=== PATIENT | female | born 1975 | race Caucasian/White ===

== ENCOUNTER 2022-12-06 19:47 | Outpatient (REF) | payer MEDICAID, SELFPAY ==
[2022-12-13 10:10] LABS: Age Gdln ACOG Testing Note (.); HPV Aptima Negative (Negative); IGP, Aptima HPV, rfx 16/18,45 Note (.)
== END 2022-12-06 19:48 | disposition home or self-care (01) ==
LOC: LAB 19:47
PROVIDERS: Visit Provider Physician Assistant
DX: Z01.419 Encounter for gynecological examination (general) (routine) without abnormal findings (principal)
CPT/HCPCS: 87624; G0145

== ENCOUNTER 2023-02-14 16:19 | Emergency (ER) | payer OTHER, MEDICAID, SELFPAY ==
[2023-02-14 16:21] VITALS: BP 139/70; PULSE 70; RESP 20; TEMP 36.6; O2SAT 100; BMI 28.3
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
[2023-02-14] MEDS: KETOROLAC TROMETHAMINE 10 MG TABLET PO (17:12)
[2023-02-14] MEDS: BACITRACIN OINTMENT 28.4 GM TUBE 1 APPLIC TOPICAL (17:12)
[2023-02-14] MEDS: ORPHENADRINE 60 MG/ 2 ML VIAL IM (17:12)
== END 2023-02-14 17:48 | disposition home or self-care (01) ==
PROVIDERS: Emergency Provider Emergency Medicine
DX: S60.221A Contusion of right hand, initial encounter (principal); S40.811A Abrasion of right upper arm, initial encounter; V43.62XA Car passenger injured in collision with other type car in traffic accident, initial encounter
CPT/HCPCS: 70450; 72125; 73060; 73090; 73130; 96372; 99285

== ENCOUNTER 2023-04-09 23:28 | Emergency (ER) | payer MEDICAID, SELFPAY ==
[2023-04-09 23:32] VITALS: BP 130/90; PULSE 70; RESP 17; TEMP 36.4; O2SAT 98; BMI 29.2
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
[2023-04-10] MEDS: 0.9 % SODIUM CHLORIDE 1,000 ML 1000 ML IV (00:08)
[2023-04-10] MEDS: METHYLPREDNISOLONE SOD SUCC PF 125 MG/2 ML VIAL IVP (00:09)
[2023-04-10] MEDS: KETOROLAC TROMETHAMINE 30 MG/ML VIAL IVP (00:09)
[2023-04-10] MEDS: ONDANSETRON PF 4 MG/2 ML VIAL IV (00:09)
[2023-04-10] MEDS: ACETAMINOPHEN 325 MG TABLET 975 MG PO (01:01)
[2023-04-10 01:40] VITALS: BP 114/68; PULSE 78; RESP 16; O2SAT 98
== END 2023-04-10 01:40 | disposition home or self-care (01) ==
PROVIDERS: Emergency Provider Emergency Medicine
DX: G43.909 Migraine, unspecified, not intractable, without status migrainosus (principal)
CPT/HCPCS: 96374; 96375; 99284; J2930

== ENCOUNTER 2023-04-29 15:18 | Outpatient (RCR) | payer OTHER, MEDICAID, SELFPAY | END 2023-06-09 09:00 | disposition home or self-care (01) | LOC: PT 15:18 | PROVIDERS: Visit Provider Psychiatry & Neurology Neurology | DX: G44.209 Tension-type headache, unspecified, not intractable (principal) | CPT/HCPCS: 97010; 97014; 97110; 97140; 97161 ==

== ENCOUNTER 2023-05-23 15:24 | Outpatient (OUT) | payer MEDICAID, SELFPAY ==
--- NOTE | 2023-05-23 15:27 | MM_ITS ---
Patient Name: ROYCE ARGUELLO MR#: [id number] : 1975 Exam Date: 05/23/2023 Ordering Doctor: RICH Garcia . RADIOLOGY REPORT PROCEDURE: MM TOMOSYNTHESIS SCREENING BI COMPARISON: MG MAMM SCREEN 3D JOEL CAD, 10/10/2021. MG MAMM SCREEN 3D JOEL CAD, 09/14/2020. INDICATIONS: Screening Calculator Name NCI Breast Cancer Risk Assessment Tool 5 Year Breast Cancer Risk 1.60% Lifetime Breast Cancer Risk 17.30% Personal Breast Cancer No Personal Ovarian Cancer No Treatments None Family Cancers Mother with breast cancer at age 69. LOCATION: [facility] BREAST COMPOSITION: Heterogeneously dense,which may obscure small masses. FINDINGS: DIAGNOSTIC CATEGORY 2--BENIGN FINDING. NO CHANGE FROM COMPARISON. Scattered benign-appearing calcifications are present. Scattered benign-appearing lymph nodes are present. RIGHT BREAST: No significant suspicious finding. LEFT BREAST: No significant suspicious finding. RECOMMENDATIONS: ROUTINE MAMMOGRAM AND CLINICAL EVALUATION IN 12 MONTHS. PLEASE NOTE: A NORMAL MAMMOGRAM DOES NOT EXCLUDE THE POSSIBILITY OF BREAST CANCER. A CLINICALLY SUSPICIOUS PALPABLE LUMP SHOULD BE BIOPSIED. Dictated by: Diony Wellington MD on 05/24/2023 at 08:32 Approved by: Diony Wellington MD on 05/24/2023 at 08:34
== END 2023-05-23 15:25 | disposition home or self-care (01) ==
LOC: MAMMO 15:24
PROVIDERS: Visit Provider Physician Assistant
DX: Z12.31 Encounter for screening mammogram for malignant neoplasm of breast (principal); Z80.3 Family history of malignant neoplasm of breast
CPT/HCPCS: 77063; 77067

== ENCOUNTER 2023-06-10 10:19 | Outpatient (RCR) | payer MEDICAID, SELFPAY | END 2023-07-04 10:13 | disposition home or self-care (01) | LOC: PT 10:19 | PROVIDERS: PCP Psychiatry & Neurology Neurology; Visit Provider Psychiatry & Neurology Neurology | DX: G44.209 Tension-type headache, unspecified, not intractable (principal) | CPT/HCPCS: 97014; 97140 ==

== ENCOUNTER 2023-09-29 17:03 | Emergency (ER) | payer MEDICAID, SELFPAY ==
[2023-09-29] VITALS (26 sets, daily range): BP systolic 115–137; BP diastolic 65–93; PULSE 70–92; TEMP 37.1; O2SAT 95–99; BMI 28.1
--- OUTSIDE RECORDS SUMMARY | 2023-09-29 17:10 | XMS_ITS | CCD ---
Author Organization [facility] Care Team Providers Care Glass Edger Name Role Phone PHYSICIAN, DEFAULT Unavailable Unavailable PHYSICIAN, DEFAULT Unavailable Unavailable Hercher, Malina L Unavailable Unavailable Hercher, Malina L Unavailable Unavailable Chuckie Oconnell Unavailable Unavailable Hercher, Malina L Unavailable Unavailable Hercher, Malina L Unavailable Unavailable Chuckie Oconnell Unavailable Unavailable Brionna Coronel Unavailable Lenin Adkins Unavailable Harmony Jerez Unavailable NO FAMILY, PHYSICIAN Primary Care Provider Unava ilable KIM JerezC Harmony Attending Provider RUDY Coronel Attending Provider [phone] MISC, DR GIBSON Admitting Unavailable MISC, DR GIBSON Attending Unavailable AUGUSTO, BRIONNA Primary Care Unavailable MISC, DR GIBSON Consulting Unavailable KARASIK, DR CRABTREE Admitting Unavailable KARASIK, DR CRABTREE Attending Unavailable AUGUSTO, BRIONNA Primary Care Unavailable KARASIK, DR CRABTREE Consulting Unavailable LINDENVELIA Admitting Unavailable LINDEN VELIA Attending Unavailable AUGUSTO, BRIONNA Primary Care Unavailable LINDEN, VELIA Consulting Unavailable AUGUSTO, BRIONNA Primary Care Unavailable MARKER, DR COHEN Admitting Unavailable MARKER, DR COHEN Attending Unavailable GRECHNYRICH Consulting Unavailable MARKER, DR COHEN Consulting Unavailable MARY SARAH Consulting Unavailable KARASIK, DR CRABTREE Admitting Unavailable KARASIK, DR CRABTREE Attending Unavailable AUGUSTO, BRIONNA Primary Care Unavailable KARASIK, DR CRABTREE Consulting Unavailable WEST, DR CHUCKIE Diaz Consulting Unavailable KARASIK, DR CRABTREE Admitting Unavailable KARASIK, DR CRABTREE Attending Unavailable AUGUSTO, BRIONNA Primary Care Unavailable KARASIK, DR CRABTREE Consulting Unavailable JANIE Hillman Attending Provider [phone] Savannah Hillman Unavailable NO FAMILY, PHYSICIAN Primary Care Unavailable Harmony Jerez Admitting Unavailable Harmony Jerez Attending Unavailable Brionna Coronel Attending Unavailable NO FAMILY, PHYSICIAN Primary Care Unavailable Brionna Coronel Admitting Unavailable Savannah Hillman Admitting Unavailable Savannah Hillman Attending Unavailable Janett Nugent Unavailable Augusto PERSONNEL RECRUITER-SOLUTION DEVELOPER, Brionna Primary Care Provide r MARLENI ZAVALA Attending Unavailable BRIONNA CORONEL Referring Unavailable BRIONNA CORONEL Primary Care Unavailable RAMYA COSME Attending Unavailable BRIONNA CORONEL Referring Unavailable AUGUSTO BRIONNA Primary Care Unavailable MARLENI ZAVALA Referring Unavailable BRIONNA CORONEL Primary Care Unavailable Allergies Allergy Classification Reported Allergen(s) Allergy Type Date of Onset Reaction(s) Facility (20 sources) amoxicillin; Translations: [amoxicillin] Drug Allergy 04-17-20 05 [facility] Repository (20 sources) erythromycin; Translations: [erythromycin] Drug Allergy 02-06-20 17 [facility] Repository (19 sources) Adhesive Tape Propensity to adverse reactions red and irritation [facility] Other (19 sources) Ciprofloxacin Drug Allergy hard to breath [facility] Other (20 sources) metroNIDAZOLE; Translations: [METRONIDAZOLE] Drug Allergy 04-02-20 19 hard to breath [facility] Other (3 sources) Adhesive agent; Translations: [ADHESIVE] Drug allergy (disorder) 04-02-20 19 [facility] Repository (1 source) Ciprofloxacin Drug Allergy [facility] Repository (1 source) Erythromycin Drug Allergy [facility] Repository (1 source) metroNIDAZOLE Drug Allergy [facility] Repository (4 sources) Adhesive agent Propensity to adverse reactions to drug 04-02-20 19 [facility] (7 sources) Azithromycin; Translations: [AZITHROMYCIN] Drug Allergy 04-02-20 19 Swelling, Rash [facility] (7 sources) Ciprofloxacin; Translations: [CIPROFLOXACIN HCL] Drug Allergy 04-02-20 19 [facility] (7 sources) Adhesive Tape-Silicones; Translations: [ADHESIVE TAPE-SILICONES] Propensity to adverse reactions to drug [facility] Medications Current Medications Medication Drug Class(es) Dates Sig (Normalized) Sig (Original) clobetasol propionate 0.0005 mg/mg topical ointment (1 source) Corticosteroid Start: 09-06-2023 End: 10-06-2023 clobetasoL (TEMOVATE) 0.05 % ointment Apply 1 Application topically 3 (three) times a day for 30 days. 60 g 0 09/06/2023 10/06/2023 Active cyproheptadine hydrochloride 4 mg oral tablet (5 sources) Start: 04-17-2021 dexamethasone 6 mg oral tablet (3 sources) Corticosteroid Start: 04-16-2022 take 1 tablet by mouth every twenty-four hours Dexamethasone 6 MG 1 tablet Orally Once a day for 5 day(s) Apr, Active dexamethasone 0.001 mg/mg / tobramycin 0.003 mg/mg ophthalmic ointment (2 sources) Aminoglycoside Antibacterial, Corticosteroid Start: 01-26-2022 TobraDex 0.3-0.1 % 1 application Ophthalmic twice a day for 5 days Jan, Active fluconazole 150 mg oral tablet (1 source) Azole Antifungal Start: 09-05-2023 End: 09-08-2023 take 1 tablet by mouth every other day fluconazole (DIFLUCAN) 150 mg tablet Take 1 tablet (150 mg total) by mouth every other day for 2 doses. 2 tablet 0 09/05/2023 09/08/2023 Active hydrocortisone 25 mg/ml topical cream (3 sources) Corticosteroid Start: 04-16-2022 Hydrocortisone 2.5 % 1 application Externally Once a day for 5 day(s) Apr, Active lidocaine hydrochloride 20 mg/ml mucous membrane topical solution (3 sources) Antiarrhythmic, Amide Local Anesthetic Start: 04-16-2022 Lidocaine Viscous 2% 5 ml swish around in mouth area and throat Mouth/Throat every 4 hours as needed Apr, Active phenazopyridine hydrochloride 200 mg oral tablet (2 sources) Start: 04-03-2022 take 1 tablet by mouth every eight hours Pyridium 200 MG 1 tablet after meals Orally Three times a day for 2 day(s) Mar, Active predniSONE 20 mg oral tablet (1 source) Start: 06-11-2023 take 1 tablet by mouth every twelve hours prednisone 20 MG 1 tablet Orally BID for 5 Jun, Active sulfacetamide sodium 0.1 mg/mg ophthalmic ointment (3 sources) Sulfonamide Antibacterial Start: 08-10-2021 Sulfacetamide Sodium 10 % 1 application Externally tid for 5 day(s) Aug, Active SUMAtriptan 50 mg oral tablet (3 sources) Serotonin-1b and Serotonin-1d Receptor Agonist SUMAtriptan (IMITREX) 50 mg tablet Take 1 tablet (50 mg total) by mouth once as needed for migraine. May repeat in 2 hours if unresolved. Do not exceed 200 mg in 24 hours. 0 Active terconazole 4 mg/ml vaginal cream (2 sources) Azole Antifungal Terconazole 0.4 % _insert 1 (ONE) applicatorful vaginally at bedtime for 7 (SEVEN) nights Vaginal for 7 Days Active tobramycin 3 mg/ml ophthalmic solution (2 sources) Aminoglycoside Antibacterial Start: 01-26-2022 take 2 drop(s) into the eye(s) three times daily Tobramycin 0.3 % 2 drop into affected eye Ophthalmic tid for 5 days Jan, Active Completed/Discontinued Medications Medication Drug Class(es) Dates Sig (Normalized) Sig (Original) acetaminophen 500 mg oral tablet (4 sources) End: 09-05-2023 acetaminophen (TYLENOL EXTRA STRENGTH) 500 mg tablet Take 1 tablet (500 mg total) by mouth. 0 09/05/2023 Discontinued doxycycline monohydrate 100 mg oral capsule (4 sources) Tetracycline-cla ss Drug Start: 06-11-2023 End: 06-19-2023 take 1 capsule by mouth every twelve hours doxycycline (MONODOX) 100 mg capsule TAKE 1 CAPSULE BY MOUTH EVERY 12 HOURS FOR 10 DAYS 0 06/11/2023 06/19/2023 Discontinued (Therapy completed) Start: 04-03-2022 take 1 capsule by [facility] every twelve hours Doxycycline Monohydrate 100 MG 1 capsule Orally every 12 hrs for 7 days Mar, Active Estradiol (9 sources) Estrogen Estradiol Not-Ta gonzalez/PRN Estradiol Active ibuprofen 200 mg oral tablet (4 sources) Nonsteroidal Anti-inflammatory Drug End: 09-05-2023 ibuprofen (ADVIL,MOTRIN) 200 mg tablet Take 1 tablet (200 mg total) by mouth. 0 09/05/2023 Discontinued methylPREDNISolone (15 sources) Corticosteroid Start: 01-08-2014 Depo-Medrol 80 mg Jan, 80 mg Toradol 30 mg/ml (17 sources) Start: 03-06-2023 Toradol 30 mg/ml Feb, 30 mg Start: 07-09-2021 Toradol 30 mg/ ml Jun, 30 mg Triamcinolone (15 sources) Corticosteroid Start: 12-26-2013 STEFANO Owen 10 m g Dec, 40 mg Problems Active Problems Problem Classification Problem Date Documented Date Episodic/Chronic Abdominal pain (20 sources) Abdominal pain; Translations: [Unspecified abdominal pain] Onset: 09-04-2023 09-04-2023 Episodic Administrative/socia l admission (5 sources) Encounter for pre-employment examination; Translations: [Person with feared health complaint in whom no diagnosis is made] Onset: 11-21-2021 Episodic Allergic reactions (19 sources) Contact dermatitis due to plants; Translations: [Contact dermatitis due to plant] Episodic Anxiety disorders (20 sources) Panic attack; Translations: [Panic disorder [episodic paroxysmal anxiety]] Onset: 04-02-2019 Resolved: 08-10-2021 Chronic Deficiency and other anemia (1 source) Vitamin B12 deficiency anemia, unspecified; Translations: [VITAMIN B12 DEFICIENCY ANEMIA UNS] Onset: 07-16-2022 Episodic Disorders of lipid metabolism (1 source) Pure hypercholesterolemia, unspecified Onset: 04-17-2021 Resolved: 04-17-2021 Chronic Esophageal disorders (19 sources) Gastroesophageal reflux disease; Translations: [Gastro-esophageal reflux disease without esophagitis] Chronic Headache; including migraine (18 sources) Migraine without aura, not refractory ; Translations: [Migraine without aura, not intractable, without status migrainosus] Onset: 04-17-2021 Resolved: 04-17-2021 Chronic Immunizations and screening for infectious disease (9 sources) Contact with and (suspected) exposure to other viral communicable diseases; Translations: [Encounter for screening for human papillomavirus (HPV)] Onset: 07-27-2021 Episodic Malaise and fatigue (1 source) Other fatigue; Translations: [OTHER FATIGUE] Onset: 07-16-2022 Episodic Menopausal disorders (8 sources) Unspecified menopausal and perimenopausal disorder; Translations: [Atrophy of vagina] Onset: 07-16-2022 06-19-2023 Chronic Mood disorders (20 sources) Dysthymia; Translations: [Dysthymic disorder] Onset: 07-16-2022 Chronic Nutritional deficiencies (4 sources) Vitamin D deficiency, unspecified; Translations: [VITAMIN D DEFICIENCY UNSPECIFIED] Onset: 07-14-2022 Chronic Other eye disorders (1 source) Other specified disorders of eye and adnexa Episodic Other female genital disorders (5 sources) Pain in female genitalia on intercourse; Translations: [Unspecified dyspareunia] Onset: 12-04-2022 06-19-2023 Chronic Other female genital disorders (19 sources) Vaginal discharge; Translations: [Other specified noninflammatory disorders of vagina] Episodic Other female genital disorders (9 sources) Other specified noninflammatory disorders of vagina; Translations: [Vaginal discharge N89.8] Onset: 03-23-2021 Resolved: 01-10-2022 Episodic Other female genital disorders (16 sources) Vaginal discomfort; Translations: [Unspecified condition associated with female genital organs and menstrual cycle] Episodic Other nutritional; endocrine; and metabolic disorders (20 sources) Obese class I; Translations: [Body mass index (BMI) 33.0-33.9, adult] Chronic Other skin disorders (2 sources) Lichen sclerosus et atrophicus; Translations: [Circumscribed scleroderma] Onset: 09-05-2023 09-05-2023 Chronic Other upper respiratory disease (19 sources) Seasonal allergic rhinitis; Translations: [Other seasonal allergic rhinitis] Chronic Other upper respiratory infections (2 sources) Acute laryngitis; Translations: [Acute maxillary sinusitis, unspecified] Episodic Sprains and strains (2 sources) Strain of muscle, fascia and tendon at neck level, initial encounter; Translations: [Sprain of ligaments of cervical spine, initial encounter] Episodic Unclassified (1 source) [employer] Vaginal Atrophy Onset: 09-04-2023 Past or Other Problems Problem Classification Problem Date Documented Date Episodic/Chronic Genitourinary symptoms and ill-defined conditions (20 sources) Dysuria; Translations: [Dysuria] Onset: 08-03-2019 Resolved: 06-19-2023 Episodic Headache; including migraine (6 sources) Headache; including migraine; Translations: [HEADACHE UNSPECIFIED] Onset: 07-09-2021 Resolved: 07-09-2021 Inflammatory diseases of female pelvic organs (1 source) Acute vaginitis Onset: 07-17-2021 Resolved: 07-17-2021 Episodic Mood disorders (4 sources) Mood disorders Onset: 06-19-2023 06-19-2023 Nausea and vomiting (1 source) Nausea; Translations: [NAUSEA] Onset: 09-07-2021 Episodic Other aftercare (1 source) Encounter for follow-up examination after completed treatment for conditions other than malignant neoplasm Onset: 04-17-2021 Resolved: 04-17-2021 Episodic Other connective tissue disease (4 sources) Pain in left lower limb; Translations: [Pain in left lower leg] Onset: 04-02-2019 Resolved: 06-19-2023 06-19-2023 Episodic Other eye disorders (4 sources) Dermatochalasis of right upper eyelid; Translations: [Dermatochalasis] Onset: 10-22-2021 10-22-2021 Episodic Other female genital disorders (1 source) Unspecified condition associated with female genital organs and menstrual cycle Onset: 07-09-2021 Resolved: 07-09-2021 Episodic Other female genital disorders (1 source) Other specified noninflammatory disorders of vagina; Translations: [Other specified noninflammatory disorders of vagina] Onset: 01-10-2022 Episodic Other infections; including parasitic (1 source) Personal history of other infectious and parasitic diseases; Translations: [History of chicken pox Z86.19] Onset: 03-23-2021 Resolved: 03-23-2021 Episodic Other non-traumatic joint disorders (4 sources) Multiple joint pain; Translations: [Pain in unspecified joint] Onset: 07-06-2019 07-06-2019 Episodic Other non-traumatic joint disorders (4 sources) Pain of left wrist; Translations: [Pain in left wrist] Onset: 07-06-2019 Resolved: 06-19-2023 06-19-2023 Episodic Other nutritional; endocrine; and metabolic disorders (4 sources) Weight gain; Translations: [Abnormal weight gain] Onset: 12-04-2022 06-19-2023 Episodic Other screening for suspected conditions (not mental disorders or infectious disease) (5 sources) Encounter for screening mammogram for malignant neoplasm of breast; Translations: [Encounter for screening for malignant neoplasm of cervix] Onset: 07-27-2021 Episodic Other skin disorders (1 source) Other specified disorders of the skin and subcutaneous tissue Onset: 08-10-2021 Resolved: 08-10-2021 Episodic Other skin disorders (4 sources) Alopecia; Translations: [Nonscarring hair loss, unspecified] Onset: 12-04-2022 06-19-2023 Episodic Residual codes; unclassified (1 source) Personal history of other specified conditions Onset: 04-17-2021 Resolved: 04-17-2021 Episodic Residual codes; unclassified (1 source) Family history of malignant neoplasm of breast; Translations: [FAMILY HX MALIG NEOPLASM OF BREAST] Onset: 10-12-2021 Episodic Residual codes; unclassified (4 sources) At risk of sexually transmitted infection ; Translations: [Other specified personal risk factors, not elsewhere classified] Onset: 08-03-2019 Resolved: 06-19-2023 06-19-2023 Episodic Unclassified (1 source) Acute cough R05.1 Urinary tract infections (6 sources) Acute cystitis without hematuria; Translations: [Acute cystitis with hematuria] Onset: 08-03-2019 Resolved: 06-19-2023 Episodic Viral infection (1 source) COVID-19 Results Test Name Value Interpretation Reference Range Facility Vaginitis Panel PCRon 2023 Bacterial vaginosis DNA panel AC+probe (Vag fld) Not detected Not Detected^N ot Detected [facility] Comment on above: Qualitative results are reported based on detection and quantitation of targeted organism markers which include: Lactobacillus spp. (L. crispatus and L. jensenii), Gardnerella vaginalis, Atopobium vaginae, Bacterial Vaginosis Associated Bacteria-2 (BVAB-2) and Megasphaera-1 C. glabrata DNA AC+probe Ql (Vag fld) Not detected Not Detected^N ot Detected [facility] Comment on above: No Emile glabrata detected C. krusei DNA AC+probe Ql (Vag fld) Not detected Not Detected^N ot Detected [facility] Comment on above: No Emile krusei de tected Emile sp 6 panel AC+probe (Vag fld) Detected Abnormal Not Detected^N ot Detected [facility] Comment on above: Emile species result based on detection of one or more of the following species: C. albicans, C. tropicalis, C. parapsilosis or C. dubliniensis Interpretation and review of laboratory results Abnormal [facility] T. vaginalis DNA AC+probe Ql (Vag fld) Not detected Not Detected^N ot Detected [facility] Comment on above: No Trichomonas vagin karen detected NOTE BD MAX Vaginal Panel has not been evaluated for patients under 18 years old. Results for these patients should be reviewed and assessed in accordance with clinical presentation to determine patient diagnosis. [facility] VAGINITIS PANEL PCRon 2023 VAGINITIS PANEL PCR BACT. VAGINOSIS DNA Not detected (qualifier value) Qualitative results are reported based on detection and quantitation of targeted organism markers which include: Lactobacillus spp. (L. crispatus and L. jensenii), Gardnerella vaginalis, Atopobium vaginae, Bacterial Vaginosis Associated Bacteria-2 (BVAB-2) and Megasphaera-1 EMILE SPECIES DNA Detected (qualifier value) Emile species result based on detection of one or more of the following species: C. albicans, C. tropicalis, C. parapsilosis or C. dubliniensis EMILE KRUSEI DNA Not detected (qualifier value) No Emile krusei detected EMILE GLABRATA DNA Not detected (qualifier value) No Emile glabrata detected TRICHOMONAS VAG DNA Not detected (qualifier value) No Trichomonas vaginalis detected NOTE [facility] MAX Vaginal Panel has not been evaluated for patients under 18 years old. Results for these patients should be reviewed and assessed in accordance with clinical presentation to determine patient diagnosis. Normal [facility] Comment on above: Performed By: #### V PPCR #### [facility] ([id number]) [address] [place] [address], [address] [place] [address] COVID + FLU Quick Testingon 06-11-2023 SARS-CoV-2 (COVID-19) RNA AC+probe Ql (Unsp spec) Negative [facility] Other COVID + FLU Quick Testing Negative [facility] Other Vaginitis Plus (VG+)on 12-03 Atopobium Vaginae Moderate - 1 Normal . [facility] Comment on above: Order Comment: Reaso n for Exam Vaginal irritation Performed By: #### V AGINITIS+ #### [facility] , BVAB2 Low - [address] [facility] Comment on above: Order Comment: Reaso n for Exam Vaginal irritation Performed By: #### V AGINITIS+ #### [facility] , Emile Albicans, AC Negative Normal Negative [facility] Comment on above: Order Comment: Reaso n for Exam Vaginal irritation Result Comment: This test was developed and its performance characteristics determined by [facility]. It has not been cleared or approved by the Food and Drug Administration. Performed By: #### V AGINITIS+ #### [facility] , Emile Glabrata, AC Negative Normal Negative [facility] Comment on above: Order Comment: Reaso n for Exam Vaginal irritation Result Comment: This test was developed and its performance characteristics determined by [facility]. It has not been cleared or approved by the Food and Drug Administration. PERFORMED BY: [address] [place] [address] PATHOLOGIST HOME CARE COORDINATOR PAWEL MADRIGAL M.D. Performed By: #### V AGINITIS+ #### [facility] , Chlamydia Trachomotis, AC Negative Normal Negative [facility] Comment on above: Order Comment: Reaso n for Exam Vaginal irritation Performed By: #### V AGINITIS+ #### [facility] , Megasphaera Low - [address] [facility] Comment on above: Order Comment: Reaso n for Exam Vaginal irritation Result Comment: Calc ulate total score by adding the 3 individual bacterial vaginosis (BV) marker scores together. Total score is interpreted as follows: Total score 0-1: Indicates the absence of BV. Total score 2: Indeterminate for BV. Additional clinical data should be evaluated to establish a diagnosis. Total score 3-6: Indicates the presence of BV. This test was developed and its performance characteristics determined by [facility]. It has not been cleared or approved by the Food and Drug Administration. Performed By: #### V AGINITIS+ #### [facility] , Neisseria Gonorrhoeae, AC Negative Normal Negative [facility] Comment on above: Order Comment: Reaso n for Exam Vaginal irritation Result Comment: Perf ormed at: =G - [facility] [address] [place] [id number] Room Cooler Installer: Lydia Holliday MD, Phone: [phone] Performed By: #### V AGINITIS+ #### [facility] , Tric Vag AC Negative Normal Negative [facility] Comment on above: Order Comment: Reaso n for Exam Vaginal irritation Performed By: #### V AGINITIS+ #### [facility] , THYROID ANTIBODIESon 023 Thyroglobulin Antibody <1.0 Normal 0.0-0.9 [facility] Comment on above: Result Comment: Thyr oglobulin Antibody measured by [employer] Methodology Performed By: #### T HYBS #### [facility] [address] [place] [address] Dr. Nabila Kearns Thyroid Peroxidase (TPO) Ab 12 IU/mL Normal 0-34 [facility] Comment on above: Performed By: #### T HYBS #### [facility] [address] [place] [address] Dr. Nabila Kearns ESTRADIOLon 07-15-2022 Estradiol 117.0 pg/mL Normal [facility] Comment on above: Result Comment: Adul t Female: Follicular phase 12.5 - 166.0 Ovulation phase 85.8 - 498.0 Luteal phase 43.8 - 211.0 Postmenopausal <6.0 - 54.7 1st trimester 215.0 - >4300.0 Susana ECLIA methodology Performed By: #### H EPBSRF #### [facility] [address] [place] [address] Dr. Nabila Kearns FSHon 07-15-2022 FSH 9.0 mIU/mL Normal [facility] Comment on above: Result Comment: Adul t Female: Follicular phase 3.5 - 12.5 Ovulation phase 4.7 - 21.5 Luteal phase 1.7 - 7.7 Postmenopausal 25.8 - 134.8 Performed By: #### C BC #### [facility] [address] [place] [address] Dr. Nabila Kearns TESTOSTERONE, TOTALon 2022 Testosterone [Mass/Vol] 9 ng/dL Normal 4-50 [facility] Comment on above: Performed By: #### T ESTTOT #### [facility] [address] [place] [address] Dr. Nabila Kerans CBC AUTO DIFFon 07-14-2022 BASO # 0.0 103/ul Normal 0.0-0.1 [facility] Comment on above: Performed By: #### H EPBSRF #### [facility] [address] [place] [address] Dr. Nabila Kearns Basophils/100 WBC (Bld) 0.4 % Normal 0.2-2.0 [facility] Comment on above: Performed By: #### H EPBSRF #### [facility] [address] [place] [address] Dr. Nabila Kearns EO # 0.1 103/ul Normal 0.0-0.7 [facility] Comment on above: Performed By: #### H EPBSRF #### [facility] [address] [place] [address] Dr. Nabila Kearns Eosinophils/100 WBC (Bld) 2.6 % Normal 0.9-7.0 [facility] Comment on above: Performed By: #### H EPBSRF #### [facility] [address] [place] [address] Dr. Nabila Kearns Erythrocyte distribution width (RBC) [Ratio] 12.8 % Normal 11.0-15.0 [facility] Comment on above: Performed By: #### H EPBSRF #### [facility] [address] [place] [address] Dr. Nabila Kearns Hematocrit (Bld) [Volume fraction] 41.3 % Normal 36.0-48.0 [facility] Comment on above: Performed By: #### H EPBSRF #### [facility] [address] [place] [address] Dr. Nabila Kearns Hemoglobin (Bld) [Mass/Vol] 12.9 g/dL Normal 12.0-16.0 [facility] Comment on above: Performed By: #### H EPBSRF #### [facility] [address] [place] [address] Dr. Nabila Kearns IG # 0.02 10e3/ul Normal 0.00-0.03 [facility] Comment on above: Performed By: #### H EPBSRF #### [facility] [address] [place] [address] Dr. Nabila Kearns IG % 0.4 % Normal 0.0-0.5 [facility] Comment on above: Performed By: #### H EPBSRF #### [facility] [address] [place] [address] Dr. Nabila Kearns LYMPH # 1.8 103/ul Normal 1.2-3.8 [facility] Comment on above: Performed By: #### H EPBSRF #### [facility] [address] [place] [address] Dr. Nabila Kearns Lymphocytes/100 WBC (Bld) 33.7 % Normal 20.5-60.0 [facility] Comment on above: Performed By: #### H EPBSRF #### [facility] [address] [place] [address] Dr. Nabila Kearns MANUAL DIFF REQ NO Normal [facility] Comment on above: Performed By: #### H EPBSRF #### [facility] [address] [place] [address] Dr. Nabila Kearns MCH (RBC) [Entitic mass] 29.2 pg Normal 26.7-34.0 [facility] Comment on above: Performed By: #### H EPBSRF #### [facility] [address] [place] [address] Dr. Nabila Kearns MCHC (RBC) [Mass/Vol] 31.2 g/dL Normal 29.9-35.2 [facility] Comment on above: Performed By: #### H EPBSRF #### [facility] [address] [place] [address] Dr. Nabila Kearns MCV (RBC) [Entitic vol] 93.4 fL Normal 81.0-99.0 [facility] Comment on above: Performed By: #### H EPBSRF #### [facility] [address] [place] [address] Dr. Nabila Kearns MONO # 0.5 103/ul Normal 0.3-0.8 [facility] Comment on above: Performed By: #### H EPBSRF #### [facility] [address] [place] [address] Dr. Nabila Kearns Monocytes/100 WBC (Bld) 9.7 % Normal 1.7-12.0 [facility] Comment on above: Performed By: #### H EPBSRF #### [facility] [address] [place] [address] Dr. Nabila Kearns NEUT # 2.9 103/ul Normal 1.4-6.5 [facility] Comment on above: Performed By: #### H EPBSRF #### [facility] [address] [place] [address] Dr. Nabila Kearns Neutrophils/100 WBC (Bld) 53.2 % Normal 43.0-75.0 [facility] Comment on above: Performed By: #### H EPBSRF #### [facility] [address] [place] [address] Dr. Nabila Kearns Platelet mean volume (Bld) [Entitic vol] 10.6 fL Normal 9.5-13.5 [facility] Comment on above: Performed By: #### H EPBSRF #### [facility] [address] [place] [address] Dr. Nabila Kearns PLT 262 103/ul Normal 150-450 [facility] Comment on above: Performed By: #### H EPBSRF #### [facility] [address] [place] [address] Dr. Nabila Kearns RBC 4.42 106/ul Normal 4.20-5.40 [facility] Comment on above: Performed By: #### H EPBSRF #### [facility] [address] [place] [address] Dr. Nabila Kearns WBC 5.5 103/ul Normal 4.0-11.0 [facility] Comment on above: Performed By: #### H EPBSRF #### [facility] [address] [place] [address] Dr. Nabila Kearns FREE T3on 07-14-2022 FREE T3 2.38 pg/mlL Normal 2.18-3.98 [facility] Comment on above: Performed By: #### H EPBSRF #### [facility] [address] [place] [address] Dr. Nabila Kearns FREE T4on 07-14-2022 Free T4 [Mass/Vol] 1.02 ng/dL Normal 0.76-1.46 [facility] Comment on above: Performed By: #### C BC #### [facility] [address] [place] [address] Dr. Nabila Kearns PROF 14(COMP METB)on 023 Albumin [Mass/Vol] 3.2 g/dL Critically low 3.4-5.0 [facility] Comment on above: Performed By: #### H EPBSRF #### [facility] [address] [place] [address] Dr. Nabila Kearns Albumin/Globulin [Mass ratio] 0.8 {ratio} Normal [facility] Comment on above: Performed By: #### H EPBSRF #### [facility] [address] [place] [address] Dr. Nabila Kearns ALP [Catalytic activity/Vol] 48 U/L Normal 46-116 [facility] Comment on above: Performed By: #### H EPBSRF #### [facility] [address] [place] [address] Dr. Nabila Kearns ALT [Catalytic activity/Vol] 30 U/L Normal 14-59 [facility] Comment on above: Performed By: #### H EPBSRF #### [facility] [address] [place] [address] Dr. Nabila Kearns Anion gap [Moles/Vol] 12.3 mmol/L Normal [facility] Comment on above: Performed By: #### H EPBSRF #### [facility] [address] [address] [address] Nabila Kearns AST [Catalytic activity/Vol] 17 U/L Normal 15-37 [facility] Comment on above: Performed By: #### H EPBSRF #### [facility] [address] [address] [address] Nabila Kearns Bilirubin [Mass/Vol] 0.4 mg/dL Normal 0.2-1.0 [facility] Comment on above: Performed By: #### H EPBSRF #### [facility] [address] [address] [address] Nabila Kearns Calcium [Mass/Vol] 8.8 mg/dL Normal 8.5-10.1 [facility] Comment on above: Performed By: #### H EPBSRF #### [facility] [address] [address] [address] Nabila Kearns Chloride [Moles/Vol] 105 mmol/L Normal 98-107 [facility] Comment on above: Performed By: #### H EPBSRF #### [facility] [address] [address] [address] Nabila Kearns CO2 [Moles/Vol] 26.4 mmol/L Normal 21.0-32.0 [facility] Comment on above: Performed By: #### H EPBSRF #### [facility] [address] [place] [address] Dr. Nabila Kearns Creatinine [Mass/Vol] 0.59 mg/dL Normal 0.55-1.02 [facility] Comment on above: Performed By: #### H EPBSRF #### [facility] [address] [address] [address] Nabila Kearns EGFR-AF FAROESE >60 Normal >=60 [facility] Comment on above: Performed By: #### H EPBSRF #### [facility] [address] [address] [address] Nabila Kearns EGFR-NON AF FAROESE >60 Normal >=60 [facility] Comment on above: Performed By: #### H EPBSRF #### [facility] [address] [address] [address] Nabila Kearns Globulin (S) [Mass/Vol] 4.0 g/dL Normal [facility] Comment on above: Performed By: #### H EPBSRF #### [facility] [address] [address] [address] Nabila Kearns Glucose [Mass/Vol] 79 mg/dL Normal 74-106 [facility] Comment on above: Performed By: #### H EPBSRF #### [facility] [address] [address] [address] Nabila Kearns Potassium [Moles/Vol] 3.7 mmol/L Normal 3.5-5.1 [facility] Comment on above: Performed By: #### H EPBSRF #### [facility] [address] [place] [address] Dr. Nabila Kearns Protein [Mass/Vol] 7.2 g/dL Normal 6.4-8.2 [facility] Comment on above: Performed By: #### H EPBSRF #### [facility] [address] [place] [address] Dr. Nabila Kearns Sodium [Moles/Vol] 140 mmol/L Normal 136-145 [facility] Comment on above: Performed By: #### H EPBSRF #### [facility] [address] [place] [address] Dr. Nabila Kearns Urea nitrogen [Mass/Vol] 14.0 mg/dL Normal 7.0-18.0 [facility] Comment on above: Performed By: #### H EPBSRF #### [facility] [address] [place] [address] Dr. Nabila Kearns Urea nitrogen/Creatinine [Mass ratio] 23.7 mg/mg Normal [facility] Comment on above: Performed By: #### H EPBSRF #### [facility] [address] [place] [address] Dr. Nabila Kearns TSHon 07-14-2022 TSH 1.054 uIU/mL Normal 0.358-3.74 0 [facility] Comment on above: Performed By: #### H EPBSRF #### [facility] [address] [address] [address] Nabila Kearns VITAMIN B12on 07-14-2022 Cobalamin (Vitamin B12) [Mass/Vol] 434.0 pg/mL Normal 193.0-986. 0 [facility] Comment on above: Performed By: #### C BC #### [facility] [address] [address] [address] Nabila Kearns VITAMIN D 25 OHon 07-14-2022 VIT D 25-OH 36.5 ng/mL Normal [facility] Comment on above: Performed By: #### C BC #### [facility] [address] [address] [address] Nabila Kearns VIT D RANGES SEE BELOW Normal [facility] Comment on above: Result Comment: <20 ng/mL Vit D deficient 20 - <30 ng/mL Vit D insufficient 30 - 100 ng/mL Vit D sufficient >100 ng/mL Potential Toxicity Performed By: #### C BC #### [facility] [address] [address] [address] Nabila Kearns COVID Quick Testingon 2021 Result Positive [employer] Other Quick Strepon 04-16-2022 S. pyogenes Org specific cx Ql (Throat) Negative [employer] Other Quick Strep [employer] Other Urinalysis - AUTOMATEDon Appearance (U) clear [employer] Other Bilirubin Ql (U) Negative [employer] Other Color (U) yellow [employer] Other Glucose Ql (U) Negative [employer] Other Hemoglobin Ql (U) Moderate [employer] oast [employer] Other Ketones Ql (U) Negative [employer] Other Leukocyte esterase Test strip Ql (U) Small [employer] Other Nitrite Ql (U) Negative [employer] Other pH (U) 6.0 [pH] [employer] Other Protein Ql (U) Negtaive [employer] Other Specific gravity (U) [Rel density] 1.030 [employer] Other Urobilinogen (U) [Mass/Vol] 0.20 mg/dL [employer] Other Urinalysis - AUTOMATED No rt [employer] Other Urine Cultureon 04-03-2022 Bacteria identified Cx Nom (U) Reason for Exam Dysuria Urine >100,000 colonies/ml mixed bacterial skin contaminants 2 Days PERFORMED BY: [facility] [address] [place] [address] PATHOLOGIST HOME CARE COORDINATOR PAWEL MADRIGAL M.D. Normal [facility] Comment on above: Performed By: #### C UU #### [facility] [address] VAGINITIS/VAGINOSIS DNA PROB Oleg 03-02-2022 Emile species Negative Normal Negative [facility] Comment on above: Performed By: #### V AGINT #### [facility] [address] [place] [address] Dr. Nabila Kearns Gardnerella vaginalis Positive Abnormal Negative [facility] Comment on above: Performed By: #### V AGINT #### [facility] [address] [address] [address] Nabila Kearns Trichomonas vaginalis Negative Normal Negative [facility] Comment on above: Performed By: #### V AGINT #### [facility] [address] [address] [address] Nabila Kearns Laboratory - Microbiology an d Antimicrobial susceptibilityOrdered By: Veronica Jerez on 01-10-2022 N. gonorrhoeae DNA AC+probe Ql (Unsp spec) Negative Negative [facility] Comment on above: Performed at: =G - L [facility] [place] [address] [facility] HospitalSur[facility] [place], [place] [id number] Room Cooler Installer: Lydia Holliday MD, Phone: [phone] Performed at: =G - L [facility] [address] [place], [place] [id number] Director: Lydia Holliday MD, Phone: [phone] No Panel InformationOrdered By: RojelioJenny Jerez on 01-10-2022 Emile albicans (AC) Negative Negative [facility] Comment on above: This test was develo ped and its performance characteristics determined by [employer]. It has not been cleared or approved by the Food and Drug Administration. This test was develo ped and its performance characteristicsdetermined by [employer]. It has not been cleared orapproved by the Food and Drug Administration. Emile glabrata (AC) Negative Negative [facility] Comment on above: This test was develo ped and its performance characteristics determined by [facility]. It has not been cleared or approved by the Food and Drug Administration. This test was develo ped and its performance characteristicsdetermined by [employer]. It has not been cleared orapproved by the Food and Drug Administration. Chlamydia trachomatis (AC) (LAB) Negative Negative [facility] Trichomonas vaginalis (AC) Negative Negative [facility] Vaginal fluid At[employer] vagi sergio DNA detection by probe and target amplification methoOrdered By: Veronica Jerez on 01-10-2022 A. vaginae DNA AC+probe Ql (Vag fld) Moderate - 1 Score . [facility] Vaginal fluid Megasphaera sp ecies type 1 DNA detection by probe and target amplificatOrdered By: Veronica Meri on 01-10-2022 Megasphaera sp type 1 DNA AC+probe Ql (Vag fld) High - [address] [facility] Comment on above: Calculate total scor e by adding the 3 individual bacterial vaginosis (BV) marker scores together. Total score is interpreted as follows: Total score 0-1: Indicates the absence of BV. Total score 2: Indeterminate for BV. Additional clinical data should be evaluated to establish a diagnosis. Total score 3-6: Indicates the presence of BV. This test was developed and its performance characteristics determined by [employer]. It has not been cleared or approved by the Food and Drug Administration. Calculate total scor e by adding the 3 individual bacterialvaginosis (BV) marker scores together. Total score isinterpreted as follows:Total score 0-1: Indicates the absence of BV.Total score 2: Indeterminate for BV. Additional clinical data should be evaluated to establish a diagnosis.Total score 3-6: Indicates the presence of BV.This test was developed and its performance characteristicsdetermined by [employer]. It has not been cleared or approvedby the Food and Drug Administration. Vaginal fluid bacterial vagi nosis associated bacterium 2 DNA detection by probe and tOrdered By: Veronica Jerez on 01-10-2022 Bacterial vaginosis associated bacterium 2 DNA AC+probe Ql (Vag fld) Low - [address] [facility] Vaginitis Plus (VG+)on 01-10 [employer] Vaginae Moderate - 1 Normal . [facility] Comment on above: Order Comment: SOURC E OF SPECIMEN: VAGINAL Performed By: #### V AGINITIS+ #### [facility] , BVAB2 Low - [address] [facility] Comment on above: Order Comment: SOURC E OF SPECIMEN: VAGINAL Performed By: #### V AGINITIS+ #### [facility] , Emile Albicans, AC Negative Normal Negative [facility] Comment on above: Order Comment: SOURC E OF SPECIMEN: VAGINAL Result Comment: This test was developed and its performance characteristics determined by [employer]. It has not been cleared or approved by the Food and Drug Administration. Performed By: #### V AGINITIS+ #### [facility] , Emile Glabrata, AC Negative Normal Negative [facility] Comment on above: Order Comment: SOURC E OF SPECIMEN: VAGINAL Result Comment: This test was developed and its performance characteristics determined by [employer]. It has not been cleared or approved by the Food and Drug Administration. PERFORMED BY: [address] [address] [place] [address] PATHOLOGIST HOME CARE COORDINATOR PAWEL MADRIGAL M.D. Performed By: #### V AGINITIS+ #### [facility] , Chlamydia Trachomotis, AC Negative Normal Negative [facility] Comment on above: Order Comment: SOURC E OF SPECIMEN: VAGINAL Performed By: #### V AGINITIS+ #### [facility] , Megasphaera High - [address] [facility] Comment on above: Order Comment: SOURC E OF SPECIMEN: VAGINAL Result Comment: Calc ulate total score by adding the 3 individual bacterial vaginosis (BV) marker scores together. Total score is interpreted as follows: Total score 0-1: Indicates the absence of BV. Total score 2: Indeterminate for BV. Additional clinical data should be evaluated to establish a diagnosis. Total score 3-6: Indicates the presence of BV. This test was developed and its performance characteristics determined by [employer]. It has not been cleared or approved by the Food and Drug Administration. Performed By: #### V AGINITIS+ #### [facility] , Neisseria Gonorrhoeae, AC Negative Normal Negative [facility] Comment on above: Order Comment: SOURC E OF SPECIMEN: VAGINAL Result Comment: Perf ormed at: = - [facility] [address] [id number] Room Cooler Installer: Lydia Holliday MD, Phone: [phone] Performed By: #### V AGINITIS+ #### [facility] , Tric Vag AC Negative Normal Negative [facility] Comment on above: Order Comment: SOURC E OF SPECIMEN: VAGINAL Performed By: #### V AGINITIS+ #### [facility] , QUANTIFERON TB GOLD PLUSon 0 11-23-2021 QuantiFERON Criteria Comment Normal [facility] Comment on above: Result Comment: The QuantiFERON-TB Gold Plus result is determined by subtracting the Nil value from either TB antigen (Ag) tube. The mitogen tube serves as a control for the test. Performed By: #### Q NTTB #### [facility] [address] [place] [address] Dr. Nabila Kearns QuantiFERON Incubation Incubation performed. Normal [facility] Comment on above: Performed By: #### Q NTTB #### [facility] [address] [address] [address] Nabila Kearns QuantiFERON Mitogen Value >10.00 Normal [facility] Comment on above: Performed By: #### Q NTTB #### [facility] [address] [place] [address] Dr. Nabila Kearns QuantiFERON Nil Value 0.00 IU/mL Normal [facility] Comment on above: Performed By: #### Q NTTB #### [facility] [address] [address] [address] Nabila Kearns QuantiFERON TB1 Ag Value 0.01 IU/mL Normal [facility] Comment on above: Performed By: #### Q NTTB #### [facility] [address] [place] [address] Dr. Nabila Kearns QuantiFERON TB2 Ag Value 0.00 IU/mL Normal [facility] Comment on above: Performed By: #### Q NTTB #### [facility] [address] [place] [address] Dr. Nabila Kearns QuantiFERON-TB Gold Plus Negative Normal Negative [facility] Comment on above: Result Comment: Chem iluminescence immunoassay methodology Performed By: #### Q NTTB #### [facility] [address] [place] [address] Dr. Nabila Kearns HEPATITIS B SURFACE ANTIBODY , QUANTon 11-22-2021 Hepatitis B Surf AB Quant 13.3 mIU/mL Normal Immunity>9 .9 [facility] Comment on above: Result Comment: Stat us of Immunity Anti-HBs Level Inconsistent with Immunity 0.0 - 9.9 Consistent with Immunity >9.9 Performed By: #### H EPBSRF #### [facility] [address] [place] [address] Dr. Nabila Kearns MMR IMMUNITYon 11-22-2021 Mumps Abs, IgG 14.9 AU/mL Normal Immune >10.9 [facility] Comment on above: Result Comment: Nega tive <9.0 Equivocal 9.0 - 10.9 Positive >10.9 A positive result generally indicates past exposure to Mumps virus or previous vaccination. Performed By: #### C BC #### [facility] [address] [place] [address] Dr. Nabila Kearns Rubella Antibodies, IgG 1.92 index Normal Immune >0.99 [facility] Comment on above: Result Comment: Non- immune <0.90 Equivocal 0.90 - 0.99 Immune >0.99 Performed By: #### C BC #### [facility] [address] [place] [address] Dr. Nabila Kearns Rubeola Ab, IgG 298.0 AU/mL Normal Immune >16.4 [facility] Comment on above: Result Comment: Nega tive <13.5 Equivocal 13.5 - 16.4 Positive >16.4 Presence of antibodies to Rubeola is presumptive evidence of immunity except when acute infection is suspected. Performed By: #### C BC #### [facility] [address] [place] [address] Dr. Nabila Kearns VARICELLA IGG ABon 2 Varicella Zoster IgG 1333 index Normal Immune >165 [facility] Comment on above: Result Comment: Nega tive <135 Equivocal 135 - 165 Positive >165 A positive result generally indicates exposure to the pathogen or administration of specific immunoglobulins, but it is not indication of active infection or stage of disease. Performed By: #### V ARCEL #### [facility] [address] [place] [address] Dr. Nabila Kearns MG MAMM SCREEN 3D JOEL CADon 10-10-2021 MG MAMM SCREEN 3D JOEL CAD Patient: LEYDI ARGUELLO Exam Date: 10/10/2021 : 1975 Gender:F Ordering : DR LEYDA BAIG . Admission #: [id number] Family : Order #: [id number] CLICK HERE TO VIEW EXAM RADIOLOGY REPORT PROCEDURE: MAMMOGRAM SCREENING 3D BILATERAL CAD COMPARISON: MG MAMM SCREEN JOEL W CAD, 04/14/2019. MG MAMM SCREEN 3D JOEL CAD, 09/14/2020. INDICATIONS: Screening for malignant neoplasm of breast Calculator Name NCI Breast Cancer Risk Assessment Tool 5 Year Breast Cancer Risk 1.50% Lifetime Breast Cancer Risk 17.70% Personal Breast Cancer No Personal Ovarian Cancer No Treatments None Family Cancers Mother with breast cancer at age 69. LOCATION: [facility] BREAST COMPOSITION: Heterogeneously dense,which may obscure small masses. FINDINGS: DIAGNOSTIC CATEGORY 1--NEGATIVE. NO CHANGE FROM COMPARISON ASSESSMENT. Scattered benign-appearing lymph nodes are present. RIGHT BREAST: No significant suspicious finding. Stable coarse calcification upper outer quadrant. LEFT BREAST: No significant suspicious finding. RECOMMENDATIONS: ROUTINE MAMMOGRAM AND CLINICAL EVALUATION IN 12 MONTHS. PLEASE NOTE: A NORMAL MAMMOGRAM DOES NOT EXCLUDE THE POSSIBILITY OF BREAST CANCER. A CLINICALLY SUSPICIOUS PALPABLE LUMP SHOULD BE BIOPSIED. Dictated by: Chuckie Wellington MD on 10/11/2021 at 07:11 Approved by: Chuckie Wellington MD on 10/11/2021 at 07:13 Normal [facility] CT HEAD WO CONon 09-06-2021 CT HEAD WO CON EXAMINATION: CT HEAD WO CON HISTORY: HEADACHE COMPARISON: None. TECHNIQUE: CT examination of the head without IV contrast. Dose reduction techniques were achieved by using automated exposure control and/or adjustment of mA and/or kV according to patient size and/or use of iterative reconstruction technique. FINDINGS: The brain parenchyma density is unremarkable. There is no acute intracranial hemorrhage, extra axial fluid collection, midline shift, or mass effect. There is no evidence to suggest acute infarction. The ventricles, sulci, and cisterns are normal in size and configuration, without evidence of hydrocephalus or herniation. The partially visualized paranasal sinuses and mastoid air cells are well pneumatized and clear. There are no suspicious osseous lytic or sclerotic lesions. There are no acute fractures. The extracranial soft tissues are unremarkable. IMPRESSION: No acute intracranial process. Electronically authenticated by: MARY SARAH Date: 2021-09-05 22:18 Normal [facility] CBC AUTO DIFFon 09-05-2021 BASO # 0.0 103/ul Normal 0.0-0.1 [facility] Comment on above: Performed By: #### C BC #### [facility] [address] [address] [address] Nabila Kearns Basophils/100 WBC (Bld) 0.3 % Normal 0.2-2.0 [facility] Comment on above: Performed By: #### C BC #### [facility] [address] [place] [address] Dr. Nabila Kearns EO # 0.2 103/ul Normal 0.0-0.7 [facility] Comment on above: Performed By: #### C BC #### [facility] [address] [place] [address] Dr. Nabila Kearns Eosinophils/100 WBC (Bld) 2.3 % Normal 0.9-7.0 [facility] Comment on above: Performed By: #### C BC #### [facility] [address] [place] [address] Dr. Nabila Kearns Erythrocyte distribution width (RBC) [Ratio] 12.9 % Normal 11.0-15.0 [facility] Comment on above: Performed By: #### C BC #### [facility] [address] [place] [address] Dr. Nabila Kearns Hematocrit (Bld) [Volume fraction] 43.4 % Normal 36.0-48.0 [facility] Comment on above: Performed By: #### C BC #### [facility] [address] [place] [address] Dr. Nabila Kearns Hemoglobin (Bld) [Mass/Vol] 14.7 g/dL Normal 12.0-16.0 [facility] Comment on above: Performed By: #### C BC #### [facility] [address] [place] [address] Dr. Nabila Kearns IG # 0.03 10e3/ul Normal 0.00-0.03 [facility] Comment on above: Performed By: #### C BC #### [facility] [address] [place] [address] Dr. Nabila Kearns IG % 0.3 % Normal 0.0-0.5 [facility] Comment on above: Performed By: #### C BC #### [facility] [address] [place] [address] Dr. Nabila Kearns LYMPH # 1.8 103/ul Normal 1.2-3.8 [facility] Comment on above: Performed By: #### C BC #### [facility] [address] [place] [address] Dr. Nabila Kearns Lymphocytes/100 WBC (Bld) 19.5 % Critically low 20.5-60.0 [facility] Comment on above: Performed By: #### C BC #### [facility] [address] [place] [address] Dr. Nabila Kearns MANUAL DIFF REQ NO Normal [facility] Comment on above: Performed By: #### C BC #### [facility] [address] [place] [address] Dr. Nabila Kearns MCH (RBC) [Entitic mass] 30.5 pg Normal 26.7-34.0 [facility] Comment on above: Performed By: #### C BC #### [facility] [address] [place] [address] Dr. Nabila Kearns MCHC (RBC) [Mass/Vol] 33.9 g/dL Normal 29.9-35.2 [facility] Comment on above: Performed By: #### C BC #### [facility] [address] [place] [address] Dr. Nabila Kearns MCV (RBC) [Entitic vol] 90.0 fL Normal 81.0-99.0 [facility] Comment on above: Performed By: #### C BC #### [facility] [address] [place] [address] Dr. Nabila Kearns MONO # 0.9 103/ul Critically high 0.3-0.8 [facility] Comment on above: Performed By: #### C BC #### [facility] [address] [place] [address] Dr. Nabila Kearns Monocytes/100 WBC (Bld) 9.5 % Normal 1.7-12.0 [facility] Comment on above: Performed By: #### C BC #### [facility] [address] [place] [address] Dr. Nabila Kearns NEUT # 6.4 103/ul Normal 1.4-6.5 [facility] Comment on above: Performed By: #### C BC #### [facility] [address] [place] [address] Dr. Nabila Kearns Neutrophils/100 WBC (Bld) 68.1 % Normal 43.0-75.0 [facility] Comment on above: Performed By: #### C BC #### [facility] [address] [place] [address] Dr. Nabila Kearns Platelet mean volume (Bld) [Entitic vol] 11.2 fL Normal 9.5-13.5 [facility] Comment on above: Performed By: #### C BC #### [facility] [address] [place] [address] Dr. Nabila Kearns PLT 251 103/ul Normal 150-450 [facility] Comment on above: Performed By: #### C BC #### [facility] [address] [place] [address] Dr. Nabila Kearns RBC 4.82 106/ul Normal 4.20-5.40 [facility] Comment on above: Performed By: #### C BC #### [facility] [address] [place] [address] Dr. Nabila Kearns WBC 9.4 103/ul Normal 4.0-11.0 [facility] Comment on above: Performed By: #### C BC #### [facility] [address] [place] [address] Dr. Nabila Kearns CRPon 09-05-2021 CRP [Mass/Vol] mg/L Normal <=1.0 [facility] Comment on above: Performed By: #### C BC #### [facility] [address] [place] [address] Dr. Nabila Kearns PREG HCG QUALon 09-05-2021 , QUAL Negative Normal NEGATIVE [facility] Comment on above: Performed By: #### C BC #### [facility] [address] [place] [address] Dr. Nabila Kearns PROF CHEM 8 (BAS METB)on Anion gap [Moles/Vol] 13.8 mmol/L Normal [facility] Comment on above: Performed By: #### C BC #### [facility] [address] [address] [address] Nabila Kearns Calcium [Mass/Vol] 9.3 mg/dL Normal 8.5-10.1 [facility] Comment on above: Performed By: #### C BC #### [facility] [address] [address] [address] Nabila Kearns Chloride [Moles/Vol] 103 mmol/L Normal 98-107 [facility] Comment on above: Performed By: #### C BC #### [facility] [address] [address] [address] Nabila Kearns CO2 [Moles/Vol] 23.9 mmol/L Normal 22.0-30.0 [facility] Comment on above: Performed By: #### C BC #### [facility] [address] [place] [address] Dr. Nabila Kearns Creatinine [Mass/Vol] 0.64 mg/dL Normal 0.52-1.04 [facility] Comment on above: Performed By: #### C BC #### [facility] [address] [place] [address] Dr. Nabila Kearns EGFR-AF FAROESE >60 Normal >=60 [facility] Comment on above: Performed By: #### C BC #### [facility] [address] [place] [address] Dr. Nabila Kearns EGFR-NON AF FAROESE >60 Normal >=60 [facility] Comment on above: Performed By: #### C BC #### [facility] [address] [address] [address] Nabila Kearns Glucose [Mass/Vol] 92 mg/dL Normal 74-106 [facility] Comment on above: Performed By: #### C BC #### [facility] [address] [place] [address] Dr. Nabila Kearns Potassium [Moles/Vol] 3.7 mmol/L Normal 3.4-5.0 [facility] Comment on above: Performed By: #### C BC #### [facility] [address] [address] [address] Nabila Kearns Sodium [Moles/Vol] 137 mmol/L Normal 137-145 [facility] Comment on above: Performed By: #### C BC #### [facility] [address] [place] [address] Dr. Nabila Kearns Urea nitrogen [Mass/Vol] 12.0 mg/dL Normal 7.0-18.0 [facility] Comment on above: Performed By: #### C BC #### [facility] [address] [place] [address] Dr. Nabila Kearns Urea nitrogen/Creatinine [Mass ratio] 18.8 mg/mg Normal [facility] Comment on above: Performed By: #### C BC #### [facility] [address] [place] [address] Dr. [facility]abil[facility]ear[facility] 12 mm/hr Normal <=20 [facility] Comment on above: Performed By: #### S EDR #### [facility] [address] [place] [address] Dr. Nabila Kearns PAP ACOG PANEL 2: 30 to 65on 07-27-2021 . . Normal [facility] Comment on above: Result Comment: Perf ormed at: WB Performed By: #### [id number] #### [facility] [address] [place] [address] Dr. Nabila Kearns Age Gdln ACOG Testing 30-65 [facility] Comment on above: Performed By: #### [id number] #### [facility] [address] [place] [address] Dr. Nabila Kearns DIAGNOSIS: Comment Normal [facility] Comment on above: Result Comment: NEGA TIVE FOR INTRAEPITHELIAL LESION OR MALIGNANCY. Performed at: WB Performed By: #### [id number] #### [facility] [address] [place] [address] Dr. Nabila Kearns HPV Aptima Negative Normal Negative [facility] Comment on above: Result Comment: This nucleic acid amplification test detects fourteen high-risk HPV types (16,18,31,33,35,39,45,51,52,56,58,59,66,68) without differentiation. Performed at: =G Performed By: #### 4 [id number] #### [facility] [address] [place] [address] Dr. Nabila Kearns Methodology: Comment Normal [facility] Comment on above: Result Comment: This liquid based ThinPrep(R) pap test was screened with the use of an image guided system. Performed at: WB Performed By: #### [id number] #### [facility] [address] [place] [address] Dr. Nabila Kearns Note: Comment Normal [facility] Comment on above: Result Comment: The Pap smear is a screening test designed to aid in the detection of premalignant and malignant conditions of the uterine cervix. It is not a diagnostic procedure and should not be used as the sole means of detecting cervical cancer. Both false-positive and false-negative reports do occur. . Performed at: WB Performed By: #### [id number] #### [facility] [address] [place] [address] Dr. Nabila Kearns Performed by: Comment Normal [facility] Comment on above: Result Comment: Steve Cooper, Flight Control Manager (ASCP) Performed at: WB Performed By: #### [id number] #### [facility] [address] [place] [address] Dr. Nabila Kearns Specimen adequacy: Comment Normal [facility] Comment on above: Result Comment: Sati sfactory for evaluation. No endocervical component is identified. Performed at: WB Performed By: #### [id number] #### [facility] [address] [place] [address] Dr. Nabila Kearns VAGINITIS/VAGINOSIS DNA PROB Oleg 07-26-2021 Emile species Negative Normal Negative [facility] Comment on above: Performed By: #### V AGINT #### [facility] [address] [place] [address] Dr. Nabila Kearns Gardnerella vaginalis Negative Normal Negative [facility] Comment on above: Performed By: #### V AGINT #### [facility] [address] [place] [address] Dr. Nabila Kearns Trichomonas vaginalis Negative Normal Negative [facility] Comment on above: Performed By: #### V AGINT #### [facility] [address] [address] [address] Nabila Kearns Urinalysis - AUTOMATEDon Appearance (U) clear [employer] Other Bilirubin Ql (U) Negative [employer] Other Color (U) light yellow [employer] Other Glucose Ql (U) Negative [employer] Other Hemoglobin Ql (U) Negative [employer] Other Ketones Ql (U) Negative [employer] Other Leukocyte esterase Test strip Ql (U) Negative [employer] Other Nitrite Ql (U) Negative [employer] Other pH (U) 6.5 [pH] [employer] Other Protein Ql (U) Negative [employer] Other Specific gravity (U) [Rel density] 1.030 [employer] Other Urobilinogen (U) [Mass/Vol] 0.2 mg/dL [employer] Other Urinalysis - AUTOMATED No rt [employer] Other Consultation Noteon 09-13-19 Consultation Note [id number] Normal [facility] Ambulatory Clinical Summaryo n 08-09-2020 Ambulatory Clinical Summary {[id number] Normal [facility] Patient Educationon 08-10-19 21 Patient Education Obstetrics and Gynec ology Overactive Bladder, Adult Overactive bladder refers to a condition in which a person has a sudden need to pass urine. The person may leak urine if he or she cannot get to the bathroom fast enough (urinary incontinence). A person with this condition may also wake up several times in the night to go to the bathroom. Overactive bladder is associated with poor nerve signals between your bladder and your brain. Your bladder may get the signal to empty before it is full. You may also have very sensitive muscles that make your bladder squeeze too soon. These symptoms might interfere with daily work or social activities. What are the causes? This condition may be associated with or caused by: ? Urinary tract infection. ? Infection of nearby tissues, such as the prostate. ? Prostate enlargement. ? Surgery on the uterus or urethra. ? Bladder stones, inflammation, or tumors. ? Drinking too much caffeine or alcohol. ? Certain medicines, especially medicines that get rid of extra fluid in the body (diuretics). ? Muscle or nerve weakness, especially from: ? A spinal cord injury. ? Stroke. ? Multiple sclerosis. ? Parkinson's disease. ? Diabetes. ? Constipation. What increases the risk? You may be at greater risk for overactive bladder if you: ? Are an older adult. ? Smoke. ? Are going through menopause. ? Have prostate problems. ? Have a neurological disease, such as stroke, dementia, Parkinson's disease, or multiple sclerosis (MS). ? Eat or drink things that irritate the bladder. These include alcohol, spicy food, and caffeine. ? Are overweight or obese. What are the signs or symptoms? Symptoms of this condition include: ? Sudden, strong urge to urinate. ? Leaking urine. ? Urinating 8 or more times a day. ? Waking up to urinate 2 or more times a night. How is this diagnosed? Your health care provider may suspect overactive bladder based on your symptoms. He or she will diagnose this condition by: ? A physical exam and medical history. ? Blood or urine tests. You might need bladder or urine tests to help determine what is causing your overactive bladder. You might also need to see a health care provider who specializes in urinary tract problems (urologist). How is this treated? Treatment for overactive bladder depends on the cause of your condition and whether it is mild or severe. You can also make lifestyle changes at home. Options include: ? Bladder training. This may include: ? Learning to control the urge to urinate by following a schedule that directs you to urinate at regular intervals (timed voiding). ? Doing Kegel exercises to strengthen your pelvic floor muscles, which support your bladder. Toning these muscles can help you control urination, even if your bladder muscles are overactive. ? Special devices. This may include: ? Biofeedback, which uses sensors to help you become aware of your body's signals. ? Electrical stimulation, which uses electrodes placed inside the body (implanted) or outside the body. These electrodes send gentle pulses of electricity to strengthen the nerves or muscles that control the bladder. ? Women may use a plastic device that fits into the vagina and supports the bladder (pessary). ? Medicines. ? Antibiotics to treat bladder infection. ? Antispasmodics to stop the bladder from releasing urine at the wrong time. ? Tricyclic antidepressants to relax bladder muscles. ? Injections of botulinum toxin type A directly into the bladder tissue to relax bladder muscles. ? Lifestyle changes. This may include: ? Weight loss. Talk to your health care provider about weight loss methods that would work best for you. ? Diet changes. This may include reducing how much alcohol and caffeine you consume, or drinking fluids at different times of the day. ? Not smoking. Do not use any products that contain nicotine or tobacco, such as cigarettes and e-cigarettes. If you need help quitting, ask your health care provider. ? Surgery. ? A device may be implanted to help manage the nerve signals that control urination. ? An electrode may be implanted to stimulate electrical signals in the bladder. ? A procedure may be done to change the shape of the bladder. This is done only in very severe cases. Follow these instructions at home: Lifestyle ? Make any diet or lifestyle changes that are recommended by your health care provider. These may include: ? Drinking less fluid or drinking fluids at different times of the day. ? Cutting down on caffeine or alcohol. ? Doing Kegel exercises. ? Losing weight if needed. ? Eating a healthy and balanced diet to prevent constipation. This may include: ? Eating foods that are high in fiber, such as fresh fruits and vegetables, whole grains, and beans. ? Limiting foods that are high in fat and processed sugars, such as fried and sweet foods. General instructions ? Take qsky-wkn-hvvytwk and prescription medicines only as told by your health care provider. ? If you were prescribed an antibiotic medicine, take it as told by your health care provider. Do not stop taking the antibiotic even if you start to feel better. ? Use any implants or pessary as told by your health care provider. ? If needed, wear pads to absorb urine leakage. ? Keep a journal or log to track how much and when you drink and when you feel the need to urinate. This will help your health care provider monitor your condition. ? Keep all follow-up visits as told by your health care provider. This is important. Contact a health care provider if: ? You have a fever. ? Your symptoms do not get better with treatment. ? Your pain and discomfort get worse. ? You have more frequent urges to urinate. Get help right away if: ? You are not able to control your bladder. Summary ? Overactive bladder refers to a condition in which a person has a sudden need to pass urine. ? Several conditions may lead to an overactive bladder. ? Treatment for overactive bladder depends on the cause and severity of your condition. ? Follow your health care provider's instructions about lifestyle changes, doing Kegel exercises, keeping a journal, and taking medicines. This information is not intended to replace advice given to you by your health care provider. Make sure you discuss any questions you have with your health care provider. Document Released: 03/23/2010 Document Revised: 09/17/2019 Document Reviewed: 06/12/2018 [employer] Patient Education ? 2019 [email or web address]. [facility] Urology Office/Clinic Noteon 08-09-2020 Urology Office/Clinic Note Chief Complaint urinary incontinence This patient is a 44-year-old female with a history of stress urinary incontinence symptoms. She leaks urine when she is physically active. Laughing coughing sneezing also causes her to leak small amounts of urine. She is here today for urologic evaluation. [facility] Staff New patient here today due to urinary stress incontinence. Painful urination: no Blood in urine: no urinary frequency: no urinary urgency: no incomplete emptying: no nocturia: no weak stream: no post void dribbling: no urinary incontinence: yes moderate leaking with coughing, sneezing, and physical activity. patient states this has been ongoing for about 5 years. patient states she had her bladder tacked up in 2018 during her hysterectomy. patient states it did help for a short time but she's back to leaking. patient doesnt wear pads but states she should. History of Present Illness Reviewed urine, referral, and new pt. paper works. There have been no associated fever, chills, flank pain or blood in the urine. Pt. denies any pain/burning with urination at this time. Review of Systems PHQ Score Initial Depression Screen Score: 0 ROS - Provider Constitutional: denies weight loss, denies hot flashes. Eyes: denies eye problems. Gastrointestinal: denies nausea, denies vomiting. Cardiovascular: denies chest pain or angina. Integumentary: no dryness Musculoskeletal: denies musculoskeletal symptoms. ENMT: denies otolaryngeal symptoms. Respiratory: no shortness of breath. Heme/Lymph: denies easy bleeding tendency, denies easy bruising tendency. Psychiatric: no confusion, no anxiety. Genitourinary: denies vaginal discharge, moderate incontinence, denies dysuria, denies hematuria, denies urinary frequency, denies amenorrhea, denies menorrhagia, denies abnormal bleeding, denies pelvic pain, denies genital sores, and denies decreased libido. Physical Exam Vitals & Measurements HR: 78(Peripheral) RR: 16 BP: 111/76 HT: 160.02 cm HT: 160.0 cm WT: 73.1 kg WT: 73.1 kg BMI: 28.55 General Appearance: alert , no acute distress, well nourished, well developed female. Head: normocephalic . Eyes: normal orbit and globe. ENMT: normal examination of external ears. Chest: Lungs CTA, respirations non labored . Cardiovascular: regular rate and rhythm. Abdomen: soft, non distended, no tenderness, no mass or organomegaly, no hernia Lymph Nodes: unremarkable palpation of the cervical area. Skin: warm, dry, no bruising. Psychiatric: cooperative, affect appropriate for age, normal judgement, euthymic mood. Assessment/Plan At present the patient has symptoms consistent with stress urinary incontinence. She is being scheduled for cystoscopy and urethral dilation of a suspected urethral stenosis. She is also scheduled for urodynamics to rule out the possibility of a neurogenic bladder. Hopefully this evaluation will give us information about her overall bladder functionality and we can use this to determine whether or not her stress incontinence can be managed surgically. We did discuss medication management as well. We will discuss this in more detail after her work-up is completed. Preop antibiotics have been ordered. Informed consent is been obtained. All of her questions were answered. 1. Stress incontinence (N39.3: Stress incontinence (female) (male)) Moderate - severe w/ coughing, sneezing, or physical activity. Pt. states this has been ongoing for the past five years. Will schedule Cysto w/ possible UD. The risks and benefits for cystoscopy have been discussed. The risks include bleeding, infection, and irritation of the bladder and urinary channel, among others. The patient, after being informed of procedural details and after questions have been answered, wishes to proceed. Full informed consent has been obtained. Will order Local anesthesia. Will have pt. also do Urodynamics testing to check bladder function. ABX sent to [facility] in [place]. Ordered: Urology Procedure Order Urology Procedure Order Orders: nitrofurantoin, 100 mg = 1 cap(s), Oral, Daily, take 1 cap one day prior to the procedure and 1 cap after the procedure, # 2 cap(s), Refills(s) 0, Pharmacy: [id number], 160, cm, 08/09/20 10:40:00 EST, Height/Length Dosing, 73.1, kg, 08/09/20 10:40:00... Urnls Dip Stick Auto w/o Microscopy POC 24607 I have reviewed the previous health record information and history for this pt. from Dr. Dimas. Follow-up With When Contact Information Wing Ventura MD, Gab Benjamin [address] [place], [place] [id number]- Additional Instructions: Patient Education Overactive Bladder, Adult I, Negar Tabor , personally scribed for Dr. Dimas on 08/09/2020 11:32:41. . Documentation recorded by the scribe, Negar Tabor, accurately reflects the services(s) I performed and decisions made by me. Authenticated by Dr. Dimas on 08/09/2020 11:48:39. Problem List/Past Medical History Ongoing Migraine headache Historical No qualifying data Procedure/Surgical History Dilation and curettage (08/08/2016), Essure. (2007), Cholecystectomy, Hysterectomy. Medications No active medications Allergies Cipro (Shortness of breath) Tape (Unknown) amoxicillin (Rash) erythromycin (Rash) metroNIDAZOLE (Unknown) Social History Alcohol - Low Risk, 08/09/2020 Substance Abuse - Denies Substance Abuse, 08/09/2020 Tobacco - Denies Tobacco Use, 08/09/2020 Never (less than 100 in lifetime) Tobacco Use:., 08/05/2020 Family History Arthritis: Mother. Diabetes: Mother. Hyperlipidemia: Father. Hypertension: Father. Lab Results Ambulatory Point of Care Results Bilirubin Urine Dipstick: Negative (08/09/20 10:36:00) Blood Urine Dipstick: Negative (08/09/20 10:36:00) Glucose Urine Dipstick: Negative (08/09/20 10:36:00) Ketones Urine Dipstick: Trace - 5 mg/dl (08/09/20 10:36:00) Leukocytes Urine Dipstick: Negative (08/09/20 10:36:00) Nitrite Urine Dipstick: Negative (08/09/20 10:36:00) Protein Urine Dipstick: Negative (08/09/20 10:36:00) Specific [place] Urine Dipstick: >=1.030 (08/09/20 10:36:00) Urine Appearance Urine Dipstick: Clear (08/09/20 10:36:00) Urine Color Urine Dipstick: Yellow (08/09/20 10:36:00) Urobilinogen Urine Dipstick: Normal 0.2-1 EU/dl (08/09/20 10:36:00) pH Urine Dipstick: 5 (08/09/20 10:36:00) Diagnostic Results Urinalysis today is negative for infection. I reviewed the office notes and physical exam from Dr. Baig. [facility] Comment on above: Result Comment: Elec tronically Signed By: Wnig Ventura MD, Gab Benjamin\.br\Date and Time Signed: 08/09/20 11:49 EST\.br\Electronically Co-Signed By: Negar Tabor MA\.br\Date and Time Co-Signed: 08/09/20 11:33 EST CNPTheodora 09-13-2019 CNPN Telephone (HIMANSHU) ----- LEYDI ARGUELLO ([id number]) 1975 F Date Time Provider Department 09/13/19 SHELTON YEBOAH) HIMANSHU During your visit today, we recorded the following information about you: Shelton Yeboah APRN.JAMIL 09/13/2019 7:48 AM Signed Patient did not meet the testing criteria for COVID-19 due to her lack of high risk past medical history. Allergies As of Date: 09/13/2019 Noted Allergy Reaction CIPROFLOXACIN 04/02/2019 12 - Shortness of Breath METRONIDAZOLE 04/02/2019 2 - Rash ADHESIVE TAPE-SILICONES 04/02/2019 2 - Rash AMOXICILLIN 04/17/2005 2 - Rash ERYTHROMYCIN 02/05/2017 2 - Rash Date Reviewed: 09/13/2019 Reviewed by: Deondre Leach) Prasanna - Fully Assessed Reason for Visit: Covid-19 Hotline [1496] Prescriptions as of 09/13/2019 Sig: NITROFURANTOIN MACROCRYSTAL 1* Take 100 mg by mouth. CLOBEX 0.05 % SHAMPOO use as shampoo EOD CLOBETASOL 0.05 % SCALP SOLUT* apply to affected areas BID Problem List As Of Date: 09/13/2019 (None) Encounter Status:Closed by SHELTON [facility]BOAH [facility]13/[facility] LEYDI ARGUELLO ([id number]) 1975 F Date Time Provider Department 09/13/19 SHELTON YEBOAH) HIMANSHU During your visit today, we recorded the following information about you: Allergies As of Date: 09/13/2019 Noted Allergy Reaction CIPROFLOXACIN 04/02/2019 12 - Shortness of Breath METRONIDAZOLE 04/02/2019 2 - Rash ADHESIVE TAPE-SILICONES 04/02/2019 2 - Rash AMOXICILLIN 04/17/2005 2 - Rash ERYTHROMYCIN 02/05/2017 2 - Rash Date Reviewed: 09/13/2019 Reviewed by: Deondre (Archana) Prasanna - Fully Assessed Reason for Visit: Covid-19 Hotline [8510] Prescriptions as of 09/13/2019 Sig: NITROFURANTOIN MACROCRYSTAL 1* Take 100 mg by mouth. CLOBEX 0.05 % SHAMPOO use as shampoo EOD CLOBETASOL 0.05 % SCALP SOLUT* apply to affected areas BID Problem List As Of Date: 09/13/2019 (None) Encounter Status:Closed by SHELTON YEBOAH on 09/13/19 [facility] PROGRESSon 09-13-2019 PROGRESS HNO ID: [id number] Author: Deondre (Archana) Prasanna Service: ? Author Type: Nurse Practitioner Type: Progress Notes Filed: 09/13/2019 7:44 AM Note Text: This Team Access Model visit is a virtual encounter. It required patient-provider interaction for the medical decision making as documented below. [employer] HIPAA secured video was used for evaluation of this patient. Telemedicine Evaluation for COVID-19 Infection SUBJECTIVE: Leydi Arguello is an 43 year old who presents with an illness that began 7 day(s) ago and are gradually worsening since that time. Pt reports she was at [place] ED and was told she possibly has beginning of pneumonia and concerns for COVID-19; reports she was given information about [facility] and COVID hotline by ED and told to reach out for further testing. Pt was started on albuterol and doxycycline by ED. Has the patient had any ill contacts? Yes Has the patient had contact with anyone confirmed with COVID-19 infection? No Does the patient have family with confirmed COVID-19 infection: No Does the patient have the following symptoms or signs? *Fever: (Temp 100.4F or greater) Yes tactile that started within the past 12 hours *Coughing: Yes *Shortness of breath: No Nasal congestion: No Sore throat: No Muscle aches: Yes Decreased appetite: Yes Vomiting: No Diarrhea: No Signs of dehydration (low fluid intake or voiding, diarrhea, dry mucus membranes): No Decreased level of consciousness: No *Fever plus coughing or shortness of breath answered yes is considered high risk PATIENT'S HIGH RISK CATEGORY ASSESSMENT: Fever plus shortness of breath or a cough OBJECTIVE: Patient sounds or appears ill: Yes but non-toxic Patient is not able to speak in complete sentences: No Patient has labored breathing: No Patient is audibly coughing: No ASSESSMENT/PLAN: See encounter diagnoses and orders for additional plan. Leydi Arguello is an 43 year old who appears to have COVID-19 infection and is high risk or with concerning symptoms, recommend COVID-19 testing. This patient encounter involved the screening or treatment of novel coronavirus infection (COVID-19). SIGNATURE: Deondre Mims APRN.OPERATIONS MANAGER STATION DATE: September 13, 2019 [facility] Coding Summaryon 03-14-2017 Coding Summary CODING DATE: [facility] STATUS: Home PAYOR: Medicaid O ADMIT DX: REASON FOR VISIT DX: M25.532 Pain in left wrist FINAL DX: PRINCIPAL: S60.212A Contusion of left wrist, initial encounter SECONDARY: M25.532 Pain in left wrist R19.7 Diarrhea, unspecified PROCEDURES DOCTOR NAME DATE NOTE: The code number assigned matches the documented diagnosis and / or procedure in the patient's chart. However, the narrative phrase printed from the coding software may appear abbreviated, or result in slightly different terminology. Coded By: Viviana Maloney Date Saved: 03/14/2017 06:21 am [facility] Coding Summary CODING DATE: 017 [facility] STATUS: Home PAYOR: Medicaid HMO ADMIT DX: REASON FOR VISIT DX: M25.532 Pain in left wrist FINAL DX: PRINCIPAL: S60.212A Contusion of left wrist, initial encounter SECONDARY: M25.532 Pain in left wrist R19.7 Diarrhea, unspecified PROCEDURES DOCTOR NAME DATE NOTE: The code number assigned matches the documented diagnosis and / or procedure in the patient's chart. However, the narrative phrase printed from the coding software may appear abbreviated, or result in slightly different terminology. Coded By: Viviana Maloney Date Saved: 03/14/2017 06:19 am [facility] ED Clinical Summaryon 2016 ED Clinical Summary [facility] [address] [place] [address] ed Clinical SummaryPERSON INFORMATIONName: LEYDI ARGUELLO Age: 41 Years Sex: FEMALEDOB: [birth year] MRN: Acct#:Visit Reason: General medical; C/O LEFT ARM PAIN/SWELLING Arrival:03/02/17 13:52:00 Discharge: 03/02/17 15:00:00LOS: 000 01:08 Check In: 03/02/17 13:52:00 Checkout:03/02/17 15:00:00Address:[address] [place] [id number]: Chuckie Oconnell MDPROVIDIEGO INFORMATIONProvider Role Assigned UnassignedMalina Fields MD ED Provider 03/02/17 14:05:03PeMirtha cody RN ED Nurse 03/02/17 14:17:25VITALS INFORMATIONVital Sign Triage LatestTemperature TympanicTemperature Temporal ArteryPulse Rate 80 bpm 80 bpmO2 Sat 98 % 98 %Respiratory Rate 18 br/min 18 br/minBlood Pressure 109 mmHg/77 mmHg 109 mmHg/77 mmHgMEDICAL INFORMATIONMedications Given:Medication Dose Routeibuprofen 800 mg POAllergy Information:amoxicillin; erythromycinPHYSICIAN DOCUMENTATIONDISCHARGE INFORMATION:Discharge Disposition: HomeDischarge Location: HomePATIENT EDUCATION INFORMATIONInstructions: Wrist Splint; RICE for Routine Care of Injuries; Carpal Tunnel Syndrome; Wrist Pain; ContusionFollow-Up:With: Address: When:Chuckie Oocnnell [facility] [place] [address] Business (1) Within 3 to 5 daysComments:Follow-up with primary care physician in 3-5 days. Ice to affected areas. Cock-up splint as needed. Tylenol or ibuprofen as needed for pain. Return if any concerns or worsening.DIAGNOSIS:Comme nt: [facility] ED Note - Physicianon 2016 ED Note - Physician Patient: LEYDI ARGUELLO : 41 years Sex: FEMALE : [birth year]Associated Diagnoses: NoneAuthor: Malina Fields MDBasic InformationTime seen: Date & time 03/02/17 14:06:00.History source: Patient.Arrival mode: Private vehicle.History limitation: None.Additional information: Chief Complaint from Nursing Triage Note : Chief Kzvrfcbgi70/23/17 13:54 EDT Chief Complaint Pt complains of pain and swelling to left wrist for 15 minutes. Denies injury. Says she is worried she has blood clot. 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 Patient denies any known injury or trauma no bites or stings. Patient reports she was cleaning out old things out of a wood box and came into contact with some insulation as well as scraps and would she does not remember bumping herself or scratching the area. Then she was sitting at a desk doing things and noted pain. Patient noticed a pinching sensation to the left volar wrist worse with movement patient also reports the veins on the inner left wrist became more prominent. Patient complains of pain over the volar aspect of the proximal hand over the thenar eminence proximally. There is mild purplish discoloration in this area. There is no fevers chills no chest pain no shortness of breath no other extremity swelling no numbness tingling or focal weakness. No redness. No nausea or vomiting no abdominal pain patient reports she had diarrhea ?1 after eating some spicy foods today. No long car trips no previous PE or DVT. No risk factors for PE/DVT patient is up and active pain is localized to the volar left wrist.Review of SystemsConstitutional symptoms: No fever, no chills, no weakness.Skin symptoms: No rash,Eye symptoms: Vision unchanged.ENMT symptoms: No ear pain, no sore throat, no nasal congestion.Respiratory symptoms: No shortness of breath, no cough, no hemoptysis.Cardiovascular symptoms: No chest pain, no palpitations, no syncope, no peripheral edema.Gastrointestinal symptoms: Diarrhea, no abdominal pain, no nausea, no vomiting, no constipation, no rectal bleeding.Genitourinary symptoms: No dysuria,Musculoskeletal symptoms: Left wrist pain, No Muscle pain,Neurologic symptoms: No headache, no dizziness, no altered level of consciousness, no numbness, no tingling, no weakness.Psychiatric symptoms: No anxiety, Additional review of systems information: All other systems reviewed and otherwise negative.Health StatusAllergies:Allergic Reactions (Selected)Severity Not DocumentedAmoxicillin- No reactions were documented.Erythromycin- No reactions were documented..Past Medical/ Family/ Social HistoryMedical history:No active or resolved past medical history items have been selected or recorded..Surgical history:No active procedure history items have been selected or recorded..Family history:No family history items have been selected or recorded..Social history:Social & Psychosocial HabitsNo Data Available.Problem list:No qualifying data available.Past medical history previous cholecystectomy last menstrual period now social history Works as a associate editor no tobacco no alcohol no illicit drugsPhysical Examination Vital SignsVital Signs03/02/17 13:54 EDT Temperature Temporal 36.3 DegC Peripheral Pulse Rate 80 bpm Respiratory Rate 18 br/min Systolic Blood Pressure 109 mmHg Diastolic Blood Pressure 77 mmHg SpO2 98 % Oxygen Therapy Room air.Ekqpravexhwj55/23/17 14:04 EDT Weight Dosing 79.380 kg03/02/17 14:04 EDT Height/Length Dosing 160.020 cm03/02/17 13:54 EDT Height/Length Estimated 160.020 cm Weight Estimated 79.380 kg.General: Alert, no acute distress, anxious.Skin: Warm, dry, intact, no pallor, no rash, normal for ethnicity.Head: Normocephalic, atraumatic.Neck: Supple, trachea midline, no tenderness.Cardiovascular : Regular rate and rhythm, No murmur, Normal peripheral perfusion, No edema.Respiratory: Lungs are clear to auscultation, respirations are non-labored, breath sounds are equal, Symmetrical chest wall expansion.Musculoskeletal : Normal ROM, normal strength, no tenderness, no swelling, no deformity, Left wrist/hand patient is noted to have ecchymosis over the thenar eminence with prominent blood vessels over the volar wrist no palpable cords there is minimal papular irritation over the volar wrist there is no evidence of cellulitis bite sting or foreign object there is no palpable foreign body. There is no lacerations. This irritation was felt possibly due to exposure to insulation. Patient has no bony tenderness of the hands no snuffbox tenderness patient has no bony tenderness of the forearm elbow and forearm and shoulder are is no palpable cords no soft tissue swelling no erythema no signs of infection. Patient has full range of motion normal neurovascular exam positive Tinel's negative Phalen's pinching sensation did improve with wrist extension, No calf tenderness no lower extremity edema.Chest wallGastrointestinal: Soft, Nontender, Non distended, Normal bowel sounds.Neurological: Alert and oriented to person, place, time, and situation, No focal neurological deficit observed, CN II-XII intact, normal sensory observed, normal motor observed, normal speech observed, normal coordination observed.Medical Decision MakingDifferential Diagnosis: Differential includes bite, staying, contusion, carpal tunnel, wrist strain/sprain, fracture.Orders Launch Order Profile (Selected)Inpatient OrdersOrderedBrace/Splint ED:Discharge Patient:Ordered (Exam Completed)XR Wrist Complete Left: .Radiology results: Reported at 03/02/17 14:47:00, X-ray, emergency physician interpretation: no fracture neg acute.Reexamination/ ReevaluationOn evaluation I explained to the patient and the significant other with the patient that it is doubtful this is a blood clot it is not in the correct location and she has no palpable cords no risk factors for DVT. Patient does have a bruise over this area as well as exposure to fiberglass insulation. Patient also does repetitive movements and is a associate editor. Patient is right-handed. There is no evidence of bites or stings.1440 patient and family updated on all results and plan of care. Family is aware that we feel this is most likely a contusion of the superficial blood vessels with mild leakage of blood over the thenar eminence and volar wrist area. Patient is aware she has positive Tinel's sign, neurovascular exam and is aware of concern of possible early carpal tunnel given the patient is a associate editor and carries trays repetitively on her left hand. The minimal irritation of the wrist was felt to be caused by exposure to insulation that is stated since patient has been in the emergency department and has washed her hands there is no wrist swelling. There is no evidence of DVT superficial thrombosis no risk factors for either diarrhea was felt to be possibly due to spicy foods versus postcholecystectomy bowel changesImpression and PlanDiagnosisLeft wrist pain, contusion left thenar eminence, diarrhea ?1,PlanCondition: Stable.Disposition: Discharged: Time 03/02/17 14:37:00, to home.Patient was given the following educational materials: Contusion, Wrist Pain, Carpal Tunnel Syndrome, RICE for Routine Care of Injuries, Wrist Splint.Follow up with: Chuckie Oconnell Within 3 to 5 days Follow-up with primary care physician in 3-5 days. Ice to affected areas. Cock-up splint as needed. Tylenol or ibuprofen as needed for pain. Return if any concerns or worsening..Counseled: Patient, Family, Regarding diagnosis, Regarding diagnostic results, Regarding treatment plan, Regarding prescription, Patient indicated understanding of instructions.[Electronica lly Signed on: 03/03/2017 11:48 EDT] Malina Barillas MD[Electronically Signed on: 03/03/2017 11:48 EDT] Malina Barillas MD[Verified on: 03/03/2017 11:48 EDT] Malina Barillas MD [facility] ED Note-Nursingon 03-02-2017 ED Note-Nursing Pt discharged to [facility]. Instructions given to pt who verbalized understanding. Pt walks out with Spouse. [facility] ED Patient Education Noteon 03-02-2017 ED Patient Education Note Education MaterialsMusculoskeletalW rist SplintA splint is a medical reimbursement manager that keeps an injured part of your body from moving. A splint supports your wrist like a cast, but it is more flexible. It can be removed or loosened. The supporting part of a splint does not completely surround your wrist. It is held in place with an elastic band or straps. You may need a wrist splint if you have hurt your wrist or if you have a condition that causes swelling. Depending on the type of wrist problem you have, your splint may extend up your arm, onto your hand, or around your thumb. The wrist splint may be worn to:? Support your wrist.? Protect your injury.? Prevent further injury.? Prevent movement.? Reduce pain.? Promote healing.RISKS AND COMPLICATIONSThe most dangerous complication of wearing a splint is having a reduced blood supply to your wrist or hand. This can happen if there is a lot of swelling or if the splint is too tight. This results in a condition called compartment syndrome and can cause permanent damage. Symptoms include:? Pain that is getting worse.? Tingling and numbness.? Changes in skin color (paleness or a bluish color).? Cold fingers.Other complications of wearing a splint can include:? Skin irritation that can cause:? Itching.? Rash.? Skin sores.? Skin infection.? Wrist stiffness. This can occur if you have worn a splint for a long time.HOW TO USE YOUR WRIST SPLINTYour wrist splint should be tight enough to support your wrist without cutting off your blood supply. How long you need to wear the splint depends on the type of wrist problem you have. Your health care provider will instruct you on how to wear your wrist splint and for how long.? Follow all your health care provider's instructions.? Take medicine only as directed by your health care provider.? Keep your wrist elevated above the level of your heart while resting.? Ice may help reduce pain and swelling.? Place ice in a plastic bag.? Place a towel between your splint and the bag.? Leave the ice on for 20 minutes, 2?3 times a day.? Do not get your splint wet.? Do not push objects under your splint to scratch your skin.? Loosen your splint if it feels too tight. Consult your health care provider if you have questions about how tight to wear the splint.? Keep all follow-up visits as directed by your health care provider. This is important.SEEK MEDICAL CARE IF:? You have wrist pain or swelling that does not go away.? The skin around or under your splint becomes red, itchy, or moist.? You have chills or fever.? Your splint feels too tight or too loose.? Your splint gets damaged.SEEK IMMEDIATE MEDICAL CARE IF:You have symptoms of compartment syndrome. These include:? Pain that is getting worse.? Tingling and numbness.? Changes in skin color (paleness or a bluish color).? Cold fingers.MAKE SURE YOU:? Understand these instructions.? Will watch your condition.? Will get help right away if you are not doing well or get worse.This information is not intended to replace advice given to you by your health care provider. Make sure you discuss any questions you have with your health care provider.Document Released: 05/09/2007 Document Revised: 06/17/2015 Document Reviewed: 09/07/2014Elsevier Interactive Patient Education ?2016 [employer]RICE for Routine Care of InjuriesThe?routine care?of?many?injuries?inc berhane rest, ice, compression, and elevation (RICE therapy). RICE therapy is often recommended for injuries to soft tissues, such as a muscle strain, ligament injuries, bruises, and overuse injuries. It can also be used for some bony injuries. Using RICE therapy can help to relieve pain, lessen swelling, and enable your body to heal. RestRest is required to allow your body to heal. This usually involves reducing your normal activities and avoiding use of the injured part of your body. Generally, you can return to your normal activities when you are comfortable and have been given permission by your health care provider.IceIcing your injury helps to keep the swelling down, and it lessens pain. Do not apply ice directly to your skin.? Put ice in a plastic bag.? Place a towel between your skin and the bag.? Leave the ice on for 20 minutes, 2?3 times a day.Do this for as long as you are directed by your health care provider.CompressionCompr ession means putting pressure on the injured area. Compression helps to keep swelling down, gives support, and helps with discomfort. Compression may be done with an elastic bandage. If an elastic bandage has been applied, follow these general tips:? Remove and reapply the bandage every 3?4 hours or as directed by your health care provider.? Make sure the bandage is not wrapped too tightly, because this can cut off circulation. If part of your body beyond the bandage becomes blue, numb, cold, swollen, or more painful, your bandage is most likely too tight. If this occurs, remove your bandage and reapply it more loosely.? See your health care provider if the bandage seems to be making your problems worse rather than better.ElevationElevation means keeping the injured area raised. This helps to lessen swelling and decrease pain. If possible, your injured area should be elevated at or above the level of your heart or the center of your chest.WHEN SHOULD I SEEK MEDICAL CARE?You should seek medical care if:? Your pain and swelling continue.? Your symptoms are getting worse rather than improving.These symptoms may indicate that further evaluation or further X-rays are needed. Sometimes, X-rays may not show a small broken bone (fracture) until a number of days later. Make a follow-up appointment with your health care provider.WHEN SHOULD I SEEK IMMEDIATE MEDICAL CARE?You should seek immediate medical care if:? You have sudden severe pain at or below the area of your injury.? You have redness or increased swelling around your injury.? You have tingling or numbness at or below the area of your injury that does not improve after you remove the elastic bandage.This information is not intended to replace advice given to you by your health care provider. Make sure you discuss any questions you have with your health care provider.Document Released: 09/08/2001 Document Revised: 02/15/2016 Document Reviewed: 05/04/2015[employer] Interactive Patient Education ?2016 [employer]Carpal Tunnel SyndromeCarpal tunnel syndrome is a condition that causes pain in your hand and arm. The carpal tunnel is a narrow area located on the palm side of your wrist. Repeated wrist motion or certain diseases may cause swelling within the tunnel. This swelling pinches the main nerve in the wrist (median nerve). CAUSESThis condition may be caused by:? Repeated wrist motions.? Wrist injuries.? Arthritis.? A cyst or tumor in the carpal tunnel.? Fluid buildup during .Sometimes the cause of this condition is not known.RISK FACTORSThis condition is more likely to develop in:? People who have jobs that cause them to repeatedly move their wrists in the same motion, such as butchers and cashiers.? Women.? People with certain conditions, such as:? Diabetes.? Obesity.? An underactive thyroid (hypothyroidism).? Kidney failure.SYMPTOMSSymptoms of this condition include:? A tingling feeling in your fingers, especially in your thumb, index, and middle fingers.? Tingling or numbness in your hand.? An aching feeling in your entire arm, especially when your wrist and elbow are bent for long periods of time.? Wrist pain that goes up your arm to your shoulder.? Pain that goes down into your palm or fingers.? A weak feeling in your hands. You may have trouble grabbing and holding items.Your symptoms may feel worse during the night.DIAGNOSISThis condition is diagnosed with a medical history and physical exam. You may also have tests, including:? An electromyogram (EMG). This test measures electrical signals sent by your nerves into the muscles.? X-rays.TREATMENTTreatment for this condition includes:? Lifestyle changes. It is important to stop doing or modify the activity that caused your condition.? Physical or occupational therapy.? Medicines for pain and inflammation. This may include medicine that is injected into your wrist.? A wrist splint.? Surgery.HOME CARE INSTRUCTIONSIf You Have a Splint:? Wear it as told by your health care provider. Remove it only as told by your health care provider.? Loosen the splint if your fingers become numb and tingle, or if they turn cold and blue.? Keep the splint clean and dry.General Instructions? Take rqmo-ssr-ijiyrvs and prescription medicines only as told by your health care provider.? Rest your wrist from any activity that may be causing your pain. If your condition is work related, talk to your employer about changes that can be made, such as getting a wrist pad to use while typing.? If directed, apply ice to the painful area:? Put ice in a plastic bag.? Place a towel between your skin and the bag.? Leave the ice on for 20 minutes, 2?3 times per day.? Keep all follow-up visits as told by your health care provider. This is important.? Do any exercises as told by your health care provider, physical therapist, or occupational therapist.SEEK MEDICAL CARE IF:? You have new symptoms.? Your pain is not controlled with medicines.? Your symptoms get worse.This information is not intended to replace advice given to you by your health care provider. Make sure you discuss any questions you have with your health care provider.Document Released: 05/24/2001 Document Revised: 02/15/2016 Document Reviewed: 10/12/2015Hannah Interactive Patient Education ?2016 [email or web address].Wrist PainThere are many things that can cause wrist pain. Some common causes include: ? An injury to the wrist area, such as a sprain, strain, or fracture.? Overuse of the joint.? A condition that causes increased pressure on a nerve in the wrist (carpal tunnel syndrome).? Wear and tear of the joints that occurs with aging (osteoarthritis).? A variety of other types of arthritis.Sometimes, the cause of wrist pain is not known. The pain often goes away when you follow your health care provider's instructions for relieving pain at home. If your wrist pain continues, tests may need to be done to diagnose your condition.HOME CARE INSTRUCTIONSPay attention to any changes in your symptoms. Take these actions to help with your pain:? Rest the wrist area for at least 48 hours or as told by your health care provider.? If directed, apply ice to the injured area:? Put ice in a plastic bag.? Place a towel between your skin and the bag.? Leave the ice on for 20 minutes, 2?3 times per day.? Keep your arm raised (elevated) above the level of your heart while you are sitting or lying down.? If a splint or elastic bandage has been applied, use it as told by your health care provider.? Remove the splint or bandage only as told by your health care provider.? Loosen the splint or bandage if your fingers become numb or have a tingling feeling, or if they turn cold or blue.? Take mwwn-fzb-vrldnlx and prescription medicines only as told by your health care provider.? Keep all follow-up visits as told by your health care provider. This is important.SEEK MEDICAL CARE IF:? Your pain is not helped by treatment.? Your pain gets worse.SEEK IMMEDIATE MEDICAL CARE IF:? Your fingers become swollen.? Your fingers turn white, very red, or cold and blue.? Your fingers are numb or have a tingling feeling.? You have difficulty moving your fingers.This information is not intended to replace advice given to you by your health care provider. Make sure you discuss any questions you have with your health care provider.Document Released: 03/06/2006 Document Revised: 02/15/2016 Document Reviewed: 10/12/2015Elsevier Interactive Patient Education ?2016 [email or web address].ContusionA contusion is a deep bruise. Contusions are the result of a blunt injury to tissues and muscle fibers under the skin. The injury causes bleeding under the skin. The skin overlying the contusion may turn blue, purple, or yellow. Minor injuries will give you a painless contusion, but more severe contusions may stay painful and swollen for a few weeks. CAUSESThis condition is usually caused by a blow, trauma, or direct force to an area of the body.SYMPTOMSSymptoms of this condition include:? Swelling of the injured area.? Pain and tenderness in the injured area.? Discoloration. The area may have redness and then turn blue, purple, or yellow.DIAGNOSISThis condition is diagnosed based on a physical exam and medical history. An X-ray, CT scan, or MRI may be needed to determine if there are any associated injuries, such as broken bones (fractures).TREATMENTSpec [facility] treatment for this condition depends on what area of the body was injured. In general, the best treatment for a contusion is resting, icing, applying pressure to (compression), and elevating the injured area. This is often called the RICE strategy. Nexl-nmv-qfjemmu anti-inflammatory medicines may also be recommended for pain control.HOME CARE INSTRUCTIONS? Rest the injured area.? If directed, apply ice to the injured area:? Put ice in a plastic bag.? Place a towel between your skin and the bag.? Leave the ice on for 20 minutes, 2?3 times per day.? If directed, apply light compression to the injured area using an elastic bandage. Make sure the bandage is not wrapped too tightly. Remove and reapply the bandage as directed by your health care provider.? If possible, raise (elevate) the injured area above the level of your heart while you are sitting or lying down.? Take omhv-aiz-xwgflao and prescription medicines only as told by your health care provider.SEEK MEDICAL CARE IF:? Your symptoms do not improve after several days of treatment.? Your symptoms get worse.? You have difficulty moving the injured area.SEEK IMMEDIATE MEDICAL CARE IF:? You have severe pain.? You have numbness in a hand or foot.? Your hand or foot turns pale or cold.This information is not intended to replace advice given to you by your health care provider. Make sure you discuss any questions you have with your health care provider.Document Released: 03/06/2006 Document Revised: 02/15/2016 Document Reviewed: 10/12/2015Hannah Interactive Patient Education ?2016 [email or web address]. Normal [facility] ED Patient Summaryon 017 ED Patient Summary [facility] - Emergency [address] [place] [address] pATIENT DISCHARGE INSTRUCTIONSPatient InformationName: LEYDI ARGUELLO Age: 41 YearsDate of : [birth year]MRN: [id number] For Visit: General medical; C/O LEFT ARM PAIN/SWELLINGArrival Time: 03/02/17 13:52:00Phone: Primary Care Physician: Chuckie Oconnell Physician: Malina Fields MDComment:Visit Diagnosis:Diagnoses This Visit General medical ([id number])If you received any narcotics, sedation, or any other medication that causes drowsiness for the next 24 hours, unless otherwise directed:? Do not drive a car.? Do not operate machinery such as power tools, lawn mowers, drills, sewing machines, or stoves? Avoid alcoholic beverages and drugs for allergies, nerves, or sleep? Do not make important personal or business decisions or sign any legal documentsWith: Address: When:Chuckie Oconnell [address] [place] [id number] Business (1) Within 3 to 5 daysComments:Follow-up with primary care physician in 3-5 days. Ice to affected areas. Cock-up splint as needed. Tylenol or ibuprofen as needed for pain. Return if any concerns or worsening.Medication Information:The exam and treatment you received today in the [facility] Emergency Department were for an urgent problem and are not intended as complete care. It is important for you to follow up with a doctor, nurse practitioner, or physician?s school bus driver/teacher assistant for ongoing care. If your symptoms become worse or you do not improve as expected and you are unable to reach your usual health care provider, you should return to the Emergency Department, we are available 24 hours a day.For those patients who have received Radiology results, the interpretation of your X-ray as given to you by our Emergency Department physician is only a preliminary report. The Radiologist will review your films and if there is a change in the diagnosis you will be notified by phone. Please make sure you have provided a working phone number so we can reach you if necessary.In the event that you had a lab culture while you were a patient in the Emergency Department, you will be notified by phone if there is a need to change your antibiotic. Please make sure you have provided a working phone number so we can reach you if necessary.[facility] Emergency Department has provided you with a complete list of medications post discharge. Please inform your primary clinician/provider of your visit and for further instruction on these medications. Any specific questions regarding your chronic medications and dosages should be discussed with your primary care physician(s) and/or pharmacist.Visit InformationAllergies:Subs tance Reaction Symptoms Type Commentsamoxicillin Drugerythromycin DrugVital Signs: Vitals and Measurements this Visit (last charted value for your 03/02/2017 visit) Vital Signs This Visit Temperature Temporal: 36.3 DegC Peripheral Pulse Rate: 80 bpm Respiratory Rate: 18 br/min Systolic Blood Pressure: 109 mmHg Diastolic Blood Pressure: 77 mmHg SpO2: 98 % Oxygen Therapy: Room air Measurements This Visit Height/Length Dosin.020 cm Height/Length Estimated: 160.020 cm Weight Dosin.380 kg Weight Estimated: 79.380 kgProblems List:Problem Onset CommentsNo Problems foundPatient EducationWrist SplintA splint is a medical reimbursement manager that keeps an injured part of your body from moving. A splint supports your wrist like a cast, but it is more flexible. It can be removed or loosened. The supporting part of a splint does not completely surround your wrist. It is held in place with an elastic band or straps. You may need a wrist splint if you have hurt your wrist or if you have a condition that causes swelling. Depending on the type of wrist problem you have, your splint may extend up your arm, onto your hand, or around your thumb. The wrist splint may be worn to:? Support your wrist.? Protect your injury.? Prevent further injury.? Prevent movement.? Reduce pain.? Promote healing.RISKS AND COMPLICATIONSThe most dangerous complication of wearing a splint is having a reduced blood supply to your wrist or hand. This can happen if there is a lot of swelling or if the splint is too tight. This results in a condition called compartment syndrome and can cause permanent damage. Symptoms include:? Pain that is getting worse.? Tingling and numbness.? Changes in skin color (paleness or a bluish color).? Cold fingers.Other complications of wearing a splint can include:? Skin irritation that can cause:? Itching.? Rash.? Skin sores.? Skin infection.? Wrist stiffness. This can occur if you have worn a splint for a long time.HOW TO USE YOUR WRIST SPLINTYour wrist splint should be tight enough to support your wrist without cutting off your blood supply. How long you need to wear the splint depends on the type of wrist problem you have. Your health care provider will instruct you on how to wear your wrist splint and for how long.? Follow all your health care provider's instructions.? Take medicine only as directed by your health care provider.? Keep your wrist elevated above the level of your heart while resting.? Ice may help reduce pain and swelling.? Place ice in a plastic bag.? Place a towel between your splint and the bag.? Leave the ice on for 20 minutes, 2?3 times a day.? Do not get your splint wet.? Do not push objects under your splint to scratch your skin.? Loosen your splint if it feels too tight. Consult your health care provider if you have questions about how tight to wear the splint.? Keep all follow-up visits as directed by your health care provider. This is important.SEEK MEDICAL CARE IF:? You have wrist pain or swelling that does not go away.? The skin around or under your splint becomes red, itchy, or moist.? You have chills or fever.? Your splint feels too tight or too loose.? Your splint gets damaged.SEEK IMMEDIATE MEDICAL CARE IF:You have symptoms of compartment syndrome. These include:? Pain that is getting worse.? Tingling and numbness.? Changes in skin color (paleness or a bluish color).? Cold fingers.MAKE SURE YOU:? Understand these instructions.? Will watch your condition.? Will get help right away if you are not doing well or get worse.This information is not intended to replace advice given to you by your health care provider. Make sure you discuss any questions you have with your health care provider.Document Released: 05/09/2007 Document Revised: 06/17/2015 Document Reviewed: 09/07/2014Elsevier Interactive Patient Education ?2016 [email or web address].RICE for Routine Care of InjuriesThe?routine care?of?many?injuries?inc camies rest, ice, compression, and elevation (RICE therapy). RICE therapy is often recommended for injuries to soft tissues, such as a muscle strain, ligament injuries, bruises, and overuse injuries. It can also be used for some bony injuries. Using RICE therapy can help to relieve pain, lessen swelling, and enable your body to heal. RestRest is required to allow your body to heal. This usually involves reducing your normal activities and avoiding use of the injured part of your body. Generally, you can return to your normal activities when you are comfortable and have been given permission by your health care provider.IceIcing your injury helps to keep the swelling down, and it lessens pain. Do not apply ice directly to your skin.? Put ice in a plastic bag.? Place a towel between your skin and the bag.? Leave the ice on for 20 minutes, 2?3 times a day.Do this for as long as you are directed by your health care provider.CompressionCompr ession means putting pressure on the injured area. Compression helps to keep swelling down, gives support, and helps with discomfort. Compression may be done with an elastic bandage. If an elastic bandage has been applied, follow these general tips:? Remove and reapply the bandage every 3?4 hours or as directed by your health care provider.? Make sure the bandage is not wrapped too tightly, because this can cut off circulation. If part of your body beyond the bandage becomes blue, numb, cold, swollen, or more painful, your bandage is most likely too tight. If this occurs, remove your bandage and reapply it more loosely.? See your health care provider if the bandage seems to be making your problems worse rather than better.ElevationElevation means keeping the injured area raised. This helps to lessen swelling and decrease pain. If possible, your injured area should be elevated at or above the level of your heart or the center of your chest.WHEN SHOULD I SEEK MEDICAL CARE?You should seek medical care if:? Your pain and swelling continue.? Your symptoms are getting worse rather than improving.These symptoms may indicate that further evaluation or further X-rays are needed. Sometimes, X-rays may not show a small broken bone (fracture) until a number of days later. Make a follow-up appointment with your health care provider.WHEN SHOULD I SEEK IMMEDIATE MEDICAL CARE?You should seek immediate medical care if:? You have sudden severe pain at or below the area of your injury.? You have redness or increased swelling around your injury.? You have tingling or numbness at or below the area of your injury that does not improve after you remove the elastic bandage.This information is not intended to replace advice given to you by your health care provider. Make sure you discuss any questions you have with your health care provider.Document Released: 09/08/2001 Document Revised: 02/15/2016 Document Reviewed: 05/04/2015Hannah Interactive Patient Education ?2016 [employer]Carpal Tunnel SyndromeCarpal tunnel syndrome is a condition that causes pain in your hand and arm. The carpal tunnel is a narrow area located on the palm side of your wrist. Repeated wrist motion or certain diseases may cause swelling within the tunnel. This swelling pinches the main nerve in the wrist (median nerve). CAUSESThis condition may be caused by:? Repeated wrist motions.? Wrist injuries.? Arthritis.? A cyst or tumor in the carpal tunnel.? Fluid buildup during .Sometimes the cause of this condition is not known.RISK FACTORSThis condition is more likely to develop in:? People who have jobs that cause them to repeatedly move their wrists in the same motion, such as butchers and cashiers.? Women.? People with certain conditions, such as:? Diabetes.? Obesity.? An underactive thyroid (hypothyroidism).? Kidney failure.SYMPTOMSSymptoms of this condition include:? A tingling feeling in your fingers, especially in your thumb, index, and middle fingers.? Tingling or numbness in your hand.? An aching feeling in your entire arm, especially when your wrist and elbow are bent for long periods of time.? Wrist pain that goes up your arm to your shoulder.? Pain that goes down into your palm or fingers.? A weak feeling in your hands. You may have trouble grabbing and holding items.Your symptoms may feel worse during the night.DIAGNOSISThis condition is diagnosed with a medical history and physical exam. You may also have tests, including:? An electromyogram (EMG). This test measures electrical signals sent by your nerves into the muscles.? X-rays.TREATMENTTreatment for this condition includes:? Lifestyle changes. It is important to stop doing or modify the activity that caused your condition.? Physical or occupational therapy.? Medicines for pain and inflammation. This may include medicine that is injected into your wrist.? A wrist splint.? Surgery.HOME CARE INSTRUCTIONSIf You Have a Splint:? Wear it as told by your health care provider. Remove it only as told by your health care provider.? Loosen the splint if your fingers become numb and tingle, or if they turn cold and blue.? Keep the splint clean and dry.General Instructions? Take awvp-elj-ncbbrpw and prescription medicines only as told by your health care provider.? Rest your wrist from any activity that may be causing your pain. If your condition is work related, talk to your employer about changes that can be made, such as getting a wrist pad to use while typing.? If directed, apply ice to the painful area:? Put ice in a plastic bag.? Place a towel between your skin and the bag.? Leave the ice on for 20 minutes, 2?3 times per day.? Keep all follow-up visits as told by your health care provider. This is important.? Do any exercises as told by your health care provider, physical therapist, or occupational therapist.SEEK MEDICAL CARE IF:? You have new symptoms.? Your pain is not controlled with medicines.? Your symptoms get worse.This information is not intended to replace advice given to you by your health care provider. Make sure you discuss any questions you have with your health care provider.Document Released: 05/24/2001 Document Revised: 02/15/2016 Document Reviewed: 10/12/2015Hannah Interactive Patient Education ?2016 [email or web address].Wrist PainThere are many things that can cause wrist pain. Some common causes include: ? An injury to the wrist area, such as a sprain, strain, or fracture.? Overuse of the joint.? A condition that causes increased pressure on a nerve in the wrist (carpal tunnel syndrome).? Wear and tear of the joints that occurs with aging (osteoarthritis).? A variety of other types of arthritis.Sometimes, the cause of wrist pain is not known. The pain often goes away when you follow your health care provider's instructions for relieving pain at home. If your wrist pain continues, tests may need to be done to diagnose your condition.HOME CARE INSTRUCTIONSPay attention to any changes in your symptoms. Take these actions to help with your pain:? Rest the wrist area for at least 48 hours or as told by your health care provider.? If directed, apply ice to the injured area:? Put ice in a plastic bag.? Place a towel between your skin and the bag.? Leave the ice on for 20 minutes, 2?3 times per day.? Keep your arm raised (elevated) above the level of your heart while you are sitting or lying down.? If a splint or elastic bandage has been applied, use it as told by your health care provider.? Remove the splint or bandage only as told by your health care provider.? Loosen the splint or bandage if your fingers become numb or have a tingling feeling, or if they turn cold or blue.? Take xgod-wvs-mmihiba and prescription medicines only as told by your health care provider.? Keep all follow-up visits as told by your health care provider. This is important.SEEK MEDICAL CARE IF:? Your pain is not helped by treatment.? Your pain gets worse.SEEK IMMEDIATE MEDICAL CARE IF:? Your fingers become swollen.? Your fingers turn white, very red, or cold and blue.? Your fingers are numb or have a tingling feeling.? You have difficulty moving your fingers.This information is not intended to replace advice given to you by your health care provider. Make sure you discuss any questions you have with your health care provider.Document Released: 03/06/2006 Document Revised: 02/15/2016 Document Reviewed: 10/12/2015[employer] Interactive Patient Education ?2016 [email or web address].ContusionA contusion is a deep bruise. Contusions are the result of a blunt injury to tissues and muscle fibers under the skin. The injury causes bleeding under the skin. The skin overlying the contusion may turn blue, purple, or yellow. Minor injuries will give you a painless contusion, but more severe contusions may stay painful and swollen for a few weeks. CAUSESThis condition is usually caused by a blow, trauma, or direct force to an area of the body.SYMPTOMSSymptoms of this condition include:? Swelling of the injured area.? Pain and tenderness in the injured area.? Discoloration. The area may have redness and then turn blue, purple, or yellow.DIAGNOSISThis condition is diagnosed based on a physical exam and medical history. An X-ray, CT scan, or MRI may be needed to determine if there are any associated injuries, such as broken bones (fractures).TREATMENTSpec [facility] treatment for this condition depends on what area of the body was injured. In general, the best treatment for a contusion is resting, icing, applying pressure to (compression), and elevating the injured area. This is often called the RICE strategy. Jhfw-ioj-juvoajw anti-inflammatory medicines may also be recommended for pain control.HOME CARE INSTRUCTIONS? Rest the injured area.? If directed, apply ice to the injured area:? Put ice in a plastic bag.? Place a towel between your skin and the bag.? Leave the ice on for 20 minutes, 2?3 times per day.? If directed, apply light compression to the injured area using an elastic bandage. Make sure the bandage is not wrapped too tightly. Remove and reapply the bandage as directed by your health care provider.? If possible, raise (elevate) the injured area above the level of your heart while you are sitting or lying down.? Take fmfd-prf-polneym and prescription medicines only as told by your health care provider.SEEK MEDICAL CARE IF:? Your symptoms do not improve after several days of treatment.? Your symptoms get worse.? You have difficulty moving the injured area.SEEK IMMEDIATE MEDICAL CARE IF:? You have severe pain.? You have numbness in a hand or foot.? Your hand or foot turns pale or cold.This information is not intended to replace advice given to you by your health care provider. Make sure you discuss any questions you have with your health care provider.Document Released: 03/06/2006 Document Revised: 02/15/2016 Document Reviewed: 10/12/2015[employer] Patient Education ?2016 [email or web address]. Viruses or BacteriaWhat?s got you sick?Antibiotics only treat bacterial infections. Viral illnesses cannot be treated with antibiotics. When an antibiotic is not prescribed, ask your healthcare professional for tips on how to relieve symptoms and feel better. Usual CauseIllnessVirusesBacter ia Antibiotic NeededCold/Runny Nose NOBronchitis/Chest Cold (in otherwise healthy children and adults) NOWhooping Cough YesFlu NOStrep Throat YesSore Throat (except strep) NOFluid in the middle ear (otitis media with effusion) NOUrinary Tract Infection YesAntibiotics Aren?t Always the Answerwww.cdc.gov/getsmar t GET SMART Know When Antibiotics [place] Department of Health and Human ServicesCenters for Disease Control and Prevention February 2014 [facility] XR Wrist Complete Lefton XR Wrist Complete Left WRIST COMPLETE LEFTCLINICAL DATA: Left wrist pain and swelling todayFour views of the left wrist were obtained. No definite acute fracture ordislocation is seen. No significant focal osseous or articular abnormalitiesare identified. There is mild soft tissue swelling.IMPRESSION:1. LEFT WRIST STUDY FAILS TO DEMONSTRATE SIGNIFICANT FOCAL OSSEOUS ORARTICULAR ABNORMALITY.2. FOLLOW-UP NEEDED.Joshua Howard MDJOB #: [id number]: 03/03/2017T: 03/03/2017 Final Dictated by: Joshua Howard MD SDictated DT/TM: 03/03/17 5:54Signed (Electronic Signature): Joshua Howard MD 03/03/17 9:29 amTechnologist: Santosh PUTNAM [facility] Vital Signs Date Time Vital Sign Value Performing Clinician Facility 09-04-2023 11:19-0400 Body height 160 cm Marleni Zavala MD Work Phone: [facility] 09-04-2023 11:19-0400 Body mass index (BMI) [Ratio] 29.23 kg/m2 Marleni Zavala MD Work Phone: [facility] 09-04-2023 11:19-0400 Body weight 74.84 kg Marleni Zavala MD Work Phone: [facility] 09-04-2023 11:19-0400 Diastolic blood pressure 76 mm[Hg] Marleni Zavala MD Work Phone: [facility] 09-04-2023 11:19-0400 Heart rate 75 /min Marleni Zavala MD Work Phone: [facility] 09-04-2023 11:19-0400 Systolic blood pressure 114 mm[Hg] Marleni Zavala MD Work Phone: [facility] 06-19-2023 14:30-0500 Body height 160 cm Ramya Cosme PERSONNEL RECRUITER-SOLUTION DEVELOPER Work Phone: [facility] 06-19-2023 14:30-0500 Body mass index (BMI) [Ratio] 29.02 kg/m2 Ramya Cosme PERSONNEL RECRUITER-SOLUTION DEVELOPER Work Phone: [facility] 06-19-2023 14:30-0500 Body temperature 97.7 [degF] Ramya Cosme PERSONNEL RECRUITER-SOLUTION DEVELOPER Work Phone: [facility] 06-19-2023 14:30-0500 Body weight 74.3 kg Ramya Cosme PERSONNEL RECRUITER-SOLUTION DEVELOPER Work Phone: [facility] 06-19-2023 14:30-0500 Diastolic blood pressure 70 mm[Hg] Ramya Cosme PERSONNEL RECRUITER-SOLUTION DEVELOPER Work Phone: [facility] 06-19-2023 14:30-0500 Heart rate 93 /min Ramya Cosme PERSONNEL RECRUITER-SOLUTION DEVELOPER Work Phone: [facility] 06-19-2023 14:30-0500 SaO2% (BldA) [Mass fraction] 93 % Ramya Cosme APRN-SOLUTION DEVELOPER Work Phone: [employer] [facility] 06-19-2023 14:30-0500 Systolic blood pressure 110 mm[Hg] Ramya Cosme APRN-SOLUTION DEVELOPER Work Phone: [employer] [facility] 06-11-2023 09:10-0500 Body height 160.02 cm Janett Nugent Other [facility] Other 06-11-2023 09:10-0500 Body mass index (BMI) [Ratio] 28.52 kg/m2 Janett Nugent Other [facility] Other 06-11-2023 09:10-0500 Body temperature 98.2 [degF] Janett Nugent Other [facility] Other 06-11-2023 09:10-0500 Body weight 73.03 kg Janett Nugent Other [facility] Other 06-11-2023 09:10-0500 Respiratory rate 18 /min Janett Nugent Other [facility] Other 06-11-2023 09:10-0500 SaO2% (BldA) [Mass fraction] 98 % Janett Nugent Other [facility] Other 03-06-2023 16:00-0400 Body height 160.02 cm Harmony eJrez Other [facility] Other 03-06-2023 16:00-0400 Body mass index (BMI) [Ratio] 28.41 kg/m2 Harmony Jerez Other [facility] Other 03-06-2023 16:00-0400 Body temperature 97.9 [degF] Harmony Jerez Other [facility] Other 03-06-2023 16:00-0400 Body weight 72.76 kg Harmony Jerez Other [facility] Other 03-06-2023 16:00-0400 Diastolic blood pressure 84 mm[Hg] Harmony Jerez Other [facility] Other 03-06-2023 16:00-0400 Respiratory rate 18 /min Harmony Jerez Other [facility] Other 03-06-2023 16:00-0400 SaO2% (BldA) [Mass fraction] 98 % Harmony Jerez Other [facility] Other 03-06-2023 16:00-0400 Systolic blood pressure 120 mm[Hg] Harmnoy Jerez Other [facility] Other 12-03-2022 12:45-0400 Body height 160.02 cm Savannah Hillman Other [facility] Other 12-03-2022 12:45-0400 Body mass index (BMI) [Ratio] 27.63 kg/m2 Savannah Hillman Other [facility] Other 12-03-2022 12:45-0400 Body temperature 97.5 [degF] Savannah Hillman Other [facility] Other 12-03-2022 12:45-0400 Body weight 70.76 kg Savannah Hillman Other [facility] Other 12-03-2022 12:45-0400 Diastolic blood pressure 87 mm[Hg] Savannah Hillman Other [facility] Other 12-03-2022 12:45-0400 SaO2% (BldA) [Mass fraction] 98 % Savannah Hillman Other [facility] Other 12-03-2022 12:45-0400 Systolic blood pressure 118 mm[Hg] Savannah Hillman Other [facility] Other 04-16-2022 14:30-0500 Body height 160.02 cm Brionna Augusto Other [facility] Other 04-16-2022 14:30-0500 Body mass index (BMI) [Ratio] 26.04 kg/m2 Brionna Augusto Other [facility] Other 04-16-2022 14:30-0500 Body temperature 100.5 [degF] Brionna Augusto Other [facility] Other 04-16-2022 14:30-0500 Body weight 66.68 kg Brionna Augusto Other [facility] Other 04-16-2022 14:30-0500 Respiratory rate 18 /min Brionna Augusto Other [facility] Other 04-16-2022 14:30-0500 SaO2% (BldA) [Mass fraction] 98 % Brionna Augusto Other [facility] Other 04-03-2022 19:35-0400 Body height 160.02 cm Brionna Coronel Other [facility] Other 04-03-2022 19:35-0400 Body mass index (BMI) [Ratio] 26.04 kg/m2 Brionna Coronel Other [facility] Other 04-03-2022 19:35-0400 Body temperature 97.8 [degF] Brionna Jasmineault Other [facility] Other 04-03-2022 19:35-0400 Body weight 66.68 kg Brionna Jasmineault Other [facility] Other 04-03-2022 19:35-0400 Respiratory rate 18 /min Brionna Jasmineault Other [facility] Other 04-03-2022 19:35-0400 SaO2% (BldA) [Mass fraction] 97 % Brionna Jasmineault Other [facility] Other 01-26-2022 10:25-0400 Body height 160.02 cm Brionna Jasmineault Other [facility] Other 01-26-2022 10:25-0400 Body mass index (BMI) [Ratio] 25.15 kg/m2 Brionna Jasmineault Other [facility] Other 01-26-2022 10:25-0400 Body temperature 97.5 [degF] Brionna Jasmineault Other [facility] Other 01-26-2022 10:25-0400 Body weight 64.41 kg Brionna Jasmineault Other [facility] Other 01-26-2022 10:25-0400 Diastolic blood pressure 70 mm[Hg] Brionna Coronel Other [facility] Other 01-26-2022 10:25-0400 Respiratory rate 18 /min Brionna Coronel Other [facility] Other 01-26-2022 10:25-0400 SaO2% (BldA) [Mass fraction] 97 % Brionna Coronel Other [facility] Other 01-26-2022 10:25-0400 Systolic blood pressure 107 mm[Hg] Brionna Coronel Other [facility] Other 01-10-2022 10:10-0400 Body height 160.02 cm Harmony Jerez Other [facility] Other 01-10-2022 10:10-0400 Body mass index (BMI) [Ratio] 25.33 kg/m2 Harmony Jerez Other [facility] Other 01-10-2022 10:10-0400 Body temperature 98.1 [degF] Harmony Jerez Other [facility] Other 01-10-2022 10:10-0400 Body weight 64.86 kg Harmony Jerez Other [facility] Other 01-10-2022 10:10-0400 Diastolic blood pressure 82 mm[Hg] Harmony Ruizmond Other [facility] Other 01-10-2022 10:10-0400 Respiratory rate 18 /min Harmony Jerez Other [facility] Other 01-10-2022 10:10-0400 SaO2% (BldA) [Mass fraction] 97 % Harmony Jerez Other [facility] Other 01-10-2022 10:10-0400 Systolic blood pressure 122 mm[Hg] Harmony Jerez Other [facility] Other 08-10-2021 15:30-0500 Body height 160.02 cm Brionna Jasmineault Other [facility] Other 08-10-2021 15:30-0500 Body mass index (BMI) [Ratio] 29.47 kg/m2 Brionna Jasmineault Other [facility] Other 08-10-2021 15:30-0500 Body temperature 97.2 [degF] Brionna Augusto Other [facility] Other 08-10-2021 15:30-0500 Body weight 75.48 kg Brionna Jasmineault Other [facility] Other 08-10-2021 15:30-0500 Diastolic blood pressure 72 mm[Hg] Brionna Jasmineault Other [facility] Other 08-10-2021 15:30-0500 Respiratory rate 18 /min Brionna Jasmineault Other [facility] Other 08-10-2021 15:30-0500 SaO2% (BldA) [Mass fraction] 100 % Brionna Augusto Other [facility]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
--- NOTE | 2023-09-29 17:23 | ED_ITS ---
HPI - Chest Pain General Chief Complaint: Chest Pain Stated Complaint: chest pain Time Seen by Provider: 09/29/23 17:11 Source: patient Mode of arrival: walk-in History of Present Illness HPI narrative: 47-year-old female presents for chest pain. She has been having chest pain intermittently on the left side of her chest for the past 4 days. It last 10 to 15 seconds at a time. No injury or unusual activity. No fever cough or back pa in. She has not had palpitations and has no history of heart disease. Related Data Previous Rx's ?Medication ?Instructions ?Recorded methocarbamol 750 mg tablet 750 mg PO TID PRN pain #20 tabs 02/14/23 naproxen sodium 550 mg tablet 550 mg PO BID PRN pain #10 tabs 02/14/23 tramadol 50 mg tablet 50 mg PO Q4H PRN pain #15 tabs 02/14/23 Allergies Allergy/AdvReac Type Severity Reaction Status Date / Time amoxicillin Allergy Severe Verified 02/14/23 16:28 azithromycin [From Zithromax] Allergy Severe shortness Verified 02/14/23 16:28 of breath ciprofloxacin [From Cipro] Allergy Severe Verified 02/14/23 16:28 Review of Systems ROS Narrative A ten point review of systems is negative except as noted above. PFSH PFSH Social History Smoking status: Never smoker Exam Narrative Exam Narrative: Nurses note and vital signs reviewed and patient is not hypoxic. General: The patient appears well and in no apparent distress. Patient is resting comfortably on cart. Skin: Warm, dry, no pallor noted. There is no rash noted. Head: Normocephalic, atraumatic Eye: Normal conjunctiva, no drainage Ears, Nose, Mouth, and Throat: oral mucosa is moist. Nares patent. Cardiovascular: Regular Rate and Rhythm Respiratory: Patient is in no distress, no accessory muscle use, lungs are clear to auscultation, no wheezing, rales or rhonchi Back: non-tender GI: Soft and nontender Musculoskeletal: The patient has no evidence of calf tenderness, no pitting edema, symmetrical pulses noted bilaterally Neurological: A&O, normal speech Psychiatric: Cooperative Constitutional Vital Signs, click to edit/add: Last Vital Signs Temp 98.7 F 09/29/23 17:07 Pulse 82 09/29/23 17:07 Resp 16 09/29/23 17:07 BP 137/93 H 09/29/23 17:07 Pulse Ox 99 09/29/23 17:07 O2 Del Method Room Air 09/29/23 17:07 Course Vital Signs Vital signs: Vital Signs Temperature 98.7 F 09/29/23 17:07 Pulse Rate 82 09/29/23 17:07 Respiratory Rate 16 09/29/23 17:07 Blood Pressure 137/93 H 09/29/23 17:07 Pulse Oximetry 99 09/29/23 17:07 Oxygen Delivery Method Room Air 09/29/23 17:07 Temperature 98.7 F 09/29/23 17:07 Pulse Rate 82 09/29/23 17:07 Respiratory Rate 16 09/29/23 17:07 Blood Pressure 137/93 H 09/29/23 17:07 Pulse Oximetry 99 09/29/23 17:07 Oxygen Delivery Method Room Air 09/29/23 17:07 MDM - Chest Pain MDM Narrative Medical decision making narrative: Initial troponin is negative. Repeat is ordered and pending and the patient is signed out to Dr. Lu at change of shift. Differential Diagnosis Differential diagnosis: Likely pneumothorax, st elevation myocardial infarction, costochondritis and chest pain Lab Data Attestation: I reviewed the patient's lab results. Labs: Lab Results 09/29/23 Range/Units 17:19 WBC 7.4 (4.0-11.0) 10^3/uL RBC 4.37 (4.20-5.40) 10^6/uL Hgb 13.1 (12.0-16.0) g/dL Hct 39.8 (36.0-48.0) % MCV 91.1 (81.0-99.0) fL MCH 30.0 (26.7-34.0) pg MCHC 32.9 (29.9-35.2) g/dL RDW 12.7 (11.0-15.0) % Plt Count 241 (150-450) 10^3/uL MPV 10.9 (9.5-13.5) fL Neut % (Auto) 54.1 (43.0-75.0) % Lymph % (Auto) 35.1 (20.5-60.0) % [place] % (Auto) 7.4 (1.7-12.0) % Eos % (Auto) 2.6 (0.9-7.0) % Baso % (Auto) 0.5 (0.2-2.0) % Neut # (Auto) 4.0 (1.4-6.5) 10^3/uL Lymph # (Auto) 2.6 (1.2-3.8) 10^3/uL [place] # (Auto) 0.6 (0.3-0.8) 10^3/uL Eos # (Auto) 0.2 (0.0-0.7) 10^3/uL Baso # (Auto) 0.0 (0.0-0.1) 10^3/uL Abs Immat Gran (auto) 0.02 (0.00-0.03) 10^3/uL Imm/Tot Granulo (auto) 0.3 (0.0-0.5) % Sodium 142 (136-145) mmol/L Potassium 3.2 L (3.5-5.1) mmol/L Chloride 106 (98-107) mmol/L Carbon Dioxide 24.0 (21.0-32.0) mmol/L Anion Gap 15.2 BUN 16.0 (7.0-18.0) mg/dL Creatinine 0.85 (0.55-1.02) mg/dL Est GFR ( Amer) >60 (>=60) Est GFR (Non-Af Amer) >60 (>=60) BUN/Creatinine Ratio 18.8 Glucose 112 H (74-106) mg/dL Calcium 9.3 (8.5-10.1) mg/dL Troponin I High Sens <4.0 L (4.0-51.3) pg/mL Imaging Data Chest x-ray: Radiologist's impression: ITS Impressions Chest X-Ray 09/29/23 17:23 IMPRESSION: Stable chest x-ray, no acute abnormality. Electronically authenticated by: DELILAH MERINO Date: 09/29/2023 18:07 ECG Data Attestation: I personally reviewed and interpreted this ECG as follows: (EKG on my interpretation shows normal sinus rhythm with rate of 80 and no acute change.) Heart Score History: Slightly/Non-Suspicious ECG: Normal Age: >45-<65 years Risk Factors: No Risk Factors Troponin: <Normal Limit Total Heart Score Recommendations & Risks:: 1 Discharge Plan Discharge Patient Disposition: Still a Patient
--- NOTE | 2023-09-29 17:23 | XR_ITS ---
[address] [address] Patient Name: ROYCE ARGUELLO MRN: [id number] date: 1975 Sex: F Assigned Patient Location: ER Current Patient Location: ER Accession/Order Number: [id number] Exam Date: 09/29/2023 17:30 Report Date: 09/29/2023 18:07 At the request of: ETHAN BEYER Procedure: XR chest 1V EXAM: XR chest 1V HISTORY: Chest pain COMPARISON: 09/23/2019 TECHNIQUE: AP portable upright chest x-ray FINDINGS: Lungs clear without infiltrate or edema. Normal heart size and mediastinal contour. No pleural effusion or pneumothorax XR/XR chest 1V IMPRESSION: Stable chest x-ray, no acute abnormality. Electronically authenticated by: DELILAH MERINO Date: 09/29/2023 18:07
--- NOTE | 2023-09-29 17:23 | ECG_ITS ---
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
[2023-09-29 17:43] LABS: Basophils Percent Auto 0.5 % (0.2-2.0); Eosinophils Absolute Auto 0.2 10^3/uL (0.0-0.7); Eosinophils Percent Auto 2.6 % (0.9-7.0); Hematocrit 39.8 % (36.0-48.0); Hemoglobin 13.1 g/dL (12.0-16.0); Immature Granulocytes Abs Auto 0.02 10^3/uL (0.00-0.03); Immature Granulocytes Pct Auto 0.3 % (0.0-0.5); Lymphocytes Absolute Auto 2.6 10^3/uL (1.2-3.8); Lymphocytes Percent Auto 35.1 % (20.5-60.0); Mean Corpuscular HGB Conc 32.9 g/dL (29.9-35.2); Mean Corpuscular Volume 91.1 fL (81.0-99.0); Mean Platelet Volume 10.9 fL (9.5-13.5); Monocytes Absolute Auto 0.6 10^3/uL (0.3-0.8); Monocytes Percent Auto 7.4 % (1.7-12.0); Neutrophils Percent Auto 54.1 % (43.0-75.0); Platelet Count 241 10^3/uL (150-450); Red Blood Count 4.37 10^6/uL (4.20-5.40); Red Cell Distribution Width 12.7 % (11.0-15.0); White Blood Count 7.4 10^3/uL (4.0-11.0)
[2023-09-29 18:01] LABS: Anion Gap 15.2; BUN Creatinine Ratio 18.8; Calcium 9.3 mg/dL (8.5-10.1); Chloride 106 mmol/L (98-107); Estimated GFR (African America >60 (>=60); Estimated GFR (Non-African Ame >60 (>=60); Glucose 112 mg/dL (74-106); Potassium 3.2 mmol/L (3.5-5.1); Sodium 142 mmol/L (136-145); Troponin I High Sensitivity <4.0 pg/mL (4.0-51.3)
[2023-09-29 20:10] LABS: Troponin I High Sensitivity <4.0 pg/mL (4.0-51.3)
== END 2023-09-29 21:08 | disposition home or self-care (01) ==
PROVIDERS: Emergency Medicine; Emergency Provider Internal Medicine; PCP Psychiatry & Neurology Neurology
DX: R07.89 Other chest pain (principal)
CPT/HCPCS: 36415; 71045; 80048; 84484; 85025; 93005; 99285

== ENCOUNTER 2023-11-13 13:30 | Outpatient (OUT) | payer MEDICAID, SELFPAY | END 2023-11-13 13:31 | disposition home or self-care (01) | LOC: SLEEP 13:30 | PROVIDERS: PCP Internal Medicine Cardiovascular Disease; Visit Provider Internal Medicine Cardiovascular Disease | DX: G47.33 Obstructive sleep apnea (adult) (pediatric) (principal) | CPT/HCPCS: 95806 ==

== ENCOUNTER 2023-11-14 07:46 | Outpatient (OUT) | payer MEDICAID, SELFPAY ==
--- OUTSIDE RECORDS SUMMARY | 2023-11-14 07:50 | XMS_ITS | CCD ---
Author Organization [facility] Care Team Providers Care Global Compensation Analyst Name Role Phone PHYSICIAN, DEFAULT Unavailable Unavailable PHYSICIAN, DEFAULT Unavailable Unavailable Hercher, Malina L Unavailable Unavailable Hercher, Malina L Unavailable Unavailable Chuckie Gonzalez Unavailable Unavailable Hercher, Malina L Unavailable Unavailable Hercher, Malina L Unavailable Unavailable Chuckie Gonzalez Unavailable Unavailable Brionna Coronel Unavailable Lenin Adkins Unavailable Harmony Jerez Unavailable NO FAMILY, PHYSICIAN Primary Care Provider Unava ilable WAI Jerez Attending Provider RUDY Coronel Attending Provider MISC, DR GIBSON Admitting Unavailable MISC, DR GIBSON Attending Unavailable AUGUSTO, BRIONNA Primary Care Unavailable MISC, DR GIBSON Consulting Unavailable KARASIK, DR CRABTREE Admitting Unavailable KARASIK, DR CRABTREE Attending Unavailable AUGUSTO, BRIONNA Primary Care Unavailable KARASIK, DR CRABTREE Consulting Unavailable LINDENVELIA BAUMAN Admitting Unavailable LINDENVELIA BAUMAN Attending Unavailable AUGUSTO, BRIONNA Primary Care Unavailable LINDEN, VELIA Consulting Unavailable AUGUSTO, BRIONNA Primary Care Unavailable MARKER, DR COHEN Admitting Unavailable MARKER, DR COHEN Attending Unavailable RICH AVILES Consulting Unavailable MARKER, DR COHEN Consulting Unavailable MARY SARAH Consulting Unavailable KARASIK, DR CRABTREE Admitting Unavailable KARASIK, DR CRABTREE Attending Unavailable AUGUSTO, BRIONNA Primary Care Unavailable KARASIK, DR CRABTREE Consulting Unavailable WEST, DR CHUCKIE Diaz Consulting Unavailable KARASIK, DR CRABTREE Admitting Unavailable KARASIK, DR CRABTREE Attending Unavailable AUGUSTO, BRIONNA Primary Care Unavailable KARASIK, DR CRABTREE Consulting Unavailable JANIE Hillman Attending Provider Savannah Hillman Unavailable NO FAMILY, PHYSICIAN Primary Care Unavailable Harmony Jerez Admitting Unavailable Harmony Jerez Attending Unavailable Brionna Coronel Attending Unavailable NO FAMILY, PHYSICIAN Primary Care Unavailable Brionna Coronel Admitting Unavailable Savannah Hillman Admitting Unavailable Savannah Hillman Attending Unavailable Janett Nugent Unavailable Augusto MILLINER HELPER-COATER HAND, Brionna Primary Care Provide r MARLENI ZAVALA Referring Unavailable AUGUSTO, BRIONNA Primary Care Unavailable HARRISON GONZALEZ Attending Unavailable MERCED SULLIVAN Referring Unavailable HOLDEN HARGROVE Attending Unavailable MARLENI ZAVALA Attending Unavailable AUGUSTO, BRIONNA Referring Unavailable AUGUSTO, BRIONNA Primary Care Unavailable JESÚS LEVINE Attending Unavailable AUGUSTO, BRIONNA Referring Unavailable RAMYA COSME Primary Care Unavailable RAMYA COSME Attending Unavailable AUGUSTO, BRIONNA Referring Unavailable AUGUSTO, BRIONNA Primary Care Unavailable Allergies Allergy Classification Reported Allergen(s) Allergy Type Date of Onset Reaction(s) Facility (20 sources) amoxicillin; Translations: [amoxicillin] Drug Allergy 04-17-20 05 [facility] Repository (20 sources) erythromycin; Translations: [erythromycin] Drug Allergy 02-06-20 17 [facility] Repository (19 sources) Adhesive Tape Propensity to adverse reactions red and irritation [facility] Other (19 sources) Ciprofloxacin Drug Allergy hard to breath [facility] Other (20 sources) metroNIDAZOLE; Translations: [METRONIDAZOLE] Drug Allergy 04-02-20 19 hard to breath [facility] Other (4 sources) Adhesive agent; Translations: [ADHESIVE] Drug allergy (disorder) 04-02-20 19 [facility] Repository (1 source) Ciprofloxacin Drug Allergy [facility] Repository (1 source) Erythromycin Drug Allergy [facility] Repository (1 source) metroNIDAZOLE Drug Allergy [facility] Repository (4 sources) Adhesive agent Propensity to adverse reactions to drug 04-02-20 [facility] (8 sources) Azithromycin; Translations: [AZITHROMYCIN] Drug Allergy 04-02-20 Swelling, Rash [facility] (7 sources) Ciprofloxacin; Translations: [CIPROFLOXACIN HCL] Drug Allergy 04-02-20 [facility] (7 sources) Adhesive Tape-Silicones; Translations: [ADHESIVE TAPE-SILICONES] Propensity to adverse reactions to drug 04-02-20 [facility] Medications Current Medications Medication Drug Class(es) Dates [...] completed) Start: 04-03-2022 take 1 capsule by [facility] every twelve hours Doxycycline Monohydrate 100 MG [...] mg Triamcinolone (15 sources) Corticosteroid Start: 12-26-2013 KENALOG - 10 m g Dec, 40 mg Problems [...] paroxysmal anxiety]] Onset: 04-02-2019 Resolved: 08-10-2021 Chronic Cardiac dysrhythmias (2 sources) Palpitations; Translations: [Palpitations] Onset: 10-08-2023 Episodic Deficiency and other anemia (1 source) Vitamin B12 deficiency anemia, unspecified; Translations: [VITAMIN B12 DEFICIENCY ANEMIA UNS] Onset: 07-16-2022 Episodic Disorders of lipid metabolism (1 source) Pure hypercholesterolemia, unspecified Onset: 04-17-2021 Resolved: 04-17-2021 Chronic Esophageal disorders (19 sources) Gastroesophageal reflux disease; Translations: [Gastro-esophageal reflux disease without esophagitis] Chronic Genitourinary symptoms and ill-defined conditions (20 sources) Dysuria; Translations: [Dysuria] Onset: 08-03-2019 Resolved: 06-19-2023 Episodic Headache; including migraine (20 sources) Migraine without aura, not refractory ; [...] Dysthymia; Translations: [Dysthymic disorder] Onset: 07-16-2022 Chronic Nonspecific chest pain (2 sources) Precordial pain; Translations: [Precordial pain] Onset: 10-08-2023 Episodic Nutritional deficiencies (4 sources) Vitamin D deficiency, [...] genital organs and menstrual cycle] Episodic Other lower respiratory disease (2 sources) Other forms of dyspnea; Translations: [Other forms of dyspnea] Onset: 10-08-2023 Episodic Other nutritional; endocrine; and metabolic disorders (20 sources) Obese class I; Translations: [Body mass index (BMI) 33.0-33.9, adult] Chronic Other nutritional; endocrine; and metabolic disorders (2 sources) Other obesity due to excess calories; Translations: [Other obesity due to excess calories] Onset: 10-08-2023 Chronic Other skin disorders (2 sources) Lichen sclerosus et atrophicus; Translations: [Circumscribed scleroderma] Onset: 09-05-2023 09-05-2023 Chronic Other upper respiratory disease (19 sources) Seasonal allergic rhinitis; Translations: [Other seasonal allergic rhinitis] Chronic Other upper respiratory infections (2 sources) Acute laryngitis; Translations: [Acute maxillary sinusitis, unspecified] Episodic Residual codes; unclassified (2 sources) Sleep apnea, unspecified; Translations: [Sleep apnea, unspecified] Onset: 10-08-2023 Chronic Sprains and strains (2 sources) Strain of muscle, fascia and tendon at neck level, initial encounter; Translations: [Sprain of ligaments of cervical spine, initial encounter] Episodic Unclassified (1 source) 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 Onset: 09-04-2023 Urinary tract infections (7 sources) Acute cystitis without hematuria; Translations: [Acute cystitis with hematuria] Onset: 08-03-2019 Resolved: 06-19-2023 Episodic Past or Other Problems Problem Classification Problem Date Documented Date Episodic/Chronic Headache; including migraine (6 sources) Headache; including [...] Episodic Unclassified (1 source) Acute cough R05.1 Viral infection (1 source) COVID-19 Results Test Name Value Interpretation Reference Range Facility Office Visiton 10-08-2023 Follow-up visit [id number] Too,Leydi Camacho 1975 F Date Provider Department Center 10/08/2023 [id number] HARGROVE Trevor Sotomayor Family History Problem Relation Age of Onset Diabetes Mother Breast cancer Mother Bone cancer Mother Fibromyalgia Mother Family Status - Relation Status Age at Mother Father Alive Level of Service:56433 [place] OFFICE/OUTPATIENT NEW MODERATE MDM 45 MINUTES Reason for Visit and Comments: Chest Pain [522216] Normal [facility] Vaginitis Panel PCRon 2023 Bacterial vaginosis DNA panel AC+probe (Vag fld) Not detected Not Detected^N ot Detected [facility] Comment on above: Qualitative results are reported based on detection and quantitation of targeted organism markers which include: Lactobacillus spp. (L. crispatus and L. jensenii), Gardnerella vaginalis, Atopobium vaginae, Bacterial Vaginosis Associated Bacteria-2 (BVAB-2) and Megasphaera-1 C. glabrata DNA AC+probe Ql (Vag fld) Not detected Not Detected^N ot Detected [facility] Comment on above: No Emile glabrata detected C. krusei DNA AC+probe Ql (Vag fld) Not detected Not Detected^N ot Detected [facility] Comment on above: No Emile krusei de tected Emile sp 6 panel AC+probe (Vag fld) Detected Abnormal Not Detected^N ot Detected [facility] Comment on above: Emile species result based on detection of one or more of the following species: C. albicans, C. tropicalis, C. parapsilosis or C. dubliniensis Interpretation and review of laboratory results Abnormal [facility] T. vaginalis DNA AC+probe Ql (Vag fld) Not detected Not Detected^N ot Detected [facility] Comment on above: No Trichomonas vagin karen detected NOTE BD MAX Vaginal Panel has not been evaluated for patients under 18 years old. Results for these patients should be reviewed and assessed in accordance with clinical presentation to determine patient diagnosis. [facility] VAGINITIS PANEL PCRon 2023 VAGINITIS PANEL PCR [...] clinical presentation to determine patient diagnosis. [facility] Comment on above: Performed By: #### V PPCR #### [facility] ([id number]) [address] [place] [address], [address] [place] [address] COVID + FLU Quick Testingon 06-11-2023 SARS-CoV-2 (COVID-19) RNA AC+probe Ql (Unsp spec) Negative [facility] Other COVID + FLU Quick Testing Negative [facility] Other Vaginitis Plus (VG+)on 12-03 Atopobium Vaginae Moderate - 1 Normal . [facility] Comment on above: Order Comment: Reaso n for Exam Vaginal irritation Performed By: #### V AGINITIS+ #### [facility] , BVAB2 Low - 0 Normal . [facility] Comment on above: Order Comment: Reaso n for Exam Vaginal irritation Performed By: #### V AGINITIS+ #### [facility] , Emile Albicans, AC Negative Normal Negative [facility] Comment on above: Order Comment: Reaso n for Exam Vaginal irritation Result Comment: This test was developed and its performance characteristics determined by [facility]. It has not been cleared or approved by the Food and Drug Administration. Performed By: #### V AGINITIS+ #### [facility] , Emile Glabrata, AC Negative Normal Negative [facility] Comment on above: Order Comment: Reaso n for Exam Vaginal irritation Result Comment: This test was developed and its performance characteristics determined by [facility]. It has not been cleared or approved by the Food and Drug Administration. PERFORMED BY: [facility] [place] [address] PATHOLOGIST B2B OUTSIDE SALES REPRESENTATIVE PAWEL MADRIGAL M.D. Performed By: #### V AGINITIS+ #### [facility] , Chlamydia Trachomotis, AC Negative Normal Negative [facility] Comment on above: Order Comment: Reaso n for Exam Vaginal irritation Performed By: #### V AGINITIS+ #### [facility] , Megasphaera Low - 0 Normal . [facility] Comment on above: Order Comment: Reaso [...] , Neisseria Gonorrhoeae, AC Negative Normal Negative [facility] Comment on above: Order Comment: Reaso n for Exam Vaginal irritation Result Comment: Perf ormed at: =G - [facility] [address] [id number] Talent Acquisition Relationship Manager: Lydia Holliday MD, Phone: [phone] Performed By: #### V AGINITIS+ #### [facility] , Tric Vag AC Negative Normal Negative [facility] Comment on above: Order Comment: Reaso n for Exam Vaginal irritation Performed By: #### V AGINITIS+ #### [facility] , THYROID ANTIBODIESon 02-06-2 023 Thyroglobulin Antibody <1.0 Normal 0.0-0.9 [facility] Comment on above: Result Comment: Thyr oglobulin Antibody measured by [facility] Methodology Performed By: #### T HYBS #### [facility] [address] [place] [address] Dr. Nabila Kearns Thyroid Peroxidase (TPO) Ab 12 IU/mL Normal 0-34 [facility] Comment on above: Performed By: #### T HYRABS #### [facility] [address] [place] [address] Dr. Nabila Kearns ESTRADIOLon 07-15-2022 Estradiol 117.0 pg/mL Normal [facility] Comment on above: Result Comment: Adul t Female: Follicular phase 12.5 - 166.0 Ovulation phase 85.8 - 498.0 Luteal phase 43.8 - 211.0 Postmenopausal <6.0 - 54.7 1st trimester 215.0 - >4300.0 Susana ECLIA methodology Performed By: #### H EPBSRF #### [facility] [address] [place] [address] Dr. Nabila Kearns FSHon 07-15-2022 FSH 9.0 mIU/mL Normal [facility] Comment on above: Result Comment: Adul t Female: Follicular phase 3.5 - 12.5 Ovulation phase 4.7 - 21.5 Luteal phase 1.7 - 7.7 Postmenopausal 25.8 - 134.8 Performed By: #### C BC #### [facility] [address] [place] [address] Dr. Nabila Kearns TESTOSTERONE, TOTALon 2022 Testosterone [Mass/Vol] 9 ng/dL Normal 4-50 [facility] Comment on above: Performed By: #### T ESTTOT #### [facility] [address] [place] [address] Dr. Nabila Kearns CBC AUTO DIFFon 07-14-2022 BASO # 0.0 103/ul Normal 0.0-0.1 [facility] Comment on above: Performed By: #### H EPBSRF #### [facility] [address] [place] [address] Dr. Nabila Kearns Basophils/100 WBC (Bld) 0.4 % Normal 0.2-2.0 [facility] Comment on above: Performed By: #### H EPBSRF #### [facility] [address] [place] [address] Dr. Nabila Kearns EO # 0.1 103/ul Normal 0.0-0.7 [facility] Comment on above: Performed By: #### H EPBSRF #### [facility] [address] [place] [address] Dr. Nabila Kearns Eosinophils/100 WBC (Bld) 2.6 % Normal 0.9-7.0 [facility] Comment on above: Performed By: #### H EPBSRF #### [facility] [address] [place] [address] Dr. Nabila Kearns Erythrocyte distribution width (RBC) [Ratio] 12.8 % Normal 11.0-15.0 [facility] Comment on above: Performed By: #### H EPBSRF #### [facility] [address] [place] [address] Dr. Nabila Kearns Hematocrit (Bld) [Volume fraction] 41.3 % Normal 36.0-48.0 [facility] Comment on above: Performed By: #### H EPBSRF #### [facility] [address] [place] [address] Dr. Nabila Kearns Hemoglobin (Bld) [Mass/Vol] 12.9 g/dL Normal 12.0-16.0 [facility] Comment on above: Performed By: #### H EPBSRF #### [facility] [address] [place] [address] Dr. Nabila Kearns IG # 0.02 10e3/ul Normal 0.00-0.03 [facility] Comment on above: Performed By: #### H EPBSRF #### [facility] [address] [place] [address] Dr. Nabila Kearns IG % 0.4 % Normal 0.0-0.5 [facility] Comment on above: Performed By: #### H EPBSRF #### [facility] [address] [place], [place] [id number] Dr. Nabila Kearns LYMPH # 1.8 103/ul Normal 1.2-3.8 [facility] Comment on above: Performed By: #### H EPBSRF #### [facility] [address] [place] [address] Dr. Nabila Kearns Lymphocytes/100 WBC (Bld) 33.7 % Normal 20.5-60.0 [facility] Comment on above: Performed By: #### H EPBSRF #### [facility] [address] [place] [address] Dr. Nabila Kearns MANUAL DIFF REQ NO Normal [facility] Comment on above: Performed By: #### H EPBSRF #### [facility] [address] [place] [address] Dr. Nabila Kearns MCH (RBC) [Entitic mass] 29.2 pg Normal 26.7-34.0 [facility] Comment on above: Performed By: #### H EPBSRF #### [facility] [address] [place] [address] Dr. Nabila Kearns MCHC (RBC) [Mass/Vol] 31.2 g/dL Normal 29.9-35.2 [facility] Comment on above: Performed By: #### H EPBSRF #### [facility] [address] [place] [address] Dr. Nabila Kearns MCV (RBC) [Entitic vol] 93.4 fL Normal 81.0-99.0 [facility] Comment on above: Performed By: #### H EPBSRF #### [facility] [address] [place] [address] Dr. Nabila Kearns MONO # 0.5 103/ul Normal 0.3-0.8 [facility] Comment on above: Performed By: #### H EPBSRF #### [facility] [address] [place] [address] Dr. Nabila Kearns Monocytes/100 WBC (Bld) 9.7 % Normal 1.7-12.0 [facility] Comment on above: Performed By: #### H EPBSRF #### [facility] [address] [address] [address] Nabila Kearns NEUT # 2.9 103/ul Normal 1.4-6.5 [facility] Comment on above: Performed By: #### H EPBSRF #### [facility] [address] [place] [address] Dr. Nabila Kearns Neutrophils/100 WBC (Bld) 53.2 % Normal 43.0-75.0 [facility] Comment on above: Performed By: #### H EPBSRF #### [facility] [address] [place] [address] Dr. Nabila Kearns Platelet mean volume (Bld) [Entitic vol] 10.6 fL Normal 9.5-13.5 [facility] Comment on above: Performed By: #### H EPBSRF #### [facility] [address] [place] [address] Dr. Nabila Kearns PLT 262 103/ul Normal 150-450 [facility] Comment on above: Performed By: #### H EPBSRF #### [facility] [address] [place] [address] Dr. Nabila Kearns RBC 4.42 106/ul Normal 4.20-5.40 [facility] Comment on above: Performed By: #### H EPBSRF #### [facility] [address] [place] [address] Dr. Nabila Kearns WBC 5.5 103/ul Normal 4.0-11.0 [facility] Comment on above: Performed By: #### H EPBSRF #### [facility] [address] [place] [address] Dr. Nabila Kearns FREE T3on 07-14-2022 FREE T3 2.38 pg/mlL Normal 2.18-3.98 [facility] Comment on above: Performed By: #### H EPBSRF #### [facility] [address] [place] [address] Dr. Nabila Kearns FREE T4on 07-14-2022 Free T4 [Mass/Vol] 1.02 ng/dL Normal 0.76-1.46 [facility] Comment on above: Performed By: #### C BC #### [facility] [address] [address] [address] Nabila Kearns PROF 14(COMP METB)on 023 Albumin [Mass/Vol] 3.2 g/dL Critically low 3.4-5.0 [facility] Comment on above: Performed By: #### H EPBSRF #### [facility] [address] [address] [address] Nabila Kearns Albumin/Globulin [Mass ratio] 0.8 {ratio} Normal [facility] Comment on above: Performed By: #### H EPBSRF #### [facility] [address] [address] [address] Nabila Kearns ALP [Catalytic activity/Vol] 48 U/L Normal 46-116 [facility] Comment on above: Performed By: #### H EPBSRF #### [facility] [address] [place] [address] Dr. Nabila Kearns ALT [Catalytic activity/Vol] 30 U/L Normal 14-59 [facility] Comment on above: Performed By: #### H EPBSRF #### [facility] [address] [address] [address] Nabila Kearns Anion gap [Moles/Vol] 12.3 mmol/L Normal [facility] Comment on above: Performed By: #### H EPBSRF #### [facility] [address] [address] [address] Nabila Kearns AST [Catalytic activity/Vol] 17 U/L Normal 15-37 [facility] Comment on above: Performed By: #### H EPBSRF #### [facility] [address] [address] [address] Nabila Kearns Bilirubin [Mass/Vol] 0.4 mg/dL Normal 0.2-1.0 [facility] Comment on above: Performed By: #### H EPBSRF #### [facility] [address] [address] [address] Nabila Kearns Calcium [Mass/Vol] 8.8 mg/dL Normal 8.5-10.1 [facility] Comment on above: Performed By: #### H EPBSRF #### [facility] [address] [address] [address] Nabila Kearns Chloride [Moles/Vol] 105 mmol/L Normal 98-107 [facility] Comment on above: Performed By: #### H EPBSRF #### [facility] [address] [address] [address] Nabila Kearns CO2 [Moles/Vol] 26.4 mmol/L Normal 21.0-32.0 [facility] Comment on above: Performed By: #### H EPBSRF #### [facility] [address] [address] [address] Nabila Kearns Creatinine [Mass/Vol] 0.59 mg/dL Normal 0.55-1.02 [facility] Comment on above: Performed By: #### H EPBSRF #### [facility] [address] [address] [address] Nabila Kearns EGFR-AF MACANESE >60 Normal >=60 [facility] Comment on above: Performed By: #### H EPBSRF #### [facility] [address] [address] [address] Nabila Kearns EGFR-NON AF MACANESE >60 Normal >=60 [facility] Comment on above: Performed By: #### H EPBSRF #### [facility] [address] [address] [address] Nabila Kearns Globulin (S) [Mass/Vol] 4.0 g/dL Normal [facility] Comment on above: Performed By: #### H EPBSRF #### [facility] [address] [address] [address] Nabila Kearns Glucose [Mass/Vol] 79 mg/dL Normal 74-106 [facility] Comment on above: Performed By: #### H EPBSRF #### [facility] [address] [address] [address] Nabila Kearns Potassium [Moles/Vol] 3.7 mmol/L Normal 3.5-5.1 [facility] Comment on above: Performed By: #### H EPBSRF #### [facility] [address] [place] [address] Dr. Nabila Kearns Protein [Mass/Vol] 7.2 g/dL Normal 6.4-8.2 [facility] Comment on above: Performed By: #### H EPBSRF #### [facility] [address] [place] [address] Dr. Nabila Kearns Sodium [Moles/Vol] 140 mmol/L Normal 136-145 [facility] Comment on above: Performed By: #### H EPBSRF #### [facility] [address] [place] [address] Dr. Nabila Kearns Urea nitrogen [Mass/Vol] 14.0 mg/dL Normal 7.0-18.0 [facility] Comment on above: Performed By: #### H EPBSRF #### [facility] [address] [place] [address] Dr. Nabila Kearns Urea nitrogen/Creatinine [Mass ratio] 23.7 mg/mg Normal [facility] Comment on above: Performed By: #### H EPBSRF #### [facility] [address] [place] [address] Dr. Nabila Kearns TSHon 07-14-2022 TSH 1.054 uIU/mL Normal 0.358-3.74 0 [facility] Comment on above: Performed By: #### H EPBSRF #### [facility] [address] [place] [address] Dr. Nabila Kearns VITAMIN B12on 07-14-2022 Cobalamin (Vitamin B12) [Mass/Vol] 434.0 pg/mL Normal 193.0-986. 0 [facility] Comment on above: Performed By: #### C BC #### [facility] [address] [place] [address] Dr. Nabila Kearns VITAMIN D 25 OHon 07-14-2022 VIT D 25-OH 36.5 ng/mL Normal [facility] Comment on above: Performed By: #### C BC #### [facility] [address] [place] [address] Dr. Nabila Kearns VIT D RANGES SEE BELOW Normal [facility] Comment on above: Result Comment: <20 ng/mL Vit D deficient 20 - <30 ng/mL Vit D insufficient 30 - 100 ng/mL Vit D sufficient >100 ng/mL Potential Toxicity Performed By: #### C BC #### [facility] [address] [address] [address] Nabila Kearns COVID Quick Testingon 2021 Result Positive [employer] Other Quick Strepon 04-16-2022 S. pyogenes Org specific cx Ql (Throat) Negative [employer] Other Quick Strep [employer] Other Urinalysis - AUTOMATEDon Appearance (U) clear [employer] Other Bilirubin Ql (U) Negative [employer] Other Color (U) yellow [employer] Other Glucose Ql (U) Negative [employer] Other Hemoglobin Ql (U) Moderate [employer] Other Ketones Ql (U) Negative [employer] Other Leukocyte esterase Test strip Ql (U) Small [employer] Other Nitrite Ql (U) Negative [employer] Other pH (U) 6.0 [pH] [employer] Other Protein Ql (U) Negtaive [employer] Other Specific gravity (U) [Rel density] 1.030 [employer] Other Urobilinogen (U) [Mass/Vol] 0.20 mg/dL [employer] Other Urinalysis - AUTOMATED No rt [email or web address] Other Urine Cultureon 04-03-2022 Bacteria identified Cx Nom (U) Reason for Exam Dysuria Urine >100,000 colonies/ml mixed bacterial skin contaminants 2 Days PERFORMED BY: [place] [address] PATHOLOGIST B2B OUTSIDE SALES REPRESENTATIVE PAWEL MADRIGAL M.D. Normal [facility] Comment on above: Performed By: #### C UU #### [facility] [address] [place] [address] VAGINITIS/VAGINOSIS DNA PROB Oleg 03-02-2022 Emile species Negative Normal Negative [facility] Comment on above: Performed By: #### V AGINT #### [facility] [address] [address] [address] Nabila Kearns Gardnerella vaginalis Positive Abnormal Negative [facility] Comment on above: Performed By: #### V AGINT #### [facility] [address] [place] [address] Dr. Nabila Kearns Trichomonas vaginalis Negative Normal Negative [facility] Comment on above: Performed By: #### V AGINT #### [facility] [address] [address] [address] Nabila Kearns Laboratory - Microbiology an d Antimicrobial susceptibilityOrdered By: Veronica Jerez on 01-10-2022 N. gonorrhoeae DNA AC+probe Ql (Unsp spec) Negative Negative [facility] Comment on above: Performed at: =G - L [facility] [place] [address] [place], [place] [id number] Talent Acquisition Relationship Manager: Lydia Holliday MD, Phone: [phone] Performed at: =G - L [facility], [place] [id number] Director: Lydia Holliday MD, Phone: [phone] No Panel InformationOrdered By: Veronica Jerez on 01-10-2022 Emile albicans (AC) Negative Negative [facility] Comment on above: This test was develo ped and its performance characteristics determined by [employer]. It has not been cleared or approved by the Food and Drug Administration. This test was develo ped and its performance characteristicsdetermined by [employer]. It has not been cleared orapproved by the Food and Drug Administration. Emile glabrata (AC) Negative Negative [facility] Comment on above: This test was develo ped and its performance characteristics determined by [facility]. It has not been cleared or approved by the Food and Drug Administration. This test was develo ped and its performance characteristicsdetermined by [facility]. It has not been cleared orapproved by the Food and Drug Administration. Chlamydia trachomatis (AC) (LAB) Negative Negative [facility] Trichomonas vaginalis (AC) Negative Negative [facility] Vaginal fluid Atopobium vagi sergio DNA detection by probe and target amplification methoOrdered By: Veronica Meri on 01-10-2022 A. vaginae DNA AC+probe Ql (Vag fld) Moderate - 1 Score . [facility] Vaginal fluid Megasphaera sp ecies type 1 DNA detection by probe and target amplificatOrdered By: Veronica Meri on 01-10-2022 Megasphaera sp type 1 DNA AC+probe Ql (Vag fld) High - 2 Score . [facility] Comment on above: Calculate total scor [...] was developed and its performance characteristicsdetermined by [employer]. It has not been cleared or approvedby the Food and Drug Administration. Vaginal fluid bacterial vagi nosis associated bacterium 2 DNA detection by probe and tOrdered By: Veronica Meri on 01-10-2022 Bacterial vaginosis associated bacterium 2 DNA AC+probe Ql (Vag fld) Low - 0 Score . [facility] Vaginitis Plus (VG+)on 01-10 Atopobium Vaginae Moderate - 1 Normal . [facility] Comment on above: Order Comment: SOURC E OF SPECIMEN: VAGINAL Performed By: #### V AGINITIS+ #### [facility] , BVAB2 Low - 0 Normal . [facility] Comment on above: Order Comment: SOURC E OF SPECIMEN: VAGINAL Performed By: #### V AGINITIS+ #### [facility] , Emile Albicans, AC Negative Normal Negative [facility] Comment on above: Order Comment: SOURC E OF SPECIMEN: VAGINAL Result Comment: This test was developed and its performance characteristics determined by [facility]. It has not been cleared or approved by the Food and Drug Administration. Performed By: #### V AGINITIS+ #### [facility] , Emile Glabrata, AC Negative Normal Negative [facility] Comment on above: Order Comment: SOURC E OF SPECIMEN: VAGINAL Result Comment: This test was developed and its performance characteristics determined by [facility]. It has not been cleared or approved by the Food and Drug Administration. PERFORMED BY: [facility] [address] [place] [address] PATHOLOGIST B2B OUTSIDE SALES REPRESENTATIVE PAWEL MADRIGAL M.D. Performed By: #### V AGINITIS+ #### [facility] , Chlamydia Trachomotis, AC Negative Normal Negative [facility] Comment on above: Order Comment: SOURC E OF SPECIMEN: VAGINAL Performed By: #### V AGINITIS+ #### [facility] , Megasphaera High - 2 Critically abnormal . [facility] Comment on above: Order Comment: SOURC [...] , Neisseria Gonorrhoeae, AC Negative Normal Negative [facility] Comment on above: Order Comment: SOURC E OF SPECIMEN: VAGINAL Result Comment: Perf ormed at: =G - [facility] [address] [id number] Talent Acquisition Relationship Manager: Lydia Holliday MD, Phone: [phone] Performed By: #### V AGINITIS+ #### [facility] , Tric Vag AC Negative Normal Negative [facility] Comment on above: Order Comment: SOURC E OF SPECIMEN: VAGINAL Performed By: #### V AGINITIS+ #### [facility] , QUANTIFERON TB GOLD PLUSon 0 11-23-2021 QuantiFERON Criteria Comment Normal [facility] Comment on above: Result Comment: The QuantiFERON-TB Gold Plus result is determined by subtracting the Nil value from either TB antigen (Ag) tube. The mitogen tube serves as a control for the test. Performed By: #### Q NTTB #### [facility] [address] [place] [address] Dr. Nabila Kearns QuantiFERON Incubation Incubation performed. Normal [facility] Comment on above: Performed By: #### Q NTTB #### [facility] [address] [place] [address] Dr. Nabila Kearns QuantiFERON Mitogen Value >10.00 [facility] [place] [facility] Comment on above: Performed By: #### Q NTTB #### [facility] [address] [place] [address] Dr. Nabila Kearns QuantiFERON Nil Value 0.00 IU/mL [facility] [place] [facility] Comment on above: Performed By: #### Q NTTB #### [facility] [address] [place] [address] Dr. Nabila Kearns QuantiFERON TB1 Ag Value 0.01 IU/mL [facility] [place] [facility] Comment on above: Performed By: #### Q NTTB #### [facility] [address] [place] [address] Dr. Nabila Kearns QuantiFERON TB2 Ag Value 0.00 IU/mL Normal [facility] Comment on above: Performed By: #### Q NTTB #### [facility] [address] [place] [address] Dr. Nabila Kearns QuantiFERON-TB Gold Plus Negative Normal Negative [facility] Comment on above: Result Comment: Chem iluminescence immunoassay methodology Performed By: #### Q NTTB #### [facility] [address] [place] [address] Dr. Nabila Kearns HEPATITIS B SURFACE ANTIBODY , QUANTon 11-22-2021 Hepatitis B Surf AB Quant 13.3 mIU/mL Normal Immunity>9 .9 [facility] Comment on above: Result Comment: Stat us of Immunity Anti-HBs Level Inconsistent with Immunity 0.0 - 9.9 Consistent with Immunity >9.9 Performed By: #### H EPBSRF #### [facility] [address] [place] [address] Dr. Nabila Kearns MMR IMMUNITYon 11-22-2021 Mumps Abs, IgG 14.9 AU/mL Normal Immune >10.9 [facility] Comment on above: Result Comment: Nega tive <9.0 Equivocal 9.0 - 10.9 Positive >10.9 A positive result generally indicates past exposure to Mumps virus or previous vaccination. Performed By: #### C BC #### [facility] [address] [place] [address] Dr. Nabila Kearns Rubella Antibodies, IgG 1.92 index Normal Immune >0.99 [facility] Comment on above: Result Comment: Non- immune <0.90 Equivocal 0.90 - 0.99 Immune >0.99 Performed By: #### C BC #### [facility] [address] [place] [address] Dr. Nabila Kearns Rubeola Ab, IgG 298.0 AU/mL Normal Immune >16.4 [facility] Comment on above: Result Comment: Nega tive <13.5 Equivocal 13.5 - 16.4 Positive >16.4 Presence of antibodies to Rubeola is presumptive evidence of immunity except when acute infection is suspected. Performed By: #### C BC #### [facility] [address] [place], [place] [address] Dr. Nabila Kearns VARICELLA IGG ABon 2 Varicella Zoster IgG 1333 index Normal Immune >165 [facility] Comment on above: Result Comment: Nega tive <135 Equivocal 135 - 165 Positive >165 A positive result generally indicates exposure to the pathogen or administration of specific immunoglobulins, but it is not indication of active infection or stage of disease. Performed By: #### V ARCEL #### [facility] [address] [place], [place] [address] Dr. Nabila Kearns MG MAMM SCREEN 3D JOEL CADon 10-10-2021 MG MAMM SCREEN 3D JOEL CAD Patient: LEYDI ARGUELLO Exam Date: 10/10/2021 : 1975 Gender:F Ordering : DR LEYDA BAIG . Admission #: [id number] Family : Order #: [id number] CLICK HERE TO VIEW EXAM RADIOLOGY REPORT [...] breast cancer at age 70. LOCATION: [facility] BREAST COMPOSITION: Heterogeneously dense,which may obscure [...] Wellington MD on 10/11/2021 at 07:13 Normal [facility] CT HEAD WO CONon 09-06-2021 CT [...] by: MARY SARAH Date: 2021-09-05 22:18 Normal [facility] CBC AUTO DIFFon 09-05-2021 BASO # 0.0 103/ul Normal 0.0-0.1 [facility] Comment on above: Performed By: #### C BC #### [facility] [address] [place] [address] Dr. Nabila Kearns Basophils/100 WBC (Bld) 0.3 % Normal 0.2-2.0 [facility] Comment on above: Performed By: #### C BC #### [facility] [address] [place] [address] Dr. Nabila Kearns EO # 0.2 103/ul Normal 0.0-0.7 [facility] Comment on above: Performed By: #### C BC #### [facility] [address] [place] [address] Dr. Nabila Kearns Eosinophils/100 WBC (Bld) 2.3 % Normal 0.9-7.0 [facility] Comment on above: Performed By: #### C BC #### [facility] [address] [place] [address] Dr. Nabila Kearns Erythrocyte distribution width (RBC) [Ratio] 12.9 % Normal 11.0-15.0 [facility] Comment on above: Performed By: #### C BC #### [facility] [address] [place] [address] Dr. Nabila Kearns Hematocrit (Bld) [Volume fraction] 43.4 % Normal 36.0-48.0 [facility] Comment on above: Performed By: #### C BC #### [facility] [address] [place] [address] Dr. Nabila Kearns Hemoglobin (Bld) [Mass/Vol] 14.7 g/dL Normal 12.0-16.0 [facility] Comment on above: Performed By: #### C BC #### [facility] [address] [place] [address] Dr. Nabila Kearns IG # 0.03 10e3/ul Normal 0.00-0.03 [facility] Comment on above: Performed By: #### C BC #### [facility] [address] [place] [address] Dr. Nabila Kearns IG % 0.3 % Normal 0.0-0.5 [facility] Comment on above: Performed By: #### C BC #### [facility] [address] [place] [address] Dr. Nabila Kearns LYMPH # 1.8 103/ul Normal 1.2-3.8 [facility] Comment on above: Performed By: #### C BC #### [facility] [address] [place] [address] Dr. Nabila Kearns Lymphocytes/100 WBC (Bld) 19.5 % Critically low 20.5-60.0 [facility] Comment on above: Performed By: #### C BC #### [facility] [address] [place] [address] Dr. Nabila Kearns MANUAL DIFF REQ NO Normal [facility] Comment on above: Performed By: #### C BC #### [facility] [address] [place] [address] Dr. Nabila Kearns MCH (RBC) [Entitic mass] 30.5 pg Normal 26.7-34.0 [facility] Comment on above: Performed By: #### C BC #### [facility] [address] [address] [address] Nabila Kearns MCHC (RBC) [Mass/Vol] 33.9 g/dL Normal 29.9-35.2 [facility] Comment on above: Performed By: #### C BC #### [facility] [address] [address] [address] Nabila Kearns MCV (RBC) [Entitic vol] 90.0 fL Normal 81.0-99.0 [facility] Comment on above: Performed By: #### C BC #### [facility] [address] [address] [address] Nabila Kearns MONO # 0.9 103/ul Critically high 0.3-0.8 [facility] Comment on above: Performed By: #### C BC #### [facility] [address] [place] [address] Dr. Nabila Kearns Monocytes/100 WBC (Bld) 9.5 % Normal 1.7-12.0 [facility] Comment on above: Performed By: #### C BC #### [facility] [address] [place] [address] Dr. Nabila Kearns NEUT # 6.4 103/ul Normal 1.4-6.5 [facility] Comment on above: Performed By: #### C BC #### [facility] [address] [place] [address] Dr. Nabila Kearns Neutrophils/100 WBC (Bld) 68.1 % Normal 43.0-75.0 [facility] Comment on above: Performed By: #### C BC #### [facility] [address] [address] [address] Nabila Kearns Platelet mean volume (Bld) [Entitic vol] 11.2 fL Normal 9.5-13.5 [facility] Comment on above: Performed By: #### C BC #### [facility] [address] [address] [address] Nabila Kearns PLT 251 103/ul Normal 150-450 [facility] Comment on above: Performed By: #### C BC #### [facility] [address] [address] [address] Nabila Kearns RBC 4.82 106/ul Normal 4.20-5.40 [facility] Comment on above: Performed By: #### C BC #### [facility] [address] [address] [address] Nabila Kearns WBC 9.4 103/ul Normal 4.0-11.0 [facility] Comment on above: Performed By: #### C BC #### [facility] [address] [place] [address] Dr. Nabila Kearns CRPon 09-05-2021 CRP [Mass/Vol] mg/L Normal <=1.0 [facility] Comment on above: Performed By: #### C BC #### [facility] [address] [place] [address] Dr. Nabila Kearns PREG HCG QUALon 09-05-2021 , QUAL Negative Normal NEGATIVE [facility] Comment on above: Performed By: #### C BC #### [facility] [address] [place] [address] Dr. Nabila Kearns PROF CHEM 8 (BAS METB)on Anion gap [Moles/Vol] 13.8 mmol/L Normal [facility] Comment on above: Performed By: #### C BC #### [facility] [address] [place] [address] Dr. Nabila Kearns Calcium [Mass/Vol] 9.3 mg/dL Normal 8.5-10.1 [facility] Comment on above: Performed By: #### C BC #### [facility] [address] [place] [address] Dr. Nabila Kearns Chloride [Moles/Vol] 103 mmol/L Normal 98-107 [facility] Comment on above: Performed By: #### C BC #### [facility] [address] [place] [address] Dr. Nabila Kearns CO2 [Moles/Vol] 23.9 mmol/L Normal 22.0-30.0 [facility] Comment on above: Performed By: #### C BC #### [facility] [address] [place] [address] Dr. Nabila Kearns Creatinine [Mass/Vol] 0.64 mg/dL Normal 0.52-1.04 [facility] Comment on above: Performed By: #### C BC #### [facility] [address] [place] [address] Dr. Nabila Kearns EGFR-AF MACANESE >60 Normal >=60 [facility] Comment on above: Performed By: #### C BC #### [facility] [address] [place] [address] Dr. Nabila Kearns EGFR-NON AF MACANESE >60 Normal >=60 [facility] Comment on above: Performed By: #### C BC #### [facility] [address] [place] [address] Dr. Nabila Kearns Glucose [Mass/Vol] 92 mg/dL Normal 74-106 [facility] Comment on above: Performed By: #### C BC #### [facility] [address] [place] [address] Dr. Nabila Kearns Potassium [Moles/Vol] 3.7 mmol/L Normal 3.4-5.0 [facility] Comment on above: Performed By: #### C BC #### [facility] [address] [place] [address] Dr. Nabila Kearns Sodium [Moles/Vol] 137 mmol/L Normal 137-145 [facility] Comment on above: Performed By: #### C BC #### [facility] [address] [place] [address] Dr. Nabila Kearns Urea nitrogen [Mass/Vol] 12.0 mg/dL Normal 7.0-18.0 [facility] Comment on above: Performed By: #### C BC #### [facility] [address] [place] [address] Dr. Nabila Kearns Urea nitrogen/Creatinine [Mass ratio] 18.8 mg/mg Normal [facility] Comment on above: Performed By: #### C BC #### [facility] [address] [place] [address] Dr. [facility]abil[facility]earns [facility] SED R[facility] 12 mm/hr Normal <=20 [facility] Comment on above: Performed By: #### S EDR #### [facility] [address] [place] [address] Dr. Nabila Kearns PAP ACOG PANEL 2: 30 to 65on 07-27-2021 . . Normal [facility] Comment on above: Result Comment: Perf ormed at: WB Performed By: #### [id number] #### [facility] [address] [place] [address] Dr. Nabila Kearns Age Gdln ACOG Testing 30-65 [facility] [place] [facility] Comment on above: Performed By: #### [id number] #### [facility] [address] [place] [address] Dr. Nabila Kearns DIAGNOSIS: Comment Normal [facility] Comment on above: Result Comment: NEGA TIVE FOR INTRAEPITHELIAL LESION OR MALIGNANCY. Performed at: WB Performed By: #### [id number] #### [facility] [address] [place] [address] Dr. Nabila Kearns HPV Aptima Negative Normal Negative [facility] Comment on above: Result Comment: This nucleic acid amplification test detects fourteen high-risk HPV types (16,18,31,33,35,39,45,51,52,56,58,59,66,68) without differentiation. Performed at: =G Performed By: #### 4 [id number] #### [facility] [address] [place] [address] Dr. Nabila Kearns Methodology: Comment Normal [facility] Comment on above: Result Comment: This liquid based ThinPrep(R) pap test was screened with the use of an image guided system. Performed at: WB Performed By: #### [id number] #### [facility] [address] [place] [address] Dr. Nabila Kearns Note: Comment Normal [facility] Comment on above: Result Comment: The Pap smear is a screening test designed to aid in the detection of premalignant and malignant conditions of the uterine cervix. It is not a diagnostic procedure and should not be used as the sole means of detecting cervical cancer. Both false-positive and false-negative reports do occur. . Performed at: WB Performed By: #### [id number] #### [facility] [address] [place] [address] Dr. Nabila Kearns Performed by: Comment [facility] Comment on above: Result Comment: Steve Cooper, Travel Registered Nurse Nicu (ASCP) Performed at: WB Performed By: #### [id number] #### [facility] [address] [address] [address] Nabila Kearns Specimen adequacy: Comment Normal [facility] Comment on above: Result Comment: Sati sfactory for evaluation. No endocervical component is identified. Performed at: WB Performed By: #### [id number] #### [facility] [address] [place] [address] Dr. Nabila Kearns VAGINITIS/VAGINOSIS DNA PROB Oleg 07-26-2021 Emile species Negative Normal Negative [facility] Comment on above: Performed By: #### V AGINT #### [facility] [address] [place] [address] Dr. Nabila Kearns Gardnerella vaginalis Negative Normal Negative [facility] Comment on above: Performed By: #### V AGINT #### [facility] [address] [place] [address] Dr. Nabila Kearns Trichomonas vaginalis Negative Normal Negative [facility] Comment on above: Performed By: #### V AGINT #### [facility] [address] [place] [address] Dr. Nabila Kearns Urinalysis - AUTOMATEDon Appearance (U) clear [employer] Other Bilirubin Ql (U) Negative [employer] Other Color (U) light yellow [employer] Other Glucose Ql (U) Negative [employer] Other Hemoglobin Ql (U) Negative [employer] Other Ketones Ql (U) Negative [employer] Other Leukocyte esterase Test strip Ql (U) Negative [employer] Other Nitrite Ql (U) Negative [employer] Other pH (U) 6.5 [pH] [employer] Other Protein Ql (U) Negative [employer] Other Specific gravity (U) [Rel density] 1.030 [employer] Other Urobilinogen (U) [Mass/Vol] 0.2 mg/dL [employer] Other Urinalysis - AUTOMATED No rt [email or web address] Other Consultation Noteon 09-13-19 Consultation Note [id number] Normal [facility] Ambulatory Clinical Summaryo n 08-09-2020 Ambulatory Clinical Summary {[id number] Normal [facility] Patient Educationon 08-10-19 Patient Education Obstetrics and Gynec ology Overactive [...] and sweet foods. General instructions ? Take ljgn-zjs-tyywxhv and prescription medicines only as told by [...] 03/23/2010 Document Revised: 09/17/2019 Document Reviewed: 06/12/2018 [employer] Patient Education ? 2019 [employer] [facility] Urology Office/Clinic Noteon 08-09-2020 Urology Office/Clinic Note Chief Complaint urinary incontinence This patient is a 44-year-old female with a history of stress urinary incontinence symptoms. She leaks urine when she is physically active. Laughing coughing sneezing also causes her to leak small amounts of urine. She is here today for urologic evaluation. [facility] Staff New patient here today due [...] to check bladder function. ABX sent to [facility] in [place]. Ordered: Urology Procedure Order Urology Procedure Order Orders: nitrofurantoin, 100 mg = 1 cap(s), Oral, Daily, take 1 cap one day prior to the procedure and 1 cap after the procedure, # 2 cap(s), Refills(s) 0, Pharmacy: [id number], 160, cm, 08/09/20 10:40:00 EST, Height/Length Dosing, 73.1, kg, 08/09/20 10:40:00... Urnls Dip Stick Auto w/o Microscopy POC [id number] I have reviewed the previous health record information and history for this pt. from Dr. Dimas. Follow-up With When Contact Information Wing Ventura MD, Gab Benjamin [address] [place] [address] Drive [place] [phone] Additional Instructions: Patient Education Overactive Bladder, Adult [...] Protein Urine Dipstick: Negative (08/09/20 10:36:00) Specific Zearing Urine Dipstick: >=1.030 (08/09/20 10:36:00) Urine Appearance Urine Dipstick: Clear (08/09/20 10:36:00) Urine Color Urine Dipstick: Yellow (08/09/20 10:36:00) Urobilinogen Urine Dipstick: Normal 0.2-1 EU/dl (08/09/20 10:36:00) pH Urine Dipstick: 5 (08/09/20 10:36:00) Diagnostic Results Urinalysis today is negative for infection. I reviewed the office notes and physical exam from Dr. Baig. [facility] Comment on above: Result Comment: Elec tronically Signed By: Wing Ventura MD, Gab Benjamin\.br\Date and Time Signed: 08/09/20 11:49 EST\.br\Electronically Co-Signed By: Negar Tabor MA\.br\Date and Time Co-Signed: 08/09/20 11:33 EST Mainor 09-13-2019 JAMILN Telephone (COVHLD) ----- LEYDI ARGUELLO ([id number]) 1975 F Date Time Provider Department 09/13/19 SHELTON YEBOAH (JAMIL) COVOSMAR During your visit today, we recorded the following information about you: Shelton Yeboah APRN.CNP 09/13/2019 7:48 AM Signed Patient did not [...] Fully Assessed Reason for Visit: Covid-19 Hotline [1190] Prescriptions as of 09/13/2019 Sig: NITROFURANTOIN MACROCRYSTAL 1* Take 100 mg by mouth. CLOBEX 0.05 % SHAMPOO use as shampoo EOD CLOBETASOL 0.05 % SCALP SOLUT* apply to affected areas BID Problem List As Of Date: 09/13/2019 (None) Encounter Status:Closed by [facility] LEYDI ARGUELLO ([id number]) 1975 F Date Time Provider Department 09/13/19 SHELTON YEBOAH ([facility]) COVHLD During your visit today, we recorded the following information about you: Allergies As of Date: 09/13/2019 Noted Allergy Reaction CIPROFLOXACIN 04/02/2019 12 - Shortness of Breath METRONIDAZOLE 04/02/2019 2 - Rash ADHESIVE TAPE-SILICONES 04/02/2019 2 - Rash AMOXICILLIN 04/17/2005 2 - Rash ERYTHROMYCIN 02/05/2017 2 - Rash Date Reviewed: 09/13/2019 Reviewed by: Deondre (Archana) Prasanna - Fully Assessed Reason for Visit: Covid-19 Hotline [2304] Prescriptions as of 09/13/2019 Sig: NITROFURANTOIN MACROCRYSTAL 1* Take 100 mg by mouth. CLOBEX 0.05 % SHAMPOO use as shampoo EOD CLOBETASOL 0.05 % SCALP SOLUT* apply to affected areas BID Problem List As Of Date: 09/13/2019 (None) Encounter Status:Closed by SHELTON YEBOAH on 09/13/19 Normal [facility] PROGRESSon 09-13-2019 PROGRESS HNO ID: [id number] Author: Deondre Mims Service: ? Author Type: Nurse Practitioner Type: Progress Notes Filed: 09/13/2019 7:44 AM Note Text: This Team Access Model visit is a virtual encounter. It required patient-provider interaction for the medical decision making as documented below. [employer] HIPAA secured video was used for evaluation of this patient. Telemedicine Evaluation for COVID-19 Infection SUBJECTIVE: Leydi Arguello is an 43 year old who presents with an illness that began 7 day(s) ago and are gradually worsening since that time. Pt reports she was at [place] [facility] and was told she possibly has [...] novel coronavirus infection (COVID-19). SIGNATURE: Deondre Mims APRN.DOG TRAINER DATE: September 13, 2019 [facility] Coding Summaryon 03-14-2017 Coding Summary CODING DATE: 017 [facility] STATUS: Home PAYOR: Medicaid HMO ADMIT DX: [...] Viviana Maloney Date Saved: 03/14/2017 06:21 am [facility] Coding Summary CODING DATE: 017 [facility] STATUS: Home PAYOR: Medicaid HMO ADMIT DX: [...] Viviana Maloney Date Saved: 03/14/2017 06:19 am [facility] ED Clinical Summaryon 2016 ED Clinical Summary [facility] - Emergency [id number] [place] [address] ed Clinical SummaryPERSON INFORMATIONName: TOO LEYDI Camacho Age: 41 Years Sex: FEMALEDOB: [birth year] MRN: Acct#:Visit Reason: General medical; C/O LEFT ARM PAIN/SWELLING Arrival:03/02/17 13:52:00 Discharge: 03/02/17 15:00:00LOS: 000 01:08 Check In: 03/02/17 13:52:00 Checkout:03/02/17 15:00:00Address:[address] [address]HWV: Chuckie Gonzalez MDPROVIDIEGO INFORMATIONProvider Role Assigned UnassMalina Alvarez MD ED Provider 03/02/17 14:05:03Mirtha Miller RN ED Nurse 03/02/17 14:17:25VITALS INFORMATIONVital Sign [...] Tunnel Syndrome; Wrist Pain; ContusionFollow-Up:With: Address: When:Chuckie Gonzalez [address] [place], [place] [phone] Business (1) Within 3 to 5 daysComments:Follow-up with primary care physician in 3-5 days. Ice to affected areas. Cock-up splint as needed. Tylenol or ibuprofen as needed for pain. Return if any concerns or worsening.DIAGNOSIS:Comme nt: [facility] ED Note - Physicianon 2016 ED Note - Physician Patient: LEYDI ARGUELLO : 41 years Sex: FEMALE : [birth year]Associated Diagnoses: NoneAuthor: Malina Fields MDBasic InformationTime seen: Date & time 03/02/17 14:06:00.History source: Patient.Arrival mode: Private vehicle.History limitation: None.Additional information: Chief Complaint from Nursing Triage Note : Chief Mgpiirvzb25/23/17 13:54 EDT Chief Complaint Pt complains of pain and swelling to left wrist for 15 minutes. Denies injury. Says she is worried she has blood clot. 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 Patient is right-handed. 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 Instructions given to pt who verbalized understanding. Pt walks out with Spouse. [facility] ED Patient Education Noteon 03-02-2017 ED Patient Education Note Education MaterialsMusculoskeletalW rist SplintA splint is a medical assistant float that keeps an injured part of your [...] Released: 05/09/2007 Document Revised: 06/17/2015 Document Reviewed: 09/07/2014Hannah Interactive Patient Education ?2016 [employer]RICE for Routine Care of InjuriesThe?routine care?of?many?injuries?inc camies [...] Document Reviewed: 05/04/2015Hannah Interactive Patient Education ?2016 [employer]Carpal Tunnel SyndromeCarpal tunnel syndrome is a [...] the splint clean and dry.General Instructions? Take ukyz-ybe-yvgnmoo and prescription medicines only as told by [...] Released: 05/24/2001 Document Revised: 02/15/2016 Document Reviewed: 10/12/2015Connorevmarlo Interactive Patient Education ?2016 [employer]Wrist PainThere are many things that can cause [...] if they turn cold or blue.? Take wxim-vcl-gqzazhe and prescription medicines only as told by [...] Released: 03/06/2006 Document Revised: 02/15/2016 Document Reviewed: 10/12/2015Connorevmarlo Interactive Patient Education ?2016 [employer]ContusionA contusion is a deep bruise. Contusions are [...] associated injuries, such as broken bones (fractures).TREATMENTSpec [facility] treatment for this condition depends on what area of the body was injured. In general, the best treatment for a contusion is resting, icing, applying pressure to (compression), and elevating the injured area. This is often called the RICE strategy. Pyqb-aic-atqyygo anti-inflammatory medicines may also be recommended for [...] you are sitting or lying down.? Take flrw-bdj-ahgueek and prescription medicines only as told by [...] Released: 03/06/2006 Document Revised: 02/15/2016 Document Reviewed: 10/12/2015Connorevmarlo Interactive Patient Education ?2016 [employer] Normal [facility] ED Patient Summaryon 017 ED Patient Summary [facility] - Emergency [id number] [place] [id number] pATIENT DISCHARGE INSTRUCTIONSPatient InformationName: LEYDI ARGUELLO Age: 41 YearsDate of : [birth year]MRN: [id number] Visit: General medical; C/O LEFT ARM PAIN/SWELLINGArrival Time: 03/02/17 13:52:00Phone: Primary Care Physician: Chuckie Gonzalez Physician: Malina Fields MDComment:Visit Diagnosis:Diagnoses This Visit General medical ([id number])If you received any narcotics, sedation, or any [...] or sign any legal documentsWith: Address: When:Chuckie Gonzalez [address] [place] [phone] Business (1) Within 3 to 5 daysComments:Follow-up with primary care physician in 3-5 days. Ice to affected areas. Cock-up splint as needed. Tylenol or ibuprofen as needed for pain. Return if any concerns or worsening.Medication Information:The exam and treatment you received today in the [facility] Emergency Department were for an urgent problem and are not intended as complete care. It is important for you to follow up with a doctor, nurse practitioner, or physician?s psych assistant for ongoing care. If your symptoms [...] number so we can reach you if necessary.[facility] Emergency Department has provided you with a complete list of medications post discharge. Please inform your site superintendent/provider of your visit and for further instruction [...] foundPatient EducationWrist SplintA splint is a medical assistant float that keeps an injured part of your [...] Released: 05/09/2007 Document Revised: 06/17/2015 Document Reviewed: 09/07/2014Hannah Interactive Patient Education ?2016 [employer]MICHELL for Routine Care of InjuriesThe?routine care?of?many?injuries?inc ludes rest, ice, compression, and elevation (RICE therapy). [...] Released: 09/08/2001 Document Revised: 02/15/2016 Document Reviewed: 05/04/2015Connorevier Interactive Patient Education ?2016 [employer]Carpal Tunnel SyndromeCarpal tunnel syndrome is a [...] the splint clean and dry.General Instructions? Take duhf-cfa-xpxagqm and prescription medicines only as told by [...] Document Reviewed: 10/12/2015Hannah Interactive Patient Education ?2016 [employer].Wrist PainThere are many things that can cause [...] if they turn cold or blue.? Take kfew-kxi-xdarhmi and prescription medicines only as told by [...] Released: 03/06/2006 Document Revised: 02/15/2016 Document Reviewed: 10/12/2015Connorevmarlo Interactive Patient Education ?2016 [employer].ContusionA contusion is a deep bruise. Contusions are [...] associated injuries, such as broken bones (fractures).TREATMENTSpec [facility] treatment for this condition depends on what area of the body was injured. In general, the best treatment for a contusion is resting, icing, applying pressure to (compression), and elevating the injured area. This is often called the RICE strategy. Ekfn-pus-cukcskx anti-inflammatory medicines may also be recommended for [...] you are sitting or lying down.? Take ljfo-ouz-eoeprsu and prescription medicines only as told by [...] Released: 03/06/2006 Document Revised: 02/15/2016 Document Reviewed: 10/12/2015Connorevmarlo Interactive Patient Education ?2016 [employer] Viruses or BacteriaWhat?s got you sick?Antibiotics only [...] for Disease Control and Prevention February 2014 [facility] XR Wrist Complete Lefton XR Wrist Complete Left WRIST COMPLETE LEFTCLINICAL DATA: Left wrist pain and swelling todayFour views of the left wrist were obtained. No definite acute fracture ordislocation is seen. No significant focal osseous or articular abnormalitiesare identified. There is mild soft tissue swelling.IMPRESSION:1. LEFT WRIST STUDY FAILS TO DEMONSTRATE SIGNIFICANT FOCAL OSSEOUS ORARTICULAR ABNORMALITY.2. FOLLOW-UP NEEDED.STEPH BrushB #: [id number]: 03/03/2017T: 03/03/2017 Final Dictated by: Joshua Howard MD SDictated DT/TM: 03/03/17 5:54Signed (Electronic Signature): Joshua Howard MD 03/03/17 9:29 amTechnologist: Santosh PUTNAM [facility] Vital Signs Date Time Vital Sign Value Performing Clinician Facility 09-04-2023 11:19040 Body height 160 cm Marleni Zavala MD Work Phone: [facility] 09-04-2023 11:19-040 Body mass index (BMI) [Ratio] 29.23 kg/m2 Marleni Zavala MD Work Phone: [facility] 09-04-2023 11:19040 Body weight 74.84 kg Marleni Zavala MD Work Phone: [facility] 09-04-2023 11:19-040 Diastolic blood pressure 76 mm[Hg] Marleni Zavala MD Work Phone: [facility] 09-04-2023 11:19-0400 Heart rate 75 /min Marleni Zavala MD Work Phone: [facility] 09-04-2023 11:19-0400 Systolic blood pressure 114 mm[Hg] [facility] 06-19-2023 14:30-0500 Body height 160 cm Ramya Cosme APRN-COATER HAND Work [facility] 06-19-2023 14:30-0500 Body mass index (BMI) [Ratio] 29.02 kg/m2 Ramya Cosme APRN-COATER [employer] [facility] 06-19-2023 14:30-0500 Body temperature 97.7 [degF] Ramya SHANNONCOATER HAND Work Phone[facility] 06-19-2023 14:30-0500 Body weight 74.3 kg Ramya Cosme APRN-COATER HAND [facility] Phone[facility] 06-19-2023 14:30-0500 Diastolic blood pressure 70 mm[Hg] Ramya Cosme APRN-COATER [employer] [facility] Phone[facility] 06-19-2023 14:30-0500 Heart rate 93 /min Ramya SHANNONCOATER HAND Work Phone[facility] 06-19-2023 14:30-0500 SaO2% (BldA) [Mass fraction] 93 % Ramya SHANNONCOATER HAND Work Phone[facility] 06-19-2023 14:30-0500 Systolic blood pressure 110 mm[Hg] Ramya Cosme APRN-COATER HAND Work Phone: [id number] 06-11-2023 09:10-0500 Body height 160.02 cm Janett Nugent Other [employer] Other 06-11-2023 09:10-0500 Body mass index (BMI) [Ratio] 28.52 kg/m2 Janett Nugent Other [employer] Other 06-11-2023 09:10-0500 Body temperature 98.2 [degF] Janett Raffi Other [facility] Other 06-11-2023 09:10-0500 Body weight 73.03 kg Janett Raffi Other [facility] Other 06-11-2023 09:10-0500 Respiratory rate 18 /min Janett Raffi Other [employer] Other 06-11-2023 09:10-0500 SaO2% (BldA) [Mass fraction] 98 % Janett Nugent Other [facility] Other 03-06-2023 16:00-0400 Body height 160.02 cm Harmony Meri Other [employer] Other 03-06-2023 16:00-0400 Body mass index (BMI) [Ratio] 28.41 kg/m2 Harmony Ruizmond Other [facility] Other 03-06-2023 16:00-0400 Body temperature 97.9 [degF] Harmony Meri Other [facility] Other 03-06-2023 16:00-0400 Body weight 72.76 kg Harmony Ruizmond Other [employer] Other 03-06-2023 16:00-0400 Diastolic blood pressure 84 mm[Hg] Harmony Meri Other [facility] Other 03-06-2023 16:00-0400 Respiratory rate 18 /min Harmony Meri Other [facility] Other 03-06-2023 16:00-0400 SaO2% (BldA) [Mass fraction] 98 % Harmony Jerez Other [employer] Other 03-06-2023 16:00-0400 Systolic blood pressure 120 mm[Hg] Harmony Jerez Other [employer] Other 12-03-2022 12:45-0400 Body height 160.02 cm Savannah Hillman Other [employer] Other 12-03-2022 12:45-0400 Body mass index (BMI) [Ratio] 27.63 kg/m2 Savannah Hillman Other [employer] Other 12-03-2022 12:45-0400 Body temperature 97.5 [degF] Savannah Hillman Other [employer] Other 12-03-2022 12:45-0400 Body weight 70.76 kg Savannah Hillman Other [employer] Other 12-03-2022 12:45-0400 Diastolic blood pressure 87 mm[Hg] Savannah Hillman Other [employer] Other 12-03-2022 12:45-0400 SaO2% (BldA) [Mass fraction] 98 % Savannah Hillman Other [employer] Other 12-03-2022 12:45-0400 Systolic blood pressure 118 mm[Hg] Savannah Hillman Other [employer] Other 04-16-2022 14:30-0500 Body height 160.02 cm Brionna Coronel Other [employer] Other 04-16-2022 14:30-0500 Body mass index (BMI) [Ratio] 26.04 kg/m2 Brionna Jasmineault Other [employer] Other 04-16-2022 14:30-0500 Body temperature 100.5 [degF] Brionna Jasmineault Other [employer] Other 04-16-2022 14:30-0500 Body weight 66.68 kg Brionna Jasmineault Other [employer] Other 04-16-2022 14:30-0500 Respiratory rate 18 /min Brionna Jasmineault Other [employer] Other 04-16-2022 14:30-0500 SaO2% (BldA) [Mass fraction] 98 % Brionna Coronel Other [employer] Other 04-03-2022 19:35-0400 Body height 160.02 cm Brionna Coronel Other [employer] Other 04-03-2022 19:35-0400 Body mass index (BMI) [Ratio] 26.04 kg/m2 Brionna Jasmineault Other [employer] Other 04-03-2022 19:35-0400 Body temperature 97.8 [degF] Brionna Jasmineault Other [employer] Other 04-03-2022 19:35-0400 Body weight 66.68 kg Brionna Jasmineault Other [facility] Other 04-03-2022 19:35-0400 Respiratory rate 18 /min Brionna Coronel Other [employer] Other 04-03-2022 19:35-0400 SaO2% (BldA) [Mass fraction] 97 % Brionna Coronel Other [facility] Other 01-26-2022 10:25-0400 Body height 160.02 cm Brionna Coronel Other [facility] Other 01-26-2022 10:25-0400 Body mass index (BMI) [Ratio] 25.15 kg/m2 Brionna Coronel Other [facility] Other 01-26-2022 10:25-0400 Body temperature 97.5 [degF] Brionna Coronel Other [facility] Other 01-26-2022 10:25-0400 Body weight 64.41 kg Brionna Coronel Other [employer] Other 01-26-2022 10:25-0400 Diastolic blood pressure 70 mm[Hg] Brionna Jasmineault Other [facility] Other 01-26-2022 10:25-0400 Respiratory rate 18 /min Brionna Jasmineault Other [facility] Other 01-26-2022 10:25-0400 SaO2% (BldA) [Mass fraction] 97 % Brionna Jasmineault Other [facility] Other 01-26-2022 10:25-0400 Systolic blood pressure 107 mm[Hg] Brionna Augusto Other [facility] Other 01-10-2022 10:10-0400 Body height 160.02 cm Harmony Jerez Other [employer] Other 01-10-2022 10:10-0400 Body mass index (BMI) [Ratio] 25.33 kg/m2 Harmony Ruizmond Other [facility] Other 01-10-2022 10:10-0400 Body temperature 98.1 [degF] Harmony Jerez Other [facility] Other 01-10-2022 10:10-0400 Body weight 64.86 kg Harmony Ruizmond Other [facility] Other 01-10-2022 10:10-0400 Diastolic blood pressure 82 mm[Hg] Harmony Meri Other [facility] Other 01-10-2022 10:10-0400 Respiratory rate 18 /min Harmony Ruizmond Other [facility] Other 01-10-2022 10:10-0400 SaO2% (BldA) [Mass fraction] 97 % Harmony Ruizmond Other [facility] Other 01-10-2022 10:10-0400 Systolic blood pressure 122 mm[Hg] Harmony Meri Other [facility] Other 08-10-2021 15:30-0500 Body height 160.02 cm Brionna Coronel Other [facility] Other 08-10-2021 15:30-0500 Body mass index (BMI) [Ratio] 29.47 kg/m2 Brionna Coronel Other [facility] Other 08-10-2021 15:30-0500 Body temperature 97.2 [degF] Brionna Coronel Other [facility] Other 08-10-2021 15:30-0500 Body weight 75.48 kg Brionna Coronel Other [facility] Other 08-10-2021 15:30-0500 Diastolic blood pressure 72 mm[Hg] Brionna Coronel Other [facility] Other 08-10-2021 15:30-0500 Respiratory rate 18 /min Brionna Coronel Other [facility] Other 08-10-2021 15:30-0500 SaO2% (BldA) [Mass fraction] 100 % Brionna Coronel Other [facility] Other 08-10-2021 15:30-0500 Systolic blood pressure 117 mm[Hg] Brionna Coronel Other [facility] Other 07-09-2021 15:15-0500 Body height 160.02 cm Lenin Adkins Other [facility] Other 07-09-2021 15:15-0500 Body mass index (BMI) [Ratio] 30.54 kg/m2 Lenin Adkins Other [facility] Other 07-09-2021 15:15-0500 Body temperature 97.3 [degF] Lenin Adkins Other [facility] Other 07-09-2021 15:15-0500 Body weight 78.2 kg Lenin Adkins Other [facility] Other 07-09-2021 15:15-0500 Diastolic blood pressure 76 mm[Hg] Lenin Adkins Other [facility] Other 07-09-2021 15:15-0500 Respiratory rate 18 /min Lenin Adkins Other [facility] Other 07-09-2021 15:15-0500 SaO2% (BldA) [Mass fraction] 98 % Lenin Adkins Other [facility] Other 07-09-2021 15:15-0500 Systolic blood pressure 129 mm[Hg] Lenin Adkins Other [facility] Other 04-17-2021 18:00-0500 Body height 160.02 cm Brionna Coronel Other [facility] Other 04-17-2021 18:00-0500 Body mass index (BMI) [Ratio] 29.12 kg/m2 Brionna Jasmineault Other [facility] Other 04-17-2021 18:00-0500 Body temperature 97.8 [degF] Brionna Augusto Other [facility] Other 04-17-2021 18:00-0500 Body weight 74.57 kg Brionna Augusto Other [facility] Other 04-17-2021 18:00-0500 Diastolic blood pressure 87 mm[Hg] Brionna Augusto Other [facility] Other 04-17-2021 18:00-0500 Respiratory rate 18 /min Brionna Coronel Other [facility] Other 04-17-2021 18:00-0500 SaO2% (BldA) [Mass fraction] 99 % Brionna Coronel Other [facility] Other 04-17-2021 18:00-0500 Systolic blood pressure 120 mm[Hg] Brionna Coronel Other [facility] Other 03-23-2021 14:30-0400 Body height 160.02 cm Brionna Coronel Other [facility] Other 03-23-2021 14:30-0400 Body mass index (BMI) [Ratio] 29.05 kg/m2 Brionna Coronel Other [facility] Other 03-23-2021 14:30-0400 Body temperature 97.3 [degF] Brionna Coronel Other [facility] Other 03-23-2021 14:30-0400 Body weight 74.39 kg Brionna Coronel Other [facility] Other 03-23-2021 14:30-0400 Diastolic blood pressure 66 mm[Hg] Brionna Coronel Other [facility] Other 03-23-2021 14:30-0400 Respiratory rate 18 /min Brionna Coronel Other [facility] Other 03-23-2021 14:30-0400 SaO2% (BldA) [Mass fraction] 98 % Brionna Coronel Other [facility] Other 03-23-2021 14:30-0400 Systolic blood pressure 109 mm[Hg] Brionna Coronel Other [facility] Other Encounters Encounter Date Encounter Type Care Provider Facility Start: 10-16-2023 End: 10-16-2023 ambulatory JESÚS LEVINE [facility] Start: 10-08-2023 End: 10-08-2023 ambulatory TARUNAJAYJB SULLIVAN [facility] Start: 10-02-2023 End: 10-02-2023 ambulatory HARRISON GONZALEZ Not Available Start: 09-05-2023 Orders Only Leidy Plasencia CMA [facility] Start: 09-04-2023 End: 09-05-2023 ambulatory [facility] Start: 09-04-2023 End: 09-04-2023 ambulatory [facility] Start: 09-04-2023 End: 09-04-2023 Office outpatient new 45 minutes Marleni Zavala MD Work Phone: [facility] Comment on above: Vaginal pain (Primar y Dx); Atrophy of vagina; Lichen sclerosus et atrophicus; Dyspareunia in female Start: 09-02-2023 Chart abstracting Leidy Parks [facility] Start: 06-19-2023 End: 06-19-2023 ambulatory [facility] Start: 06-19-2023 Encounter for genera l adult medical examination without abnormal findings [facility] Start: 06-19-2023 End: 06-19-2023 Initial preventive medicine new patient 40-64yrs Fouzia Kuns [employer]ILLIN[employer] HEL[employer] [facility] Phone: [facility] Comment on above: [facility] (Primary Dx); Atrophy of vagina Start: 06-19-2023 End: 06-19-2023 Patient encounter procedure Fouzia Kuns [employer]ILLINER HELPER[employer] Work Phone: [facility] [employer] Work Phone: Start: 06-11-2023 End: 06-11-2023 ambulatory Janett Nugent Other [employer] Other Start: 06-11-2023 Office outpatient visit 25 minutes Janett Nugent [facility] Start: 03-06-2023 End: 03-06-2023 ambulatory Harmony Ruizmond Other [employer] Other Start: 03-06-2023 Office outpatient visit 15 minutes Harmony Meri [facility] Start: 12-06-2022 End: 12-06-2022 ambulatory Savannah Hillman Other [employer] Other Start: 12-06-2022 Telephone encounter Savannah THOMPSON [facility] Start: 12-03-2022 End: 12-03-2022 ambulatory Savannah Hillman Facility:[facility] Start: 12-03-2022 Office outpatient visit 15 minutes Savannah Hillman [facility] Start: 12-03-2022 End: 12-03-2022 ambulatory JANIE Hillman Work Phone: [facility] Work Phone: Start: 12-03-2022 End: 12-03-2022 Departed Referred JANIE Hillman Work Phone: [facility] [place] Work Phone: Start: 07-14-2022 End: 07-15-[address] DOCTOR RUSSO Facility: Start: 04-19-2022 End: 04-19-2022 ambulatory Brionna Coronel Other [employer] Other Start: 04-19-2022 Telephone encounter Brionna soto [facility] Start: 04-16-2022 End: 04-16-2022 ambulatory Brionna Coronel Other [employer] Other Start: 04-16-2022 Office outpatient visit 25 minutes Brionnaedgar Coronel [facility] Start: 04-16-2022 Telephone encounter Brionna Breaul t [facility] Start: 04-08-2022 End: 04-08-2022 ambulatory Brionna Coronel Other [employer] Other Start: 04-08-2022 Telephone encounter Brionna Bremaryl t [facility] Start: 04-03-2022 Office outpatient visit 15 minutes Brionna Augusto [facility] Start: 04-03-2022 End: 04-03-2022 ambulatory PHYSICIAN NO [facility] Work Phone: Start: 04-03-2022 End: 04-03-2022 Departed Referred PHYSICIAN NO [facility] Start: 02-27-2022 End: 02-27-[address] LEYDA BAIG Facility:[facility] Start: 02-23-2022 End: 02-23-2022 ambulatory Brionna Coronel Other [employer] Other Start: 02-23-2022 Telephone encounter Brionnaedgar Evansl t [facility] Start: 01-26-2022 End: 01-26-2022 ambulatory Brionna Coronel Other [employer] Other Start: 01-26-2022 Office outpatient visit 15 minutes Brionna Augusto [facility] Start: 01-10-2022 End: 01-10-2022 Departed Referred PHYSICIAN NO [facility] [place] Start: 01-10-2022 End: 01-10-2022 ambulatory PHYSICIAN NO [employer] Other Start: 01-10-2022 Office outpatient visit 15 minutes Harmony Jerez [facility] Start: 11-21-2021 End: 11-22-2021 ambulatory VELIA CHEATHAM Facility:[facility] Start: 10-10-2021 End: 10-11-[address] LEYDA BAIG Facility:[facility] Start: 09-05-2021 End: 09-06-2021 ambulatory BRIONNA CORONEL Facility:[facility] Start: 09-03-2021 End: 09-03-2021 ambulatory Brionna Coronel Other [employer] Other Start: 09-03-2021 Telephone encounter Brionna soto [facility] Start: 08-10-2021 End: 08-10-2021 ambulatory Brionna Coronel Other [employer] Other Start: 08-10-2021 Office outpatient visit 25 minutes Brionna Coronel [facility] Start: 07-25-2021 End: 07-25-[address] LEYDA BAIG Facility:[facility] Start: 07-17-2021 End: 07-17-2021 ambulatory Lenin Adkins Other [employer] Other Start: 07-17-2021 Telephone encounter Lenin Olivier [facility] Start: 07-09-2021 End: 07-09-2021 ambulatory Leinn Adkins Other [employer] Other Start: 07-09-2021 Office outpatient visit 15 minutes Lenin Lucille [facility] Start: 04-17-2021 End: 04-17-2021 ambulatory Brionna Coronel Other [employer] Other Start: 04-17-2021 Office outpatient visit 25 minutes Brionna Coronel [facility] Start: 04-03-2021 Telephone encounter Brionnaedgar Evansl t [facility] [place] Start: 03-23-2021 Encounter for genera l adult medical examination without abnormal findings Brionnaedgar Coronel [facility] [place] Start: 03-23-2021 Periodic preventive med est patient 40-64yrs Brionna Coronel [facility] [place] Start: 04-02-2019 End: 06-19-2023 Physical examination Ramya Cosme MILLINER HEL[employer] Work Phone: [facility] Start: 10-07-2017 End: 10-08-2017 Ambulatory DEFAULT PHYSICIAN Facility:[facility] Start: 03-03-2017 End: 03-03-2017 Ambulatory [facility] Facility:[facility] Start: 03-02-2017 End: 03-02-2017 Emergency department patient visit [facility] Facility:[facility] Procedures Date Procedure Procedure Detail Performing Clinician Start: 06-19-2023 Adult depression screening assessment Ramya Cosme [employer]IN[employer] Work Phone: Start: 12-04-2022 History of cholecystectomy Hx laparoscopic cholecystectomy Ramya Cosme [employer] Work Phone: Start: 04-14-2019 Mammography Ramya Csome [employer]IN[employer] Work Phone: Plan of Treatment Date Care Activity Detail Author Start: 12-28-2030 DTaP,Tdap and Td Vaccines (2 - Tdap) DTaP,Tdap and Td Vaccines (2 - Tdap) [facility] Start: 09-03-2024 Adult BMI Screening Adult BMI Screen ing [facility] Start: 09-03-2024 Tobacco Screening Tobacco Screening [facility] Start: 06-19-2024 Adult BMI Screening Adult BMI Screen ing [facility] Start: 06-19-2024 Depression Screening Depression Scre ening [facility] Start: 06-19-2024 Tobacco Screening Tobacco Screening [facility] Start: 10-16-2023 End: 10-16-2023 Patient encounter procedure 10/16/2023 2:45 PM EDT [facility] [address] [place] [address] Marleni Zavala MD [address] [place] [address] [facility] Start: 09-04-2023 End: 09-04-2023 Patient encounter procedure 09/04/2023 11:30 AM EDT Office Visit [facility] [address] [place] [address] Marleni Zavala MD [address] [place] [address] [facility] Start: 04-14-2020 Screening for malign ant neoplasm of breast Mammogram [facility] Start: 1994 Adult BMI Follow Up Plan Adult BMI Follow Up Plan [facility] Atopobium vaginae DN A [Presence] in Vaginal fluid by AC with probe detection [facility] Bacteria identified in Urine by Culture Urine Culture [facility] Bacterial vaginosis associated bacterium 2 DNA [Presence] in Vaginal fluid by AC with probe detection [facility] Megasphaera sp type 1 DNA [Presence] in Vaginal fluid by CA with probe detection [facility] Immunizations Immunization Date Immunization Notes Care Provider Fa cilisam 06-05-2023 tuberculin skin test ; purified protein derivative solution, intradermal Ramya Cosme [employer] Work Phone: [facility] 05-24-2023 hepatitis B vaccine, adult dosage Ramya Cosme [employer] Work Phone: [facility] 05-24-2023 influenza, injectabl e, quadrivalent, preservative free Ramya Cosme [employer]IN[employer] Work Phone: [facility] 05-24-2023 tuberculin skin test ; purified protein derivative solution, intradermal Ramya Cosme [employer]IN[employer] Work Phone: [facility] 03-12-2022 influenza, injectabl e, quadrivalent, preservative free Ramya Cosme [employer]IN[employer] Work Phone: [facility] 05-24-2021 COVID-19 Vaccine Pfizer - Documentation Purposes Only Lenin Adkins Other [employer] Other 05-16-2021 hepatitis B vaccine, adult dosage Ramya Cosme [employer]IN[employer] Work Phone: [id number] 04-13-2021 hepatitis B vaccine, adult dosage Lenin Adkins Other [employer] Other 03-31-2021 influenza, injectabl e, quadrivalent, preservative free Ramya Cosme [employer]IN[employer] Work Phone: [id number] 12-28-2020 diphtheria, tetanus toxoids and pertussis vaccine Lenin Adkins Other [employer] Other 01-08-2014 Depo-Medrol 80 mg Brionna Coronel Other [employer] Other 12-26-2013 KENALOG - 10 mg Brionna hayes Other [employer] Other Payers Date Payer Category Payer Medicaid [id number] 2022 Medicaid [place] [id number] 2022-Present [address] [place] [address] [id number] 2014 Unknown [id number] 1976 Unknown [id number] 1976 Unknown [id number] .[id number] 1976 Unknown [id number] .[id number] 1976 Unknown [id number] [id number] 1976 Unknown [id number] [id number] 1976 Unknown [id number] [id number]86 1976 Unknown [id number] [id number] 1976 Unknown [id number] 2.16.840.1.501400.3.579.2.1286 1976 Unknown [id number] 2.16.840.1.189755.3.579.2.1286 1976 Unknown [id number] [id number] 1959 Medicaid [id number] 1959 Self-pay [id number] Unknown Unknown [id number] [id number] Unknown [id number] [id number] Unknown [id number] 2.16.840.1.442227.3.579.2.531 Unknown [id number] [id number] Unknown [id number] [id number] Social History Date Type Detail Facility Unknown if ever smoked [employer] Other Start: 07-11-2020 End: 06-19-2023 Sex Assigned At [employer] Other Start: 1975 Sex Assigned At Female [facility] Start: 06-19-2023 Tobacco smoking stat us NHIS Never smoked tobacco [facility] Start: 06-19-2023 Tobacco use and exposure Smokeless tobacco [facility] Start: 07-11-2020 End: 06-19-2023 History of Social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
--- NOTE | 2023-11-14 08:00 | CA_ITS ---
Patient Name: ROYCE ARGUELLO MR#: [id number] : 1975 Exam Date: 11/14/2023 Ordering Doctor: HOLDEN HARGROVE ECHOCARDIOGRAM REPORT PROCEDURE: CA ECHO DOPPLER COMPLETE INDICATIONS: Dyspnea on exertion COMPARISON: None. DESCRIPTION: COMPLETE ECHOCARDIOGRAM Real-time transthoracic echocardiography with 2D, M-mode, spectral and color flow Doppler performed. QUALITY: Technical quality was good. LEFT VENTRICLE: Normal chamber size. Normal left ventricular wall thickness. LV EF: Global left ventricular systolic function is normal. Calculated left ventricular ejection fraction is 68%. No significant wall motion abnormalities. DIASTOLIC: Normal diastolic function. ATRIAL SEPTUM: Inadequately seen. LEFT ATRIUM: Normal chamber size. RIGHT ATRIUM: Normal chamber size. RIGHT VENTRICLE: Normal chamber size. Normal right ventricular systolic function. TRICUSPID VALVE: Normal mobility and thickness. No stenosis with trivial regurgitation. No evidence of pulmonary hypertension. RVSP 22mmHg MITRAL VALVE: Normal mobility and thickness. No evidence of mitral valve stenosis. There is no mitral annular calcification. Trivial mitral regurgitation. AORTIC VALVE: Normal trileaflet appearance. No visible sclerosis. Normal leaflet mobility. No evidence of aortic valve stenosis. No aortic regurgitation. AORTIC ROOT: Normal diameter and appearance. PULMONIC VALVE: Normal thickness and mobility. No stenosis. No regurgitation. PERICARDIUM: No evidence of pericardial effusion. IVC: Collapses with inspirations. Normal size. CONCLUSION: 1. Global left ventricular systolic function is normal; visually estimated ejection fraction is 60 to 65% 2. Normal right ventricular size and systolic function 3. Normal diastolic function 4. The left atrium is normal in size 5. No significant valvular abnormalities Adult Echocardiography Procedure Report Left Ventricle LVEDD (3.7 - 5.6 cm): 4.17 cm LVESD (2.2 - 4.0 cm): 2.95 cm LVIVS thickness (0.6 - 1.2 cm): 0.74 cm LVPW thickness (0.5 - 1.0 cm): 0.89 cm e': 0.13 m/s E - e': 5.50 LVOT Max Gradient: 2.65 mm[Hg] LVOT Area (cm2): 0.81 m/s Peak Velocity (LVOT): 0.81 m/s Mean Velocity (LVOT): 0.54 m/s LVOT Diameter 2.01 cm Left Ventricular Ejection Fraction: 68.23 % Left Atrium LA Volume Index (2D A2C): 21.01 ml/m2 Left Atrium Systolic Dimension: 3.49 cm Mitral Valve MV E to A Ratio: 1.46 Mitral Valve A-Wave Peak Velocity: 0.48 m/s Mitral Valve E-Wave Peak Velocity: 0.70 m/s Right Ventricle RV Internal Diastolic Dimension: 2.98 cm Aorta AO Root Diam: 2.57 cm Ascending Ao Diam: 2.32 cm Aortic Valve AoV Area (Peak Ravinder): 2.58 cm2, 2.58 cm2 AoV Area (VTI): 2.38 cm2, 2.38 cm2 Peak Velocity(Antegrade Flow): 1.00 m/s Peak Gradient(Antegrade Flow): 3.98 mm[Hg] Mean Velocity(Antegrade Flow): 0.72 m/s Mean Gradient(Antegrade Flow): 2.31 mm[Hg] Velocity Time Integral: 22.47 cm Tricuspid Valve Peak Velocity (Regurgitant Flow): 1.92 m/s, 2.18 m/s Pulmonic Valve Mean Gradient: 1.36 mm[Hg], 1.30 mm[Hg] Mean Velocity: 0.54 m/s, 0.53 m/s Peak Velocity: 0.76 m/s Peak Gradient: 2.43 mm[Hg], 2.21 mm[Hg] Right Atrium Right Atrium Systolic Pressure: 29.79 ml, 29.79 ml Dictated by: Emily Velazquez M.D. on 11/14/2023 at 15:28 Approved by: Emily Velazquez M.D. on 11/14/2023 at 15:31
[2023-11-14 08:33] LABS: Alanine Aminotransferase 22 U/L (14-59); Aspartate Amino Transferase 11 U/L (15-37); Chol HDL Ratio 2.5; Cholesterol 190 mg/dL (<=200); HDL Cholesterol 77 mg/dL (40-60); Thyroid Stimulating Hormone 1.723 uIU/mL (0.358-3.740); Triglycerides 33 mg/dL (<=150); VLDL CHOLESTEROL 6.6 mg/dL
== END 2023-11-14 07:47 | disposition home or self-care (01) ==
LOC: CARD 07:47
PROVIDERS: PCP Nurse Practitioner; Visit Provider Internal Medicine Cardiovascular Disease
DX: R06.09 Other forms of dyspnea (principal); R00.2 Palpitations; R07.2 Precordial pain
CPT/HCPCS: 36415; 80061; 84443; 84450; 84460; 93306

== ENCOUNTER 2024-04-07 03:43 | Emergency (ER) | payer MEDICAID, SELFPAY ==
[2024-04-07 03:46] VITALS: BP 124/76; PULSE 81; TEMP 36.5; O2SAT 96; BMI 30.1
--- NOTE | 2024-04-07 04:02 | ECG_ITS ---
[facility] Test Date: 2024-04-07 Pat Name: ROYCE ARGUELLO Department: Room: - Gender: Female Records Tech: : 1975 Requested By: Melissa Lockhart Order Number: [id number] Reading MD: RAVI JAFFE Measurements Intervals [place] Rate: 68 P: 30 AR: 140 QRS: 54 QRSD: 82 T: 47 QT: 366 QTc: 384 Interpretive Statements 1100 Sinus rhythm 8102 Low QRS voltage in chest leads 9120 atypical ECG Compared to ECG 09/29/2023 17:12:05 Low QRS voltage now present Electronically Signed On 04-07-2024 6:44:25 EDT by RAVI JAFFE
--- NOTE | 2024-04-07 04:04 | ED.GENADUL1 ---
HPI HPI - General Adult General Chief complaint: Nausea/Vomiting/Diarrhea Stated complaint: nausea Time Seen by Provider: 04/07/24 03:50 History of Present Illness HPI narrative: This 48-year-old female presents for evaluation of nausea with epigastric abdominal pain and generalized weakness. She states that she went to check on her daughter yesterday because her daughter has a sore throat and flulike symptoms. 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 She woke up this morning with nausea and epigastric abdominal pain. She states she felt very weak and chilled and sweaty. She did not pass out. She did not vomit. She states she tried to take some Tums but she put them in her mouth and could not swallow them due to her nausea. She states her arms feel weak. She does not have a headache, neck pain or any focal neurologic deficits. She denies any chest pain or shortness of breath. She states she felt like she was going to have diarrhea as well but did not have diarrhea either. Related Data Home Medications ?Medication ?Instructions ?Recorded ?Confirmed rimegepant 75 mg disintegrating 75 mg PO DAILY PRN migraine 04/07/24 04/07/24 tablet (Nurtec ODT) headache Allergies Allergy/AdvReac Type Severity Reaction Status Date / Time amoxicillin Allergy Severe Unknown Verified 04/07/24 03:50 ciprofloxacin (From Cipro) Allergy Severe Unknown Verified 04/07/24 03:50 Opioid HPI Opioid Management Most Recent Opioid Data: Last Pain Scale 4 09/29/23 19:22 09/29/23 Last AUG Pain Assessment 04/07/24 04:15 Review of Systems ROS Status of ROS 10 or more systems reviewed and unremarkable except as noted in history and below [facility] Social History Smoking status: Never smoker Little interest or pleasure in doing things: not at all Feeling down, depressed, or hopeless: not at all Exam Narrative Exam Narrative: Vital signs and Nursing Notes reviewed: Patient is afebrile with a normal pulse, normal blood pressure, she is not hypoxic with pulse ox of 96% on room air General: Awake, alert, oriented, no acute distress, lying comfortably on the stretcher, no active vomiting, no respiratory distress HEENT: Normocephalic atraumatic, mucous membranes are moist and pink, eyes are clear, normal conjunctiva, vision is grossly intact, posterior pharynx is normal in appearance. Neck: Supple, no meningeal signs, no anterior or posterior cervical lymphadenopathy Chest: Lungs are clear to auscultation with good air entry, there is no wheezing rhonchi or rales appreciated no accessory muscle use, patient is speaking in complete sentences-no chest wall tenderness to palpation CVS: Regular rate and rhythm S1-S2, no murmurs rubs or gallops, pulses are brisk and equal bilaterally ABD: Soft, nondistended, mild epigastric tenderness with no rebound guarding or rigidity, no right lower quadrant or left lower quadrant tenderness, bowel sounds are normal Extremities: Moving all extremities, no lower extremity tenderness or swelling noted, negative Homans' sign, pulses are brisk and equal bilaterally Skin: Normal in appearance without rash,pallor, petechiae or purpura Neuro: No focal deficits, speech is clear, no facial droop, patient is ambulatory with a steady gait, no focal deficits noted she is moving all extremities normally Constitutional Vital Signs, click to edit/add: Last Vital Signs Temp 97.7 F 04/07/24 03:46 Pulse 81 04/07/24 03:46 Resp 18 04/07/24 03:46 BP 124/76 04/07/24 03:46 Pulse Ox 96 04/07/24 03:46 O2 Del Method Room Air 04/07/24 03:46 Course Vital Signs Vital signs: Vital Signs Temperature 97.7 F 04/07/24 03:46 Pulse Rate 81 04/07/24 03:46 Respiratory Rate 18 04/07/24 03:46 Blood Pressure 124/76 04/07/24 03:46 Pulse Oximetry 96 04/07/24 03:46 Oxygen Delivery Method Room Air 04/07/24 03:46 Temperature 97.7 F 04/07/24 03:46 Pulse Rate 81 04/07/24 03:46 Respiratory Rate 18 04/07/24 03:46 Blood Pressure 124/76 04/07/24 03:46 Pulse Oximetry 96 04/07/24 03:46 Oxygen Delivery Method Room Air 04/07/24 03:46 Medical Decision Making MDM Narrative Medical decision making narrative: 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 She also states that she feels weak. Her arms feel weak. She is not having any chest pain or shortness of breath. She states she woke up this morning with nausea went to the bathroom, tried to take Tums but she could not put them in her mouth because she felt like she was going to vomit. She then sat down on the floor because she felt so weak. She felt like she was going to have diarrhea but did not have any diarrhea. She denies any dizziness or syncope. Her vital signs and physical exam were benign. Her abdomen is soft with some mild epigastric tenderness. An EKG was ordered due to her history of generalized weakness. EKG is a sinus rhythm at 68 bpm with no acute changes. An IV was placed and she was medicated with IV Zofran, IV Pepcid and Toradol. She is not vomiting and does not appear to be dehydrated and IV fluids were withheld due to the national shortage. Routine labs are reviewed. She has a normal white count and hemoglobin. COVID-19 testing is negative. Electrolytes are normal. Troponin is normal. On reevaluation she is feeling better and feels comfortable being discharged home. She will be discharged home with a prescription for Zofran and Pepcid. She was encouraged to have a bland diet over the course of the next 24 to 48 hours Lab Data Labs: Lab Results 04/07/24 04/07/24 Range/Units 03:52 05:10 WBC 8.5 (4.0-11.0) 10^3/uL RBC 4.82 (4.20-5.40) 10^6/uL Hgb 14.5 (12.0-16.0) g/dL Hct 43.1 (36.0-48.0) % MCV 89.4 (81.0-99.0) fL MCH 30.1 (26.7-34.0) pg MCHC 33.6 (29.9-35.2) g/dL RDW 12.5 (11.0-15.0) % Plt Count 313 (150-450) 10^3/uL MPV 10.1 (9.5-13.5) fL Neut % (Auto) 54.5 (43.0-75.0) % Lymph % (Auto) 33.5 (20.5-60.0) % [place] % (Auto) 9.1 (1.7-12.0) % Eos % (Auto) 2.1 (0.9-7.0) % Baso % (Auto) 0.6 (0.2-2.0) % Neut # (Auto) 4.6 (1.4-6.5) 10^3/uL Lymph # (Auto) 2.9 (1.2-3.8) 10^3/uL [place] # (Auto) 0.8 (0.3-0.8) 10^3/uL Eos # (Auto) 0.2 (0.0-0.7) 10^3/uL Baso # (Auto) 0.1 (0.0-0.1) 10^3/uL Abs Immat Gran (auto) 0.02 (0.00-0.03) 10^3/uL Imm/Tot Granulo (auto) 0.2 (0.0-0.5) % Sodium 141 (136-145) mmol/L Potassium 3.9 (3.5-5.1) mmol/L Chloride 105 (98-107) mmol/L Carbon Dioxide 26.9 (21.0-32.0) mmol/L Anion Gap 13.0 BUN 17.0 (7.0-18.0) mg/dL Creatinine 0.96 (0.55-1.02) mg/dL Est GFR ( Amer) >60 (>=60 mL/min/1.73m^2) Est GFR (Non-Af Amer) >60 (>=60 mL/min/1.73m^2) BUN/Creatinine Ratio 17.7 Glucose 98 (74-106) mg/dL Calcium 9.5 (8.5-10.1) mg/dL Total Bilirubin 0.5 (0.2-1.0) mg/dL AST <5 L (15-37) U/L ALT 17 (14-59) U/L Alkaline Phosphatase 61 (46-116) U/L Troponin I High Sens <4.0 L (4.0-51.3) pg/mL Total Protein 7.1 (6.4-8.2) g/dL Albumin 3.4 (3.4-5.0) g/dL Globulin 3.7 g/dL Albumin/Globulin Ratio 0.9 SARS-CoV-2 Ag (CV2AG) Negative (NEGATIVE) ECG Data Attestation: I personally reviewed and interpreted this ECG as follows: (Sinus rhythm at 68 bpm, normal axis, normal intervals, no acute ST segment elevation or T wave inversion) Discharge Plan Discharge Chief Complaint: Nausea/Vomiting/Diarrhea Clinical Impression: Gastroenteritis Patient Disposition: Home, Self-Care Time of Disposition Decision: 05:46 Condition: Good Prescriptions / Home Meds: No Action Nurtec ODT 75 mg tablet,disintegrating 75 mg PO DAILY PRN (Reason: migraine headache) Print Language: Liberian Instructions: Acute Nausea and Vomiting (ED) Referrals: JESÚS LEVINE [Primary Care Provider] - 1 week
[2024-04-07 04:08] LABS: Basophils Absolute Auto 0.1 10^3/uL (0.0-0.1); Basophils Percent Auto 0.6 % (0.2-2.0); Eosinophils Absolute Auto 0.2 10^3/uL (0.0-0.7); Eosinophils Percent Auto 2.1 % (0.9-7.0); Hematocrit 43.1 % (36.0-48.0); Hemoglobin 14.5 g/dL (12.0-16.0); Immature Granulocytes Abs Auto 0.02 10^3/uL (0.00-0.03); Immature Granulocytes Pct Auto 0.2 % (0.0-0.5); Lymphocytes Absolute Auto 2.9 10^3/uL (1.2-3.8); Lymphocytes Percent Auto 33.5 % (20.5-60.0); Mean Corpuscular HGB Conc 33.6 g/dL (29.9-35.2); Mean Corpuscular Hemoglobin 30.1 pg (26.7-34.0); Mean Corpuscular Volume 89.4 fL (81.0-99.0); Mean Platelet Volume 10.1 fL (9.5-13.5); Monocytes Absolute Auto 0.8 10^3/uL (0.3-0.8); Monocytes Percent Auto 9.1 % (1.7-12.0); Neutrophils Absolute Auto 4.6 10^3/uL (1.4-6.5); Neutrophils Percent Auto 54.5 % (43.0-75.0); Platelet Count 313 10^3/uL (150-450); Red Blood Count 4.82 10^6/uL (4.20-5.40); Red Cell Distribution Width 12.5 % (11.0-15.0); White Blood Count 8.5 10^3/uL (4.0-11.0)
[2024-04-07] MEDS: ONDANSETRON PF 4 MG/2 ML VIAL IV (04:15)
[2024-04-07] MEDS: FAMOTIDINE/PF 20 MG/2 ML VIAL IV (04:15)
[2024-04-07] MEDS: KETOROLAC TROMETHAMINE 30 MG/ML VIAL 15 MG IVP (04:15)
[2024-04-07 04:21] LABS: Alanine Aminotransferase 17 U/L (14-59); Albumin Globulin Ratio 0.9; Albumin Level 3.4 g/dL (3.4-5.0); Alkaline Phosphatase 61 U/L (46-116); Aspartate Amino Transferase <5 U/L (15-37); BUN Creatinine Ratio 17.7; Bilirubin Total 0.5 mg/dL (0.2-1.0); Calcium 9.5 mg/dL (8.5-10.1); Carbon Dioxide 26.9 mmol/L (21.0-32.0); Chloride 105 mmol/L (98-107); Estimated GFR (African America >60 (>=60 mL/min/1.73m^2); Estimated GFR (Non-African Ame >60 (>=60 mL/min/1.73m^2); Globulin 3.7 g/dL; Glucose 98 mg/dL (74-106); Potassium 3.9 mmol/L (3.5-5.1); Sodium 141 mmol/L (136-145); Total Protein 7.1 g/dL (6.4-8.2); Troponin I High Sensitivity <4.0 pg/mL (4.0-51.3)
--- OUTSIDE RECORDS SUMMARY | 2024-04-07 05:11 | XMS_ITS | CCD ---
Author Organization [facility] Care Team Providers Care Formal Service Waiter Name Role Phone PHYSICIAN, DEFAULT Unavailable Unavailable PHYSICIAN, DEFAULT Unavailable Unavailable Hercher, Malina L Unavailable Unavailable Hercher, Malina L Unavailable Unavailable Chuckie Gonzalez Unavailable Unavailable Hercher, Malina L Unavailable Unavailable Hercher, Malina L Unavailable Unavailable Chuckie Gonzalez Unavailable Unavailable Brionna Coronel Unavailable Lenin Adkins Unavailable Harmony Jerez Unavailable NO FAMILY, PHYSICIAN Primary Care Provider Unava ilable WAI Jerez Attending Provider [phone] RUDY Coronel Attending Provider MISC, DR GIBSON Admitting Unavailable MISC, DR GIBSON Attending Unavailable AUGUSTO, BRIONNA Primary Care Unavailable MISC, DR GIBSON Consulting Unavailable KARASIK, DR CRABTREE Admitting Unavailable KARASIK, DR CRABTREE Attending Unavailable AUGUSTO, BRIONNA Primary Care Unavailable KARASIK, DR CRABTREE Consulting Unavailable LINDENVELIA BAUMAN Admitting Unavailable LINDENVELIA BAUMAN Attending Unavailable AUGUSTO, BRIONNA Primary Care Unavailable LINDENGINAA Consulting Unavailable AUGUSTO, BRIONNA Primary Care Unavailable [...] Hillman Attending Unavailable Janett Nugent Unavailable Augusto GASKET INSPECTOR-DESIGN ASSISTANT, Brionna Primary Care Provide r MARLENI ZAVALA Referring Unavailable AUGUSTO, BRIONNA Primary Care Unavailable HARRISON GONZALEZ Attending Unavailable MARLENI ZAVALA Attending Unavailable AUGUSTO, BRIONNA Referring Unavailable AUGUSTO, BRIONNA Primary Care Unavailable JESÚS LEVINE Attending Unavailable AUGUSTO, BRIONNA Referring Unavailable RAMYA COSME Primary Care Unavailable RAMYA COSME Attending Unavailable AUGUSTO, BRIONNA Referring Unavailable AUGUSTO, BRIONNA Primary Care Unavailable HOLDEN ARORA Attending Unavailable MERCED SULLIVAN Referring Unavailable HOLDEN ARORA Referring Unavailable Allergies Allergy Classification Reported Allergen(s) Allergy Type Date of Onset Reaction(s) Facility (20 sources) amoxicillin; Translations: [amoxicillin] Drug Allergy 04-17-20 05 [facility] Repository (20 sources) erythromycin; Translations: [erythromycin] Drug Allergy 02-06-20 17 [facility] (19 sources) Adhesive Tape Propensity to adverse reactions red and irritation [facility] [employer] Other (19 sources) Ciprofloxacin Drug Allergy hard to breath [facility] [employer] Other (20 sources) metroNIDAZOLE; Translations: [METRONIDAZOLE] Drug Allergy 04-02-20 19 hard to breath [facility] [employer] Other (4 sources) Adhesive agent; Translations: [ADHESIVE] Drug allergy (disorder) 04-02-20 19 [facility] Repository (1 source) Ciprofloxacin Drug Allergy [facility] Repository (1 source) Erythromycin Drug Allergy [facility] Repository (1 source) metroNIDAZOLE Drug Allergy [facility] Repository (4 sources) Adhesive agent Propensity to adverse reactions to drug 04-02-20 19 [facility] (8 sources) Azithromycin; Translations: [AZITHROMYCIN] Drug Allergy 04-02-20 Swelling, Rash [facility] (7 sources) Ciprofloxacin; Translations: [CIPROFLOXACIN HCL] Drug Allergy 04-02-20 [facility] (7 sources) Adhesive Tape-Silicones; Translations: [ADHESIVE TAPE-SILICONES] Propensity to adverse reactions to drug 04-02-20 [facility] Medications Current Medications Medication Drug Class(es) [...] completed) Start: 04-03-2022 take 1 capsule by [facility] every twelve hours Doxycycline Monohydrate 100 MG [...] Triamcinolone (15 sources) Corticosteroid Start: 12-26-2013 STEFANO - 10 m g Dec, 40 mg [...] spine, initial encounter] Episodic Unclassified (1 source) SACK CLEANING HAND Vaginal Atrophy Onset: 09-04-2023 Urinary tract infections [...] Test Name Value Interpretation Reference Range Facility 36on 12-04-2023 36 Regarding sleep stud y from 11/20/2023: MD Mary De León MA Please notify patient that the sleep study was negative for sleep apnea. Thank you Dr. Arora LM on VM. Normal [facility] Office Visiton 10-08-2023 Follow-up visit [id number] Leydi Arguello 1975 F Date Provider Department Center 10/08/2023 [id number] ARORA CARD [facility] Family History Problem Relation Age of Onset Diabetes Mother Breast cancer Mother Bone cancer Mother Fibromyalgia Mother Family Status - Relation Status Age at Mother Father Alive Level of Service:[address] [place] OFFICE/OUTPATIENT NEW MODERATE MDM 45 MINUTES Reason for Visit and Comments: Chest Pain [927161] Normal [facility] Vaginitis Panel PCRon 2023 Bacterial vaginosis DNA panel AC+probe (Vag fld) Not detected Not Detected^N ot Detected [facility] Comment on above: Qualitative results are reported based on detection and quantitation of targeted organism markers which include: Lactobacillus spp. (L. crispatus and L. jensenii), Gardnerella vaginalis, Atopobium vaginae, Bacterial Vaginosis Associated Bacteria-2 (BVAB-2) and Megasphaera-1 C. glabrata DNA AC+probe Ql (Vag fld) Not detected Not Detected^N ot Detected [facility] Comment on above: No Emile glabrata detected C. krusei DNA AC+probe Ql (Vag fld) Not detected Not Detected^N ot Detected [facility] Comment on above: No Emile krusei de tected Emile sp 6 panel AC+probe (Vag fld) Detected Abnormal Not Detected^N ot Detected [facility] Comment on above: Emile species result based on detection of one or more of the following species: C. albicans, C. tropicalis, C. parapsilosis or C. dubliniensis Interpretation and review of laboratory results Abnormal [facility] T. vaginalis DNA AC+probe Ql (Vag fld) Not detected Not Detected^N ot Detected [facility] Comment on above: No Trichomonas vagin karen detected NOTE BD MAX Vaginal Panel has not been evaluated for patients under 18 years old. Results for these patients should be reviewed and assessed in accordance with clinical presentation to determine patient diagnosis. [facility] VAGINITIS PANEL PCRon 2023 VAGINITIS PANEL [...] clinical presentation to determine patient diagnosis. Normal [facility] Comment on above: Performed By: #### V PPCR #### [facility] ([id number]) [address] [place] [address], [address] [place] [address] COVID + FLU Quick Testingon 06-11-2023 SARS-CoV-2 (COVID-19) RNA AC+probe Ql (Unsp spec) Negative [facility] [employer] Other COVID + FLU Quick Testing Negative [facility] [employer] Other Vaginitis Plus (VG+)on 12-03 Atopobium Vaginae Moderate - 1 Normal . [facility] Comment on above: Order Comment: Reaso n for Exam Vaginal irritation Performed By: #### V AGINITIS+ #### [facility] , BVAB2 Low - 0 Normal . Comment on above: Order Comment: Reaso n for Exam Vaginal irritation Performed By: #### V AGINITIS+ #### [facility] , Emile Albicans, AC Negative Normal Negative [facility] Comment on above: Order Comment: Reaso n for Exam Vaginal irritation Result Comment: This test was developed and its performance characteristics determined by [facility]. It has not been cleared or approved by the Food and Drug Administration. Performed By: #### V AGINITIS+ #### [facility] , Emile Glabrata, AC Negative Normal Negative [facility] Comment on above: Order Comment: Reaso n for Exam Vaginal irritation Result Comment: This test was developed and its performance characteristics determined by [facility]. It has not been cleared or approved by the Food and Drug Administration. PERFORMED BY: [facility] [address] [place] [address] PATHOLOGIST HEELER PAWEL MADRIGAL M.D. Performed By: #### V AGINITIS+ #### [facility] , Chlamydia Trachomotis, AC Negative Normal Negative Comment on above: Order Comment: Reaso n for Exam Vaginal irritation Performed By: #### V AGINITIS+ #### [facility] , Megasphaera Low - 0 Normal . Comment on above: Order Comment: Reaso n [...] , Neisseria Gonorrhoeae, AC Negative Normal Negative Comment on above: Order Comment: Reaso n for Exam Vaginal irritation Result Comment: Perf ormed at: =G - [facility] [address] [id number] Hearing Aid Mechanic: Lydia Holliday MD, Phone: [phone] Performed By: #### V AGINITIS+ #### [facility] , Tric Vag AC Negative Normal Negative Comment on above: Order Comment: Reaso n for Exam Vaginal irritation Performed By: #### V AGINITIS+ #### [facility] , THYROID ANTIBODIESon 023 Thyroglobulin Antibody <1.0 Normal 0.0-0.9 [facility] Comment on above: Result Comment: Thyr oglobulin Antibody measured by [employer] Methodology Performed By: #### T HYRABS #### [facility] [address] [place] [address] Dr. Nabila Kearns Thyroid Peroxidase (TPO) Ab 12 IU/mL Normal 0-34 [facility] Comment on above: Performed By: #### T HYRABS #### [facility] [address] [place] [address] Dr. Nabila Kearns ESTRADIOLon 07-15-2022 Estradiol 117.0 pg/mL Normal [facility] Comment on above: Result Comment: Adul t Female: Follicular phase 12.5 - 166.0 Ovulation phase 85.8 - 498.0 Luteal phase 43.8 - 211.0 Postmenopausal <6.0 - 54.7 1st trimester 215.0 - >4300.0 Susana ECLIA methodology Performed By: #### H EPBSRF #### [facility] [address] [place] [address] Dr. Nabila Kearns FSHon 07-15-2022 FSH 9.0 mIU/mL Normal [facility] Comment on above: Result Comment: Adul t Female: Follicular phase 3.5 - 12.5 Ovulation phase 4.7 - 21.5 Luteal phase 1.7 - 7.7 Postmenopausal 25.8 - 134.8 Performed By: #### C BC #### [facility] [address] [place] [address] Dr. Nabila Kearns TESTOSTERONE, TOTALon 2022 Testosterone [Mass/Vol] 9 ng/dL Normal 4-50 [facility] Comment on above: Performed By: #### T ESTTOT #### [facility] [address] [place] [address] Dr. Nabila Kearns CBC AUTO DIFFon 07-14-2022 BASO # 0.0 103/ul Normal 0.0-0.1 [facility] Comment on above: Performed By: #### H EPBSRF #### [facility] [address] [place] [address] Dr. Nabila Kearns Basophils/100 WBC (Bld) 0.4 % Normal 0.2-2.0 [facility] Comment on above: Performed By: #### H EPBSRF #### [facility] [address] [place] [address] Dr. Nabila Kearns EO # 0.1 103/ul Normal 0.0-0.7 [facility] Comment on above: Performed By: #### H EPBSRF #### [facility] [address] [place] [address] Dr. Nabila Kearns Eosinophils/100 WBC (Bld) 2.6 % Normal 0.9-7.0 [facility] Comment on above: Performed By: #### H EPBSRF #### [facility] [address] [place] [address] Dr. Nabila Kearns Erythrocyte distribution width (RBC) [Ratio] 12.8 % Normal 11.0-15.0 [facility] Comment on above: Performed By: #### H EPBSRF #### [facility] [address] [place] [address] Dr. Nabila Kearns Hematocrit (Bld) [Volume fraction] 41.3 % Normal 36.0-48.0 [facility] Comment on above: Performed By: #### H EPBSRF #### [facility] [address] [place] [address] Dr. Nabila Kearns Hemoglobin (Bld) [Mass/Vol] 12.9 g/dL Normal 12.0-16.0 [facility] Comment on above: Performed By: #### H EPBSRF #### [facility] [address] [place] [address] Dr. Nabila Kearns IG # 0.02 10e3/ul Normal 0.00-0.03 [facility] Comment on above: Performed By: #### H EPBSRF #### [facility] [address] [address] [address] Nabila Kearns IG % 0.4 % Normal 0.0-0.5 [facility] Comment on above: Performed By: #### H EPBSRF #### [facility] [address] [address] [address] Nabila Kearns LYMPH # 1.8 103/ul Normal 1.2-3.8 [facility] Comment on above: Performed By: #### H EPBSRF #### [facility] [address] [address] [address] Nabila Kearns Lymphocytes/100 WBC (Bld) 33.7 % Normal 20.5-60.0 [facility] Comment on above: Performed By: #### H EPBSRF #### [facility] [address] [place] [address] Dr. Nabila Kearns MANUAL DIFF REQ NO Normal [facility] Comment on above: Performed By: #### H EPBSRF #### [facility] [address] [place] [address] Dr. Nabila Kearns MCH (RBC) [Entitic mass] 29.2 pg Normal 26.7-34.0 [facility] Comment on above: Performed By: #### H EPBSRF #### [facility] [address] [place] [address] Dr. Nabila Kearns MCHC (RBC) [Mass/Vol] 31.2 g/dL Normal 29.9-35.2 [facility] Comment on above: Performed By: #### H EPBSRF #### [facility] [address] [place] [address] Dr. Nabila Kearns MCV (RBC) [Entitic vol] 93.4 fL Normal 81.0-99.0 [facility] Comment on above: Performed By: #### H EPBSRF #### [facility] [address] [address] [address] Nabila Kearns MONO # 0.5 103/ul Normal 0.3-0.8 [facility] Comment on above: Performed By: #### H EPBSRF #### [facility] [address] [place] [address] Dr. Nabila Kearns Monocytes/100 WBC (Bld) 9.7 % Normal 1.7-12.0 [facility] Comment on above: Performed By: #### H EPBSRF #### [facility] [address] [place] [address] Dr. Nabila Kearns NEUT # 2.9 103/ul Normal 1.4-6.5 [facility] Comment on above: Performed By: #### H EPBSRF #### [facility] [address] [place] [address] Dr. Nabila Kearns Neutrophils/100 WBC (Bld) 53.2 % Normal 43.0-75.0 [facility] Comment on above: Performed By: #### H EPBSRF #### [facility] [address] [place] [address] Dr. Nabila Kearns Platelet mean volume (Bld) [Entitic vol] 10.6 fL Normal 9.5-13.5 [facility] Comment on above: Performed By: #### H EPBSRF #### [facility] [address] [place] [address] Dr. Nabila Kearns PLT 262 103/ul Normal 150-450 [facility] Comment on above: Performed By: #### H EPBSRF #### [facility] [address] [place] [address] Dr. Nabila Kearns RBC 4.42 106/ul Normal 4.20-5.40 [facility] Comment on above: Performed By: #### H EPBSRF #### [facility] [address] [place] [address] Dr. Nabila Kearns WBC 5.5 103/ul Normal 4.0-11.0 [facility] Comment on above: Performed By: #### H EPBSRF #### [facility] [address] [place] [address] Dr. Nabila Kearns FREE T3on 07-14-2022 FREE T3 2.38 pg/mlL Normal 2.18-3.98 [facility] Comment on above: Performed By: #### H EPBSRF #### [facility] [address] [place] [address] Dr. Nabila Kearns FREE T4on 07-14-2022 Free T4 [Mass/Vol] 1.02 ng/dL Normal 0.76-1.46 [facility] Comment on above: Performed By: #### C BC #### [facility] [address] [place] [address] Dr. Nabila Kearns PROF 14(COMP METB)on 023 Albumin [Mass/Vol] 3.2 g/dL Critically low 3.4-5.0 [facility] Comment on above: Performed By: #### H EPBSRF #### [facility] [address] [place] [address] Dr. Nabila Kearns Albumin/Globulin [Mass ratio] 0.8 {ratio} Normal [facility] Comment on above: Performed By: #### H EPBSRF #### [facility] [address] [place] [address] Dr. Nabila Kearns ALP [Catalytic activity/Vol] 48 U/L Normal 46-116 [facility] Comment on above: Performed By: #### H EPBSRF #### [facility] [address] [place] [address] Dr. Nabila Kearns ALT [Catalytic activity/Vol] 30 U/L Normal 14-59 [facility] Comment on above: Performed By: #### H EPBSRF #### [facility] [address] [place] [address] Dr. Nabila Kearns Anion gap [Moles/Vol] 12.3 mmol/L Normal [facility] Comment on above: Performed By: #### H EPBSRF #### [facility] [address] [place] [address] Dr. Nabila Kearns AST [Catalytic activity/Vol] 17 U/L Normal 15-37 [facility] Comment on above: Performed By: #### H EPBSRF #### [facility] [address] [place] [address] Dr. Nabila Kearns Bilirubin [Mass/Vol] 0.4 mg/dL Normal 0.2-1.0 [facility] Comment on above: Performed By: #### H EPBSRF #### [facility] [address] [place] [address] Dr. Nabila Kearns Calcium [Mass/Vol] 8.8 mg/dL Normal 8.5-10.1 [facility] Comment on above: Performed By: #### H EPBSRF #### [facility] [address] [place] [address] Dr. Nabila Kearns Chloride [Moles/Vol] 105 mmol/L Normal 98-107 [facility] Comment on above: Performed By: #### H EPBSRF #### [facility] [address] [place] [address] Dr. Nabila Kearns CO2 [Moles/Vol] 26.4 mmol/L Normal 21.0-32.0 [facility] Comment on above: Performed By: #### H EPBSRF #### [facility] [address] [place] [address] Dr. Nabila Kearns Creatinine [Mass/Vol] 0.59 mg/dL Normal 0.55-1.02 [facility] Comment on above: Performed By: #### H EPBSRF #### [facility] [address] [place] [address] Dr. Nabila Kearns EGFR-AF GUYANESE >60 Normal >=60 [facility] Comment on above: Performed By: #### H EPBSRF #### [facility] [address] [place] [address] Dr. Nabila Kearns EGFR-NON AF GUYANESE >60 Normal >=60 [facility] Comment on above: Performed By: #### H EPBSRF #### [facility] [address] [place] [address] Dr. Nabila Kearns Globulin (S) [Mass/Vol] 4.0 g/dL Normal [facility] Comment on above: Performed By: #### H EPBSRF #### [facility] [address] [place] [address] Dr. Nabila Kearns Glucose [Mass/Vol] 79 mg/dL Normal 74-106 [facility] Comment on above: Performed By: #### H EPBSRF #### [facility] [address] [place] [address] Dr. Nabila Kearns Potassium [Moles/Vol] 3.7 mmol/L Normal 3.5-5.1 [facility] Comment on above: Performed By: #### H EPBSRF #### [facility] [address] [place] [address] Dr. Nabila Kearns Protein [Mass/Vol] 7.2 g/dL Normal 6.4-8.2 [facility] Comment on above: Performed By: #### H EPBSRF #### [facility] [address] [place] [address] Dr. Nabila Kearns Sodium [Moles/Vol] 140 mmol/L Normal 136-145 [facility] Comment on above: Performed By: #### H EPBSRF #### [facility] [address] [place] [address] Dr. Nabila Kearns Urea nitrogen [Mass/Vol] 14.0 mg/dL Normal 7.0-18.0 [facility] Comment on above: Performed By: #### H EPBSRF #### [facility] [address] [place] [address] Dr. Nabila Kearns Urea nitrogen/Creatinine [Mass ratio] 23.7 mg/mg Normal [facility] Comment on above: Performed By: #### H EPBSRF #### [facility] [address] [place] [address] Dr. Nabila Kearns TSHon 07-14-2022 TSH 1.054 uIU/mL Normal 0.358-3.74 0 [facility] Comment on above: Performed By: #### H EPBSRF #### [facility] [address] [place] [address] Dr. Nabila Kearns VITAMIN B12on 07-14-2022 Cobalamin (Vitamin B12) [Mass/Vol] 434.0 pg/mL Normal 193.0-986. 0 [facility] Comment on above: Performed By: #### C BC #### [facility] [address] [place] [address] Dr. Nabila Kearns VITAMIN D 25 OHon 07-14-2022 VIT D 25-OH 36.5 ng/mL Normal [facility] Comment on above: Performed By: #### C BC #### [facility] [address] [address] [address] Nabila Kearns VIT D RANGES SEE BELOW Normal [facility] Comment on above: Result Comment: <20 ng/mL Vit D deficient 20 - <30 ng/mL Vit D insufficient 30 - 100 ng/mL Vit D sufficient >100 ng/mL Potential Toxicity Performed By: #### C BC #### [facility] [address] [address] [address] Nabila Kearns COVID Quick Testingon 2021 Result Positive [employer] Other Quick Strepon 04-16-2022 S. pyogenes Org specific cx Ql (Throat) Negative [employer] Other Quick Strep [employer] Other Urinalysis - AUTOMATEDon Appearance (U) clear [employer] Other Bilirubin Ql (U) Negative [employer] Other Color (U) yellow [employer] Other Glucose Ql (U) Negative [employer] Other Hemoglobin Ql (U) Moderate [employer] Other Ketones Ql (U) Negative [employer] Other Leukocyte esterase Test strip Ql (U) Small [employer] Other Nitrite Ql (U) Negative [employer] Other pH (U) 6.0 [pH] [employer] Other Protein Ql (U) Negtaive [employer] Other Specific gravity (U) [Rel density] 1.030 [employer] Other Urobilinogen (U) [Mass/Vol] 0.20 mg/dL [employer] Other Urinalysis - AUTOMATED No rt [employer] Other Urine Cultureon 04-03-2022 Bacteria identified Cx Nom (U) Reason for Exam Dysuria Urine >100,000 colonies/ml mixed bacterial skin contaminants 2 Days PERFORMED BY: [place] [address] PATHOLOGIST HEELER PAWEL MADRIGAL M.D. Normal Comment on above: Performed By: #### C UU #### [facility] [address] [place] [address] VAGINITIS/VAGINOSIS DNA PROB Oleg 03-02-2022 Emile species Negative Normal Negative [facility] Comment on above: Performed By: #### V AGINT #### [facility] [address] [address] [address] Nabila Kearns Gardnerella vaginalis Positive Abnormal Negative [facility] Comment on above: Performed By: #### V AGINT #### [facility] [address] [place] [address] Dr. Nabila Kearns Trichomonas vaginalis Negative Normal Negative [facility] Comment on above: Performed By: #### V AGINT #### [facility] [address] [place] [address] Dr. Nabila Kearns Laboratory - Microbiology an d Antimicrobial susceptibilityOrdered By: Veronica Jerez on 01-10-2022 N. gonorrhoeae DNA AC+probe Ql (Unsp spec) Negative Negative Comment on above: Performed at: =G - [facility] [address] [place], [place] [id number] Hearing Aid Mechanic: Lydia Holliday MD, Phone: [phone] Performed at: =G - [facility] [address] [place], [place] [id number] Director: Lydia Holliday MD, Phone: [phone] No Panel InformationOrdered By: Veronica Jerez on 01-10-2022 Emile albicans (AC) Negative Negative [facility] Comment on above: This test was develo ped and its performance characteristics determined by [facility]. It has not been cleared or approved by the Food and Drug Administration. This test was develo ped and its performance characteristicsdetermined by [facility]. It has not been cleared orapproved by the Food and Drug Administration. Emile glabrata (AC) Negative Negative [facility] Comment on above: This test was develo ped and its performance characteristics determined by [facility]. It has not been cleared or approved by the Food and Drug Administration. This test was develo ped and its performance characteristicsdetermined by [facility]. It has not been cleared orapproved by the Food and Drug Administration. Chlamydia trachomatis (AC) (LAB) Negative Negative Trichomonas vaginalis (AC) Negative Negative Vaginal fluid Atopobium vagi sergio DNA detection by probe and target amplification methoOrdered By: Veronica Jerez on 01-10-2022 A. vaginae DNA AC+probe Ql (Vag fld) Moderate - 1 Score . [facility] Vaginal fluid Megasphaera sp ecies type 1 DNA detection by probe and target amplificatOrdered By: Veronica Jerez on 01-10-2022 Megasphaera sp type 1 DNA AC+probe Ql (Vag fld) High - 2 Score . Comment on above: Calculate total scor e [...] was developed and its performance characteristicsdetermined by [facility]. It has not been cleared or approvedby the Food and Drug Administration. Vaginal fluid bacterial vagi nosis associated bacterium 2 DNA detection by probe and tOrdered By: Veronica Jerez on 01-10-2022 Bacterial vaginosis associated bacterium 2 DNA AC+probe Ql (Vag fld) Low - 0 Score . Vaginitis Plus (VG+)on 01-10 Atopobium Vaginae Moderate - 1 Normal . [facility] Comment on above: Order Comment: SOURC E OF SPECIMEN: VAGINAL Performed By: #### V AGINITIS+ #### [facility] , BVAB2 Low - 0 Normal . Comment on above: Order Comment: SOURC E OF SPECIMEN: VAGINAL Performed By: #### V AGINITIS+ #### [facility] , Emile Albicans, AC Negative Normal Negative [facility] Comment on above: Order Comment: SOURC E OF SPECIMEN: VAGINAL Result Comment: This test was developed and its performance characteristics determined by [facility]. It has not been cleared or approved by the Food and Drug Administration. Performed By: #### V AGINITIS+ #### [facility] , Emile Glabrata, AC Negative Normal Negative [facility] Comment on above: Order Comment: SOURC E OF SPECIMEN: VAGINAL Result Comment: This test was developed and its performance characteristics determined by [facility]. It has not been cleared or approved by the Food and Drug Administration. PERFORMED BY: [address] [place] [address] PATHOLOGIST HEELER PAWEL MADRIGAL M.D. Performed By: #### V AGINITIS+ #### [facility] , Chlamydia Trachomotis, AC Negative Normal Negative Comment on above: Order Comment: SOURC E OF SPECIMEN: VAGINAL Performed By: #### V AGINITIS+ #### [facility] , Megasphaera High - 2 Critically abnormal . Comment on above: Order Comment: SOURC E [...] , Neisseria Gonorrhoeae, AC Negative Normal Negative Comment on above: Order Comment: SOURC E OF SPECIMEN: VAGINAL Result Comment: Perf ormed at: = - [facility] [address] [id number] Hearing Aid Mechanic: Lydia Holliday MD, Phone: [phone] Performed By: #### V AGINITIS+ #### [facility] , Tric Vag AC Negative Normal Negative Comment on above: Order Comment: SOURC E OF SPECIMEN: VAGINAL Performed By: #### V AGINITIS+ #### [facility] , QUANTIFERON TB GOLD PLUSon 0 11-23-2021 QuantiFERON Criteria Comment Normal [facility] Comment on above: Result Comment: The QuantiFERON-TB Gold Plus result is determined by subtracting the Nil value from either TB antigen (Ag) tube. The mitogen tube serves as a control for the test. Performed By: #### Q NTTB #### [facility] [address] [place] [address] Dr. Nabila Kearns QuantiFERON Incubation Incubation performed. Normal [facility] Comment on above: Performed By: #### Q NTTB #### [facility] [address] [place] [address] Dr. Nabila Kearns QuantiFERON Mitogen Value >10.00 Normal [facility] Comment on above: Performed By: #### Q NTTB #### [facility] [address] [place] [address] Dr. Nabila Kearns QuantiFERON Nil Value 0.00 IU/mL Normal [facility] Comment on above: Performed By: #### Q NTTB #### [facility] [address] [place] [address] Dr. Nabila Kearns QuantiFERON TB1 Ag Value 0.01 IU/mL Normal [facility] Comment on above: Performed By: #### Q NTTB #### [facility] [address] [place] [address] Dr. Nabila Kearns QuantiFERON TB2 Ag Value 0.00 IU/mL Normal [facility] Comment on above: Performed By: #### Q NTTB #### [facility] [address] [place] [address] Dr. Nabila Kearns QuantiFERON-TB Gold Plus Negative Normal Negative [facility] Comment on above: Result Comment: Chem iluminescence immunoassay methodology Performed By: #### Q NTTB #### [facility] [address] [place] [address] Dr. Nabila Kearns HEPATITIS B SURFACE ANTIBODY , QUANTon 11-22-2021 Hepatitis B Surf AB Quant 13.3 mIU/mL Normal Immunity>9 .9 [facility] Comment on above: Result Comment: Stat us of Immunity Anti-HBs Level Inconsistent with Immunity 0.0 - 9.9 Consistent with Immunity >9.9 Performed By: #### H EPBSRF #### [facility] [address] [place] [address] Dr. Nabila Kearns MMR IMMUNITYon 11-22-2021 Mumps Abs, IgG 14.9 AU/mL Normal Immune >10.9 [facility] Comment on above: Result Comment: Nega tive <9.0 Equivocal 9.0 - 10.9 Positive >10.9 A positive result generally indicates past exposure to Mumps virus or previous vaccination. Performed By: #### C BC #### [facility] [address] [place] [address] Dr. Nabila Kearns Rubella Antibodies, IgG 1.92 index Normal Immune >0.99 [facility] Comment on above: Result Comment: Non- immune <0.90 Equivocal 0.90 - 0.99 Immune >0.99 Performed By: #### C BC #### [facility] [address] [place] [id number] [address] Nabila Kearns Rubeola Ab, IgG 298.0 AU/mL Normal Immune >16.4 [facility] Comment on above: Result Comment: Nega tive <13.5 Equivocal 13.5 - 16.4 Positive >16.4 Presence of antibodies to Rubeola is presumptive evidence of immunity except when acute infection is suspected. Performed By: #### C BC #### [facility] [address] [place], [place] [address] Dr. Nabila Kearns VARICELLA IGG ABon 2 Varicella Zoster IgG 1333 index Normal Immune >165 [facility] Comment on above: Result Comment: Nega tive <135 Equivocal 135 - 165 Positive >165 A positive result generally indicates exposure to the pathogen or administration of specific immunoglobulins, but it is not indication of active infection or stage of disease. Performed By: #### V ARCEL #### [facility] [address] [place] [address] [address] Nabila Kearns MG MAMM SCREEN 3D JOEL CADon 10-10-2021 MG MAMM SCREEN 3D JOEL CAD Patient: LEYDI ARGUELLO Exam Date: 10/10/2021 : 1975 Gender:F Ordering : DR LEYAD BAIG . Admission #: [id number] Family : Order #: [id number] CLICK HERE TO VIEW EXAM RADIOLOGY REPORT [...] breast cancer at age 70. LOCATION: [facility] BREAST COMPOSITION: Heterogeneously dense,which may obscure small [...] MD on 10/11/2021 at 07:13 Normal [facility] CT HEAD WO CONon 09-06-2021 CT HEAD [...] MARY SARAH Date: 2021-09-05 22:18 Normal [facility] CBC AUTO DIFFon 09-05-2021 BASO # 0.0 103/ul Normal 0.0-0.1 [facility] Comment on above: Performed By: #### C BC #### [facility] [address] [place] [address] Dr. Nabila Kearns Basophils/100 WBC (Bld) 0.3 % Normal 0.2-2.0 [facility] Comment on above: Performed By: #### C BC #### [facility] [address] [place] [address] Dr. Nabila Kearns EO # 0.2 103/ul Normal 0.0-0.7 [facility] Comment on above: Performed By: #### C BC #### [facility] [address] [place] [address] Dr. Nabila Kearns Eosinophils/100 WBC (Bld) 2.3 % Normal 0.9-7.0 [facility] Comment on above: Performed By: #### C BC #### [facility] [address] [place] [address] Dr. Nabila Kearns Erythrocyte distribution width (RBC) [Ratio] 12.9 % Normal 11.0-15.0 [facility] Comment on above: Performed By: #### C BC #### [facility] [address] [place] [address] Dr. Nabila Kearns Hematocrit (Bld) [Volume fraction] 43.4 % Normal 36.0-48.0 [facility] Comment on above: Performed By: #### C BC #### [facility] [address] [place] [address] Dr. Nabila Kearns Hemoglobin (Bld) [Mass/Vol] 14.7 g/dL Normal 12.0-16.0 [facility] Comment on above: Performed By: #### C BC #### [facility] [address] [place] [address] Dr. Nabila Kearns IG # 0.03 10e3/ul Normal 0.00-0.03 [facility] Comment on above: Performed By: #### C BC #### [facility] [address] [place] [address] Dr. Nabila Kearns IG % 0.3 % Normal 0.0-0.5 [facility] Comment on above: Performed By: #### C BC #### [facility] [address] [place] [address] Dr. Nabila Kearns LYMPH # 1.8 103/ul Normal 1.2-3.8 [facility] Comment on above: Performed By: #### C BC #### [facility] [address] [place] [address] Dr. Nabila Kearns Lymphocytes/100 WBC (Bld) 19.5 % Critically low 20.5-60.0 [facility] Comment on above: Performed By: #### C BC #### [facility] [address] [place] [address] Dr. Nabila Kearns MANUAL DIFF REQ NO Normal [facility] Comment on above: Performed By: #### C BC #### [facility] [address] [address] [address] Nabila Kearns MCH (RBC) [Entitic mass] 30.5 pg Normal 26.7-34.0 [facility] Comment on above: Performed By: #### C BC #### [facility] [address] [place] [address] Dr. Nabila Kearns MCHC (RBC) [Mass/Vol] 33.9 g/dL Normal 29.9-35.2 [facility] Comment on above: Performed By: #### C BC #### [facility] [address] [place] [address] Dr. Nabila Kearns MCV (RBC) [Entitic vol] 90.0 fL Normal 81.0-99.0 [facility] Comment on above: Performed By: #### C BC #### [facility] [address] [place] [address] Dr. Nabila Kearns MONO # 0.9 103/ul Critically high 0.3-0.8 [facility] Comment on above: Performed By: #### C BC #### [facility] [address] [place] [address] Dr. Nabila Kearns Monocytes/100 WBC (Bld) 9.5 % Normal 1.7-12.0 [facility] Comment on above: Performed By: #### C BC #### [facility] [address] [place] [address] Dr. Nabila Kearns NEUT # 6.4 103/ul Normal 1.4-6.5 [facility] Comment on above: Performed By: #### C BC #### [facility] [address] [place] [address] Dr. Nabila Kearns Neutrophils/100 WBC (Bld) 68.1 % Normal 43.0-75.0 [facility] Comment on above: Performed By: #### C BC #### [facility] [address] [place] [address] Dr. Nabila Kearns Platelet mean volume (Bld) [Entitic vol] 11.2 fL Normal 9.5-13.5 [facility] Comment on above: Performed By: #### C BC #### [facility] [address] [address] [address] Nabila Kearns PLT 251 103/ul Normal 150-450 [facility] Comment on above: Performed By: #### C BC #### [facility] [address] [address] [address] Nabila Kearns RBC 4.82 106/ul Normal 4.20-5.40 [facility] Comment on above: Performed By: #### C BC #### [facility] [address] [address] [address] Nabila Kearns WBC 9.4 103/ul Normal 4.0-11.0 [facility] Comment on above: Performed By: #### C BC #### [facility] [address] [address] [address] Nabila Kearns CRPon 09-05-2021 CRP [Mass/Vol] mg/L Normal <=1.0 [facility] Comment on above: Performed By: #### C BC #### [facility] [address] [address] [address] Nabila Kearns PREG HCG QUALon 09-05-2021 , QUAL Negative Normal NEGATIVE [facility] Comment on above: Performed By: #### C BC #### [facility] [address] [address] [address] Nabila Kearns PROF CHEM 8 (BAS METB)on Anion gap [Moles/Vol] 13.8 mmol/L Normal [facility] Comment on above: Performed By: #### C BC #### [facility] [address] [address] [address] Nabila Kearns Calcium [Mass/Vol] 9.3 mg/dL Normal 8.5-10.1 [facility] Comment on above: Performed By: #### C BC #### [facility] [address] [address] [address] Nabila Kearns Chloride [Moles/Vol] 103 mmol/L Normal 98-107 [facility] Comment on above: Performed By: #### C BC #### [facility] [address] [address] [address] Nabila Kearns CO2 [Moles/Vol] 23.9 mmol/L Normal 22.0-30.0 [facility] Comment on above: Performed By: #### C BC #### [facility] [address] [address] [address] Nabila Kearns Creatinine [Mass/Vol] 0.64 mg/dL Normal 0.52-1.04 [facility] Comment on above: Performed By: #### C BC #### [facility] [address] [address] [address] Nabila Kearns EGFR-AF GUYANESE >60 Normal >=60 [facility] Comment on above: Performed By: #### C BC #### [facility] [address] [address] [address] Nabila Kearns EGFR-NON AF GUYANESE >60 Normal >=60 [facility] Comment on above: Performed By: #### C BC #### [facility] [address] [address] [address] Nabila Kearns Glucose [Mass/Vol] 92 mg/dL Normal 74-106 [facility] Comment on above: Performed By: #### C BC #### [facility] [address] [address] [address] Nabila Kearns Potassium [Moles/Vol] 3.7 mmol/L Normal 3.4-5.0 [facility] Comment on above: Performed By: #### C BC #### [facility] [address] [address] [address] Nabila Kearns Sodium [Moles/Vol] 137 mmol/L Normal 137-145 [facility] Comment on above: Performed By: #### C BC #### [facility] [address] [place] [address] Dr. Nabila Kearns Urea nitrogen [Mass/Vol] 12.0 mg/dL Normal 7.0-18.0 [facility] Comment on above: Performed By: #### C BC #### [facility] [address] [place] [address] Dr. Nabila Kearns Urea nitrogen/Creatinine [Mass ratio] 18.8 mg/mg Normal [facility] Comment on above: Performed By: #### C BC #### [facility] [address] [place] [address] Dr. Nabila Kearns SED RATE WESTERGRENon 2021 SED RATE 12 mm/hr Normal <=20 [facility] Comment on above: Performed By: #### S EDR #### [facility] [address] [place] [address] Dr. Nabila Kearns PAP ACOG PANEL 2: 30 to 65on 07-27-2021 . . Normal [facility] Comment on above: Result Comment: Perf ormed at: WB Performed By: #### [id number] #### [facility] [address] [place] [address] Dr. Nabila Kearns Age Gdln ACOG Testing 30-65 [facility] Comment on above: Performed By: #### [id number] #### [facility] [address] [place] [address] Dr. Nabila Kearns DIAGNOSIS: Comment Normal [facility] Comment on above: Result Comment: NEGA TIVE FOR INTRAEPITHELIAL LESION OR MALIGNANCY. Performed at: WB Performed By: #### [id number] #### [facility] [address] [place] [address] Dr. Nabila Kearns HPV Aptima Negative Normal Negative [facility] Comment on above: Result Comment: This nucleic acid amplification test detects fourteen high-risk HPV types (16,18,31,33,35,39,45,51,52,56,58,59,66,68) without differentiation. Performed at: =G Performed By: #### [id number] #### [facility] [address] [place] [address] Dr. Nabila Kearns Methodology: Comment Normal [facility] Comment on above: Result Comment: This liquid based ThinPrep(R) pap test was screened with the use of an image guided system. Performed at: WB Performed By: #### [id number] #### [facility] [address] [place] [address] Dr. Nabila Kearns Note: Comment Normal [facility] Comment on above: Result Comment: The Pap smear is a screening test designed to aid in the detection of premalignant and malignant conditions of the uterine cervix. It is not a diagnostic procedure and should not be used as the sole means of detecting cervical cancer. Both false-positive and false-negative reports do occur. . Performed at: WB Performed By: #### [id number] #### [facility] [address] [place] [address] Dr. Nabila Kearns Performed by: Comment Normal [facility] Comment on above: Result Comment: Steve Cooper, Label Stitcher (ASCP) Performed at: WB Performed By: #### [id number] #### [facility] [address] [place] [address] Dr. Nabila Kearns Specimen adequacy: Comment Normal [facility] Comment on above: Result Comment: Sati sfactory for evaluation. No endocervical component is identified. Performed at: WB Performed By: #### [id number] #### [facility] [address] [place] [address] Dr. Nabila Kearns VAGINITIS/VAGINOSIS DNA PROB Oleg 07-26-2021 Emile species Negative Normal Negative [facility] Comment on above: Performed By: #### V AGINT #### [facility] [address] [place] [address] Dr. Nabila Kearns Gardnerella vaginalis Negative Normal Negative [facility] Comment on above: Performed By: #### V AGINT #### [facility] [address] [place] [address] Dr. Nabila Kearns Trichomonas vaginalis Negative Normal Negative [facility] Comment on above: Performed By: #### V AGINT #### [facility] [address] [place] [address] Dr. Nabila Kearns Urinalysis - AUTOMATEDon Appearance (U) clear [employer] Other Bilirubin Ql (U) Negative [employer] Other Color (U) light yellow [employer] Other Glucose Ql (U) Negative [employer] Other Hemoglobin Ql (U) Negative [employer] Other Ketones Ql (U) Negative [employer] Other Leukocyte esterase Test strip Ql (U) Negative [employer] Other Nitrite Ql (U) Negative [employer] Other pH (U) 6.5 [pH] [employer] Other Protein Ql (U) Negative [employer] Other Specific gravity (U) [Rel density] 1.030 [employer] Other Urobilinogen (U) [Mass/Vol] 0.2 mg/dL [employer] Other Urinalysis - AUTOMATED No rt [employer] Other Consultation Noteon 09-13-19 Consultation Note [id number] Normal [facility] Ambulatory Clinical Summaryo n 08-09-2020 Ambulatory Clinical Summary {[id number] Normal [facility] Patient Educationon 08-10-19 Patient Education Obstetrics and [...] and sweet foods. General instructions ? Take abyi-nnq-hgyactc and prescription medicines only as told by [...] 03/23/2010 Document Revised: 09/17/2019 Document Reviewed: 06/12/2018 [employer] Patient Education ? 2019 [employer]. [facility] Urology Office/Clinic Noteon 08-09-2020 Urology Office/Clinic Note Chief Complaint urinary incontinence This patient is a 44-year-old female with a history of stress urinary incontinence symptoms. She leaks urine when she is physically active. Laughing coughing sneezing also causes her to leak small amounts of urine. She is here today for urologic evaluation. [facility] Staff New patient here today due to [...] to check bladder function. ABX sent to [facility] in [place]. Ordered: Urology Procedure Order Urology Procedure Order Orders: nitrofurantoin, 100 mg = 1 cap(s), Oral, Daily, take 1 cap one day prior to the procedure and 1 cap after the procedure, # 2 cap(s), Refills(s) 0, Pharmacy: [id number], 160, cm, 08/09/20 10:40:00 EST, Height/Length Dosing, 73.1, kg, 08/09/20 10:40:00... Urnls Dip Stick Auto w/o Microscopy POC [id number] I have reviewed the previous health record information and history for this pt. from Dr. Dimas. Follow-up With When Contact Information Wing Ventura MD, Gab [address] Additional Instructions: Patient Education Overactive Bladder, Adult [...] Protein Urine Dipstick: Negative (08/09/20 10:36:00) Specific [place] Urine Dipstick: >=1.030 (08/09/20 10:36:00) Urine Appearance Urine Dipstick: Clear (08/09/20 10:36:00) Urine Color Urine Dipstick: Yellow (08/09/20 10:36:00) Urobilinogen Urine Dipstick: Normal 0.2-1 EU/dl (08/09/20 10:36:00) pH Urine Dipstick: 5 (08/09/20 10:36:00) Diagnostic Results Urinalysis today is negative for infection. I reviewed the office notes and physical exam from Dr. Baig. [facility] Comment on above: Result Comment: Elec tronically Signed By: Wing Ventura MD, Gab Benjamin\.br\Date and Time Signed: 08/09/20 11:49 EST\.br\Electronically Co-Signed By: Negar Tabor MA\.br\Date and Time Co-Signed: 08/09/20 11:33 EST Mainor 09-13-2019 [facility] Telephone (COVHLD) ----- LEYDI ARGUELLO ([id number]) 1975 F Date Time Provider Department 09/13/19 SHELTON YEBOAH ([facility]) COVPRABHUD During your visit today, we recorded the [...] Fully Assessed Reason for Visit: Covid-19 Hotline [8986] Prescriptions as of 09/13/2019 Sig: NITROFURANTOIN MACROCRYSTAL 1* Take 100 mg by mouth. CLOBEX 0.05 % SHAMPOO use as shampoo EOD CLOBETASOL 0.05 % SCALP SOLUT* apply to affected areas BID Problem List As Of Date: 09/13/2019 (None) Encounter Status:Closed by SHELTON YEBOAH on 09/13/19 [facility] Telephone (COVHLD) ----- LEYDI ARGUELLO ([id number]) 1975 F Date Time Provider Department 09/13/19 SHELTON YEBOAH ([facility]) COVPRABHUD During your visit today, we recorded the following information about you: Allergies As of Date: 09/13/2019 Noted Allergy Reaction CIPROFLOXACIN 04/02/2019 12 - Shortness of Breath METRONIDAZOLE 04/02/2019 2 - Rash ADHESIVE TAPE-SILICONES 04/02/2019 2 - Rash AMOXICILLIN 04/17/2005 2 - Rash ERYTHROMYCIN 02/05/2017 2 - Rash Date Reviewed: 09/13/2019 Reviewed by: Deondre Leach) Prasanna - Fully Assessed Reason for Visit: Covid-19 Hotline [1180] Prescriptions as of 09/13/2019 Sig: NITROFURANTOIN MACROCRYSTAL 1* Take 100 mg by mouth. CLOBEX 0.05 % SHAMPOO use as shampoo EOD CLOBETASOL 0.05 % SCALP SOLUT* apply to affected areas BID Problem List As Of Date: 09/13/2019 (None) Encounter Status:Closed by SHELTON YEBOAH on 09/13/19 [facility] PROGRESSon 09-13-2019 PROGRESS HNO ID: [id number] Author: Deondre (Archana) Prasanna Service: ? Author Type: Nurse Practitioner Type: Progress Notes Filed: 09/13/2019 7:44 AM Note Text: This Team Access Model visit is a virtual encounter. It required patient-provider interaction for the medical decision making as documented below. [employer] HIPAA secured video was used for evaluation of this patient. Telemedicine Evaluation for COVID-19 Infection SUBJECTIVE: Leydi Arguello is an 43 year old who presents with an illness that began 7 day(s) ago and are gradually worsening since that time. Pt reports she was at [place] [facility] and was told she possibly has [...] novel coronavirus infection (COVID-19). SIGNATURE: Deondre Mims APRN.BOOKING CLERK DATE: September 13, 2019 [facility] Coding Summaryon 03-14-2017 Coding Summary CODING DATE: [facility] STATUS: Home PAYOR: Medicaid HMO ADMIT DX: [...] Viviana Maloney Date Saved: 03/14/2017 06:21 am [facility] Coding Summary CODING DATE: [facility] STATUS: Home PAYOR: Medicaid HMO ADMIT DX: [...] Viviana Maloney Date Saved: 03/14/2017 06:19 am [facility] ED Clinical Summaryon 2016 ED Clinical Summary [facility] [address] [place] [id number] ed Clinical SummaryPERSON INFORMATIONName: LEYDI ARGUELLO Age: 41 Years Sex: FEMALEDOB: [birth year] MRN: Acct#:Visit Reason: General medical; C/O LEFT ARM PAIN/SWELLING Arrival:03/02/17 13:52:00 Discharge: 03/02/17 15:00:00LOS: 000 01:08 Check In: 03/02/17 13:52:00 Checkout:03/02/17 15:00:00Address:[address] [place] [id number]: Chuckie Gonzalez MDPROVIDER INFORMATIONProvider Role Assigned UnassMalina Alvarez MD ED Provider 03/02/17 14:05:03PeMirtha cody RN [...] Syndrome; Wrist Pain; ContusionFollow-Up:With: Address: When:Chuckie Gonzalez [address] [place], [place] [id number] Business (1) Within 3 to 5 daysComments:Follow-up with primary care physician in 3-5 days. Ice to affected areas. Cock-up splint as needed. Tylenol or ibuprofen as needed for pain. Return if any concerns or worsening.DIAGNOSIS:Comme nt: [facility] ED Note - Physicianon 2016 ED Note - Physician Patient: LEYDI ARGUELLO : 41 years Sex: FEMALE : [birth year]Associated Diagnoses: NoneAuthor: Malina Fields MDBasic InformationTime seen: Date & time 03/02/17 14:06:00.History source: Patient.Arrival mode: Private vehicle.History limitation: None.Additional information: Chief Complaint from Nursing Triage Note : Chief Eljrfyuef77/23/17 13:54 EDT Chief Complaint Pt complains of pain and swelling to left wrist for 15 minutes. Denies injury. Says she is worried she has blood clot. 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 Patient is right-handed. There is no evidence [...] carpal tunnel given the patient is a production support developer and carries trays repetitively on her left [...] on: 03/03/2017 11:48 EDT] Malina Barillas MD [facility] ED Note-Nursingon 03-02-2017 ED Note-Nursing Pt [facility]. Instructions given to pt who verbalized understanding. Pt walks out with Spouse. [facility] ED Patient Education Noteon 03-02-2017 ED Patient Education Note Education MaterialsMusculoskeletalW rist SplintA splint is a pesticide use medical coordinator that keeps an injured part of your [...] Document Reviewed: 09/07/2014Hannah Interactive Patient Education ?2016 [employer]RICE for Routine Care of InjuriesThe?routine care?of?many?injuries?inc ludes [...] Released: 09/08/2001 Document Revised: 02/15/2016 Document Reviewed: 05/04/2015Elsevier Interactive Patient Education ?2016 [employer].Carpal Tunnel SyndromeCarpal tunnel syndrome is a [...] the splint clean and dry.General Instructions? Take zbkz-qkm-nrvwqog and prescription medicines only as told by [...] Document Reviewed: 10/12/2015Hannah Interactive Patient Education ?2016 [employer].Wrist PainThere are many things that can cause [...] if they turn cold or blue.? Take drtt-wph-cbmnsyc and prescription medicines only as told by [...] Document Reviewed: 10/12/2015Hannah Interactive Patient Education ?2016 [employer].ContusionA contusion is a deep bruise. Contusions are [...] associated injuries, such as broken bones (fractures).TREATMENTSpec [facility] treatment for this condition depends on what area of the body was injured. In general, the best treatment for a contusion is resting, icing, applying pressure to (compression), and elevating the injured area. This is often called the RICE strategy. Yqqj-hyw-jrwwrmm anti-inflammatory medicines may also be recommended for [...] you are sitting or lying down.? Take fetj-rks-yicbhug and prescription medicines only as told by [...] Document Reviewed: 10/12/2015Hannah Interactive Patient Education ?2016 [employer]. Normal [facility] ED Patient Summaryon 017 ED Patient Summary [facility] [address] [place] [address] pATIENT DISCHARGE INSTRUCTIONSPatient InformationName: LEYDI ARGUELLO Age: 41 YearsDate of : [birth year]MRN: [id number] For Visit: General medical; C/O LEFT ARM PAIN/SWELLINGArrival Time: 03/02/17 13:52:00Phone: [facility] Physician: Chuckie Gonzalez Physician: Malina Fields MDComment:Visit Diagnosis:Diagnoses This Visit General medical ([id number])If you received any narcotics, sedation, or any [...] sign any legal documentsWith: Address: When:Chuckie Gonzalez [address] [place], [place] [id number] Business (1) Within 3 to 5 daysComments:Follow-up with primary care physician in 3-5 days. Ice to affected areas. Cock-up splint as needed. Tylenol or ibuprofen as needed for pain. Return if any concerns or worsening.Medication Information:The exam and treatment you received today in the [facility] Emergency Department were for an urgent problem and are not intended as complete care. It is important for you to follow up with a doctor, nurse practitioner, or physician?s financial sales assistant for ongoing care. If your symptoms [...] number so we can reach you if necessary.[facility] Emergency Department has provided you with a complete list of medications post discharge. Please inform your licensed occupational therapy assistant/provider of your visit and for further instruction [...] Problems foundPatient EducationWrist SplintA splint is a pesticide use medical coordinator that keeps an injured part of your [...] Document Reviewed: 09/07/2014Hannah Interactive Patient Education ?2016 [employer]RICE for Routine Care of InjuriesThe?routine care?of?many?injuries?inc ludes [...] Released: 09/08/2001 Document Revised: 02/15/2016 Document Reviewed: 05/04/2015Connorevmarlo Interactive Patient Education ?2016 [employer].Carpal Tunnel SyndromeCarpal tunnel syndrome is a condition [...] the splint clean and dry.General Instructions? Take qyqj-lug-yoxlmbd and prescription medicines only as told by [...] Document Reviewed: 10/12/2015Hannah Interactive Patient Education ?2016 [employer].Wrist PainThere are many things that can [...] if they turn cold or blue.? Take bosd-paz-rctjdbl and prescription medicines only as told by [...] Document Reviewed: 10/12/2015Connorevmarlo Interactive Patient Education ?2016 [employer].ContusionA contusion is a deep bruise. Contusions [...] associated injuries, such as broken bones (fractures).TREATMENTSpec [facility] treatment for this condition depends on what area of the body was injured. In general, the best treatment for a contusion is resting, icing, applying pressure to (compression), and elevating the injured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 Notes Treatment Notes Treatment Clinical Notes Jul, Acute vaginitis (ICD-10 - N76.0) Jul, Acute cystitis without hematuria (ICD-10 - N30.00) [employer] Other 01-30-2022 Evaluation note* Encounter Date Diagnosis [...] her frequent vaginal complaints. States that her BARREL BANDER told her that her bladder may need to be lifted the next few years. I advised her to follow-up with her METER INSTALLER. We will send out the vaginal and [...] She understands and agrees with the plan. [employer] Other 11-08-2021 Evaluation note* Encounter Date Diagnosis [...] - Z87.898) information about local [place] [facility] [place] [facility] and recommend patient to contact the wood inspector for [facility] [employer] Other 10-14-2021 Evaluation note* Encounter Date Diagnosis [...] call results even if they area negative. [employer] Other [id number] History general Narrative - Reported* Type Description Date Medical History autoimmune disorder Medical History alopecia Medical History 07/19/16 EGD with MOHAMUD- significa nt acid reflux Surgical History essure 2006 Surgical History D&C Surgical History D&C 2016 Surgical History HYSTERECTOMY 05/27/2017 Surgical History CHOLECYSTECTOMY 12/2016 Hospitalization History SEE ABOVE [employer] Other Evaluation noteNo InformationNort [employer] Other Evaluation noteNo assessment information available [facility] Work Phone: Evaluation note* Diagnosis Visit for annual health examination- Primary Atrophy of vagina Postmenopausal atrophic vaginitis 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 SystemInstructionsNot on filedocumented in this encounter [facility] SystemReason for referral (narrative)* Consultation (Routine) - Pending Review Specialty Diagnoses / Procedures Referred By Contact Referred To Contact Urogynecology / Gynecology Diagnoses Atrophy of vagina Ramya Cosme, TANVIR [address] [place] [address] Marleni Zavala MD [address] [facility], [address] [address] Referral ID Status Reason Start Date Expiration Date Visits Requested Visits Authorized [id number] Pending Review Specialty Services Required 06/19/2023 06/18/2024 1 1 [facility] Summary Purpose Family History No Family History [...] section and content) DATE CREATED AUTHOR 11/28/2017 [facility] DATE CREATED AUTHOR AUTHOR'S ORGANIZ ATION 12/04/2017 [facility] DATE CREATED AUTHOR AUTHOR'S ORGANIZ ATION 09/13/2019 [facility] DATE CREATED AUTHOR AUTHOR'S ORGANIZ ATION 09/12/2020 [facility] DATE CREATED AUTHOR AUTHOR'S ORGANIZ ATION 07/17/2022 [facility] DATE CREATED AUTHOR AUTHOR'S ORGANIZ ATION 12/15/2022 [facility] DATE CREATED AUTHOR AUTHOR'S ORGANIZ ATION 09/06/2023 [facility] DATE CREATED AUTHOR AUTHOR'S ORGANIZ ATION 10/04/2023 [facility] DATE CREATED AUTHOR AUTHOR'S ORGANIZ ATION 10/18/2023 [facility] DATE CREATED AUTHOR AUTHOR'S ORGANIZ ATION 12/06/2023 [facility] REASON FOR VISIT (unrecogniz ed section and content) Reason Comments new patient Reason Comments SACK CLEANING HAND Vaginal Atrophy Specialty Diagnoses / Procedures Referred By Contact Referred To Contact Urogynecology / Gynecology Diagnoses Atrophy of vagina Ramya Cosme, JANIE-CLAY [address] [place] [address] Marleni Zavala MD [address] [facility], [address] [address] Referral ID Status Reason Start Date Expiration Date V isits Requested Visits Authorized [id number] Closed Specialty Services Required 06/19/2023 06/18/2024 1 1 Care Teams (unrecognized sec tion and content) Team Status: Inactive Member Role Status Dates PHYSICIAN NO FAMILY Primary Care Provider Active WAI Benton Attending Provider Active Team Status: Active Member Role Status Dates PHYSICIAN NO FAMILY Primary Care Provider Active Team Status: Inactive Member Role Status Dates PHYSICIAN NO FAMILY Primary Care Provider Active RUDY Calle Attending Provider Active Team Status: Inactive Member Role Status Dates Savannah Hillman APRN Attending Provider Active Formal Service Waiter Relationship Specialty Start Date End Date Brionna Coronel APRN-FNP [address] [place] [address] PCP - General Family Medicine 10/18/21 Formal Service Waiter Relationship Specialty Start Date End Date [facility] [address] [place] [address] PCP - [facility] 10/18/21 Formal Service Waiter Relationship Specialty Start Date End Date [facility] [address] [place] [address] PCP - [facility] 10/18/21 Formal Service Waiter Relationship Specialty Start Date End Date [facility] [address] [place] [address] PCP - [facility] 10/18/21 Goals (unrecognized section and content) Goals [...] BE BASED ON THE PRIMARY CLINICAL RECORDS. [employer] [facility]. provides no warranty or guarantee of the accuracy or completeness of information in this document.
[2024-04-07 05:30] LABS: Internal Control Within Normal Limits; SARS-CoV-2 Ag NEGATIVE (NEGATIVE)
[2024-04-07 06:00] VITALS: BP 118/65; PULSE 71; O2SAT 98
== END 2024-04-07 06:00 | disposition home or self-care (01) ==
PROVIDERS: Emergency Provider Emergency Medicine; PCP Nurse Practitioner
DX: K52.9 Noninfective gastroenteritis and colitis, unspecified (principal)
CPT/HCPCS: 36415; 80053; 84484; 85025; 87811; 93005; 96374; 96375; 99284; J1885; J2405

== ENCOUNTER 2024-05-26 13:00 | Outpatient (OUT) | payer MEDICAID, SELFPAY ==
--- NOTE | 2024-05-26 13:05 | MM_ITS ---
Patient Name: ROYCE ARGUELLO MR#: [id number] : 1975 Exam Date: 05/26/2024 Ordering Doctor: JESÚS LEVINE RADIOLOGY REPORT PROCEDURE: MM TOMOSYNTHESIS SCREENING BI COMPARISON: MG MAMM SCREEN 3D JOEL CAD, 10/10/2021. MM TOMOSYNTHESIS SCREENING BI, 05/23/2023. INDICATIONS: Screening for malignant neoplasm Calculator Name NCI Breast Cancer Risk Assessment Tool 5 Year Breast Cancer Risk 1.70% Lifetime Breast Cancer Risk 17.10% Personal Breast Cancer No Personal Ovarian Cancer No Treatments None Family Cancers Mother with breast cancer at age 69. LOCATION: [facility] BREAST COMPOSITION: The breasts are heterogeneously dense,which may obscure small masses. FINDINGS: DIAGNOSTIC CATEGORY 2--BENIGN FINDING. NO CHANGE FROM COMPARISON. Scattered benign-appearing calcifications are present. Scattered benign-appearing lymph nodes are present. RIGHT BREAST: No significant suspicious finding. LEFT BREAST: No significant suspicious finding. RECOMMENDATIONS: ROUTINE MAMMOGRAM AND CLINICAL EVALUATION IN 12 MONTHS. PLEASE NOTE: A NORMAL MAMMOGRAM DOES NOT EXCLUDE THE POSSIBILITY OF BREAST CANCER. A CLINICALLY SUSPICIOUS PALPABLE LUMP SHOULD BE BIOPSIED. Dictated by: Diony Wellington MD on 05/26/2024 at 13:58 Approved by: Diony Wellington MD on 05/26/2024 at 14:04
== END 2024-05-26 13:01 | disposition home or self-care (01) ==
LOC: MAMMO 13:00
PROVIDERS: PCP Nurse Practitioner; Visit Provider Nurse Practitioner
DX: Z12.31 Encounter for screening mammogram for malignant neoplasm of breast (principal); Z80.3 Family history of malignant neoplasm of breast
CPT/HCPCS: 77063; 77067

== ENCOUNTER 2024-06-22 06:37 | Emergency (ER) | payer MEDICAID, SELFPAY ==
[2024-06-22 06:39] VITALS: BP 104/72; PULSE 90; TEMP 36.6; O2SAT 98; BMI 28.3
--- NOTE | 2024-06-22 06:40 | ECG_ITS ---
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
--- NOTE | 2024-06-22 06:41 | ED.SYNCOPE1 ---
HPI - Syncope General Chief Complaint: Syncope Stated Complaint: DIARRHEA Time Seen by Provider: 06/22/24 06:40 History of Present Illness HPI narrative: This 48-year-old female is brought to the emergency department by EMS. The patient was seen at urgent care yesterday and was diagnosed with COVID-19. She states she went to urgent care because she was having a headache, nasal congestion and had some mild epigastric abdominal pain. She had used Nurtec without relief. She tested positive for COVID. She has been recovering at home and started having some nausea with abdominal cramps and diarrhea this morning. She states that she got up this morning and went to the bathroom. She was in the bathroom and having diarrhea when she became very diaphoretic and dizzy and passed out. She was able to get up at that time and went to the kitchen and passed out again on the kitchen floor striking her head on the floor. She has some mild bruising over her right eye forehead area. She denies any blurred vision. She does not have any slurred speech or confusion. She has no focal neurologic deficits. She denies any specific chest pain. She does not smoke. She has some mild stiffness in the right side of her neck. To EMS the patient was awake alert and oriented when they got to her however her blood pressure was moderately low. An IV was established and she was receiving IV fluids upon arrival. Related Data Home Medications ?Medication ?Instructions ?Recorded ?Confirmed rimegepant 75 mg disintegrating 75 mg PO DAILY PRN migraine 04/07/24 04/07/24 tablet (Nurtec ODT) headache Allergies Allergy/AdvReac Type Severity Reaction Status Date / Time amoxicillin Allergy Severe Unknown Verified 06/22/24 06:39 ciprofloxacin (From Cipro) Allergy Severe Unknown Verified 06/22/24 06:39 erythromycin base AdvReac Mild Rash Verified 06/22/24 06:39 Review of Systems ROS Status of ROS 10 or more systems reviewed and unremarkable except as noted in history and below PFSH PFS Social History Smoking status: Never smoker Little interest or pleasure in doing things: not at all Feeling down, depressed, or hopeless: not at all Exam Narrative Exam Narrative: Vital signs and Nursing Notes reviewed: Patient is afebrile with a normal pulse, blood pressure is moderately low at 104/72, she is not hypoxic with pulse ox of 98% on room air General: Awake, alert, oriented, no acute distress, lying comfortably on the stretcher-GCS 15 HEENT: Normocephalic, mild bruising over the right eyebrow with some mild tenderness, pupils are equal and reactive, no facial drooping noted Neck: Supple, no midline bony vertebral tenderness or step-off Chest: Lungs are clear to auscultation with good air entry, there is no wheezing rhonchi or rales appreciated no accessory muscle use, patient is speaking in complete sentences-no chest wall tenderness to palpation CVS: Regular rate and rhythm S1-S2, no murmurs rubs or gallops, pulses are brisk and equal bilaterally ABD: Soft, nondistended, nontender, no rebound guarding or rigidity, bowel sounds are normal, no pulsatile masses appreciated Extremities: Moving all extremities, no lower extremity tenderness or swelling noted, negative Homans' sign, pulses are brisk and equal bilaterally Skin: Normal in appearance without rash,pallor, petechiae or purpura Neuro: No focal deficits, speech is clear, there is no facial droop, upper and lower extremity strength and sensation is intact Constitutional Vital Signs, click to edit/add: Last Vital Signs Temp 97.8 F 06/22/24 06:39 Pulse 90 06/22/24 06:39 Resp 18 06/22/24 06:39 BP 104/72 06/22/24 06:39 Pulse Ox 98 06/22/24 06:39 O2 Del Method Room Air 06/22/24 06:39 Course Vital Signs Vital signs: Vital Signs Temperature 97.8 F 06/22/24 06:39 Pulse Rate 90 06/22/24 06:39 Respiratory Rate 18 06/22/24 06:39 Blood Pressure 104/72 06/22/24 06:39 Pulse Oximetry 98 06/22/24 06:39 Oxygen Delivery Method Room Air 06/22/24 06:39 Temperature 97.8 F 06/22/24 06:39 Pulse Rate 90 06/22/24 06:39 Respiratory Rate 18 06/22/24 06:39 Blood Pressure 104/72 06/22/24 06:39 Pulse Oximetry 98 06/22/24 06:39 Oxygen Delivery Method Room Air 06/22/24 06:39 MDM - Syncope Medical Records Attestation: I reviewed the patient's medical records. ECG Data Attestation: I personally reviewed and interpreted this ECG as follows: (Sinus rhythm at 76 bpm, normal axis, normal intervals, no acute ST segment elevation or T wave inversion) Discharge Plan Discharge Chief Complaint: Syncope Clinical Impression: COVID-19 Patient Disposition: Still a Patient Prescriptions / Home Meds: No Action Nurtec ODT 75 mg tablet,disintegrating 75 mg PO DAILY PRN (Reason: migraine headache) Print Language: Spanish Referrals: JESÚS LEVINE [Primary Care Provider] - 1 week
--- OUTSIDE RECORDS SUMMARY | 2024-06-22 06:43 | XMS_ITS | CCD ---
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 InformationOrdered By: Veronica Jerez on 01-10-2022 Emile albicans (AC) Negative Negative [facility] Comment on above: This test was develo ped and its performance characteristics determined by [facility]. It has not been cleared or approved by the Food and Drug Administration. This test was develo ped and its performance characteristicsdetermined by [facility]. It has not been cleared orapproved by the Food and Drug Administration. Emile glabrata (AC) Negative Negative [facility] Comment on above: This test was develo ped and its performance characteristics determined by [facility]. It has not been cleared or approved by the Food and Drug Administration. This test was develo ped and its performance characteristicsdetermined by [facility]. It has not been cleared orapproved by the Food and Drug Administration. Chlamydia trachomatis (CA) (LAB) Negative Negative [facility] Trichomonas vaginalis (AC) Negative Negative [facility] Vaginal fluid Atopobium vagi sergio DNA detection by probe and target amplification methoOrdered By: Veronica Jerez on 01-10-2022 A. vaginae DNA AC+probe Ql (Vag fld) Moderate - 1 Score . [facility] Vaginal fluid Megasphaera sp ecies type 1 DNA detection by probe and target amplificatOrdered By: Veronica Jerez on 01-10-2022 Megasphaera sp type 1 DNA AC+probe Ql (Vag fld) High - 2 Score . [facility] Comment on above: Calculate total scor e [...] developed and its performance characteristics determined by [facility]. It has not been cleared or approved [...] was developed and its performance characteristicsdetermined by [employer]. It has not been cleared or approvedby the Food and Drug Administration. Vaginal fluid bacterial vagi nosis associated bacterium 2 DNA detection by probe and tOrdered By: Veronica Jerez on 01-10-2022 Bacterial vaginosis associated bacterium 2 DNA AC+probe Ql (Vag fld) Low - 0 Score . [facility] Vaginitis Plus (VG+)on 01-10 [employer] Vaginae Moderate - 1 Normal . [facility] Comment on above: Order Comment: SOURC E OF SPECIMEN: VAGINAL Performed By: #### V AGINITIS+ #### [facility] , BVAB2 Low - 0 Normal . [facility] Comment on above: Order Comment: SOURC E OF SPECIMEN: VAGINAL Performed By: #### V AGINITIS+ #### [facility] , Emile Albicans, AC Negative Normal Negative [facility] Comment on above: Order Comment: SOURC E OF SPECIMEN: VAGINAL Result Comment: This test was developed and its performance characteristics determined by [facility]. It has not been cleared or approved by the Food and Drug Administration. Performed By: #### V AGINITIS+ #### [facility] , Emile Glabrata, AC Negative Normal Negative [facility] Comment on above: Order Comment: SOURC E OF SPECIMEN: VAGINAL Result Comment: This test was developed and its performance characteristics determined by [facility]. It has not been cleared or approved by the Food and Drug Administration. PERFORMED BY: [facility] [place] [address] PATHOLOGIST CUSHION STUFFER PAWEL MADRIGAL M.D. Performed By: #### V AGINITIS+ #### [facility] , Chlamydia Trachomotis, AC Negative Normal Negative [facility] Comment on above: Order Comment: SOURC E OF SPECIMEN: VAGINAL Performed By: #### V AGINITIS+ #### [facility] , Megasphaera High - 2 Critically abnormal . [facility] Comment on above: Order Comment: SOURC E [...] developed and its performance characteristics determined by [employer]. It has not been cleared or approved by the Food and Drug Administration. Performed By: #### V AGINITIS+ #### [facility] , Neisseria Gonorrhoeae, AC Negative Normal Negative [facility] Comment on above: Order Comment: SOURC E OF SPECIMEN: VAGINAL Result Comment: Perf ormed at: =[facility] [id number] Qi Specialist: Lydia Holliday MD, Phone: [phone] Performed By: #### V AGINITIS+ #### [facility] , Tric Vag AC Negative Normal Negative [facility] Comment on above: Order Comment: SOURC E OF SPECIMEN: VAGINAL Performed By: #### V AGINITIS+ #### [facility] , QUANTIFERON TB GOLD PLUSon 0 11-23-2021 QuantiFERON Criteria Comment Normal [facility] Comment on above: Result Comment: The QuantiFERON-TB Gold Plus result is determined by subtracting the Nil value from either TB antigen (Ag) tube. The mitogen tube serves as a control for the test. Performed By: #### Q NTTB #### [facility] [address] [place] [address] Dr. Nabila Kearns QuantiFERON Incubation Incubation performed. Normal [facility] Comment on above: Performed By: #### Q NTTB #### [facility] [address] [place] [address] Dr. Nabila Kearns QuantiFERON Mitogen Value >10.00 Normal [facility] Comment on above: Performed By: #### Q NTTB #### [facility] [address] [place] [address] Dr. Nabila Kearns QuantiFERON Nil Value 0.00 IU/mL Normal [facility] Comment on above: Performed By: #### Q NTTB #### [facility] [address] [place] [address] Dr. Nabila Kearns QuantiFERON TB1 Ag Value 0.01 IU/mL Normal [facility] Comment on above: Performed By: #### Q NTTB #### [facility] [address] [place] [address] Dr. Nabila Kearns QuantiFERON TB2 Ag Value 0.00 IU/mL [facility] Comment on above: Performed By: #### Q NTTB #### [facility] [address] [place] [address] Dr. Nabila Kearns QuantiFERON-TB Gold Plus Negative Normal Negative [facility] Comment on above: Result Comment: Chem iluminescence immunoassay methodology Performed By: #### Q NTTB #### [facility] [address] [place] [address] Dr. Nabila Kearns HEPATITIS B SURFACE ANTIBODY , QUANTon 11-22-2021 Hepatitis B Surf AB Quant 13.3 mIU/mL Normal Immunity>9 .9 [facility] Comment on above: Result Comment: Stat us of Immunity Anti-HBs Level Inconsistent with Immunity 0.0 - 9.9 Consistent with Immunity >9.9 Performed By: #### H EPBSRF #### [facility] [address] [place] [address] Dr. Nabila Kearns MMR IMMUNITYon 11-22-2021 Mumps Abs, IgG 14.9 AU/mL Normal Immune >10.9 [facility] Comment on above: Result Comment: Nega tive <9.0 Equivocal 9.0 - 10.9 Positive >10.9 A positive result generally indicates past exposure to Mumps virus or previous vaccination. Performed By: #### C BC #### [facility] [address] [place] [address] Dr. Nabila Kearns Rubella Antibodies, IgG 1.92 index Normal Immune >0.99 [facility] Comment on above: Result Comment: Non- immune <0.90 Equivocal 0.90 - 0.99 Immune >0.99 Performed By: #### C BC #### [facility] [address] [place] [address] Dr. Nabila Kearns Rubeola Ab, IgG 298.0 AU/mL Normal Immune >16.4 [facility] Comment on above: Result Comment: Nega tive <13.5 Equivocal 13.5 - 16.4 Positive >16.4 Presence of antibodies to Rubeola is presumptive evidence of immunity except when acute infection is suspected. Performed By: #### C BC #### [facility] [address] [place] [address] Dr. Nabila Kearns VARICELLA IGG ABon Varicella Zoster IgG 1333 index Normal Immune >165 [facility] Comment on above: Result Comment: Nega tive <135 Equivocal 135 - 165 Positive >165 A positive result generally indicates exposure to the pathogen or administration of specific immunoglobulins, but it is not indication of active infection or stage of disease. Performed By: #### V ARCEL #### [facility] [address] [place] [address] Dr. Nabila Kearns MG MAMM SCREEN 3D JOEL CADon 10-10-2021 MG MAMM SCREEN 3D JOEL CAD Patient: LEYDI GAGE Exam Date: 10/10/2021 : 1975 Gender:F Ordering : DR LEYDA BAIG . Admission #: [id number] Family : Order #: [id number] CLICK HERE TO VIEW EXAM RADIOLOGY REPORT [...] breast cancer at age 70. LOCATION: [facility] BREAST COMPOSITION: Heterogeneously dense,which may obscure [...] Wellington MD on 10/11/2021 at 07:[address] [facility] [address] HEAD WO CONon 09-06-2021 CT HEAD [...] by: MARY SARAH Date: 2021-09-05 22:18 Normal [facility] CBC AUTO DIFFon 09-05-2021 BASO # 0.0 103/ul Normal 0.0-0.1 [facility] Comment on above: Performed By: #### C BC #### [facility] [address] [place] [address] Dr. Nabila Kearns Basophils/100 WBC (Bld) 0.3 % Normal 0.2-2.0 [facility] Comment on above: Performed By: #### C BC #### [facility] [address] [place] [address] Dr. Nabila Kearns EO # 0.2 103/ul Normal 0.0-0.7 [facility] Comment on above: Performed By: #### C BC #### [facility] [address] [place] [address] Dr. Nabila Kearns Eosinophils/100 WBC (Bld) 2.3 % Normal 0.9-7.0 [facility] Comment on above: Performed By: #### C BC #### [facility] [address] [place] [address] Dr. Nabila Kearns Erythrocyte distribution width (RBC) [Ratio] 12.9 % Normal 11.0-15.0 [facility] Comment on above: Performed By: #### C BC #### [facility] [address] [place] [address] Dr. Nabila Kearns Hematocrit (Bld) [Volume fraction] 43.4 % Normal 36.0-48.0 [facility] Comment on above: Performed By: #### C BC #### [facility] [address] [place] [address] Dr. Nabila Kearns Hemoglobin (Bld) [Mass/Vol] 14.7 g/dL Normal 12.0-16.0 [facility] Comment on above: Performed By: #### C BC #### [facility] [address] [place] [address] Dr. Nabila Kearns IG # 0.03 10e3/ul Normal 0.00-0.03 [facility] Comment on above: Performed By: #### C BC #### [facility] [address] [place] [address] Dr. Nabila Kearns IG % 0.3 % Normal 0.0-0.5 [facility] Comment on above: Performed By: #### C BC #### [facility] [address] [place] [address] [address] Nabila Kearns LYMPH # 1.8 103/ul Normal 1.2-3.8 [facility] Comment on above: Performed By: #### C BC #### [facility] [address] [address] [address] Nabila Kearns Lymphocytes/100 WBC (Bld) 19.5 % Critically low 20.5-60.0 [facility] Comment on above: Performed By: #### C BC #### [facility] [address] [place] [address] Dr. Nabila Kearns MANUAL DIFF REQ NO Normal [facility] Comment on above: Performed By: #### C BC #### [facility] [address] [place] [address] Dr. Nabila Kearns MCH (RBC) [Entitic mass] 30.5 pg Normal 26.7-34.0 [facility] Comment on above: Performed By: #### C BC #### [facility] [address] [place] [address] Dr. Nabila Kearns MCHC (RBC) [Mass/Vol] 33.9 g/dL Normal 29.9-35.2 [facility] Comment on above: Performed By: #### C BC #### [facility] [address] [place] [address] Dr. Nabila Kearns MCV (RBC) [Entitic vol] 90.0 fL Normal 81.0-99.0 [facility] Comment on above: Performed By: #### C BC #### [facility] [address] [place] [address] Dr. Nabila Kearns MONO # 0.9 103/ul Critically high 0.3-0.8 [facility] Comment on above: Performed By: #### C BC #### [facility] [address] [place] [address] Dr. Nabila Kearns Monocytes/100 WBC (Bld) 9.5 % Normal 1.7-12.0 [facility] Comment on above: Performed By: #### C BC #### [facility] [address] [place] [address] Dr. Nabila Kearns NEUT # 6.4 103/ul Normal 1.4-6.5 [facility] Comment on above: Performed By: #### C BC #### [facility] [address] [place] [address] Dr. Nabila Kearns Neutrophils/100 WBC (Bld) 68.1 % Normal 43.0-75.0 [facility] Comment on above: Performed By: #### C BC #### [facility] [address] [place] [address] Dr. Nabila Kearns Platelet mean volume (Bld) [Entitic vol] 11.2 fL Normal 9.5-13.5 [facility] Comment on above: Performed By: #### C BC #### [facility] [address] [place] [address] Dr. Nabila Kearns PLT 251 103/ul Normal 150-450 [facility] Comment on above: Performed By: #### C BC #### [facility] [address] [place] [address] Dr. Nabila Kearns RBC 4.82 106/ul Normal 4.20-5.40 [facility] Comment on above: Performed By: #### C BC #### [facility] [address] [place] [address] Dr. Nabila Kearns WBC 9.4 103/ul Normal 4.0-11.0 [facility] Comment on above: Performed By: #### C BC #### [facility] [address] [place] [address] Dr. Nabila Kearns CRPon 09-05-2021 CRP [Mass/Vol] mg/L Normal <=1.0 [facility] Comment on above: Performed By: #### C BC #### [facility] [address] [place] [address] Dr. Nabila Kearsn PREG HCG QUALon 09-05-2021 , QUAL Negative Normal NEGATIVE [facility] Comment on above: Performed By: #### C BC #### [facility] [address] [place] [address] Dr. Nabila Kearns PROF CHEM 8 (BAS METB)on Anion gap [Moles/Vol] 13.8 mmol/L Normal Th [facility] Comment on above: Performed By: #### C BC #### [facility] [address] [address] [address] Nabila Kearns Calcium [Mass/Vol] 9.3 mg/dL Normal 8.5-10.1 [facility] Comment on above: Performed By: #### C BC #### [facility] [address] [address] [address] Nabila Kearns Chloride [Moles/Vol] 103 mmol/L Normal 98-107 [facility] Comment on above: Performed By: #### C BC #### [facility] [address] [place] [address] Dr. Nabila Kearns CO2 [Moles/Vol] 23.9 mmol/L Normal 22.0-30.0 [facility] Comment on above: Performed By: #### C BC #### [facility] [address] [address] [address] Nabila Kearns Creatinine [Mass/Vol] 0.64 mg/dL Normal 0.52-1.04 [facility] Comment on above: Performed By: #### C BC #### [facility] [address] [place] [address] Dr. Nabila Kearns EGFR-AF KAZAKH >60 Normal >=60 [facility] Comment on above: Performed By: #### C BC #### [facility] [address] [place] [address] Dr. Nabila Kearns EGFR-NON AF KAZAKH >60 Normal >=60 [facility] Comment on above: Performed By: #### C BC #### [facility] [address] [place] [address] Dr. Nabila Kearns Glucose [Mass/Vol] 92 mg/dL Normal 74-106 [facility] Comment on above: Performed By: #### C BC #### [facility] [address] [address] [address] Nabila Kearns Potassium [Moles/Vol] 3.7 mmol/L Normal 3.4-5.0 [facility] Comment on above: Performed By: #### C BC #### [facility] [address] [place] [address] Dr. Nabila Kearns Sodium [Moles/Vol] 137 mmol/L Normal 137-145 [facility] Comment on above: Performed By: #### C BC #### [facility] [address] [place] [address] Dr. Nabila Kearns Urea nitrogen [Mass/Vol] 12.0 mg/dL Normal 7.0-18.0 [facility] Comment on above: Performed By: #### C BC #### [facility] [address] [place] [address] Dr. Nabila Kearns Urea nitrogen/Creatinine [Mass ratio] 18.8 mg/mg [facility] Comment on above: Performed By: #### C BC #### [facility] [address] [place] [address] Dr. Nabila Kearns SED RATE [facility] 2021 SED RATE 12 mm/hr Normal <=20 [facility] Comment on above: Performed By: #### S EDR #### [facility] [address] [place] [address] Dr. Nabila Kearns PAP ACOG PANEL 2: 30 to 65on 07-27-2021 . . Normal [facility] Comment on above: Result Comment: Perf ormed at: WB Performed By: #### [id number] #### [facility] [address] [place] [address] Dr. Nabila Kearns Age Gdln ACOG Testing 30-[address] [facility] Comment on above: Performed By: #### [id number] #### [facility] [address] [place] [address] Dr. Nabila Kearns DIAGNOSIS: Comment Normal [facility] Comment on above: Result Comment: NEGA TIVE FOR INTRAEPITHELIAL LESION OR MALIGNANCY. Performed at: WB Performed By: #### [id number] #### [facility] [address] [place] [address] Dr. Nabila Kearns HPV Aptima Negative Normal Negative [facility] Comment on above: Result Comment: This nucleic acid amplification test detects fourteen high-risk HPV types (16,18,31,33,35,39,45,51,52,56,58,59,66,68) without differentiation. Performed at: =G Performed By: #### [id number] #### [facility] [address] [place] [address] Dr. Nabila Kearns Methodology: Comment Normal [facility] Comment on above: Result Comment: This liquid based ThinPrep(R) pap test was screened with the use of an image guided system. Performed at: WB Performed By: #### [id number] #### [facility] [address] [place] [address] Dr. Nabila Kearns Note: Comment Normal [facility] Comment on above: Result Comment: The Pap smear is a screening test designed to aid in the detection of premalignant and malignant conditions of the uterine cervix. It is not a diagnostic procedure and should not be used as the sole means of detecting cervical cancer. Both false-positive and false-negative reports do occur. . Performed at: WB Performed By: #### [id number] #### [facility] [address] [place] [address] Dr. Nabila Kearns Performed by: Comment Normal [facility] Comment on above: Result Comment: Cind digna Cooper, Building Architect (ASCP) Performed at: WB Performed By: #### [id number] #### [facility] [address] [place] [address] Dr. Nabila Kearns Specimen adequacy: Comment Normal [facility] Comment on above: Result Comment: Sati sfactory for evaluation. No endocervical component is identified. Performed at: WB Performed By: #### [id number] #### [facility] [address] [place] [address] Dr. Nabila Kearns VAGINITIS/VAGINOSIS DNA PROB Oleg 07-26-2021 Emile species Negative Normal Negative [facility] Comment on above: Performed By: #### V AGINT #### [facility] [address] [place] [address] Dr. Nabila Kearns Gardnerella vaginalis Negative Normal Negative [facility] Comment on above: Performed By: #### V AGINT #### [facility] [address] [address] [address] Nabila Kearns Trichomonas vaginalis Negative Normal Negative [facility] Comment on above: Performed By: #### V AGINT #### [facility] [address] [address] [address] Nabila Kearns Urinalysis - AUTOMATEDon Appearance (U) clear [employer] Other Bilirubin Ql (U) Negative [employer] Other Color (U) light yellow [employer] Other Glucose Ql (U) Negative [employer] Other Hemoglobin Ql (U) Negative [employer] Other Ketones Ql (U) Negative [employer] Other Leukocyte esterase Test strip Ql (U) Negative [employer] Other Nitrite Ql (U) Negative [employer] Other pH (U) 6.5 [pH] [employer] Other Protein Ql (U) Negative [employer] Other Specific gravity (U) [Rel density] 1.030 [employer] Other Urobilinogen (U) [Mass/Vol] 0.2 mg/dL [employer] Other Urinalysis - AUTOMATED No [employer] Other Consultation Noteon 09-13-19 Consultation Note [id number]:12 [id number] Normal [facility] Ambulatory Clinical Summaryo n 08-09-2020 Ambulatory Clinical Summary {[id number] Normal [facility] Patient Educationon 08-10-19 Patient Education Obstetrics [...] and sweet foods. General instructions ? Take uyti-pla-bicdjnf and prescription medicines only as told by [...] 03/23/2010 Document Revised: 09/17/2019 Document Reviewed: 06/12/2018 Alive Ju[employer] Patient Education ? 2019 [employer]InSync. [facility] Urology Office/Clinic Noteon 08-09-2020 Urology Office/Clinic Note Chief Complaint urinary incontinence This patient is a 44-year-old female with a history of stress urinary incontinence symptoms. She leaks urine when she is physically active. Laughing coughing sneezing also causes her to leak small amounts of urine. She is here today for urologic evaluation. [facility] Staff New patient here today due to [...] to check bladder function. ABX sent to [facility] in [place]. Ordered: Urology Procedure Order Urology Procedure Order Orders: nitrofurantoin, 100 mg = 1 cap(s), Oral, Daily, take 1 cap one day prior to the procedure and 1 cap after the procedure, # 2 cap(s), Refills(s) 0, Pharmacy: [id number], 160, cm, 08/09/20 10:40:00 EST, Height/Length Dosing, 73.1, kg, 08/09/20 10:40:00... Urnls Dip Stick Auto w/o Microscopy POC 42342 I have reviewed the previous health record information and history for this pt. from Dr. Dimas. Follow-up With When Contact Information Wing Ventura MD, Gab Benjamin [address] [place], [place] [id number]- Additional Instructions: Patient Education Overactive Bladder, Adult INegar , personally scribed for Dr. Dimas on [...] Protein Urine Dipstick: Negative (08/09/20 10:36:00) Specific [place] Urine Dipstick: >=1.030 (08/09/20 10:36:00) Urine Appearance Urine Dipstick: Clear (08/09/20 10:36:00) Urine Color Urine Dipstick: Yellow (08/09/20 10:36:00) Urobilinogen Urine Dipstick: Normal 0.2-1 EU/dl (08/09/20 10:36:00) pH Urine Dipstick: 5 (08/09/20 10:36:00) Diagnostic Results Urinalysis today is negative for infection. I reviewed the office notes and physical exam from Dr. Baig. [facility] Comment on above: Result Comment: Elec tronically Signed By: Wing Ventura MD, Gab Benjamin\.br\Date and Time Signed: 08/09/20 11:49 EST\.br\Electronically Co-Signed By: Negar Tabor MA\.br\Date and Time Co-Signed: 08/09/20 11:33 EST Main[facility] 09-13-2019 CNPN Telephone (SpeedyboyHLD) ----- LEYDI GAGE ([id number]) 1975 F Date Time Provider Department 09/13/19 SHELTON YEBOAH ([facility]) HIMANSHU During your visit today, we recorded [...] Fully Assessed Reason for Visit: Covid-19 Hotline [2027] Prescriptions as of 09/13/2019 Sig: NITROFURANTOIN MACROCRYSTAL 1* Take 100 mg by mouth. CLOBEX 0.05 % SHAMPOO use as shampoo EOD CLOBETASOL 0.05 % SCALP SOLUT* apply to affected areas BID Problem List As Of Date: 09/13/2019 (None) Encounter Status:Closed [facility] LEYDI GAGE ([id number]) 1975 F Date Time Provider Department 09/13/19 SHELTON YEBOAH ([facility]) HIMANSHU During your visit today, we recorded [...] Fully Assessed Reason for Visit: Covid-19 Hotline [2797] Prescriptions as of 09/13/2019 Sig: NITROFURANTOIN MACROCRYSTAL 1* Take 100 mg by mouth. CLOBEX 0.05 % SHAMPOO use as shampoo EOD CLOBETASOL 0.05 % SCALP SOLUT* apply to affected areas BID Problem List As Of Date: 09/13/2019 (None) Encounter Status:Closed by SHELTON YEBOAH on 09/13/19 [facility] PROGRESSon 09-13-2019 PROGRESS HNO ID: [id number] Author: Deondre (Archana) Prasanna Service: ? Author Type: Nurse Practitioner Type: Progress Notes Filed: 09/13/2019 7:44 AM Note Text: This Team Access Model visit is a virtual encounter. It required patient-provider interaction for the medical decision making as documented below. [facility] HIPAA secured video was used for evaluation of this patient. Telemedicine Evaluation for COVID-19 Infection SUBJECTIVE: Leydi Gage is an 43 year old who presents with an illness that began 7 day(s) ago and are gradually worsening since that time. Pt reports she was at [place] ED and was told she possibly has [...] diagnoses and orders for additional plan. Leydi Gage is an 43 year old who appears to have COVID-19 infection and is high risk or with concerning symptoms, recommend COVID-19 testing. This patient encounter involved the screening or treatment of novel coronavirus infection (COVID-19). SIGNATURE: Deondre Mims APRN.PRINCIPAL DATA ARCHITECT DATE: September 13, 2019 [facility] Coding Summaryon 03-14-2017 Coding Summary CODING DATE: [facility] STATUS: Home PAYOR: Medicaid HMO ADMIT [...] Viviana Maloney Date Saved: 03/14/2017 06:21 am [facility] Coding Summary CODING DATE: [facility] STATUS: Home PAYOR: Medicaid HMO ADMIT [...] Viviana Maloney Date Saved: 03/14/2017 06:19 am Normal [facility] ED Clinical Summaryon 2016 ED Clinical Summary [facility] - Emergency [address] [place] [id number] ed Clinical SummaryPERSON INFORMATIONName: LEYDI GAGE Age: 41 Years Sex: FEMALEDOB: [birth year] MRN: Acct#:Visit Reason: General medical; C/O LEFT ARM PAIN/SWELLING Arrival:03/02/17 13:52:00 Discharge: 03/02/17 15:00:00LOS: 000 01:08 Check In: 03/02/17 13:52:00 Checkout:03/02/17 15:00:00Address:[address] [place] [id number]: Chuckie Gonzalez MDPROVICARMEN INFORMATIONProvider Role Assigned UnassignedMalina Fields MD ED Provider 03/02/17 14:05:03Mirtha Miller RN [...] Syndrome; Wrist Pain; ContusionFollow-Up:With: Address: When:Chuckie Gonzalez [address] [place] [phone] Business (1) Within 3 to 5 daysComments:Follow-up with primary care physician in 3-5 days. Ice to affected areas. Cock-up splint as needed. Tylenol or ibuprofen as needed for pain. Return if any concerns or worsening.DIAGNOSIS:Comme nt: Normal [facility] ED Note - Physicianon 2016 ED Note - Physician Patient: LEYDI GAGE : 41 years Sex: FEMALE : [birth year]Associated Diagnoses: NoneAuthor: Malina Fields MDBasic InformationTime seen: Date & time 03/02/17 14:06:00.History source: Patient.Arrival mode: Private vehicle.History limitation: None.Additional information: Chief Complaint from Nursing Triage Note : Chief Nsqtojrnd55/23/17 13:54 EDT Chief Complaint Pt complains of pain and swelling to left wrist for 15 minutes. Denies injury. Says she is worried she has blood clot. 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 Patient is right-handed. 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
[2024-06-22 06:50] LABS: Basophils Percent Auto 0.4 % (0.2-2.0); Eosinophils Absolute Auto 0.1 10^3/uL (0.0-0.7); Eosinophils Percent Auto 0.7 % (0.9-7.0); Hematocrit 39.8 % (36.0-48.0); Hemoglobin 13.4 g/dL (12.0-16.0); Immature Granulocytes Abs Auto 0.04 10^3/uL (0.00-0.03); Immature Granulocytes Pct Auto 0.4 % (0.0-0.5); Lymphocytes Absolute Auto 1.2 10^3/uL (1.2-3.8); Lymphocytes Percent Auto 11.7 % (20.5-60.0); Mean Corpuscular HGB Conc 33.7 g/dL (29.9-35.2); Mean Corpuscular Hemoglobin 30.2 pg (26.7-34.0); Mean Corpuscular Volume 89.6 fL (81.0-99.0); Monocytes Absolute Auto 1.2 10^3/uL (0.3-0.8); Monocytes Percent Auto 11.9 % (1.7-12.0); Neutrophils Absolute Auto 7.6 10^3/uL (1.4-6.5); Neutrophils Percent Auto 74.9 % (43.0-75.0); Platelet Count 239 10^3/uL (150-450); Red Blood Count 4.44 10^6/uL (4.20-5.40); Red Cell Distribution Width 12.3 % (11.0-15.0); White Blood Count 10.1 10^3/uL (4.0-11.0)
[2024-06-22 07:04] VITALS: BP 103/68; PULSE 96; O2SAT 97
[2024-06-22 07:13] LABS: Alanine Aminotransferase 20 U/L (14-59); Albumin Globulin Ratio 0.8; Albumin Level 3.2 g/dL (3.4-5.0); Alkaline Phosphatase 55 U/L (46-116); Anion Gap 15.3; Aspartate Amino Transferase 19 U/L (15-37); BUN Creatinine Ratio 8.7; Bilirubin Total 0.5 mg/dL (0.2-1.0); Calcium 8.5 mg/dL (8.5-10.1); Carbon Dioxide 23.2 mmol/L (21.0-32.0); Chloride 104 mmol/L (98-107); Estimated GFR (African America >60 (>=60 mL/min/1.73m^2); Estimated GFR (Non-African Ame >60 (>=60 mL/min/1.73m^2); Globulin 3.8 g/dL; Glucose 128 mg/dL (74-106); Potassium 3.5 mmol/L (3.5-5.1); Sodium 139 mmol/L (136-145)
[2024-06-22 07:14] LABS: Lactate/Lactic Acid 1.2 mmol/L (0.4-2.0); Troponin I High Sensitivity <4.0 pg/mL (4.0-51.3)
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
[2024-06-22 07:35] LABS: D Dimer 0.75 mg/L FEU (<=0.59)
--- NOTE | 2024-06-22 07:38 | CT_ITS ---
The [address] [address] Patient Name: ROYCE ARGUELLO MRN: [id number] date: 1975 Sex: F Assigned Patient Location: ER Current Patient Location: ER Accession/Order Number: [id number] Exam Date: 06/22/2024 08:00 Report Date: 06/22/2024 08:37 At the request of: ETHAN BEYER Procedure: CT angio chest CT angio chest, 06/22/2024 8:00 AM EST INDICATION: Syncope, elevated D-dimer COMPARISON: Prior CTA of the chest dated 08/31/2017 TECHNIQUE: Axial low-dose images of 1 millimeters are obtained from the thoracic outlet with contrast . 3-D MIP images were obtained. Dose reduction techniques were achieved by using automated exposure control and/or adjustment of mA and/or kV according to patient size and/or use of iterative reconstruction technique. FINDINGS: No endoluminal filling defect within the main pulmonary arteries, lobar and lobular branches is noted. There is no obvious right ventricle strain. There is no suspicious lung lesion. Mild dependent atelectasis is noted. The central tracheobronchial tree is unremarkable. No mediastinal lymph node enlargement by size criteria is noted. No pleural or pericardial effusion is noted. Status post cholecystectomy. Stable low-attenuation lesions within the liver likely hepatic cysts. Otherwise, the visualized portions of the solid abdominal organs are stable. Bone: There is no suspicious osteolytic or osteoblastic lesion. CT/CT angio chest IMPRESSION: No evidence of pulmonary embolus in the current study. Mild dependent atelectasis. Electronically authenticated by: ALISSA MITCHELL Date: 06/22/2024 08:37
[2024-06-22 08:21] VITALS: BP 106/76; PULSE 92; O2SAT 100
--- NOTE | 2024-06-22 09:19 | ED_ITS ---
HPI HPI - General Adult General Chief complaint: Syncope Stated complaint: DIARRHEA Time Seen by Provider: 06/22/24 06:40 Source: patient Mode of arrival: ambulance Limitations: no limitations History of Present Illness HPI narrative: 48-year-old female presented to the emergency department and was initially seen by Dr. Eagle and signed out to me after discussing the case with her reynawalt milagro. Please see her full history and physical exam Related Data Home Medications ?Medication ?Instructions ?Recorded ?Confirmed rimegepant 75 mg disintegrating 75 mg PO DAILY PRN migraine 04/07/24 04/07/24 tablet (Nurtec ODT) headache Allergies Allergy/AdvReac Type Severity Reaction Status Date / Time amoxicillin Allergy Severe Unknown Verified 06/22/24 06:39 ciprofloxacin (From Cipro) Allergy Severe Unknown Verified 06/22/24 06:39 erythromycin base AdvReac Mild Rash Verified 06/22/24 06:39 Opioid HPI Opioid Management Most Recent Opioid Data: Last Pain Scale 4 09/29/23 19:22 09/29/23 PFSH PFSH Social History Smoking status: Never smoker Little interest or pleasure in doing things: not at all Feeling down, depressed, or hopeless: not at all Exam Constitutional Vital Signs, click to edit/add: Last Vital Signs Temp 97.8 F 06/22/24 06:39 Pulse 92 H 06/22/24 08:21 Resp 20 06/22/24 08:21 BP 106/76 06/22/24 08:21 Pulse Ox 100 06/22/24 08:21 O2 Del Method Room Air 06/22/24 08:21 Course Vital Signs Vital signs: Vital Signs Temperature 97.8 F 06/22/24 06:39 Pulse Rate 90 06/22/24 06:39 Respiratory Rate 18 06/22/24 06:39 Blood Pressure 104/72 06/22/24 06:39 Pulse Oximetry 98 06/22/24 06:39 Oxygen Delivery Method Room Air 06/22/24 06:39 Temperature 97.8 F 06/22/24 06:39 Pulse Rate 92 H 06/22/24 08:21 Respiratory Rate 20 06/22/24 08:21 Blood Pressure 106/76 06/22/24 08:21 Pulse Oximetry 100 06/22/24 08:21 Oxygen Delivery Method Room Air 06/22/24 08:21 Medical Decision Making MDM Narrative Medical decision making narrative: The patient's workup including CTA chest, CT brain, CT C-spine is negative. Blood work nonspecific. She is able to be discharged home and was encouraged to drink plenty of fluids and get plenty of rest. Treatment diagnosis and follow- up were discussed with the patient. Differential Diagnosis Differential Diagnosis: Pulmonary embolism, dehydration, anemia, C-spine fracture, ICH Lab Data Lab results reviewed: Yes I reviewed the patient's lab results Labs: Lab Results 06/22/24 Range/Units 06:45 WBC 10.1 (4.0-11.0) 10^3/uL RBC 4.44 (4.20-5.40) 10^6/uL Hgb 13.4 (12.0-16.0) g/dL Hct 39.8 (36.0-48.0) % MCV 89.6 (81.0-99.0) fL MCH 30.2 (26.7-34.0) pg MCHC 33.7 (29.9-35.2) g/dL RDW 12.3 (11.0-15.0) % Plt Count 239 (150-450) 10^3/uL MPV 10.0 (9.5-13.5) fL Neut % (Auto) 74.9 (43.0-75.0) % Lymph % (Auto) 11.7 L (20.5-60.0) % [place] % (Auto) 11.9 (1.7-12.0) % Eos % (Auto) 0.7 L (0.9-7.0) % Baso % (Auto) 0.4 (0.2-2.0) % Neut # (Auto) 7.6 H (1.4-6.5) 10^3/uL Lymph # (Auto) 1.2 (1.2-3.8) 10^3/uL [place] # (Auto) 1.2 H (0.3-0.8) 10^3/uL Eos # (Auto) 0.1 (0.0-0.7) 10^3/uL Baso # (Auto) 0.0 (0.0-0.1) 10^3/uL Abs Immat Gran (auto) 0.04 H (0.00-0.03) 10^3/uL Imm/Tot Granulo (auto) 0.4 (0.0-0.5) % D-Dimer 0.75 H* (<=0.59) mg/L FEU Sodium 139 (136-145) mmol/L Potassium 3.5 (3.5-5.1) mmol/L Chloride 104 (98-107) mmol/L Carbon Dioxide 23.2 (21.0-32.0) mmol/L Anion Gap 15.3 BUN 8.0 (7.0-18.0) mg/dL Creatinine 0.92 (0.55-1.02) mg/dL Est GFR ( Amer) >60 (>=60 mL/min/1.73m^2) Est GFR (Non-Af Amer) >60 (>=60 mL/min/1.73m^2) BUN/Creatinine Ratio 8.7 Glucose 128 H (74-106) mg/dL Lactate 1.2 (0.4-2.0) mmol/L Calcium 8.5 (8.5-10.1) mg/dL Total Bilirubin 0.5 (0.2-1.0) mg/dL AST 19 (15-37) U/L ALT 20 (14-59) U/L Alkaline Phosphatase 55 (46-116) U/L Troponin I High Sens <4.0 L (4.0-51.3) pg/mL Total Protein 7.0 (6.4-8.2) g/dL Albumin 3.2 L (3.4-5.0) g/dL Globulin 3.8 g/dL Albumin/Globulin Ratio 0.[address] scan - head: Radiologist's impression: ITS Impressions Cervical Spine CT 06/22/24 07:16 IMPRESSION: No acute intracranial process is identified. No acute fracture. Electronically authenticated by: ALISSA MITCHELL Date: 06/22/2024 07:[address] 06/22/24 07:16 IMPRESSION: No acute intracranial process is identified. No acute fracture. Electronically authenticated by: ALISSA MITCHELL Date: 06/22/2024 07:42 Chest CTA 06/22/24 07:38 IMPRESSION: No evidence of pulmonary embolus in the current study. Mild dependent atelectasis. Electronically authenticated by: ALISSA MITCHELL Date: 06/22/2024 08:37 ECG Data Attestation: I personally reviewed and interpreted this ECG as follows: (EKG on my interpretation shows sinus rhythm with rate of 76 and no acute change) Discharge Plan Discharge Chief Complaint: Syncope Clinical Impression: COVID-19, Syncope Patient Disposition: Home, Self-Care Time of Disposition Decision: 09:19 Mode of Transportation: Private Vehicle Prescriptions / Home Meds: No Action Nurtec ODT 75 mg tablet,disintegrating 75 mg PO DAILY PRN (Reason: migraine headache) Print Language: Tajik Instructions: COVID-19 (Coronavirus Disease 2019) (ED), COVID-19: Slow the Coronavirus Spread (ED), Face Coverings (Masks) and COVID-19 (ED), How to Recover from COVID-19 at Home (ED) Referrals: JESÚS LEVINE [Primary Care Provider] - 1 week
== END 2024-06-22 09:33 | disposition home or self-care (01) ==
PROVIDERS: Emergency Medicine; Emergency Provider Emergency Medicine; PCP Nurse Practitioner
DX: R55 Syncope and collapse (principal); U07.1 COVID-19; Z90.49 Acquired absence of other specified parts of digestive tract
CPT/HCPCS: 36415; 70450; 71275; 72125; 80053; 83605; 84484; 85025; 85378; 93005; 99285; Q9967

== ENCOUNTER 2024-11-10 05:00 | Emergency (ER) | payer MEDICAID, SELFPAY ==
--- OUTSIDE RECORDS SUMMARY | 2023-10-22 11:45 | XMS_ITS ---
Author Organization [facility] Address [address] [place] [address] Care Team Providers Care Administrative Services Director Name Role Phone Dr. Lj Reyes Primary Care Provider [phone] Vianca Ortega [phone] REASON FOR VISIT PROPHY XRAYS EXAM Encounters Encounter Location Date Provider Diagnosis [facility] [address] [place] [address] 10/22/2023 Vianca Lagos Acute gingivitis, plaque induced [...] findings (ICD-10 - Z01.21) Plan Of Treatment No Information Progress Notes * VENKATScotty ROYCEDOB:1975 ([age] yo F)Acc No.[id number]:10/22/2023 Patient: ROYCE LYMAN Provider: Aron Lagos :1975 A ge:47 Y S ex:Female Date:10/22/2023 Address:[facility] [address], [place] Pcp:Dr. Lj Reyes Subjective: * Chief Complaints: [...] * Electronic signature of Naye Lagos on 2024 at 05:10 AM EDT Sign off status: Pending * Provider: Aron Lagos Date: 0 10/22/2023 Generated for Lauren arechiga/Heidy/Sidney on: 0 2024 05:10 AM EDT
--- OUTSIDE RECORDS SUMMARY | 2024-10-13 09:00 | XMS_ITS ---
Author Organization [facility] Address [address] [place] [address] [address] Care [address] Change Roof Bolter Name Role Phone Dr. Lj Reyes Primary Care Provider [phone] Vianca Ortega [phone] REASON FOR VISIT 6 month f/u Encounters Encounter Location Date Provider Diagnosis [facility] [address] [place] [address] 10/13/2024 Vianca Lagos Plan Of Treatment No Information Progress Notes * VENKATScotty ROYCEDOB:1975 ([age] yo F)Acc No.[id number]:10/13/2024 Patient: ROYCE LYMAN Provider: Aron Lagos :1975 A ge:48 Y S ex:Female Date:10/13/2024 Address:[facility] [address], [facility] Pcp:Dr. Lj Reyes Subjective: * Chief Complaints: * 1 . 6 month f/u. * Medical History: Objective: * Vitals: Assessment: Plan: * Treatment: * Images: * Electronic signature of Naye Lagos on 2024 at 05:10 AM EDT Sign off status: Pending * Provider: Aron Lagos Date: 0 10/13/2024 Generated for Printi ng/Faxing/eTransmitting on: 0 2024 05:10 AM EDT
[2024-11-10] VITALS (12 sets, daily range): BP systolic 117–139; BP diastolic 69–86; PULSE 77–93; TEMP 36.6; O2SAT 94–98; BMI 28.3
--- OUTSIDE RECORDS SUMMARY | 2024-11-10 05:10 | XMS_ITS | Clinical Summary ---
Author Organization [facility] Address [address] [place] [place] [address] Care Team Providers Care Senior Systems Analyst Name Role Phone Melissa Lockhart MD Primary Care Provider [phone] Allergies Active Allergy Reactions Criticality Noted Date Comments Adhesive Rash Low 04/02/2019 Amoxicillin Rash,Unknown Low 04/17/2005 Azithromycin Rash,Swelling Medium 04/02/2019 Medications No known medications Active Problems Problem Noted Date Diagnosed Date Precordial pain 10/08/2023 Dyspnea on exertion 10/08/2023 Palpitations 10/08/2023 Sleep apnea 10/08/2023 Migraine without status migrainosus, not intract able 10/08/2023 Obesity due to excess calories without serious c omorbidity 10/08/2023 Family History Medical History Relation Name Comments Bone cancer Mother Breast cancer Mother Diabetes Mother Fibromyalgia Mother Relation Name Status Comments Father Alive Mother Social History Tobacco Use Types Packs/Day Years Used Date Smoking Tobacco: Never Smokeless Tobacco: Never Tobacco Cessation:Counseling Given: Not Answered Alcohol Use Standard Drinks/Week Comments Never 0 (1 standard drink = 0.6 oz pur e alcohol) [place] Safety & Environment Answer Date Rec orded Fear of Current or Ex-Partner Not on file Emotionally Abused Not on file 10/02/2023 Physically Abused Not on file 10/02/2023 Sexually Abused Not on file 10/02/2023 Physically or Sexually Abused Not on file Sex and Gender Information Value Date Recorded Sex Assigned at Not on file Gender Identity Not on file Sexual Orientation Not on file Last Filed Vital Signs Vital Sign Reading Time Taken Comments Blood Pressure 100/82 10/08/2023 2:26 PM EDT Pulse 83 10/08/2023 2:26 PM EDT Temperature - - Respiratory Rate 16 10/08/2023 2:26 PM EDT Oxygen Saturation 98% 10/08/2023 2:26 PM EDT Inhaled Oxygen Concentration - - Weight 73.8 kg (162 lb 12.8 oz) 10/08/2023 2:26 PM EDT Height 160 cm (5' 3 ) 10/08/2023 2:26 PM EDT Body Mass Index 28.84 10/08/2023 2:26 PM EDT Plan of Treatment Health Maintenance Due Date Last Done Comments CT Colonography 1975 Colonoscopy 1975 Colorectal Cancer Screening 1975 FIT-DNA 1975 FIT 1975 FOBT 1975 Sigmoidoscopy 1975 Depression Screening 1988 Adult Tetanus 1998 HPV/Cotest 2006 Mammogram 2016 COVID-19 Vaccine (2023-2 5 season) 2024 06/14/2021, 05/24/2021 Influenza Vaccine (Season Ended) 2025 05/24/2023, 03/12/2022, 03/31/2021 Cervical Cancer Screening 12/06/2025 Pap Smear 12/06/2025 12/06/2022 Zoster Vaccines (1 of 2) 2026 Hepatitis B Vaccines Completed 05/24/2023, 05/16/2021, 04/13/2021 HIB Vaccines Aged Out No longer eligi ble based on patient's age to complete this topic HPV Vaccines Aged Out No longer eligi ble based on patient's age to complete this topic IPV Vaccines Aged Out No longer eligi ble based on patient's age to complete this topic Meningococcal B Vaccine Aged Out No l onger eligible based on patient's age to complete this topic Meningococcal Vaccine Aged Out No rayna jasiel eligible based on patient's age to complete this topic Pneumococcal Vaccine: Pediatrics (0 to 5 Years) and At-Risk Patients (6 to 64 Years) Aged Out No longer eligible b ased on patient's age to complete this topic Rotavirus Vaccines Aged Out No longer eligible based on patient's age to complete this topic Care Teams Senior Systems Analyst Relationship Specialty Start Date End Date Melissa Lockhart MD PCP - General Family Medicine 11/21/23
--- OUTSIDE RECORDS SUMMARY | 2024-11-10 05:10 | XMS_ITS | Encounter Summary ---
Author Organization [facility] Address [address] [place] [address] Care Team Providers Care Ornamental Metal Fabricator Apprentice Name Role Phone Unallocated, Noms Provider Primary Care Provi carmen Tae Ny DO Unavailable Ramya Garnett MD Unavailable Celeste Oconnell TEXTILE TECHNICAL OFFICER Unavailable [phone] Mary Rodriguez TEXTILE TECHNICAL OFFICER Unavailable [phone] Encounter Details Date Type Department Care Team (Late st Contact Info) Description 05/24/2023 Clinisync Result Encounter [facility] External Department Unsolicited Leydi Garcia PA [address] [place] [address] [place] [address] Social History Tobacco Use Types Packs/Day Years Used Date Smoking Tobacco: Never Alcohol Use Standard Drinks/Week Comments Not Currently 0 (1 standard drink = 0.6 oz pur e alcohol) occasional Comments No Sex and Gender Information Value Date Recorded Sex Assigned at Female 12/05/2022 10:10 PM EDT Legal Sex Female 8:02 PM EDT Gender Identity Female 12/05/2022 10:10 PM EDT Sexual Orientation Straight 12/05/2022 10 :10 PM EDT documented as of this encounter Plan of Treatment Upcoming Encounters Date Type Department Care Team (Late st Contact Info) Description 12/29/2024 3:20 PM EDT Office Visit [facility] [address] [place] [address] Elba Durham PA [address] [place] [address] documented as of this encounter Procedures Procedure Name Priority Date/Time Associated Diagnosis Comments MM TOMOSYNTHESIS SCREENING BI 05/24/2023 8:34 AM EST documented in this encounter Results * MM TOMOSYNTHESIS SCREENING BI (05/24/2023 8:34 AM EST) Anatomical Region Laterality Modality Other 05/24/2023 8:34 AM EST Narrative 05/24/2023 8:35 [place] [address] Mammography Report Signed Patient: LEYDI ARGUELLO MR#: [id number] : 1975 Acct:[id number] Age/Sex: 47 / F ADM Date: 05/23/23 Loc: MAMMO Attending Dr: Leydi Garcia Ordering Physician: Leydi Garcia Results: Date of Service: 05/23/23 Follow Up: Procedure(s): MM tomosynthesis screening BI Accession Number(s): [id number] cc: Leydi Garcia; Physician,Non-Staff M.D. Patient Name: LEYDI ARGUELLO MR#: [id number] : 1975 Exam Date: 05/23/2023 Ordering Doctor: RICH Garcia . RADIOLOGY REPORT PROCEDURE: MM TOMOSYNTHESIS SCREENING BI COMPARISON: MG MAMM SCREEN 3D JOEL CAD, 10/10/2021. MG MAMM SCREEN 3D JOEL CAD, 09/14/2020. INDICATIONS: Screening Calculator Name NCI Breast Cancer Risk Assessment Tool 5 Year Breast Cancer Risk 1.60% Lifetime Breast Cancer Risk 17.30% Personal Breast Cancer No Personal Ovarian Cancer No Treatments None Family Cancers Mother with breast cancer at age 69. LOCATION: The [facility] BREAST COMPOSITION: Heterogeneously dense,which may obscure small masses. FINDINGS: DIAGNOSTIC CATEGORY 2--BENIGN FINDING. NO CHANGE FROM COMPARISON. Scattered benign-appearing calcifications are present. Scattered benign-appearing lymph nodes are present. RIGHT BREAST: No significant suspicious finding. LEFT BREAST: No significant suspicious finding. RECOMMENDATIONS: ROUTINE MAMMOGRAM AND CLINICAL EVALUATION IN 12 MONTHS. PLEASE NOTE: A NORMAL MAMMOGRAM DOES NOT EXCLUDE THE POSSIBILITY OF BREAST CANCER. A CLINICALLY SUSPICIOUS PALPABLE LUMP SHOULD BE BIOPSIED. Dictated by: Diony Wellington MD on 05/24/2023 at 08:32 Approved by: Diony Wellington MD on 05/24/2023 at 08:34 Dictated By: Diony Wellington M.D. Signed By: 05/24/23 0835 DD/ TD/TT: Car Knocker: Procedure Note Radiology, Radiologist, MD - 05/24/2023 [place] [address] Mammography Report Signed Patient: LEYDI ARGUELLO MMR#: [id number] : 1975Acct:[id number] Age/Sex: 47 / FADM Date: 05/23/23 Loc: MAMMO Attending Dr: Leydi Garcia Ordering Physician: Leydi GarciaResults: Date of Service: 05/23/23Follow Up: Procedure(s): MM tomosynthesis screening BI Accession Number(s): [id number] cc: Leydi Garcia; Physician,Non-Staff Lazaro Patient Name: LEYDI ARGUELLO MR#: [id number] : 1975 Exam Date: 05/23/2023 Ordering Doctor: RICH Garcia . RADIOLOGY REPORT PROCEDURE: MM TOMOSYNTHESIS SCREENING BI COMPARISON: MG MAMM SCREEN 3D JOEL CAD, 10/10/2021. MG MAMM SCREEN 3DBIL CAD, 09/14/2020. INDICATIONS: Screening Calculator Name NCI Breast Cancer Risk Assessment Tool 5 Year Breast Cancer Risk 1.60% Lifetime Breast Cancer Risk 17.30% Personal Breast Cancer No Personal Ovarian Cancer No Treatments None Family Cancers Mother with breast cancer at age 69. LOCATION: The [facility] BREAST COMPOSITION: Heterogeneously dense,which may obscure smallmasses. FINDINGS: DIAGNOSTIC CATEGORY 2--BENIGN FINDING. NO CHANGE FROM COMPARISON. Scattered benign-appearing calcifications are present. Scattered benign-appearing lymph nodes are present. RIGHT BREAST: No significant suspicious finding. LEFT BREAST: No significant suspicious finding. RECOMMENDATIONS: ROUTINE MAMMOGRAM AND CLINICAL EVALUATION IN 12 MONTHS. PLEASE NOTE: A NORMAL MAMMOGRAM DOES NOT EXCLUDE THE POSSIBILITY OFBREAST CANCER. A CLINICALLY SUSPICIOUS PALPABLE LUMP SHOULD BE BIOPSIED. Dictated by: Diony Wellington MD on 05/24/2023 at 08:32 Approved by: Diony Wellington MD on 05/24/2023 at 08:34 Dictated By: Diony Wellington M.D. Signed By:05/24/2335 DD/ TD/TT: Car Knocker: Le[facility]di [facility] Final Result documented in this encounter Visit Diagnoses Not on filedocumented in this encounter Care Teams Ornamental Metal Fabricator Apprentice Relationship Specialty Start Date End Date Unallocated, Noms MD Carm[address] [place] [address] PCP - General Family Medicine 09/23/23 Ramya Garnett MD [address] [place], [place] [id number] PCP - [facility] 09/09/23 Tae Ny DO [address] [place] [address] Referring Physician Neurology 09/23/23 Celeste Oconnell NP [address] [place] [address] Nurse Practitioner Neurology 04/15/24 Mary Rodriguez NP [address] [facility] [address] [place] [phone] Nurse Practitioner Neurology 04/15/24 documented as of this encounter
--- OUTSIDE RECORDS SUMMARY | 2024-11-10 05:10 | XMS_ITS | Encounter Summary ---
Author Organization [facility] [employer] Address [id number] [address] [place] [address] Care Team Providers Care Sumo Wrestler Name Role Phone Melissa Lockhart APRN-JAMIL Primary Care Provid er Encounter Details Date Type Department Care Team (Late st Contact Info) Description 05/27/2024 Orders Only [facility] Internal Medicine - Family Medicine [address] [place] [address] Melissa Lockhart APRN-PILOT SAFETY INSPECTOR [address] [place] [address] Social History Tobacco Use Types Packs/Day Years Used Date Smoking Tobacco: Never Smokeless Tobacco: Never Alcohol Use Standard Drinks/Week Comments Not Currently 0 (1 standard drink = 0.6 oz pur e alcohol) rarely PHQ-2 Answer Date Recorded Total Score 0 10/16/2023 Childcare Answer Date Recorded Childcare Unknown 11/20/2018 Employment Answer Date Recorded Employment Unknown 11/20/2018 Hunger Screening Answer Date Recorded Within the past 12 months we worried whether our food would run out before we got money to buy more. Never True 10/16/2023 Within the past 12 months th e food we bought just didn't last and we didn't have money to get more. Never True 10/16/2023 Purpose - Life Answer Date Recorded Purpose and direction in life Unknown Comments No Sex and Gender Information Value Date Recorded Sex Assigned at Not on file Legal Sex Female 1:58 PM EDT Gender Identity Not on file Sexual Orientation Not on file documented as of this encounter Plan of Treatment Not on file documented as of this encounter Visit Diagnoses Not on filedocumented in this encounter Additional Health Concerns Assessment Noted Time PHQ-9 Depression Total Score: 0 10/16/19 3:05 PM EDT A Body Mass Index follow-up plan has been documented for the patient 10/16/2023 3:31 PM EDT documented as of this encounter Care Teams Sumo Wrestler Relationship Specialty Start Date End Date Melissa Lockhart, PLANT ANATOMIST-PILOT SAFETY INSPECTOR [address] [place] [address] PCP - General Family Medicine 05/27/24 documented as of this encounter
--- OUTSIDE RECORDS SUMMARY | 2024-11-10 05:10 | XMS_ITS | Clinical Summary ---
Author Organization [employer] s tem Address [id number] [address] [place] [address] Care Team Providers Care Counter Roller Name Role Phone Melissa Lockhart APRN-HYDRAULIC CORRUGATING MACHINE OPERATOR Primary Care Provid er Allergies Active Allergy Reactions Criticality Noted Date Comments Adhesive Rash Low 04/02/2019 Adhesive Tape-Silicones Low 04/02/2019 Amoxicillin Rash Low 04/17/2005 Azithromycin Swelling,Rash Medium 04/02/2019 Ciprofloxacin Hcl Low 04/02/2019 Erythromycin Rash Low 02/05/2017 Metronidazole Low 04/02/2019 Medications clobetasoL (TEMOVATE) 0.05 % cream Apply to affected areas, up to twice a day when flared, do not use one the face, groin, or underarms, 30 day supply 07/16/2024 Active fexofenadine (OLINDA) 180 mg tablet Questions. 07/20/2024 Active NURTEC ODT 75 mg tablet,disinteg rating Place 75 mg under the tongue. 04/15/2024 Active triamcinolone (KENALOG) 0.1 % cream Apply to affected areas, up to twice a day when flared, do not use one the face, groin, or underarms, 30 day supply 07/16/2024 Active Active Problems Problem Noted Date Diagnosed Date Lichen sclerosus et atrophicus 09/05/2023 Weight gain 12/04/2022 Pain in female genitalia on intercourse 12/05/19 23 Hx laparoscopic cholecystectomy 12/04/2022 Emotional stress 12/04/2022 Atrophy of vagina 12/04/2022 Alopecia 12/04/2022 Dermatochalasis of both upper eyelids 10/22/2021 Pain, joint, multiple sites 07/06/2019 Anxiety 04/02/2019 Resolved Problems Problem Noted Date Diagnosed Date Resolved Date At risk for sexually transmi tted disease due to unprotected sex 08/03/2019 06/19/2023 Acute cystitis without hematuria 08/03/2019 06/19/2023 Hematuria 08/03/2019 06/19/2023 Urinary frequency 08/03/2019 06/19/2023 Dysuria 08/03/2019 06/19/2023 Left wrist pain 07/06/2019 06/19/2023 Blood tests for routine gene ral physical examination 04/02/2019 06/19/2023 Pain in left castillo 04/02/2019 06/19/2023 Immunizations Immunization Administration Dates Next Due DTP 12/28/2020 Hepatitis B 05/24/2023,05/16/2021,04/13/2021 Influenza, Injectable, quadrivalent (PF) 023,03/12/2022,03/31/2021 PPD Test 06/05/2023,05/24/2023 Family History Medical History Relation Name Comments Thyroid disease Brother No Known Problems Daughter 1 No Known Problems Daughter 2 No Known Problems Daughter 3 No Known Problems Daughter 4 No Known Problems Daughter 5 Hypertension Father Breast cancer Mother Diabetes Mother Fibromyalgia Mother Kidney disease Mother Sleep apnea Mother Relation Name Status Comments Brother Alive Daughter 1 Alive Daughter 2 Alive Daughter 3 Alive Daughter 4 Alive Daughter 5 Alive Father Alive Mother Social History Tobacco Use Types Packs/Day Years Used Date Smoking Tobacco: Never Smokeless Tobacco: Never Tobacco Cessation:Counseling Given: Not Answered Alcohol Use Standard Drinks/Week Comments Not Currently 0 (1 standard drink = 0.6 oz pur e alcohol) rarely PHQ-2 Answer Date Recorded Total Score 0 07/28/2024 Childcare Answer Date Recorded Childcare Unknown 11/20/2018 Employment Answer Date Recorded Employment Unknown 11/20/2018 Hunger Screening Answer Date Recorded Within the past 12 months we worried whether our food would run out before we got money to buy more. Never True 07/28/2024 Within the past 12 months th e food we bought just didn't last and we didn't have money to get more. Never True 07/28/2024 Purpose - Life Answer Date Recorded Purpose and direction in life Unknown Comments No Sex and Gender Information Value Date Recorded Sex Assigned at Not on file Legal Sex Female 1:58 PM EDT Gender Identity Not on file Sexual Orientation Not on file Last Filed Vital Signs Vital Sign Reading Time Taken Comments Blood Pressure 118/58 07/28/2024 2:51 PM EST Pulse 78 07/28/2024 2:51 PM EST Temperature 36.3 C (97.4 F) 07/28/2024 2:51 PM EST Respiratory Rate 18 07/28/2024 2:51 PM EST Oxygen Saturation 97% 07/28/2024 2:51 PM EST Inhaled Oxygen Concentration - - Weight 74.6 kg (164 lb 8 oz) 07/28/2024 2:51 PM EST Height 160 cm (5' 2.99 ) 07/28/2024 2:51 PM EST Body Mass Index 29.15 07/28/2024 2:51 PM EST Plan of Treatment Health Maintenance Due Date Last Done Comments Influenza Vaccine 02/08/2025 02/14/2024, , 03/12/2022, Additional history exists Mammogram 05/26/2025 05/26/2024, 04/14/2019 Adult BMI Follow Up Plan 07/28/2025 07/28/2024 Adult BMI Screening 07/28/2025 07/28/2024 Depression Screening 07/28/2025 07/28/2024 Tobacco Screening 07/28/2025 07/28/2024 DTaP,Tdap and Td Vaccines (2 - Tdap) 12/28/2030 12/28/2020 COVID-19 Vaccine Discontinued 06/14/2021, 05/24/2021 Medical Devices Not on file Procedures Procedure Name Priority Date/Time Associated Diagnosis Comments MAMMOGRAPHY Routine 04/14/2019 from Last 3 Months or Most Recently Relevant to Health Maintenance Results * MAMMOGRAPHY (04/14/2019) Anatomical Region Laterality Modality Other us Not In System Ref Prov HEALTH MAINTENANCE Final Result from Last 3 Months or Most Recently Relevant to Health Maintenance Insurance [facility] MEDICAID Care Teams Counter Roller Relationship Specialty Start Date End Date Melissa Lockhart, MANUAL TRAINING TEACHER-HYDRAULIC CORRUGATING MACHINE OPERATOR [address] [place] [address] PCP - General Family Medicine 05/27/24
--- OUTSIDE RECORDS SUMMARY | 2024-11-10 05:10 | XMS_ITS | Encounter Summary ---
Author Organization [employer] Address [id number] [address] [place] [address] Care Team Providers Care Field Care Manager Name Role Phone Melissa Lockhart APRN-BRAND DIRECTOR Primary Care Provid er Encounter Details Date Type Department Care Team (Late st Contact Info) Description 07/29/2024 Telephone [facility] - [facility] [address] [facility] [phone] Leia Morales CMA Social History Tobacco Use Types Packs/Day Years [...] on file documented as of this encounter Miscellaneous Notes * Telephone Encounter - Leia Morales CMA - 07/29/2024 10:03 AM EST ----- Message from LAUREN Reveles sent at 07/29/2024 8:41 AM EST ----- Reviewed. Please inform patient all labs are normal. I also ordered her yearly mammogram for her tocomplete. documented in this encounter Plan of Treatment Not on file documented as of this encounter Visit Diagnoses Not on filedocumented in this encounter Additional Health Concerns Assessment Noted Time PHQ-9 Depression Total Score: 0 07/28/19 25 2:50 PM EST A Body Mass Index follow-up plan has been documented for the patient 07/28/2024 4:00 PM EST documented as of this encounter Care Teams Field Care Manager Relationship Specialty Start Date End Date Melissa Lockhart APRN-CNP [address] [place] [address] PCP - General Family Medicine 05/27/24 documented as of this encounter
--- OUTSIDE RECORDS SUMMARY | 2024-11-10 05:10 | XMS_ITS | Clinical Summary ---
Author Organization [facility] Address [address] [place] [address] Care Team Providers Care Helper Chicken Farm Name Role Phone Latesha Kate INFORMATION ASSURANCE SPECIALIST Primary Care Provider Allergies Active Allergy Reactions Criticality Noted Date Comments Adhesive Tape-Silicones Rash 04/02/2019 Amoxicillin Rash 04/17/2005 Ciprofloxacin Shortness of Breath Medium 04/02/2019 Erythromycin Rash 02/05/2017 Metronidazole Rash Medium 04/02/2019 Medications CLOBEX 0.05 % SHAMPOOIndicati ons:Alopecia areata use as shampoo EOD 1 large bottle 6 04/24/2005 Active CLOBETASOL 0.05 % TOPICAL SOLNIndications :Alopecia areata apply to affected areas BID 1 large bottle 6 04/24/2005 Active nitrofurantoin (MACRODANTIN) 100 mg capsule Take 100 mg by mouth. 09/02/2019 Active Social History Tobacco Use Types Packs/Day Years Used Date Smoking Tobacco: Never Smokeless Tobacco: Never Area Deprivation Index Answer Date Dusty rded National Score (1-100), lower number is lower ri sk Not on file 05/15/2020 State Score (1-10), lower number is lower risk N ot on file 05/15/2020 Data from: https://www.neighborhoodatlas.medicine.[facility].edu/. Last address used for calculation Not on file 05/15/2020 Comments No Sex and Gender Information Value Date Recorded Sex Assigned at Not on file Legal Sex Female 7:33 AM EST Gender Identity Not on file Sexual Orientation Not on file Last Filed Vital Signs Vital Sign Reading Time Taken Comments Blood Pressure 100/60 02/05/2017 11:56 AM EDT Pulse 105 02/05/2017 11:56 AM EDT Temperature - - Respiratory Rate - - Oxygen Saturation - - Inhaled Oxygen Concentration - - Weight 79.5 kg (175 lb 5 oz) 02/05/2017 11:56 AM EDT Height 159.5 cm (5' 2.8 ) 02/05/2017 11:56 AM ED T Body Mass Index 31.26 02/05/2017 11:56 AM EDT Plan of Treatment Health Maintenance Due Date Last Done Comments Anxiety Screening 1994 Depression Screening 1994 HIV Screening 1994 Hepatitis C Screening 1994 DTaP,Tdap,Td Vaccine (1 - Tdap) 11/11/1995 Hepatitis B Vaccine (1 of 3 - 19+ 3-dose series) 11/11/1995 Cervical Cancer Screening [address] Colonography 2021 Cologuard (FIT-DNA) 2021 Colonoscopy 2021 Colorectal Cancer Screening 2021 Diabetes Screening 2021 02/05/2017, 02/05/2017 Fecal Occult Blood 2021 Lipid Screening 2021 Sigmoidoscopy 2021 Covid-19 Vaccine ( season) 2024 Influenza Vaccine (Season Ended) 2025 Procedures Procedure Name Priority Date/Time Associated Diagnosis Comments HEMOGLOBIN A1C Routine 02/05/2017 1:01 PM EDT Abnormal weight gain from Last 3 Months or Most Recently Relevant to Health Maintenance Results * HGB A1C (02/05/2017 1:01 PM EDT) Hemoglobin A1C 5.3 4.3 - 5.6 % 02/05/2017 11:08 PM EDT [facility] Estimated Average Glucose 105 mg/dL 02/05/2017 11:08 PM EDT [facility] Comment: eAG: (Estimated average glucose) is a calculated value from HgbA1c and is u.s. representative of the average blood glucose level in the last 2-3 month period. Blood specimen (specimen) WHOLE BLOOD SPECIMEN / Unknown 02/05/2017 1:01 PM EDT 02/05/2017 1:03 PM EDT Bony Martin MD LABORATORY Final Result [facility] [address] [place] [address] from Last 3 Months or Most Recently Relevant to Health Maintenance Insurance [employer] MEDICAID OF [place] Care Teams Helper Chicken Farm Relationship Specialty Start Date End Date Latesha Kate, INFORMATION ASSURANCE SPECIALIST PCP - General Family Medicine 11/30/16
--- OUTSIDE RECORDS SUMMARY | 2024-11-10 05:10 | XMS_ITS | Encounter Summary ---
Author Organization [employer] Address [id number] [address] [place] [address] Care Team Providers Care Java Enterprise Architect Name Role Phone Melissa Lockhart APRN-JAMIL Primary Care Provid er Encounter Details Date Type Department Care Team (Late st Contact Info) Description 11/15/2023 Orders Only [facility] Internal Medicine - Family Medicine [address] [place] [address] External, Scanning Provider Social History Tobacco Use Types Packs/Day Years [...] on file documented as of this encounter Procedures Procedure Name Priority Date/Time Associated Diagnosis Comments ECHO COMPLETE WO CONTRAST Routine 11/14/2023 12:15 PM EDT documented in this encounter Visit Diagnoses Not on filedocumented in this encounter Additional Health Concerns Assessment Noted Time PHQ-9 Depression Total Score: 0 10/16/19 3:05 PM EDT A Body Mass Index follow-up plan has been documented for the patient 10/16/2023 3:31 PM EDT documented as of this encounter Care Teams Java Enterprise Architect Relationship Specialty Start Date End Date Melissa Lockhart, SAW BOSS-DIRECTOR SURGICAL [address] [place] [address] PCP - General Family Medicine 05/27/24 documented as of this encounter
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
--- OUTSIDE RECORDS SUMMARY | 2024-11-10 05:10 | XMS_ITS | Encounter Summary ---
Author Organization [facility] Address [address] [place] [address] Care Team Providers Care Division Operations Manager Name Role Phone Unallocated, Noms Provider Primary Care Provi carmen Tae Ny DO Unavailable Ramya Garnett MD Unavailable Celeste Oconnell CAP JEWEL PLATE ASSEMBLER Unavailable [phone] Mary Rodriguez NP Unavailable [phone] Reason for Visit * Reason Onset Date Comments pa pending ins 10/28/2024 Encounter Details Date Type Department Care Team (Late st Contact Info) Description 10/28/2024 Telephone GWYN ROLDAN [address] [facility] [address] [place] [address] Mary Rodriguez NP [address] [place] [address] pa pending ins Social History Tobacco Use Types Packs/Day Years [...] PM EDT documented as of this encounter Miscellaneous Notes * Telephone Encounter - Tarsha Johnson LPN - 10/29/2024 3:09 PM EDT Your PA request for [id number] was approved for 180 days. The PA# assigned is [id number]. Approved-NURTEC ODT 75 MG TABLET CALLED PT MAILBOX FULL UNABLE TO NOTIFY THAT MED IS APPROVED * Telephone Encounter - Tarsha Johnson LPN - 10/28/2024 1:05 PM EDT Pa submitted on [facility] LEYDI ARGUELLO (Flores: [id number]) Pending ins determination * Telephone Encounter - Mami Mayes - 10/28/2024 11:29 AM EDT Patient called and states that the pharmacy can not fill her script of Nurtec until a PA can be done for it, said that they did fax us something over. documented in this encounter Plan of Treatment Upcoming Encounters Date Type Department Care Team (Late st Contact Info) Description 12/29/2024 3:20 PM EDT Office Visit [facility] [address] [place] [address] Elba Durham PA [address] [place] [address] documented as of this encounter Visit Diagnoses Not on filedocumented in this encounter Care Teams Division Operations Manager Relationship Specialty Start Date End Date Unallocated, Stewart Vizcarra MD [address] [place] [address] PCP - General Family Medicine 09/23/23 Ramya Garnett MD [address] [place] [address] PCP - [facility] 09/09/23 Tae Ny DO [place] [address] Referring Physician Neurology 09/23/23 Celeste Oconnell NP [address] [place], [place] [phone] Nurse Practitioner Neurology 04/15/24 Mary Rodriguez NP [address] [facility] [address] [place] [address] Nurse Practitioner Neurology 04/15/24 documented as of this encounter
--- OUTSIDE RECORDS SUMMARY | 2024-11-10 05:10 | XMS_ITS | Encounter Summary ---
Author Organization [id number] [place] [address] Care Team Providers Care Account Executive Key Accounts Name Role Phone Melissa Lockhart APRN-LOCAL TELEPHONE OPERATOR Primary Care Provid er Encounter Details Date Type Department Care Team (Late st Contact Info) Description 06/23/2024 Orders Only [facility] Internal Medicine - Family Medicine [address] [place] [address] Ref Prov, [place] [address] Social History Tobacco Use Types Packs/Day Years [...] Procedure Name Priority Date/Time Associated Diagnosis Comments CT CTA CHEST Routine 06/22/2024 8:[address] BRAIN WO CONT Routine 06/22/2024 8:[address] CERVICAL SPINE WO CONT Routine 06/22/2024 8:45 AM EST documented in this encounter Results * CT angiogram chest (06/22/2024 8:49 AM EST) Anatomical Region Laterality Modality Lung, Body, Chest, Vascular, Body Covera N/A Computed Tomography us Not In System Ref Prov IMG CT ORDERABLES Final R esult * CT brain without contrast (06/22/2024 8:48 AM EST) Anatomical Region Laterality Modality Neuro, Head, Head and Neck, Neuro Covera N/A Computed Tomography us Not In System Ref Prov IMG CT ORDERABLES Final R esult * CT cervical spine without contrast (06/22/2024 8:45 AM EST) Anatomical Region Laterality Modality MSK, Neuro, Spine, C-spine, Spine Covera N/A Computed Tomography us Not In System Ref Prov IMG CT ORDERABLES Final R esult documented in this encounter Visit Diagnoses Not on filedocumented in this encounter Additional Health Concerns Assessment Noted Time PHQ-9 Depression Total Score: 0 10/16/19 3:05 PM EDT A Body Mass Index follow-up plan has been documented for the patient 10/16/2023 3:31 PM EDT documented as of this encounter Care Teams Account Executive Key Accounts Relationship Specialty Start Date End Date Melissa Lockhart, SITE PROMOTION AGENT-LOCAL TELEPHONE OPERATOR [address] [place] [address] PCP - General Family Medicine 05/27/24 documented as of this encounter
--- OUTSIDE RECORDS SUMMARY | 2024-11-10 05:10 | XMS_ITS | Encounter Summary ---
Author Organization [facility] Address [address] [place] [address] Care Team Providers Care Loading Machine Tool Setter Name Role Phone Unallocated, Noms Provider Primary Care Provi carmen Tae Ny DO Unavailable [phone] Ramya Garnett MD Unavailable Celeste Oconnell DOUGH MIXER Unavailable [phone] Mary Rodriguez DOUGH MIXER Unavailable [phone] Encounter Details Date Type Department Care Team (Late st Contact Info) Description 12/24/2022 Abstract [facility] [address] [facility] [place] [phone] Leydi Garcia PA [address] [facility] [address] [place], [facility] Social History Tobacco Use Types Packs/Day Years Used Date Smoking Tobacco: Never Alcohol Use Standard Drinks/Week Comments Not Currently 0 (1 standard drink = 0.6 oz pur e alcohol) occasional Comments Unknown Sex and Gender Information Value Date Recorded Sex Assigned at Female 12/05/2022 10:10 PM EDT Legal Sex Female 8:02 PM EDT Gender Identity Female 12/05/2022 10:10 PM EDT Sexual Orientation Straight 12/05/2022 10 :10 PM EDT COVID-19 Exposure Response Date Recorded In the last 10 days, have yo u been in contact with someone who was confirmed or suspected to have Coronavirus/COVID-19? No / Unsure 12/24/2022 8:02 PM EDT documented as of this encounter Plan of Treatment Upcoming Encounters Date Type Department Care Team (Late st Contact Info) Description 12/29/2024 3:20 PM EDT Office Visit [facility] [address] [place] [address] Elba Durham PA [address] [place] [address] documented as of this encounter Visit Diagnoses Not on filedocumented in this encounter Care Teams Loading Machine Tool Setter Relationship Specialty Start Date End Date Unallocated, Shital Vizcarra MD [address] [place] [address] PCP - General Family Medicine 09/23/23 Ramya Garnett MD [address] [place] [address] PCP - [facility] LEGAL ADVISOR 09/09/23 Tae Ny DO [address] [place] [address] Referring Physician Neurology 09/23/23 Celeste Oconnell NP [address] [place] [address] Nurse Practitioner Neurology 04/15/24 Mary Rodriguez NP [address] [facility] [address] [place] [phone] Nurse Practitioner Neurology 04/15/24 documented as of this encounter
--- OUTSIDE RECORDS SUMMARY | 2024-11-10 05:10 | XMS_ITS | Encounter Summary ---
Author Organization [facility] Address [address] [place] [address] Care Team Providers Care Electronics Parts Sales Representative Name Role Phone Unallocated, Noms Provider Primary Care Provi carmen Tae Ny DO Unavailable [phone] Ramya Garnett MD Unavailable Celeste Oconnell TURNER MACHINE Unavailable [phone] Mary Rodriguez TURNER MACHINE Unavailable [phone] Reason for Visit * Reason Onset Date Comments Medication Question 07/20/2024 Encounter Details Date Type Department Care Team (Late st Contact Info) Description 07/20/2024 Telephone [facility] [address] [facility] [address] [place] [address] Shazia Bashir MA Medication Question Social History Tobacco Use Types Packs/Day Years Used Date Smoking Tobacco: Never Smokeless Tobacco: Never Alcohol Use Standard Drinks/Week Comments Never 0 [...] encounter Miscellaneous Notes * Telephone Encounter - Shazia Bashir MA - 07/20/2024 9:59 AM EST Patient was in office 07/16/2024. Daily Catarina recommended for dermatographism. Patient called requesting Rx incase her insurance will cover this. Rx sent at this time. 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 documented in this encounter Care Teams Electronics Parts Sales Representative Relationship Specialty Start Date End Date Unallocated, Noms MD Carmita [address] [place] [address] PCP - General Family Medicine 09/23/23 Ramya Garnett MD [address] [place] [address] PCP - [facility] 09/09/23 Tae Ny DO [address] [place] [address] Referring Physician Neurology 09/23/23 Celeste Oconnell NP [address] [place] [address] Nurse Practitioner Neurology 04/15/24 Mary Rodriguez NP [address] [facility] [address] [place] [phone] Nurse Practitioner Neurology 04/15/24 documented as of this encounter
--- OUTSIDE RECORDS SUMMARY | 2024-11-10 05:10 | XMS_ITS | Patient Health Record ---
Author Organization [facility] Address [address] [place] [address] Care Team Providers Care Instructor Nurse Name Role Phone Dr. Lj Reyes Primary Care Provider [phone] Vianca Ortega [phone] Reason For Referral No Information Encounters Encounter Location Date Provider Diagnosis [facility] [address] [address] 04/14/2024 Vianca Lagos Dental caries on pit and fissure surface penetrating into dentin K02.52 ; Encounter for dental examination and cleaning with abnormal findings Z01.21 ; Other dental procedure status Z98.818 and Acute gingivitis, plaque induced K05.00 Assessments Encounter Date Diagnosis (ICD Code) Assessment Notes Treatment Notes Treatment Clinical Notes Section Notes 04/14/2024 Dental caries on pit and fissure surface penetrating into dentin (ICD-10 - K02.52) 04/14/2024 Encounter for dental examination and cleaning with abnormal findings (ICD-10 - Z01.21) 04/14/2024 Other dental procedure status (ICD-10 - Z98.818) 04/14/2024 Acute gingivitis, plaque induced (ICD-10 - K05.00) Plan Of Treatment No Information Insurance Providers Payer Name Payer Address Payer Phone Subscriber Number Group Number Insured Name Patient Relationship to Insured Coverage Start Date Coverage End Date [employer] DQ [address] [place] [address] [id number] ROYCE ARGUELLO Self - patient is the insured 03/01/[address] [facility] [address] [place] [address] [id number] ROYCE ARGUELLO Self - patient is the insured 3
--- OUTSIDE RECORDS SUMMARY | 2024-11-10 05:11 | XMS_ITS | Encounter Summary ---
Author Organization [employer] [facility] [employer] Address [id number] [address] [place] [address] Care Team Providers Care Search Engine Marketing Manager Name Role Phone Melissa Lockhart APRN-EMERGENCY MEDICAL TECHNICIAN BASIC Primary Care Provid er Encounter Details Date Type Department Care Team (Late st Contact Info) Description 03/17/2024 Telephone [facility] - Urogynecology [address] [facility] [address] [place] [address] Leidy Hollis CNA Social History Tobacco Use Types Packs/Day Years [...] encounter Miscellaneous Notes * Telephone Encounter - Leidy Hollis CNA - 03/17/2024 4:15 PM EDT Pt called to find out name of cream Dr. Zavala prescribed her. Pt wants to know if she can have another refill sent in to same pharmacy, or does Dr. Zavala want to see her? Clobetasol 0.05% ??? * Telephone Encounter - Kelle Zavala MD - 03/17/2024 4:15 PM EDT Yes, she should have had a follow-up after her appointment in August. I would like to see her beforeI refill. * Telephone Encounter - Leidy Hollis CNA - 03/17/2024 4:15 PM EDT Called pt LM informing her an appt needs scheduled before a refill will be sent. Informed pt duringmessage that she was supposed to be see 6 weeks after the SYSTEM ADMINISTRATION MANAGER visit and it was scheduled on 10/16/23 but she canceled and provided no reason on our VM. Requested a return call documented in this encounter Plan of Treatment Not on file documented as of this encounter Visit Diagnoses Not on filedocumented in this encounter Additional Health Concerns Assessment Noted Time PHQ-9 Depression Total Score: 0 10/16/19 3:05 PM EDT A Body Mass Index follow-up plan has been documented for the patient 10/16/2023 3:31 PM EDT documented as of this encounter Care Teams Search Engine Marketing Manager Relationship Specialty Start Date End Date Melissa Lockhart, SUPERVISOR [employer]ING-EMERGENCY MEDICAL TECHNICIAN BASIC [address] [place] [address] PCP - General Family Medicine 05/27/24 documented as of this encounter
--- OUTSIDE RECORDS SUMMARY | 2024-11-10 05:11 | XMS_ITS | Encounter Summary ---
Author Organization [employer] Address [facility] [id number] [address] [place] [address] Care Team Providers Care Home Extension Agent Name Role Phone Melissa Lockhart APRN-JAMIL Primary Care Provid er Encounter Details Date Type Department Care Team (Late st Contact Info) Description 11/22/2023 Orders Only [facility] Internal Medicine - Family Medicine [address] [place] [place] [address] External, Scanning Provider Social History Tobacco Use [...] Name Priority Date/Time Associated Diagnosis Comments ECHO STRESS TREADMILL WITHOUT CONTRAST Routine 11/21/2023 1:16 PM EDT documented in this encounter Results * Echo stress treadmill W/O contrast (11/21/2023 1:16 PM EDT) Anatomical Region Laterality Modality Chest N/A Other us Scanning Provider External CV STRESS ORDERABLES Final Result documented in this encounter Visit Diagnoses Not on filedocumented in this encounter Additional Health Concerns Assessment Noted Time PHQ-9 Depression Total Score: 0 10/16/19 3:05 PM EDT A Body Mass Index follow-up plan has been documented for the patient 10/16/2023 3:31 PM EDT documented as of this encounter Care Teams Home Extension Agent Relationship Specialty Start Date End Date Melissa Lockhart, JANIE-GRADES 1 [employer] TEACHER [address] [place] [address] PCP - General Family Medicine 05/27/24 documented as of this encounter
--- OUTSIDE RECORDS SUMMARY | 2024-11-10 05:11 | XMS_ITS | CCD ---
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 CMP, 76992-8, 3016-3, 2131-9, 50898- 6, HA1C #### [facility] ([id number]) [address], [address] [place] [address] Calcium [Mass/Vol] 9.4 mg/dL Normal 8.5-10.5 [facility] Comment on above: Performed By: #### C BCA, CMP, 89568-1, 3016-3, 2-9, 35503- 6, HA1C #### [facility] ([id number]) [address], [address] [place] [address] Chloride [Moles/Vol] 105 mmol/L Normal 98-109 [facility] Comment on above: Performed By: #### C BCA, CMP, 22340-4, 3016-3, 2131-9, 22152- 6, HA1C #### [facility] ([id number]) [address], [address] [place] [address] CO2 [Moles/Vol] 24 mmol/L Normal 22-32 [facility] Comment on above: Performed By: #### C BCA, CMP, 60659-5, 3016-3, 2131-9, 28875- 6, HA1C #### [facility] ([id number]) [address], [address] [address] Creatinine [Mass/Vol] 0.77 mg/dL Normal 0.40-1.00 [facility] Comment on above: Result Comment: METH OD TRACEABLE TO IDMS STANDARD Performed By: #### C BCA, CMP, 75986-8, 3016-3, 2131-9, 03590-2, HA1C #### [facility] ([id number]) [address], [facility] [address] [place] [address] eGFR (CKD-EPI) NON-RACE DEPENDENT >90 Normal >59 [facility] Comment on above: Result Comment: Reported eGFR is based on the CKD-EPI 2020 equation that does not use a race coefficient. Performed By: #### C BCA, CMP, 34182-8, 3016-3, 9, 47934-6, HA1C #### [facility] ([id number]) [address], [address] [place] [address] Glucose [Mass/Vol] 90 mg/dL Normal 65-99 [facility] Comment on above: Performed By: #### C BCA, CMP, 30484-5, 3016-3, 2-9, 66909- 6, HA1C #### [facility] ([id number]) [address], [address] [place] [address] Potassium [Moles/Vol] 3.7 mmol/L Normal 3.5-5.0 [facility] Comment on above: Performed By: #### C BCA, CMP, 38750-2, 3016-3, 2-9, 62673- 6, HA1C #### [facility] ([id number]) [address], [address] [place] [address] Protein [Mass/Vol] 7.3 g/dL Normal 6.0-8.0 [facility] Comment on above: Performed By: #### C BCA, CMP, 39166-3, 3016-3, 2131-9, 69953- 6, HA1C #### [facility] ([id number]) [address], [address] [place] [address] Sodium [Moles/Vol] 139 mmol/L Normal 134-146 [facility] Comment on above: Performed By: #### C BCA, CMP, 61665-3, 3016-3, 2131-9, 60929- 6, HA1C #### [facility] ([id number]) [address], [facility] [address] [place] [address] Urea nitrogen [Mass/Vol] 15 mg/dL Normal 5-23 [facility] Comment on above: Performed By: #### C BCA, CMP, 68542-2, 3016-3, 2131-9, 32152- 6, HA1C #### [facility] ([id number]) [address], [address] [place] [address] HGB A1C (GLYCO-HGB)on 2024 Glucose [Mass/Vol] 103 mg/dL Normal [facility] Comment on above: Performed By: #### C BCA, CMP, 44155-9, 3016-3, 2132-9, 60354- 6, HA1C #### [facility] ([id number]) [address], [facility] [address] [place] [address] HbA1c (Bld) [Mass fraction] 5.2 % Normal 4.4-5.6 [facility] Comment on above: Result Comment: NOTE ADA Guidelines Result HgbA1c Normal : less than 5.7 % Prediabetes : 5.7 % to 6.4 % Diabetes : > 6.4 % Use with caution in patients with abnormal hemoglobin variants as the half-life of red blood cells and in vivo glycation rates are affected. Performed By: #### C KRYSTIN, CMP, 04756-0, 3016-3, 2-9, 41119-6, HA1C #### [facility] ([id number]) [address] [place] [address] Lipid 1996 panelon 5 Cholesterol [Mass/Vol] 187 mg/dL Normal 150-200 [facility] Comment on above: Performed By: #### Barrington MCCLELLAND, CMP, 48042-6, 6-3, 2131-9, 16705- 6, HA1C #### [facility] ([id number]) [address], [address] [place] [address] Cholesterol in HDL [Mass/Vol] 65 mg/dL Normal >39 [facility] Comment on above: Result Comment: HDL <40 mg/dL - High Risk HDL > or = 40mg/dL- Desirable HDL >60 mg/dL - Negative Risk Performed By: #### C KRYSTIN, CMP, 72099-9, 3016-3, 2131-9, 26330-5, HA1C #### [facility] ([id number]) [address], [address] [place] [address] Cholesterol in LDL [Mass/Vol] 106 mg/dL Normal <130 [facility] Comment on above: Result Comment: LDL <100 mg/dL - Desirable LDL >160 mg/dL - High Risk Performed By: #### C BCA, CMP, 75704-5, 3016-3, 2132-9, 83194-9, HA1C #### [facility] ([id number]) [address], [address] [place] [address] Cholesterol in VLDL [Mass/Vol] 16 mg/dL Normal 0-30 [facility] Comment on above: Performed By: #### C BCA, CMP, 67797-6, 3016-3, 2132-9, 76316- 6, HA1C #### [facility] ([id number]) [address], [facility] [address] [place] [address] CHOLESTEROL:HDL 2.9 Normal 1.0-5.0 [facility] Comment on above: Performed By: #### C BCA, CMP, 93867-3, 3016-3, 2132-9, 17017- 6, HA1C #### [facility] ([id number]) [address], [address] [place] [address] Triglyceride [Mass/Vol] 80 mg/dL Normal 27-150 [facility] Comment on above: Performed By: #### C BCA, CMP, 17064-7, 3016-3, 2132-9, 51772- 6, HA1C #### [facility] ([id number]) [address], [address] [place] [address] TSH Qnon 07-28-2024 TSH 0.87 uIU/mL Normal 0.49-4.67 [facility] Comment on above: Performed By: #### C BCA, CMP, 79016-3, 3016-3, 2132-9, 15062- 6, HA1C #### [facility] ([id number]) [address], [address] [place] [address] VITAMIN B12on 07-28-2024 Cobalamin (Vitamin B12) [Mass/Vol] 531 pg/mL Normal 180-914 [facility] Comment on above: Performed By: #### C KRYSTIN PAZ, 36793-4, 3016-3, 2-9, 36438- 6, HA1C #### [facility] ([id number]) [address], [address] [place] [address] Vitamin D+Metabolites [Mass/ Vol]on 07-28-2024 VITAMIN D 25 HYD TOT 32.5 ng/mL Normal 30-100 [facility] Comment on above: Result Comment: Vitamin D status 25 [place] Vitamin D Deficiency <20 ng/mL Insufficiency 20-29 ng/mL Sufficiency 30-100 ng/mL Toxicity >100 ng/mL NOTE: A pediatric reference range has not been established by the public health registrar of this kit. The [employer] recommends a Vitamin D level of = or >20ng/mL in infants and children. Performed By: #### C KRYSTIN [facility], 21496-1, 3016-3, 2131-9, 94985-1, HA1C #### [facility] ([id number]) [address], [address] [place] [address] No Panel InformationOrdered By: Keon Tovar on 07-16-2024 [facility] 36on 12-04-2023 36 Regarding sleep stud y from 11/20/2023: MD Mary De León MA Please notify patient that the sleep study was negative for sleep apnea. Thank you Dr. Ulysses BROWN on . Normal [facility] POCT urinalysis dipstick onl yon 10-16-2023 Appearance (U) clear [facility] External Poct Urine Bilirubin Negative [facility] External Poct Urine Blood Negative [facility] External Poct Urine Color yellow [facility] External Poct Urine Glucose Negative [facility] External Poct Urine Ketones Trace [facility] External Poct Urine Leukocyte Esterase Negative [facility] External Poct Urine Nitrite Negative [facility] External Poct Urine Ph 5.0 Pr [facility] External Poct Urine Protein Negative [facility] External Poct Urine Specific [place] 1.030 [facility] External Poct Urine Urobilinogen 0.2 [facility] Office Visiton 10-08-2023 Follow-up visit [id number] Leydi Gage 1975 F Date Provider Department Center 10/08/2023 [id number] Family History Problem Relation Age of Onset Diabetes Mother Breast cancer Mother Bone cancer Mother Fibromyalgia Mother Family Status - Relation Status Age at Mother Father Alive Level of Service:06645 [facility] OFFICE/OUTPATIENT NEW MODERATE MDM 45 MINUTES Reason for Visit and Comments: Chest Pain [[id number]] Normal [facility] Vaginitis Panel PCRon 2023 Bacterial vaginosis DNA panel AC+probe (Vag fld) Not detected Not Detected^N ot Detected [facility] Comment on above: Qualitative results are reported based on detection and quantitation of targeted organism markers which include: Lactobacillus spp. (L. crispatus and L. jensenii), Gardnerella vaginalis, Atopobium vaginae, Bacterial Vaginosis Associated Bacteria-2 (BVAB-2) and Megasphaera-1 C. glabrata DNA AC+probe Ql (Vag fld) Not detected Not Detected^N ot Detected [facility] Comment on above: No Emile glabrata detected C. krusei DNA AC+probe Ql (Vag fld) Not detected Not Detected^N ot Detected [facility] Comment on above: No Emile krusei de tected Emile sp 6 panel AC+probe (Vag fld) Detected Abnormal Not Detected^N ot Detected [facility] Comment on above: Emile species result based on detection of one or more of the following species: C. albicans, C. tropicalis, C. parapsilosis or C. dubliniensis Interpretation and review of laboratory results Abnormal [facility] T. vaginalis DNA AC+probe Ql (Vag fld) Not detected Not Detected^N ot Detected [facility] Comment on above: No Trichomonas vagin karen detected NOTE BD MAX Vaginal Panel has not been evaluated for patients under 18 years old. Results for these patients should be reviewed and assessed in accordance with clinical presentation to determine patient diagnosis. [facility] VAGINITIS PANEL PCRon 2023 VAGINITIS PANEL [...] clinical presentation to determine patient diagnosis. Normal [facility] Comment on above: Performed By: #### V PPCR #### [facility] ([id number]) [address] [place] [address], [address] [place] [address] COVID + FLU Quick Testingon 06-11-2023 SARS-CoV-2 (COVID-19) RNA AC+probe Ql (Unsp spec) Negative [employer] [facility] [employer] Other COVID + FLU Quick Testing Negative [employer] Other THYROID ANTIBODIESon 023 Thyroglobulin Antibody <1.0 Normal 0.0-0.9 [facility] Comment on above: Result Comment: Thyr oglobulin Antibody measured by [employer] Methodology Performed By: #### T HYRABS #### [facility] [address] [place] [address] Dr. Nabila Kearns Thyroid Peroxidase (TPO) Ab 12 IU/mL Normal 0-34 [facility] Comment on above: Performed By: #### T HYRABS #### [facility] [address] [place] [address] Dr. Nabila Kearns ESTRADIOLon 07-15-2022 Estradiol 117.0 pg/mL Normal [facility] Comment on above: Result Comment: Adul t Female: Follicular phase 12.5 - 166.0 Ovulation phase 85.8 - 498.0 Luteal phase 43.8 - 211.0 Postmenopausal <6.0 - 54.7 1st trimester 215.0 - >4300.0 Susana ECLIA methodology Performed By: #### H EPBSRF #### [facility] [address] [place] [address] Dr. Nabila Kearns FSHon 07-15-2022 FSH 9.0 mIU/mL Normal [facility] Comment on above: Result Comment: Adul t Female: Follicular phase 3.5 - 12.5 Ovulation phase 4.7 - 21.5 Luteal phase 1.7 - 7.7 Postmenopausal 25.8 - 134.8 Performed By: #### C BC #### [facility] [address] [place] [address] Dr. Nabila Kearns TESTOSTERONE, TOTALon 2022 Testosterone [Mass/Vol] 9 ng/dL Normal 4-50 [facility] Comment on above: Performed By: #### T ESTTOT #### [facility] [address] [place] [address] Dr. Nabila Kearns CBC AUTO DIFFon 07-14-2022 BASO # 0.0 103/ul Normal 0.0-0.1 [facility] Comment on above: Performed By: #### H EPBSRF #### [facility] [address] [place] [address] Dr. Nabila Kearns Basophils/100 WBC (Bld) 0.4 % Normal 0.2-2.0 [facility] Comment on above: Performed By: #### H EPBSRF #### [facility] [address] [place] [address] Dr. Nabila Kearns EO # 0.1 103/ul Normal 0.0-0.7 [facility] Comment on above: Performed By: #### H EPBSRF #### [facility] [address] [place] [address] Dr. Nabila Kearns Eosinophils/100 WBC (Bld) 2.6 % Normal 0.9-7.0 [facility] Comment on above: Performed By: #### H EPBSRF #### [facility] [address] [place] [address] Dr. Nabila Kearns Erythrocyte distribution width (RBC) [Ratio] 12.8 % Normal 11.0-15.0 [facility] Comment on above: Performed By: #### H EPBSRF #### [facility] [address] [place] [address] Dr. Nabila Kearns Hematocrit (Bld) [Volume fraction] 41.3 % Normal 36.0-48.0 [facility] Comment on above: Performed By: #### H EPBSRF #### [facility] [address] [place] [address] Dr. Nabila Kearns Hemoglobin (Bld) [Mass/Vol] 12.9 g/dL Normal 12.0-16.0 [facility] Comment on above: Performed By: #### H EPBSRF #### [facility] [address] [place] [address] Dr. Nabila Kearns IG # 0.02 10e3/ul Normal 0.00-0.03 [facility] Comment on above: Performed By: #### H EPBSRF #### [facility] [address] [place] [address] Dr. Nabila Kearns IG % 0.4 % Normal 0.0-0.5 [facility] Comment on above: Performed By: #### H EPBSRF #### [facility] [address] [place] [address] Dr. Nabila Kearns LYMPH # 1.8 103/ul Normal 1.2-3.8 [facility] Comment on above: Performed By: #### H EPBSRF #### [facility] [address] [place] [address] Dr. Nabila Kearns Lymphocytes/100 WBC (Bld) 33.7 % Normal 20.5-60.0 [facility] Comment on above: Performed By: #### H EPBSRF #### [facility] [address] [place] [address] Dr. Nabila Kearns MANUAL DIFF REQ NO Normal [facility] Comment on above: Performed By: #### H EPBSRF #### [facility] [address] [place] [address] Dr. Nabila Kearns MCH (RBC) [Entitic mass] 29.2 pg Normal 26.7-34.0 [facility] Comment on above: Performed By: #### H EPBSRF #### [facility] [address] [place] [address] Dr. Nabila Kearns MCHC (RBC) [Mass/Vol] 31.2 g/dL Normal 29.9-35.2 [facility] Comment on above: Performed By: #### H EPBSRF #### [facility] [address] [place] [address] Dr. Nabila Kearns MCV (RBC) [Entitic vol] 93.4 fL Normal 81.0-99.0 [facility] Comment on above: Performed By: #### H EPBSRF #### [facility] [address] [place] [address] Dr. Nabila Kearns MONO # 0.5 103/ul Normal 0.3-0.8 [facility] Comment on above: Performed By: #### H EPBSRF #### [facility] [address] [place] [address] Dr. Nabila Kearns Monocytes/100 WBC (Bld) 9.7 % Normal 1.7-12.0 [facility] Comment on above: Performed By: #### H EPBSRF #### [facility] [address] [place] [address] Dr. Nabila Kearns NEUT # 2.9 103/ul Normal 1.4-6.5 [facility] Comment on above: Performed By: #### H EPBSRF #### [facility] [address] [place] [address] Dr. Nabila Kearns Neutrophils/100 WBC (Bld) 53.2 % Normal 43.0-75.0 [facility] Comment on above: Performed By: #### H EPBSRF #### [facility] [address] [place] [address] Dr. Nabila Kearns Platelet mean volume (Bld) [Entitic vol] 10.6 fL Normal 9.5-13.5 [facility] Comment on above: Performed By: #### H EPBSRF #### [facility] [address] [place] [address] Dr. Nabila Kearns PLT 262 103/ul Normal 150-450 [facility] Comment on above: Performed By: #### H EPBSRF #### [facility] [address] [place] [address] Dr. Nabila Kearns RBC 4.42 106/ul Normal 4.20-5.40 [facility] Comment on above: Performed By: #### H EPBSRF #### [facility] [address] [place] [address] Dr. Nabila Kearns WBC 5.5 103/ul Normal 4.0-11.0 [facility] Comment on above: Performed By: #### H EPBSRF #### [facility] [address] [place] [address] Dr. Nabila Kearns FREE T3on 07-14-2022 FREE T3 2.38 pg/mlL Normal 2.18-3.98 [facility] Comment on above: Performed By: #### H EPBSRF #### [facility] [address] [place] [address] Dr. Nabila Kearns FREE T4on 07-14-2022 Free T4 [Mass/Vol] 1.02 ng/dL Normal 0.76-1.46 [facility] Comment on above: Performed By: #### C BC #### [facility] [address] [place] [address] Dr. Nabila Kearns PROF 14(COMP METB)on 023 Albumin [Mass/Vol] 3.2 g/dL Critically low 3.4-5.0 Th [facility] Comment on above: Performed By: #### H EPBSRF #### [facility] [address] [address] [address] Nabila Kearns Albumin/Globulin [Mass ratio] 0.8 {ratio} Normal [facility] Comment on above: Performed By: #### H EPBSRF #### [facility] [address] [address] [address] Nabila Kearns ALP [Catalytic activity/Vol] 48 U/L Normal 46-116 [facility] Comment on above: Performed By: #### H EPBSRF #### [facility] [address] [address] [address] Nabila Kearns ALT [Catalytic activity/Vol] 30 U/L Normal 14-59 [facility] Comment on above: Performed By: #### H EPBSRF #### [facility] [address] [place] [address] Dr. Nabila Kearns Anion gap [Moles/Vol] 12.3 mmol/L Normal [facility] Comment on above: Performed By: #### H EPBSRF #### [facility] [address] [place] [address] Dr. Nabila Kearns AST [Catalytic activity/Vol] 17 U/L Normal 15-37 [facility] Comment on above: Performed By: #### H EPBSRF #### [facility] [address] [place] [address] Dr. Nabila Kearns Bilirubin [Mass/Vol] 0.4 mg/dL Normal 0.2-1.0 [facility] Comment on above: Performed By: #### H EPBSRF #### [facility] [address] [address] [address] Nabila Kearns Calcium [Mass/Vol] 8.8 mg/dL Normal 8.5-10.1 [facility] Comment on above: Performed By: #### H EPBSRF #### [facility] [address] [address] [address] Nabila Kearns Chloride [Moles/Vol] 105 mmol/L Normal 98-107 [facility] Comment on above: Performed By: #### H EPBSRF #### [facility] [address] [address] [address] Nabila Kearns CO2 [Moles/Vol] 26.4 mmol/L Normal 21.0-32.0 [facility] Comment on above: Performed By: #### H EPBSRF #### [facility] [address] [address] [address] Nabila Kearns Creatinine [Mass/Vol] 0.59 mg/dL Normal 0.55-1.02 [facility] Comment on above: Performed By: #### H EPBSRF #### [facility] [address] [address] [address] Nabila Kearns EGFR-AF [place] >60 Normal >=60 [facility] Comment on above: Performed By: #### H EPBSRF #### [facility] [address] [place] [address] Dr. Nabila Kearns EGFR-NON AF [place] >60 Normal >=60 [facility] Comment on above: Performed By: #### H EPBSRF #### [facility] [address] [address] [address] Nabila Kearns Globulin (S) [Mass/Vol] 4.0 g/dL Normal [facility] Comment on above: Performed By: #### H EPBSRF #### [facility] [address] [address] [address] Nabila Kearns Glucose [Mass/Vol] 79 mg/dL Normal 74-106 [facility] Comment on above: Performed By: #### H EPBSRF #### [facility] [address] [address] [address] Nabila Kearns Potassium [Moles/Vol] 3.7 mmol/L Normal 3.5-5.1 [facility] Comment on above: Performed By: #### H EPBSRF #### [facility] [address] [place] [address] Dr. Nabila Kearns Protein [Mass/Vol] 7.2 g/dL Normal 6.4-8.2 [facility] Comment on above: Performed By: #### H EPBSRF #### [facility] [address] [address] [address] Nabila Kearns Sodium [Moles/Vol] 140 mmol/L Normal 136-145 [facility] Comment on above: Performed By: #### H EPBSRF #### [facility] [address] [place] [address] Dr. Nabila Kearns Urea nitrogen [Mass/Vol] 14.0 mg/dL Normal 7.0-18.0 [facility] Comment on above: Performed By: #### H EPBSRF #### [facility] [address] [place] [address] Dr. Nabila Kearns Urea nitrogen/Creatinine [Mass ratio] 23.7 mg/mg Normal [facility] Comment on above: Performed By: #### H EPBSRF #### [facility] [address] [place] [address] Dr. Nabila Kearns TSHon 07-14-2022 TSH 1.054 uIU/mL Normal 0.358-3.[address] [facility] Comment on above: Performed By: #### H EPBSRF #### [facility] [facility] [address] [place] [address] Dr. Nabila Kearns VITAMIN B12on 07-14-2022 Cobalamin (Vitamin B12) [Mass/Vol] 434.0 pg/mL Normal 193.0-986. 0 [facility] Comment on above: Performed By: #### C BC #### [facility] [address] [place] [address] Dr. Nabila Kearns VITAMIN D 25 OHon 07-14-2022 VIT D 25-OH 36.5 ng/mL Normal [facility] Comment on above: Performed By: #### C BC #### [facility] [address] [place] [address] Dr. Nabila Kearns VIT D RANGES SEE BELOW Normal [facility] Comment on above: Result Comment: <20 ng/mL Vit D deficient 20 - <30 ng/mL Vit D insufficient 30 - 100 ng/mL Vit D sufficient >100 ng/mL Potential Toxicity Performed By: #### C BC #### [facility] [address] [place] [address] Dr. Nabila Kearns COVID Quick Testingon 2021 Result Positive [employer] Other Quick Strepon 04-16-2022 S. pyogenes Org specific cx Ql (Throat) Negative [employer] Other Quick Strep [employer] Other Urinalysis - AUTOMATEDon Appearance (U) clear [employer] Other Bilirubin Ql (U) Negative [employer] Other Color (U) yellow [employer] Other Glucose Ql (U) Negative [employer] Other Hemoglobin Ql (U) Moderate [employer] Other Ketones Ql (U) Negative [employer] Other Leukocyte esterase Test strip Ql (U) Small [employer] Other Nitrite Ql (U) Negative [employer] Other pH (U) 6.0 [pH] [employer] Other Protein Ql (U) Negtaive [employer] Other Specific gravity (U) [Rel density] 1.030 [employer] Other Urobilinogen (U) [Mass/Vol] 0.20 mg/dL [employer] Other Urinalysis - AUTOMATED No rt [employer] Other VAGINITIS/VAGINOSIS DNA PROB Oleg 03-02-2022 Emile species Negative Normal Negative [facility] Comment on above: Performed By: #### V AGINT #### [facility] [address] [address] [address] Nabila Kearns Gardnerella vaginalis Positive Abnormal Negative [facility] Comment on above: Performed By: #### V AGINT #### [facility] [address], [place] [address] Dr. Nabila Kearns Trichomonas vaginalis Negative Normal Negative [facility] Comment on above: Performed By: #### V AGINT #### [facility] [address], [place] [address] Dr. Nabila Kearns Laboratory - Microbiology an d Antimicrobial susceptibilityOrdered By: Veronica Jerez on 01-10-2022 N. gonorrhoeae DNA AC+probe Ql (Unsp spec) Negative Negative [facility] Comment on above: Performed at: [facility] [address], [place] [id number] Attendant Honor Bar: Lydia Holliday MD, Phone: [phone] Performed at: =G - L [facility] [id number], [place] [id number] Director: Lydia Holliday MD, Phone: [phone] No Panel InformationOrdered By: Veronica Jerez on 01-10-2022 Emile albicans (AC) Negative Negative [facility] Comment on above: This test was develo ped and its performance characteristics determined by [facility]. It has not been cleared or approved by the Food and Drug Administration. This test was develo ped and its performance characteristicsdetermined by [facility]. It has not been cleared orapproved by the Food and Drug Administration. Emile glabrata (AC) Negative Negative [facility] Comment on above: This test was develo ped and its performance characteristics determined by [facility]. It has not been cleared or approved by the Food and Drug Administration. This test was develo ped and its performance characteristicsdetermined by [facility]. It has not been cleared orapproved by the Food and Drug Administration. Chlamydia trachomatis (AC) (LAB) Negative Negative [facility] Trichomonas vaginalis (AC) Negative Negative [facility] Vaginal fluid [employer] vagi sergio DNA detection by probe and target amplification methoOrdered By: Veronica Jerez on 01-10-2022 A. vaginae DNA AC+probe Ql (Vag fld) Moderate - 1 Score . [facility] Vaginal fluid Megasphaera sp ecies type 1 DNA detection by probe and target amplificatOrdered By: HarmonyDory Jerez on 01-10-2022 Megasphaera sp type 1 DNA AC+probe Ql (Vag fld) High - 2 Score . [facility] Comment on above: Calculate total [...] developed and its performance characteristics determined by [employer]. It has not been cleared or approved [...] was developed and its performance characteristicsdetermined by [employer]. It has not been cleared or approvedby the Food and Drug Administration. Vaginal fluid bacterial vagi nosis associated bacterium 2 DNA detection by probe and tOrdered By: RojelioJenny Jerez on 01-10-2022 Bacterial vaginosis associated bacterium 2 DNA AC+probe Ql (Vag fld) Low - 0 Score . [facility] QUANTIFERON TB GOLD PLUSon 0 11-23-2021 QuantiFERON Criteria Comment Normal [facility] Comment on above: Result Comment: The QuantiFERON-TB Gold Plus result is determined by subtracting the Nil value from either TB antigen (Ag) tube. The mitogen tube serves as a control for the test. Performed By: #### Q NTTB #### [facility] [address] [place] [address] Dr. Nabila Kearns QuantiFERON Incubation Incubation performed. [facility] Comment on above: Performed By: #### Q NTTB #### [facility] [address] [address] [address] Nabila Kearns QuantiFERON Mitogen Value >10.[address] [facility] Comment on above: Performed By: #### Q NTTB #### [facility] [address] [place] [address] Dr. Nabila Kearns QuantiFERON Nil Value 0.00 IU/mL Normal [facility] Comment on above: Performed By: #### Q NTTB #### [facility] [address] [place] [address] Dr. Nabila Kearns QuantiFERON TB1 Ag Value 0.01 IU/mL Normal [facility] Comment on above: Performed By: #### Q NTTB #### [facility] [address] [place] [address] Dr. Nabila Kearns QuantiFERON TB2 Ag Value 0.00 IU/mL Normal [facility] Comment on above: Performed By: #### Q NTTB #### [facility] [address] [place] [address] Dr. Nabila Kearns QuantiFERON-TB Gold Plus Negative Normal Negative [facility] Comment on above: Result Comment: Chem iluminescence immunoassay methodology Performed By: #### Q NTTB #### [facility] [address] [place] [address] Dr. Nabila Kearns HEPATITIS B SURFACE ANTIBODY , QUANTon 11-22-2021 Hepatitis B Surf AB Quant 13.3 mIU/mL Normal Immunity>[address] [facility] Comment on above: Result Comment: Stat us of Immunity Anti-HBs Level Inconsistent with Immunity 0.0 - 9.9 Consistent with Immunity >9.9 Performed By: #### H EPBSRF #### [facility] [address] [place] [address] Dr. Nabila Kearns MMR IMMUNITYon 11-22-2021 Mumps Abs, IgG 14.9 AU/mL Normal Immune >10.9 [facility] Comment on above: Result Comment: Nega tive <9.0 Equivocal 9.0 - 10.9 Positive >10.9 A positive result generally indicates past exposure to Mumps virus or previous vaccination. Performed By: #### C BC #### [facility] [address] [place] [address] Dr. Nabila Kearns Rubella Antibodies, IgG 1.92 index Normal Immune >0.99 [facility] Comment on above: Result Comment: Non- immune <0.90 Equivocal 0.90 - 0.99 Immune >0.99 Performed By: #### C BC #### [facility] [address] [place] [address] Dr. Nabila Kearns Rubeola Ab, IgG 298.0 AU/mL Normal Immune >16.4 [facility] Comment on above: Result Comment: Nega tive <13.5 Equivocal 13.5 - 16.4 Positive >16.4 Presence of antibodies to Rubeola is presumptive evidence of immunity except when acute infection is suspected. Performed By: #### C BC #### [facility] [address] [place] [address] Dr. Nabila Kearns VARICELLA IGG ABon 2 Varicella Zoster IgG 1333 index Normal Immune >165 [facility] Comment on above: Result Comment: Nega tive <135 Equivocal 135 - 165 Positive >165 A positive result generally indicates exposure to the pathogen or administration of specific immunoglobulins, but it is not indication of active infection or stage of disease. Performed By: #### V ARCEL #### [facility] [address] [place] [address] Dr. Nabila Kearns MG MAMM SCREEN 3D JOEL CADon 10-10-2021 MG MAMM SCREEN 3D JOEL CAD Patient: LEYDI GAGE Exam Date: 10/10/2021 : 1975 Gender:F Ordering : DR LEYDA BAIG . Admission #: [id number] Family : Order #: [id number] CLICK HERE TO VIEW EXAM RADIOLOGY REPORT [...] breast cancer at age 70. LOCATION: [facility] BREAST COMPOSITION: Heterogeneously dense,which may obscure [...] MD on 10/11/2021 at 07:13 Normal [facility] CT HEAD WO CONon 09-06-2021 [...] MARY SARAH Date: 2021-09-05 22:18 Normal [facility] CBC AUTO DIFFon 09-05-2021 BASO # 0.0 103/ul Normal 0.0-0.1 [facility] Comment on above: Performed By: #### C BC #### [facility] [address] [address] [address] Nabila Kearns Basophils/100 WBC (Bld) 0.3 % Normal 0.2-2.0 [facility] Comment on above: Performed By: #### C BC #### [facility] [address] [address] [address] Nabila Kearns EO # 0.2 103/ul Normal 0.0-0.7 [facility] Comment on above: Performed By: #### C BC #### [facility] [address] [place] [address] Dr. Nabila Kearns Eosinophils/100 WBC (Bld) 2.3 % Normal 0.9-7.0 [facility] Comment on above: Performed By: #### C BC #### [facility] [address] [place] [address] Dr. Nabila Kearns Erythrocyte distribution width (RBC) [Ratio] 12.9 % Normal 11.0-15.0 [facility] Comment on above: Performed By: #### C BC #### [facility] [address] [place] [address] Dr. Nabila Kearns Hematocrit (Bld) [Volume fraction] 43.4 % Normal 36.0-48.0 [facility] Comment on above: Performed By: #### C BC #### [facility] [address] [place] [address] Dr. Nabila Kearns Hemoglobin (Bld) [Mass/Vol] 14.7 g/dL Normal 12.0-16.0 [facility] Comment on above: Performed By: #### C BC #### [facility] [address] [place] [address] Dr. Nabila Kearns IG # 0.03 10e3/ul Normal 0.00-0.03 [facility] Comment on above: Performed By: #### C BC #### [facility] [address] [place] [address] Dr. Nabila Kearns IG % 0.3 % Normal 0.0-0.5 [facility] Comment on above: Performed By: #### C BC #### [facility] [address] [place] [address] Dr. Nabila Kearns LYMPH # 1.8 103/ul Normal 1.2-3.8 [facility] Comment on above: Performed By: #### C BC #### [facility] [address] [place] [address] Dr. Nabila Kearns Lymphocytes/100 WBC (Bld) 19.5 % Critically low 20.5-60.0 [facility] Comment on above: Performed By: #### C BC #### [facility] [address] [place] [address] Dr. Nabila Kearns MANUAL DIFF REQ NO Normal [facility] Comment on above: Performed By: #### C BC #### [facility] [address] [place] [address] Dr. Nabila Kearns MCH (RBC) [Entitic mass] 30.5 pg Normal 26.7-34.0 [facility] Comment on above: Performed By: #### C BC #### [facility] [address] [place] [address] Dr. Nabila Kearns MCHC (RBC) [Mass/Vol] 33.9 g/dL Normal 29.9-35.2 [facility] Comment on above: Performed By: #### C BC #### [facility] [address] [place] [address] Dr. Nabila Kearns MCV (RBC) [Entitic vol] 90.0 fL Normal 81.0-99.0 [facility] Comment on above: Performed By: #### C BC #### [facility] [address] [place] [address] Dr. Nabila Kearns MONO # 0.9 103/ul Critically high 0.3-0.[address] [facility] Comment on above: Performed By: #### C BC #### [facility] [address] [place] [address] Dr. Nabila Kearns Monocytes/100 WBC (Bld) 9.5 % Normal 1.7-12.0 [facility] Comment on above: Performed By: #### C BC #### [facility] [address] [place] [address] Dr. Nabila Kearns NEUT # 6.4 103/ul Normal 1.4-6.5 [facility] Comment on above: Performed By: #### C BC #### [facility] [address] [place] [address] Dr. Nabila Kearns Neutrophils/100 WBC (Bld) 68.1 % Normal 43.0-75.0 [facility] Comment on above: Performed By: #### C BC #### [facility] [address] [address] [address] Nabila Kearns Platelet mean volume (Bld) [Entitic vol] 11.2 fL Normal 9.5-13.5 [facility] Comment on above: Performed By: #### C BC #### [facility] [address] [address] [address] Nabila Kearns PLT 251 103/ul Normal 150-450 [facility] Comment on above: Performed By: #### C BC #### [facility] [address] [address] [address] Nabila Kearns RBC 4.82 106/ul Normal 4.20-5.40 [facility] Comment on above: Performed By: #### C BC #### [facility] [address] [place] [address] Dr. Nabila Kearns WBC 9.4 103/ul Normal 4.0-11.0 [facility] Comment on above: Performed By: #### C BC #### [facility] [address] [place] [address] Dr. Nabila Kearns CRPon 09-05-2021 CRP [Mass/Vol] mg/L Normal <=1.0 [facility] Comment on above: Performed By: #### C BC #### [facility] [address] [place] [address] Dr. Nabila Kearns PREG HCG QUALon 09-05-2021 , QUAL Negative Normal NEGATIVE [facility] Comment on above: Performed By: #### C BC #### [facility] [address] [place] [address] Dr. Nabila Kearns PROF CHEM 8 (BAS METB)on Anion gap [Moles/Vol] 13.8 mmol/L Normal [facility] Comment on above: Performed By: #### C BC #### [facility] [address] [place] [address] Dr. Nabila Kearns Calcium [Mass/Vol] 9.3 mg/dL Normal 8.5-10.1 [facility] Comment on above: Performed By: #### C BC #### [facility] [address] [address] [address] Nabila Kearns Chloride [Moles/Vol] 103 mmol/L Normal 98-107 [facility] Comment on above: Performed By: #### C BC #### [facility] [address] [place] [address] Dr. Nabila Kearns CO2 [Moles/Vol] 23.9 mmol/L Normal 22.0-30.0 [facility] Comment on above: Performed By: #### C BC #### [facility] [address] [address] [address] Nabila Kearns Creatinine [Mass/Vol] 0.64 mg/dL Normal 0.52-1.04 [facility] Comment on above: Performed By: #### C BC #### [facility] [address] [place] [address] Dr. Nabila Kearns EGFR-AF [place]IZ[place] >60 Normal >=60 [facility] Comment on above: Performed By: #### C BC #### [facility] [address] [place] [address] Dr. Nabila Kearns EGFR-NON AF [place]IZ[place] >60 Normal >=60 [facility] Comment on above: Performed By: #### C BC #### [facility] [address] [address] [address] Nabila Kearns Glucose [Mass/Vol] 92 mg/dL Normal 74-106 [facility] Comment on above: Performed By: #### C BC #### [facility] [address] [address] [address] Nabila Kearns Potassium [Moles/Vol] 3.7 mmol/L Normal 3.4-5.0 [facility] Comment on above: Performed By: #### C BC #### [facility] [address] [place] [address] Dr. Nabila Kearns Sodium [Moles/Vol] 137 mmol/L Normal 137-145 [facility] Comment on above: Performed By: #### C BC #### [facility] [address] [place] [address] Dr. Nabila Kearns Urea nitrogen [Mass/Vol] 12.0 mg/dL Normal 7.0-18.0 [facility] Comment on above: Performed By: #### C BC #### [facility] [address] [place] [address] Dr. Nabila Kearns Urea nitrogen/Creatinine [Mass ratio] 18.8 mg/mg Normal [facility] Comment on above: Performed By: #### C BC #### [facility] [address] [place] [address] Dr. Nabila Kearns [facility] SED RATE 12 mm/hr Normal <=20 [facility] Comment on above: Performed By: #### S EDR #### [facility] [address] [place] [address] Dr. Nabila Kearns PAP ACOG PANEL 2: 30 to 65on 07-27-[address] [facility] Comment on above: Result Comment: Perf ormed at: WB Performed By: #### [id number] #### [facility] [address] [place] [address] Dr. Nabila Kearns Age Gdln ACOG Testing 30-65 [facility] Comment on above: Performed By: #### [id number] #### [facility] [address] [place] [address] Dr. Nabila Kearns DIAGNOSIS: Comment Normal [facility] Comment on above: Result Comment: NEGA TIVE FOR INTRAEPITHELIAL LESION OR MALIGNANCY. Performed at: WB Performed By: #### [id number] #### [facility] [address] [place] [address] Dr. Nabila Kearns HPV Aptima Negative Normal Negative [facility] Comment on above: Result Comment: This nucleic acid amplification test detects fourteen high-risk HPV types (16,18,31,33,35,39,45,51,52,56,58,59,66,68) without differentiation. Performed at: =G Performed By: #### [id number] #### [facility] [address] [place] [address] Dr. Nabila Kearns Methodology: Comment Normal [facility] Comment on above: Result Comment: This liquid based ThinPrep(R) pap test was screened with the use of an image guided system. Performed at: WB Performed By: #### [id number] #### [facility] [address] [place] [address] Dr. Nabila Kearns Note: Comment Normal [facility] Comment on above: Result Comment: The Pap smear is a screening test designed to aid in the detection of premalignant and malignant conditions of the uterine cervix. It is not a diagnostic procedure and should not be used as the sole means of detecting cervical cancer. Both false-positive and false-negative reports do occur. . Performed at: WB Performed By: #### [id number] #### [facility] [address] [place] [address] Dr. Nabila Kearns Performed by: Comment Normal [facility] Comment on above: Result Comment: Steve Cooper, Golf Cart Mechanic (ASCP) Performed at: WB Performed By: #### [id number] #### [facility] [address] [place] [address] Dr. Nabila Kearns Specimen adequacy: Comment Normal [facility] Comment on above: Result Comment: Sati sfactory for evaluation. No endocervical component is identified. Performed at: WB Performed By: #### [id number] #### [facility] [address] [place] [address] Dr. Nabila Kaerns VAGINITIS/VAGINOSIS DNA PROB Oleg 07-26-2021 Emile species Negative Normal Negative [facility] Comment on above: Performed By: #### V AGINT #### [facility] [address] [place] [address] Dr. Nabila Kearns Gardnerella vaginalis Negative Normal Negative [facility] Comment on above: Performed By: #### V AGINT #### [facility] [address] [place] [address] Dr. Nabila Kearns Trichomonas vaginalis Negative Normal Negative [facility] Comment on above: Performed By: #### V AGINT #### [facility] [address] [place] [address] Dr. Nabila Kearns Urinalysis - AUTOMATEDon Appearance (U) clear [employer] Other Bilirubin Ql (U) Negative [employer] Other Color (U) light yellow [employer] Other Glucose Ql (U) Negative [employer] Other Hemoglobin Ql (U) Negative [employer] Other Ketones Ql (U) Negative [employer] Other Leukocyte esterase Test strip Ql (U) Negative [employer] Other Nitrite Ql (U) Negative [employer] Other pH (U) 6.5 [pH] [employer] Other Protein Ql (U) Negative [employer] Other Specific gravity (U) [Rel density] 1.030 [employer] Other Urobilinogen (U) [Mass/Vol] 0.2 mg/dL [employer] Other Urinalysis - AUTOMATED No rt [employer] Other Consultation Noteon 09-13-19 Consultation Note [id number] Normal [facility] Ambulatory Clinical Summaryo n 08-09-2020 Ambulatory Clinical Summary {[id number] Normal [facility] Patient Educationon 08-10-19 21 Patient Education Obstetrics [...] and sweet foods. General instructions ? Take vbgn-cqv-avgdust and prescription medicines only as told by [...] 03/23/2010 Document Revised: 09/17/2019 Document Reviewed: 06/12/2018 [employer] Patient Education ? 2019 [employer]. [facility] Urology Office/Clinic Noteon 08-09-2020 Urology Office/Clinic Note Chief Complaint urinary incontinence This patient is a 44-year-old female with a history of stress urinary incontinence symptoms. She leaks urine when she is physically active. Laughing coughing sneezing also causes her to leak small amounts of urine. She is here today for urologic evaluation. [facility] Staff New patient here today due to [...] to check bladder function. ABX sent to [facility] in [place]. Ordered: Urology Procedure Order Urology Procedure Order Orders: nitrofurantoin, 100 mg = 1 cap(s), Oral, Daily, take 1 cap one day prior to the procedure and 1 cap after the procedure, # 2 cap(s), Refills(s) 0, Pharmacy: [id number], 160, cm, 08/09/20 10:40:00 EST, Height/Length Dosing, 73.1, kg, 08/09/20 10:40:00... Urnls Dip Stick Auto w/o Microscopy POC [id number] I have reviewed the previous health record information and history for this pt. from Dr. Dimas. Follow-up With When Contact Information Wing Ventura MD, [address] [place] [id number] Additional Instructions: Patient Education Overactive Bladder, Adult I, Negar Tabor , personally scribed for Dr. Dimas on 08/09/2020 11:32:41. . Documentation recorded by the scribe, Negar Tabor, accurately reflects the services(s) I performed and decisions made by me. Authenticated by Dr. Dimas on 08/09/2020 11:48:39. Problem List/Past Medical History Ongoing Migraine headache Historical No qualifying data Procedure/Surgical History Dilation and curettage (08/08/2016), Essure. (2006), Cholecystectomy, Hysterectomy. Medications No active medications Allergies [...] Protein Urine Dipstick: Negative (08/09/20 10:36:00) Specific [place] Urine Dipstick: >=1.030 (08/09/20 10:36:00) Urine Appearance Urine Dipstick: Clear (08/09/20 10:36:00) Urine Color Urine Dipstick: Yellow (08/09/20 10:36:00) Urobilinogen Urine Dipstick: Normal 0.2-1 EU/dl (08/09/20 10:36:00) pH Urine Dipstick: 5 (08/09/20 10:36:00) Diagnostic Results Urinalysis today is negative for infection. I reviewed the office notes and physical exam from Dr. Baig. [facility] Comment on above: Result Comment: Elec tronically Signed By: Gab Dimas Jr., MD\.br\Date and Time Signed: 08/09/20 11:49 EST\.br\Electronically Co-Signed By: Negar Tabor MA\.br\Date and Time Co-Signed: 08/09/20 11:33 EST Mainor 09-13-2019 CNPN Telephone (COVPRABHUD) ----- LEYDI GAGE ([id number]) 1975 F Date Time Provider Department 09/13/19 SHELTON YEBOAH ([facility]) COVOSMAR During your visit today, we recorded [...] Fully Assessed Reason for Visit: Covid-19 Hotline [9325] Prescriptions as of 09/13/2019 Sig: NITROFURANTOIN MACROCRYSTAL 1* Take 100 mg by mouth. CLOBEX 0.05 % SHAMPOO use as shampoo EOD CLOBETASOL 0.05 % SCALP SOLUT* apply to affected areas BID Problem List As Of Date: 09/13/2019 (None) Encounter Status:Closed by [facility] LEYDI GAGE ([id number]) 1975 F Date Time Provider Department 09/13/19 SHELTON YEBOAH ([facility]) COVOSMAR During your visit today, we recorded the following information about you: Allergies As of Date: 09/13/2019 Noted Allergy Reaction CIPROFLOXACIN 04/02/2019 12 - Shortness of Breath METRONIDAZOLE 04/02/2019 2 - Rash ADHESIVE TAPE-SILICONES 04/02/2019 2 - Rash AMOXICILLIN 04/17/2005 2 - Rash ERYTHROMYCIN 02/05/2017 2 - Rash Date Reviewed: 09/13/2019 Reviewed by: Deondre (Destiny) Prasanna - Fully Assessed Reason for Visit: Covid-19 Hotline [0020] Prescriptions as of 09/13/2019 Sig: NITROFURANTOIN MACROCRYSTAL 1* Take 100 mg by mouth. CLOBEX 0.05 % SHAMPOO use as shampoo EOD CLOBETASOL 0.05 % SCALP SOLUT* apply to affected areas BID Problem List As Of Date: 09/13/2019 (None) Encounter Status:Closed by SHELTON YEBOAH on 09/13/19 [facility] PROGRESSon 09-13-2019 PROGRESS HNO ID: [id number] Author: Deondre (Destiny) Prasanna Service: ? Author Type: Nurse Practitioner Type: Progress Notes Filed: 09/13/2019 7:44 AM Note Text: This Team Access Model visit is a virtual encounter. It required patient-provider interaction for the medical decision making as documented below. [employer] HIPAA secured video was used for evaluation of this patient. Telemedicine Evaluation for COVID-19 Infection SUBJECTIVE: Leydi Gage is an 43 year old who presents with an illness that began 7 day(s) ago and are gradually worsening since that time. Pt reports she was at [place] ED and was told she possibly has [...] novel coronavirus infection (COVID-19). SIGNATURE: Deondre Mims APRN.LONG FILLER CIGAR ROLLER MACHINE DATE: September 13, 2019 [facility] Coding Summaryon 03-14-2017 Coding Summary CODING DATE: [facility] STATUS: Home PAYOR: Medicaid HMO ADMIT [...] Viviana Maloney Date Saved: 03/14/2017 06:[address] [facility] Coding Summary CODING DATE: 017 [facility] STATUS: Home PAYOR: Medicaid HMO ADMIT [...] Viviana Maloney Date Saved: 03/14/2017 06:[address] [facility] ED Clinical Summaryon 2016 ED Clinical Summary [facility] - Emergency [address] [place] [address] ed Clinical SummaryPERSON INFORMATIONName: LEYDI GAGE Age: 41 Years Sex: FEMALEDOB: [birth year] MRN: Acct#:Visit Reason: General medical; C/O LEFT ARM PAIN/SWELLING Arrival:03/02/17 13:52:00 Discharge: 03/02/17 15:00:00LOS: 000 01:08 Check In: 03/02/17 13:52:00 Checkout:03/02/17 15:00:00Address:[address] [facility] [address]ABZ: Chuckie Gonzalez MDPROVIDER INFORMATIONProvider Role Assigned UnassMalina [...] Syndrome; Wrist Pain; ContusionFollow-Up:With: Address: When:Chuckie Gonzalez [address] [place] [address] [facility] () Within 3 to 5 daysComments:Follow-up with primary care physician in 3-5 days. Ice to affected areas. Cock-up splint as needed. Tylenol or ibuprofen as needed for pain. Return if any concerns or worsening.DIAGNOSIS:Comme nt: Normal [facility] ED Note - Physicianon 2016 ED Note - Physician Patient: LEYDI GAGE : 41 years Sex: FEMALE : [birth year]Associated Diagnoses: NoneAuthor: Malina Fields MDBasic InformationTime seen: Date & time 03/02/17 14:06:00.History source: Patient.Arrival mode: Private vehicle.History limitation: None.Additional information: Chief Complaint from Nursing Triage Note : Chief Bjkyypeiy17/23/17 13:54 EDT Chief Complaint Pt complains of pain and swelling to left wrist for 15 minutes. Denies injury. Says she is worried she has blood clot. 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 Patient is right-handed. There is no evidence [...] tunnel given the patient is a waiter/waitress informal and carries trays repetitively on her left [...] on: 03/03/2017 11:48 EDT] Malina Barillas MD [facility] ED Note-Nursingon 03-02-2017 ED Note-Nursing Pt discharged to [facility]. Instructions given to pt who verbalized understanding. Pt walks out with Spouse. [facility] ED Patient Education Noteon 03-02-2017 ED Patient Education Note Education MaterialsMusculoskeletalW rist SplintA splint is a medical records library professor that keeps an injured part of your [...] Document Reviewed: 09/07/2014Hannah Interactive Patient Education ?2016 [employer].RICE for Routine Care of InjuriesThe?routine care?of?many?injuries?inc [...] Document Reviewed: 05/04/2015Hannah Interactive Patient Education ?2016 [employer].Carpal Tunnel SyndromeCarpal tunnel syndrome is a [...] the splint clean and dry.General Instructions? Take iavx-gxr-imntthb and prescription medicines only as told by [...] Document Reviewed: 10/12/2015Hannah Interactive Patient Education ?2016 [employer].Wrist PainThere are many things that can cause [...] if they turn cold or blue.? Take leqs-rrc-lbmhmbp and prescription medicines only as told by [...] Document Reviewed: 10/12/2015Hannah Interactive Patient Education ?2016 [employer].ContusionA contusion is a deep bruise. Contusions [...] This is often called the RICE strategy. Eyrw-ixs-oxawhzv anti-inflammatory medicines may also be recommended for [...] you are sitting or lying down.? Take xnmi-wrj-owijhdz and prescription medicines only as told by [...] Document Reviewed: 10/12/2015Hannah Interactive Patient Education ?2016 [employer]. Normal [facility] ED Patient Summaryon 017 ED Patient Summary [facility] [address] [place] [address] pATIENT DISCHARGE INSTRUCTIONSPatient InformationName: LEYDI GAGE Age: 41 YearsDate of : [birth year]MRN: [id number] Visit: General medical; C/O LEFT ARM PAIN/SWELLINGArrival Time: 03/02/17 13:52:00Phone: Primary Care Physician: Chuckie Gonzalez Physician: Malina Fields MDComment:Visit Diagnosis:Diagnoses This Visit General medical ([id number])If you received any narcotics, sedation, or any [...] sign any legal documentsWith: Address: When:Chuckie Gonzalez [facility] [place] [address] Business (1) Within 3 to 5 daysComments:Follow-up with primary care physician in 3-5 days. Ice to affected areas. Cock-up splint as needed. Tylenol or ibuprofen as needed for pain. Return if any concerns or worsening.Medication Information:The exam and treatment you received today in the [facility] Emergency Department were for an urgent problem and are not intended as complete care. It is important for you to follow up with a doctor, nurse practitioner, or physician?s physiotherapy assistant for ongoing care. If your symptoms [...] number so we can reach you if necessary.[facility] Emergency Department has provided you with a complete list of medications post discharge. Please inform your reel cart operator/provider of your visit and for further instruction [...] foundPatient EducationWrist SplintA splint is a medical records library professor that keeps an injured part of your [...] Document Reviewed: 09/07/2014Hannah Interactive Patient Education ?2016 [employer].RICE for Routine Care of InjuriesThe?routine care?of?many?injuries?inc [...] Document Reviewed: 05/04/2015Hannah Interactive Patient Education ?2016 [employer].Carpal Tunnel SyndromeCarpal tunnel syndrome is a [...] the splint clean and dry.General Instructions? Take wdkk-gps-cpelmwu and prescription medicines only as told by [...] Document Reviewed: 10/12/2015Connorevmarlo Interactive Patient Education ?2016 [employer].Wrist PainThere are many things that can [...] if they turn cold or blue.? Take qpsi-fzn-wbggxat and prescription medicines only as told by [...] Document Reviewed: 10/12/2015Hannah Interactive Patient Education ?2016 [employer].ContusionA contusion is a deep bruise. Contusions [...] This is often called the RICE strategy. Ezqi-you-jbrizxr anti-inflammatory medicines may also be recommended for [...] you are sitting or lying down.? Take eckx-sup-nibspdj and prescription medicines only as told by [...] Document Reviewed: 10/12/2015Connorevmarlo Interactive Patient Education ?2016 [employer]. Viruses or BacteriaWhat?s got you sick?Antibiotics only [...] for Disease Control and Prevention February [address] [facility] XR Wrist Complete Lefton XR [...] ORARTICULAR ABNORMALITY.2. FOLLOW-UP NEEDED.Joshua Howard MDJOB #: [id number]: 03/03/2017T: 03/03/2017 Final Dictated by: Joshua Howard MD SDictated DT/TM: 03/03/17 5:54Signed (Electronic Signature): Joshua Howard MD 03/03/17 9:29 amTechnologist: Santosh PUTNAM [facility] Vital Signs Date Time Vital Sign Value Performing Clinician Facility 11-05-2024 11: Body height 160.02 cm [facility] 11-05-2024 11:02040 Body mass index (BMI) [Ratio] 28.7 kg/m2 [facility] 11-05-2024 11:020400 Body temperature 97.3 [degF] [facility] 11-05-2024 11:02-0400 Body weight 73.53 kg [facility] 11-05-2024 11:02-0400 Diastolic blood pressure 82 mm[Hg] [facility] 11-05-2024 11:02-0400 Heart rate 77 /min [facility] 11-05-2024 11:02-0400 Respiratory rate 18 /min [facility] 11-05-2024 11:02-0400 SaO2% (BldA) [Mass fraction] 99 % [facility] 11-05-2024 11:02-0400 Systolic blood pressure 124 mm[Hg] [facility] 09-08-2024 16:25-0400 Body height 160 cm Mary Rodriguez ACADEMIC ADVISEMENT DIRECTOR Work Phone: [facility] 09-08-2024 16:25-0400 Body mass index (BMI) [Ratio] 28.52 kg/m2 Mary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 FILLER CIGAR ROLLER MACHINE Work Phone: Start: 10-16-2023 Urnls dip stick/tablet rgnt non-auto w/o micrscp Jesús Lockhart APRN-LONG FILLER CIGAR ROLLER MACHINE Work Phone: Start: 10-16-2023 Adult depression screening assessment Jesús Lockhart SWIFT TENDER-LONG FILLER CIGAR ROLLER MACHINE Work Phone: Start: 06-19-2023 Adult depression screening assessment Ramya Barnes SWIFT TENDER-TIE IN MACHINE OPERATOR Work Phone: Start: 05-24-2023 Mammography Harrisondigna Gonzalez ACADEMIC ADVISEMENT DIRECTOR Work Phone: Start: 12-04-2022 H/O: hysterectomy History of hysterectomy Harrison Gonzalez ACADEMIC ADVISEMENT DIRECTOR Work Phone: Start: 12-04-2022 History of cholecystectomy Hx laparoscopic cholecystectomy Ramya Barnes SWIFT TENDER-TIE IN MACHINE OPERATOR Work Phone: Start: 04-14-2019 Mammography Ramya Barnes SWIFT TENDER-TIE IN MACHINE OPERATOR Work Phone: Plan of Treatment Date Care Activity Detail Author Start: 12-28-2030 DTaP,Tdap and Td Vaccines (2 - Tdap) DTaP,Tdap and Td Vaccines (2 - Tdap) [facility] Start: 07-28-2025 Adult BMI Screening Adult BMI Screen ing [facility] Start: 07-28-2025 Depression Screening Depression Scre ening [facility] Start: 07-28-2025 Tobacco Screening Tobacco Screening [facility] Start: 05-26-2025 Screening for malign ant neoplasm of breast Mammogram [facility] Start: 03-16-2025 End: 03-16-2025 Patient encounter procedure 03/16/2025 4:00 PM EDT Office Visit [facility] [address] [place] [address] Mary Rodriguez NP [address] [place] [id number] [facility] Start: 12-29-2024 End: 12-29-2024 Patient encounter procedure 12/29/2024 3:20 PM EDT Office Visit [facility] [address] [place] [phone] Shoaib Durham PA [address] [place] [address] [facility] Start: 11-05-2024 Bacteria identified in Urine by Culture Urine Culture [facility] Start: 11-05-2024 Urine culture [facility] Start: 10-15-2024 Adult BMI Follow Up Plan Adult BMI Follow Up Plan [facility] Start: 10-15-2024 Adult BMI Screening Adult BMI Screen ing [facility] Start: 10-15-2024 Depression Screening Depression Scre ening [facility] Start: 10-15-2024 Tobacco Screening Tobacco Screening [facility] Start: 09-23-2024 End: 09-23-2024 Patient encounter procedure [facility] Comment on above: Arrived Start: 09-08-2024 End: 09-08-2024 Patient encounter procedure [facility] Comment on above: Arrived Start: 09-03-2024 Adult BMI Screening Adult BMI Screen ing [facility] Start: 09-03-2024 Tobacco Screening Tobacco Screening [facility] Start: 08-19-2024 End: 08-19-2024 Patient encounter procedure [facility] Comment on above: Arrived Start: 08-10-2024 End: 08-10-2024 Patient encounter procedure 08/10/2024 8:40 AM EST Office Visit [facility] [address] [place] [phone] Harrison Gonzalez NP [address] [place] [address] [facility] Start: 07-28-2024 End: 07-28-2025 DBT Breast - bilateral screening Mammography screening bilateral with CAD Imaging Routine Encounter for screening mammogram for malignant neoplasm of breast Expected: 07/28/2024, Expires: 07/28/2025 [facility] Comment on above: Expected: 07/28/2024 , Expires: 07/28/2025 Start: 07-16-2024 End: 07-16-2024 Patient encounter procedure 07/16/2024 2:50 PM EST Office Visit [facility] [address] [place] [address] Shoaib Durham PA [address] [place] [address] [facility] Start: 07-14-2024 End: 07-14-2024 Patient encounter procedure 07/14/2024 3:00 PM EST Office Visit [facility] [address] [place] [address] Qi Red MD [address] [place] [address] [facility] Start: 06-19-2024 Adult BMI Screening Adult BMI Screen ing [facility] Start: 06-19-2024 Depression Screening Depression Scre ening [facility] Start: 06-19-2024 Tobacco Screening Tobacco Screening [facility] Start: 06-16-2024 End: 06-16-2024 Patient encounter procedure 06/16/2024 2:40 PM EST Office Visit [facility] [address] [place] [phone] Harrison Gonzalez, DESTINY [address] [place] [address] [facility] [place] [address] Start: 05-24-2024 Screening for malign ant neoplasm of breast Mammogram [facility] Start: 02-09-2024 Influenza vaccination Influenza Vacc ine [facility] Start: 10-16-2023 End: 10-16-2023 Patient encounter procedure 10/16/2023 2:45 PM EDT Office Visit [facility] [address] [place] [address] Marleni Zavala MD [address] [facility] [address] [facility] Start: 09-04-2023 End: 09-04-2023 Patient encounter procedure 09/04/2023 11:30 AM EDT [facility] [address] [place] [address] [place] [address] [place] [address] [facility] Start: 04-14-2020 Screening for malign ant neoplasm of breast Mammogram [facility] Start: 1994 Adult BMI Follow Up Plan Adult BMI Follow Up Plan [facility] Start: 1976 Screening for malign ant neoplasm of colon [facility] Atopobium vaginae DN A [Presence] in Vaginal fluid by CA with probe detection [facility] Bacteria identified in Urine by Culture Urine Culture [facility] Bacterial vaginosis associated bacterium 2 DNA [Presence] in Vaginal fluid by AC with probe detection [facility] End: 07-28-2025 CBC W Auto Differential panel - Blood CBC auto differential Lab Routine Blood tests for routine general physical examination 1 Occurrences starting 07/28/2024 until 07/28/2025 [facility]: 1 Occurrences starti ng 07/28/2024 until 07/28/2025 End: 07-28-2025 Comprehensive metabolic 2000 panel - Serum or Plasma Comprehensive metabolic panel Lab Routine Blood tests for routine general physical examination 1 Occurrences starting 07/28/2024 until 07/28/2025 Fonality Comment on above: 1 Occurrences starti ng 07/28/2024 until 07/28/2025 End: 07-28-2025 Cyanocobalamin vitamin b-12 Vitamin B12 Lab Routine B12 deficiency 1 Occurrences starting 07/28/2024 until 07/28/2025 [employer] Work Phone: Comment on above: 1 Occurrences starti ng 07/28/2024 until 07/28/2025 End: 07-28-2025 Hemoglobin A1c/Hemoglobin.total in Blood Hemoglobin A1c Lab Routine Blood tests for routine general physical examination 1 Occurrences starting 07/28/2024 until 07/28/2025 Fonality Comment on above: 1 Occurrences starti ng 07/28/2024 until 07/28/2025 End: 07-28-2025 Lipid 1996 panel - Serum or Plasma Lipid profile Lab Routine Blood tests for routine general physical examination 1 Occurrences starting 07/28/2024 until 07/28/2025 [facility] Comment on above: 1 Occurrences starti ng 07/28/2024 until 07/28/2025 Megasphaera sp type 1 DNA [Presence] in Vaginal fluid by AC with probe detection [facility] End: 07-28-2025 Thyrotropin [Units/volume] in Serum or Plasma TSH Lab Routine Blood tests for routine general physical examination 1 Occurrences starting 07/28/2024 until 07/28/2025 [facility] Comment on above: 1 Occurrences starti ng 07/28/2024 until 07/28/2025 End: 07-29-2025 Vitamin D 25 hydroxy Vitamin D 25 hydroxy Lab Routine Vitamin D deficiency 1 Occurrences starting 07/28/2024 until 07/29/2025 [facility] Comment on above: 1 Occurrences starti ng 07/28/2024 until 07/29/2025 [facility] Immunizations Immunization Date Immunization Notes Care Provider Fa [facility] 06-05-2023 tuberculin skin test ; purified protein derivative solution, intradermal Ramya Barnes SWIFT TENDER-TIE IN MACHINE OPERATOR Work Phone: [facility] 05-24-2023 hepatitis B vaccine, adult dosage Ramya Barnes SWIFT TENDER-TIE IN MACHINE OPERATOR Work Phone: [facility] 05-24-2023 influenza, injectabl e, quadrivalent, preservative free Ramya Barnes SWIFT TENDER-TIE IN MACHINE OPERATOR Work Phone: [facility] 05-24-2023 tuberculin skin test ; purified protein derivative solution, intradermal Ramya Barnes SWIFT TENDER-TIE IN MACHINE OPERATOR Work Phone: [facility] 05-24-2023 influenza virus vaccine, unspecified formulation Jesús Lockhart SWIFT TENDER-LONG FILLER CIGAR ROLLER MACHINE Work Phone: [facility] 03-12-2022 influenza, injectabl e, quadrivalent, preservative free Ramya Barnes SWIFT TENDER-TIE IN MACHINE OPERATOR [facility] 05-24-2021 COVID-19 Vaccine Pfizer - Documentation Purposes Only Lenin Adkins Other [facility] 05-16-2021 hepatitis B vaccine, adult dosage Ramya Barnes SWIFT TENDER-TIE IN MACHINE OPERATOR Work Phone: [facility] 04-13-2021 hepatitis B vaccine, adult dosage Lenin Adkins Other [facility] 03-31-2021 influenza, injectabl e, quadrivalent, preservative free Ramya Barnes SWIFT TENDER-TIE IN MACHINE OPERATOR Work Phone: [facility] 12-28-2020 diphtheria, tetanus toxoids and pertussis vaccine Lenin Adkins Other [facility] 01-08-2014 Depo-Medrol 80 mg Brionnaedgar Casas Other [employer] Other 12-26-2013 KENALOG - 10 mg Brionnaeleanor hayes Other [employer] Other Payers Date Payer Category Payer Medicaid [id number] 2022 Medicaid [id number] 2014 Unknown [id number] 1976 Unknown [id number] 1975 Unknown [id number] .16.84 0.1.790765.3.579.2.593 1975 Unknown [id number] 2.16.84 0.1.609970.3.579.2.593 1975 Unknown [id number] .16.84 0.1.847151.3.579.2.593 1976 Unknown [id number] .16.84 0.1.481552.3.579.2.593 1976 Unknown [id number] 2.16. 840.1.458060.3.579.2.1286 1976 Unknown [id number] 2.16.8 40.1.181718.3.579.2.1286 1976 Unknown [id number] 2.16.8 40.1.035100.3.579.2.1286 1976 Unknown [id number] 2.16. 840.1.297776.3.579.2.1286 1976 Unknown [id number] 2.16.8 40.1.469995.3.579.2.1286 1976 Unknown [id number] 2.16.84 0.1.025578.3.579.2.9 1976 Unknown [id number] 2.16.84 0.1.241464.3.579.2.9 1976 Unknown [id number] 2.16.84 0.1.984676.3.579.2.1259 1976 Unknown [id number] 2.16.84 0.1.333529.3.579.2.1259 1976 Unknown [id number] 2.16.84 0.1.293281.3.579.2.9 1976 Unknown [id number] 2.16.84 0.1.377430.3.579.2.1259 1976 Unknown [id number] 2.16.84 0.1.768877.3.579.2.1259 1958 Medicaid [id number] Self-pay [id number] Unknown Unknown [id number] 2.1 6.840.1.466799.19 Unknown [id number] 2.16.84 0.1.257518.3.579.2.593 Unknown [id number] 2.16.8 40.1.279639.3.579.2.531 Social History Date Type Detail Facility Unknown if ever smoked [facility] [employer] Other Start: 10-02-2023 End: 09-23-2024 Sex Assigned At [facility] [employer] Other Start: 1975 Sex Assigned At Female [facility] Start: 10-01-2023 End: 06-21-2024 Tobacco smoking status NHIS Never smoked tobacco [facility] Start: 06-19-2023 End: 10-01-2023 Tobacco use and exposure Smokeless tobacco non-user [facility] Start: 10-02-2023 End: 08-19-2024 Alcoholic beverage intake Lifetime non-drinker (finding) [facility] Start: 10-02-2023 End: 09-23-2024 History of Social function [facility] Start: 10-01-2023 Alcohol Comment caffeine: 1-2 cups per day [facility] Start: 12-05-2022 Gender identity Identifies as female gender (finding) [facility] Start: 12-05-2022 Sexual orientation Heterosexual (finding) [facility] Start: 06-21-2024 End: 11-06-2024 Sex Female (finding) [facility] Adolescent depressio n screening assessment 0 [facility] Start: 04-02-2019 Alcohol Comment rarely [facility] Start: 1975 Sex Assigned At Not on file [facility] Start: 10-16-2023 End: 09-23-2024 Alcoholic beverage intake Ex-drinker (finding) [facility] Clinical Notes 07-19-2016 to 11-05-2024 Note Date & Type Note Facility 11-05-2024 Evaluation note Diagnosis Onset Date Resolution Dysuria noneactive November 05, 2024 10:54am [facility] Work Phone: [phone] 169-883204-16-2025 History of Present illness Narrative* RICH Mendoza - 09/23/2024 3:00 PM EDT Images from the original note were not included. Follow up Diagnosis: Alopecia Location: scalp Last visit: 1 month ago Symptoms: may have some new regrowth; patient reports a hump around where injections have been thatis tender, pt also reports that her left cheek and lips were tingling and numb on and off last week Status: unsure Procedure performed: Intralesional Kenalog 0.8 cc of 2.5 mg Number of treatments to date: 2 Current treatment: Opzelura (patient given sample at last visit--reports she is applying it nightly) Follow up Diagnosis: Atopic Dermatitis Location: Left Lower Leg, Right Lower Leg Last visit: 1 month ago Symptoms: red, scaly, itchy Status: no change Treatments tried and failed: Dermasmoothe from DP, TAC 0.1% cream Current treatment: Protopic ointment daily (admits to not using daily because she's afraid the medication will discolor the skin) All pertinent medical history, medications, and allergies were reviewed. General Exam: alert, oriented to person, place, and time, normal affect, well appearing Unaccompanied A focused exam completed based on patient reported problems, see below: Skin Exam 1. OTHER ALOPECIA AREATA Mid Parietal Scalp Round, patchy areas of nonscarring hair loss. Improved since last visit The patient was counseled that alopecia areata is an autoimmune condition that causes hair loss. Treatments include topical or intralesional steroid injections. Continue Opzelura samples once daily in the affected areas. Recommend patient follow up with PCP or go to UC/ER for any tingling/numbness that occurs in the face. Explained that intralesional kenalog would not cause this symptom. Due to patient noticing atrophy in area of injection, will avoid any further ILK at this point. The lump that patient was concerned about in area of injection is not present today. Instructed to notify office if it returns. Related Medications triamcinolone acetonide (Kenalog) injection 10 mg 2. OTHER ATOPIC DERMATITIS Chest - Medial (Center), Gluteal Crease, Left Lower Leg - Anterior, Right Lower Leg - Anterior Scaly erythematous plaques +/- dyspigmentation, lichenification, excoriations. Flaring today. BSA 10% Discussed that atopic dermatitis is a chronic condition that can be controlled but not cured. Patient has tried and failed Triamcinolone cream and Protopic. Has used twice daily with no relief. StartOpzelura cream once daily, sample given today. Encouraged daily moisturizing and gentle cleansers to prevent flares. Notify office if flaring despite treatment. RTC 3 months. Related Medications triamcinolone (Kenalog) 0.1 % cream Apply to affected areas, up to twice a day when flared, do not use one the face, groin, or underarms, 30 day supply tacrolimus (Protopic) 0.1 % ointment Apply topically 2 (two) times a day Apply to affected areas bid prn when flared Ruxolitinib Phosphate (Opzelura) 1.5 % cream Apply to affected areas, twice a day when flared, 30 day supply Next Visit: 3 months documented in this encounterSaint Luke's [id number] NoteConsent: The risks and benefits of intralesional kenalog [...] Amount injected (mL): 0.8 # lesions injected: 1[facility] [id number] NoteConsent: The risks and benefits of intralesional kenalog [...] Amount injected (mL): 0.8 # lesions injected: 1[facility] [id number] History of Present illness Narrative* Shoaib RICH Durham - 08/19/2024 2:50 PM EDT Images from the original note were not included. Follow up Diagnosis: Atopic Dermatitis Location: Chest - Medial (Center), Gluteal Crease, Left Lower Leg - Anterior, Right Lower Leg - Anterior Last visit: 1 month ago Symptoms: red, scaly Status: no change Current treatment: Triamcinolone 0.1% cream admits to only using once daily, BSA 2 %, zest soap in the shower Follow up Diagnosis: Alopecia Location: scalp Last visit: 1 month ago Symptoms: hair loss Status: unsure Procedure performed: Intralesional Kenalog 0.8cc of 2.5 mg Number of treatments to date: 1 Current treatment: Did not start topical Rogaine All pertinent medical history, medications, and allergies were reviewed. General Exam: alert, oriented to person, place, and time, normal affect, well appearing Unaccompanied A focused exam completed based on patient reported problems, see below: 1. Other atopic dermatitis Chest - Medial (Center), Gluteal Crease, Left Lower Leg - Anterior, Right Lower Leg - Anterior Scaly erythematous plaques +/- dyspigmentation, lichenification, excoriations. Flaring today. BSA 2% Discussed that atopic dermatitis is a chronic condition that can be controlled but not cured. Discontinue TAC and start Protopic 0.1% ointment bid prn when flared, hold if smooth/asymptomatic. Encouraged daily moisturizing and gentle cleansers to prevent flares. Notify office if flaring despite treatment. Related Medications triamcinolone (Kenalog) 0.1 % cream Apply to affected areas, up to twice a day when flared, do not use one the face, groin, or underarms, 30 day supply tacrolimus (Protopic) 0.1 % ointment Apply topically 2 (two) times a day Apply to affected areas bid prn when flared 2. Other alopecia areata Mid Parietal Scalp Round, patchy areas of nonscarring hair loss. Improved since last visit The patient was counseled that alopecia areata is an autoimmune condition that causes hair loss. Treatments include topical or intralesional steroid injections. ILK completed today. See MAR for details Start Opzelura samples once daily in the affected areas. Follow up in 4 weeks. Intralesional Kenalog Injection - Mid Parietal Scalp Consent: The risks and benefits of intralesional kenalog were discussed prior to the procedure. Specifically, the risk of skin atrophy was reviewed. It was also emphasized that multiple treatments may be necessary. Verbal consent was obtained from the patient/parent. Method: See [facility] for details on administration. The patient/parents were [...] injected (mL): 0.8 # lesions injected: 1 Related Medications triamcinolone acetonide (Kenalog) injection 10 mg 3. Pain Next Visit: 4 weeks documented in this encounterSaint Luke's [id number] History of Present illness Narrative* Jesús Lockhart, SWIFT [employer]ER[employer] - 07/28/2024 2:40 PM EST Images from the original note were not included. [address] [place] [address] SUBJECTIVE: Patient ID: Leydi Gage is a 48 y.o. female. 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 States she is monitored by dermatology for alopecia and skin rashes. She would like labs done today Does not smoke or consume alcohol. The following portions of the patient's history were reviewed and updated as appropriate: allergies, current medications, past family history, past medical history, past social history, past surgicalhistory and problem list. Past Surgical History: Procedure Laterality Date ANTERIOR AND POSTERIOR REPAIR 2018 BLEPHAROPLASTY Bilateral 10/23/2021 Performed by Meir Tucker DO at [facility] CHOLECYSTECTOMY 03/2018 DILATION AND CURETTAGE OF UTERUS HYSTERECTOMY 05/2018 partial Past Medical History: Diagnosis Date Alopecia Migraine Immunization History Administered Date(s) Administered COVID-19, mRNA, LNP-S, PF, 30mcg/0.3mL Dose 05/24/2021, 06/14/2021 DTP 12/28/2020 Hepatitis B 04/13/2021, 05/16/2021, 05/24/2023 Influenza, Injectable, quadrivalent (PF) 03/31/2021, 03/12/2022, 05/24/2023 PPD Test 05/24/2023, 06/05/2023 REVIEW OF SYSTEMS: Review of Systems Constitutional: Negative for chills and fever. HENT: Negative. Eyes: Negative for visual disturbance. Respiratory: Negative for chest tightness and shortness of breath. Cardiovascular: Negative for chest pain and palpitations. Gastrointestinal: Negative. Endocrine: Negative. Genitourinary: Negative for menstrual problem and pelvic pain. Musculoskeletal: Negative. Skin: Negative. Allergic/Immunologic: Negative. Neurological: Negative for syncope and facial asymmetry. Hematological: Does not bruise/bleed easily. Psychiatric/Behavioral: Negative. PHYSICAL EXAMINATION: Vitals: 07/28/24 1451 BP: 118/58 BP Site: Left Arm BP Postition: Sitting BP CUFF SIZE: M (9-13 inches) Pulse: 78 Resp: 18 Temp: 36.3 C (97.4 F) TempSrc: Oral SpO2: 97% Weight: 74.6 kg (164 lb 8 oz) Height: 160 cm (5' 2.99 ) Patient noted to have elevated BMI and the following intervention(s) were applied: encouragement toexercise. Physical Exam Vitals and nursing note reviewed. Constitutional: General: She is not in acute distress. Appearance: She is well-developed. She is not diaphoretic. HENT: Head: Normocephalic and atraumatic. Right Ear: Tympanic membrane and external ear normal. Left Ear: Tympanic membrane and external ear normal. Nose: Nose normal. Mouth/Throat: Mouth: Mucous membranes are moist. Pharynx: No oropharyngeal exudate. Eyes: General: Right eye: No discharge. Left eye: No discharge. Conjunctiva/sclera: Conjunctivae normal. Pupils: Pupils are equal, round, and reactive to light. Neck: Thyroid: No thyromegaly. Vascular: No JVD. Cardiovascular: Rate and Rhythm: Normal rate and regular rhythm. Heart sounds: Normal heart sounds. No murmur heard. No friction rub. No gallop. Pulmonary: Effort: Pulmonary effort is normal. Breath sounds: Normal breath sounds. Abdominal: General: Bowel sounds are normal. There is no distension. Palpations: Abdomen is soft. There is no mass. Tenderness: There is no abdominal tenderness. Musculoskeletal: General: Normal range of motion. Cervical back: Normal range of motion and neck supple. Lymphadenopathy: Cervical: No cervical adenopathy. Skin: General: Skin is warm and dry. Capillary Refill: Capillary refill takes less than 2 seconds. Neurological: Mental Status: She is alert and oriented to person, place, and time. Deep Tendon Reflexes: Reflexes are normal and symmetric. Psychiatric: Mood and Affect: Mood normal. Behavior: Behavior normal. Thought Content: Thought content normal. Judgment: Judgment normal. ASSESSMENT/PLAN: Leydi was seen today for annual exam. Diagnoses and all orders for this visit: Annual physical exam B12 deficiency - Vitamin B12; Future Vitamin D deficiency - Vitamin D 25 hydroxy; Future Blood tests for routine general physical examination - Comprehensive metabolic panel; Future - CBC auto differential; Future - Lipid profile; Future - Hemoglobin A1c; Future - TSH; Future Encounter for screening mammogram for malignant neoplasm of breast - Mammography screening bilateral with CAD; Future Colonoscopy screening discussed today. Risk and benefits of procedure explained. Patient declines Body mass index is 29.15 kg/m . Patient noted to have elevated BMI and the following intervention(s) were applied: Discussed current weight today. Consider healthy food choices, portion control. Avoid sugary beverages and high concentrated sweets. Routine exercise regimen encouraged. Labs drawn in office today. ALL QUESTIONS ANSWERED Total time spent was 30 minutes: Preparing to see the patient (e.g., review of tests) Obtaining and/or reviewing separately obtained history Performing a medically appropriate examination and/or evaluation Counseling and educating the patient/family/caregiver Ordering medications, tests, or procedures Follow-up: One year. LAUREN Townsend 07/28/24 1600 [facility] NoteConsent: The risks and benefits of intralesional kenalog were discussed prior to the procedure. Specifically, the risk of skin atrophy was reviewed. It was also emphasized that multiple treatments may be necessary. Verbal consent was obtained from the patient/parent. Method: See [facility] for details on administration. The patient/parents were instructed to massage the injection site(s) following the procedure. Instructed to call for any questions or problems that occur. Areas injected: Mid Occipital Scalp Concentration injected: See MAR for details on administration. The patient/parents were instructed to massage the injection site(s) following the procedure. Instructed to call for any questions or problems that occur. Amount injected (mL): 0.8 # lesions injected: 1[facility] [id number] NoteConsent: The risks and benefits of intralesional kenalog [...] or problems that occur. Areas injected: Mid Occipital Scalp Concentration injected: See MAR for details on administration. The patient/parents were instructed to massage the injection site(s) following the procedure. Instructed to call for any questions or problems that occur. Amount injected (mL): 0.8 # lesions injected: 1NS[facility] [id number] History of Present illness Narrative* RICH Mendoza - 07/16/2024 2:50 PM EST Hair Loss Location: scalp; pt dx with alopecia areata in the past Duration: comes and goes over the years (since 2006) Severity: localized Associated factors: denies recent stressful event , denies pulling hair , denies rash on scalp; patient reports that it is itchy and tender and warm to touch Treatments used: kenalog injections by DP (pt reports that she did about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 Medicine 09/23/23 Ramya Garnett MD [address] [place] [address] PCP - NOMBrittany Mcmahan [facility] 09/09/23 Merced Ny DO [address] [address] Referring Physician Neurology 09/23/23 Harrison Gonzalez NP [address] [address] Nurse Practitioner Neurology 04/15/24 Mary Rodriguez NP [address] [phone] Nurse Practitioner Neurology 04/15/24 Pedodontist Relationship Specialty Start Date End Date Brionna Casas APRN-CLAY [address] [place] [address] PCP - General Family Medicine 10/18/21 Pedodontist Relationship Specialty Start Date End Date Ramya Barnes, [facility] [address] [place] [address] PCP - General Internal Medicine 10/16/23 Pedodontist Relationship Specialty Start Date End Date AugustoBrionna boyer [facility] [address] [place] [address] PCP - General Family Medicine 10/18/21 Pedodontist Relationship Specialty Start Date End Date AugustoBrionna [facility] [address] [place] [address] PCP - General Family Medicine 10/18/21 Pedodontist Relationship Specialty Start Date End Date AugustoBrionna [facility] [address] [place] [address] PCP - General Family Medicine 10/18/21 Pedodontist Relationship Specialty Start Date End Date Jesús Lockhart, [facility] [address] [place] [address] PCP - General Family Medicine 05/27/24 Pedodontist Relationship Specialty Start Date End Date Unallocated, Noms MD Carmita [address] [place] [address] PCP - General Family Medicine 09/23/23 Ramya Garnett MD [address] [place] [address] PCP - NOMBrittany Mcmahan [facility] 09/09/23 Merced Ny DO [address] [address] Referring Physician Neurology 09/23/23 Harrison Gonzalez, DESTINY [address] [address] Nurse Practitioner Neurology 04/15/24 Mary Rodriguez, DESTINY [address] [phone] Nurse Practitioner Neurology 04/15/24 Pedodontist Relationship Specialty Start Date End Date Unallocated, Noms MD Carmita [facility] [place] [address] PCP - General Family Medicine 09/23/23 Ramya Garnett MD [address] [place] [address] PCP - [facility] Martir [facility] 09/09/23 Merced Ny DO [address] [address] Referring Physician Neurology 09/23/23 Harrison Gonzalez, DESTINY [address] [address] Nurse Practitioner Neurology 04/15/24 Mary Rodriguez NP [address] [phone] Nurse Practitioner Neurology 04/15/24 Pedodontist Relationship Specialty Start Date End Date Unallocated, [place] [address] PCP - General Family Medicine 09/23/23 Ramya Garnett MD [address] [place] [address] PCP - SHITAL Mcmahan [facility] 09/09/23 Merced Ny DO [address] [address] Referring Physician Neurology 09/23/23 Harrison Gonzalez, DESTINY [address] [address] Nurse Practitioner Neurology 04/15/24 Mary Rodriguez NP [address] [phone] Nurse Practitioner Neurology 04/15/24 Pedodontist Relationship Specialty Start Date End Date Unallocated, Shital Vizcarra MD [facility] [place] [address] PCP - General Family Medicine 09/23/23 Ramya Garnett MD [address] [facility] [place] [address] PCP - NOMBrittany Mcmahan [facility] 09/09/23 Merced Ny DO [address] [address] Referring Physician Neurology 09/23/23 Harrison Gonzalez, DESTINY [address] [address] Nurse Practitioner Neurology 04/15/24 Mary Rodriguez NP [address] [phone] Nurse Practitioner Neurology 04/15/24 Pedodontist Relationship Specialty Start Date End Date Unallocated, Shital Vizcarra MD [address] [place] [address] PCP - General Family Medicine 09/23/23 Ramya Garnett MD [address] [place] [address] PCP - SHITAL Mcmahan [facility] 09/09/23 Merced Ny DO [address] [address] Referring Physician Neurology 09/23/23 Harrison Gonzalez, DESTINY [address] [place] [address] Nurse Practitioner Neurology 04/15/24 Mary Rodriguez NP [address] [phone] Nurse Practitioner Neurology 04/15/24 Pedodontist Relationship Specialty Start Date End Date Unallocated, Shital Vizcarra MD [address] [place] [address] PCP - General Family Medicine 09/23/23 Ramya Garnett MD [address] [place] [address] PCP - SHITAL Mcmahan [facility] 09/09/23 Merced Ny DO [address] [address] Referring Physician Neurology 09/23/23 Harrison Gonzalez NP [address] [place] [address] Nurse Practitioner Neurology 04/15/24 Mary Rodriguez NP [address] [phone] Nurse Practitioner Neurology 04/15/24 Team Status: Active Member Role Status Dates WAI Townsend Primary Care Provider Active Team Status: Inactive Member Role Status Dates Janett Nugent APRN Attending Provider Active Start: November 05, 2024 End: November 05, 2024 WAI Townsend Primary Care Provider Active Start: November 05, 2024 End: November 05, 2024 Team Status: Inactive Member Role Status Dates Janett Nugent APRN Attending Provider Active Start: November 05, 2024 End: November 05, 2024 Goals (unrecognized section and content) Goals [...] BE BASED ON THE PRIMARY CLINICAL RECORDS. [facility] [employer] [facility]. provides no warranty or guarantee of the accuracy or completeness of information in this document.
--- NOTE | 2024-11-10 05:29 | ED.GENADUL1 ---
HPI HPI - General Adult General Chief complaint: Back Pain/Injury Stated complaint: R BACK PAIN, FREQUENT URINATION Time Seen by Provider: 11/10/24 05:24 Source: patient Mode of arrival: walk-in Limitations: no limitations History of Present Illness HPI narrative: seen at urgent care 5 days ago and prescribed macrobid for UTI. returned to Urgent care a couple of days later and antibiotic changed to Bactrim based on culture results. Now presents with nausea and right flank pain. No fever or diarrhea. Related Data Home Medications ?Medication ?Instructions ?Recorded ?Confirmed rimegepant 75 mg disintegrating 75 mg PO DAILY PRN migraine 04/07/24 04/07/24 tablet (Nurtec ODT) headache sulfamethoxazole 800 tab 11/10/24 mg-trimethoprim 160 mg tablet Allergies Allergy/AdvReac Type Severity Reaction Status Date / Time amoxicillin Allergy Severe Unknown Verified 11/10/24 05:12 ciprofloxacin (From Cipro) Allergy Severe Unknown Verified 11/10/24 05:12 erythromycin base AdvReac Mild Rash Verified 11/10/24 05:12 Opioid HPI Opioid Management Most Recent Opioid Data: Last Pain Scale 2 Today, 05:29 Review of Systems ROS Status of ROS 10 or more systems reviewed and unremarkable except as noted in history and below PFSH PFSH Social History Smoking status: Never smoker Little interest or pleasure in doing things: not at all Feeling down, depressed, or hopeless: not at all Exam Constitutional Vital Signs, click to edit/add: Last Vital Signs Temp 97.9 F 11/10/24 05:07 Pulse 77 11/10/24 06:09 Resp 18 11/10/24 06:09 BP 118/82 11/10/24 06:30 Pulse Ox 97 11/10/24 06:40 O2 Del Method Room Air 11/10/24 05:07 Common normals: no apparent distress, average body habitus, oriented x3, no limitations, healthy appearing, alert and well nourished [facility] Common normals: normocephalic and head/scalp atraumatic Eye Common normals: EOMs intact bilaterally and conjunctivae normal Respiratory Common normals: normal respiratory effort, no retractions, no use of accessory muscles and clear to auscultation bilaterally Cardio Common normals: regular rate, regular rhythm, S1 normal heart sound and S2 normal heart sound GI Common normals: Normal to inspection, nondistended, normoactive bowel sounds present and soft to palpation GI image (female):  1. mild tenderness Back & Pelvis Common normals: no CVA tenderness Extremity Common normals: normal to inspection and full ROM Neuro Common normals: oriented x3, CN's II-XII intact bilaterally, moves all extremities and no focal motor deficits Psych Appearance: grossly normal Course Vital Signs Vital signs: Vital Signs Temperature 97.9 F 11/10/24 05:07 Pulse Rate 93 H 11/10/24 05:07 Respiratory Rate 18 11/10/24 05:07 Blood Pressure 139/84 11/10/24 05:07 Pulse Oximetry 97 11/10/24 05:07 Oxygen Delivery Method Room Air 11/10/24 05:07 Temperature 97.9 F 11/10/24 05:07 Pulse Rate 77 11/10/24 06:09 Respiratory Rate 18 11/10/24 06:09 Blood Pressure 118/82 11/10/24 06:30 Pulse Oximetry 97 11/10/24 06:40 Oxygen Delivery Method Room Air 11/10/24 05:07 Medical Decision Making MDM Narrative Medical decision making narrative: patient on 2nd course of antibiotics for UTI. Feeling somewhat better but not back to normal and concerned antibiotics not working. Mild right flank tenderness. CT with findings of cystitis and ascending UTI. No pyelonephritis. UA clean. Patient informed antibiotics appear to be working based on UA results, normal WBC and afebrile. Advised to continue antibiotics and follow up with her doctor. Given extra 5 days of bactrim ds bid and also prescription for zofran if needed. Did not require anti emetics while in the department Lab Data Labs: Lab Results 11/10/24 11/10/24 Range/Units 05:15 05:20 WBC 6.4 (4.0-11.0) 10^3/uL RBC 4.48 (4.20-5.40) 10^6/uL Hgb 13.6 (12.0-16.0) g/dL Hct 39.7 (36.0-48.0) % MCV 88.6 (81.0-99.0) fL MCH 30.4 (26.7-34.0) pg MCHC 34.3 (29.9-35.2) g/dL RDW 12.4 (11.0-15.0) % Plt Count 261 (150-450) 10^3/uL MPV 10.4 (9.5-13.5) fL Neut % (Auto) 49.3 (43.0-75.0) % Lymph % (Auto) 29.2 (20.5-60.0) % [place] % (Auto) 12.9 H (1.7-12.0) % Eos % (Auto) 7.8 H (0.9-7.0) % Baso % (Auto) 0.3 (0.2-2.0) % Neut # (Auto) 3.2 (1.4-6.5) 10^3/uL Lymph # (Auto) 1.9 (1.2-3.8) 10^3/uL [place] # (Auto) 0.8 (0.3-0.8) 10^3/uL Eos # (Auto) 0.5 (0.0-0.7) 10^3/uL Baso # (Auto) 0.0 (0.0-0.1) 10^3/uL Abs Immat Gran (auto) 0.03 (0.00-0.03) 10^3/uL Imm/Tot Granulo (auto) 0.5 (0.0-0.5) % Sodium 139 (136-145) mmol/L Potassium 4.0 (3.5-5.1) mmol/L Chloride 103 (98-107) mmol/L Carbon Dioxide 24.0 (21.0-32.0) mmol/L Anion Gap 16.0 BUN 12.0 (7.0-18.0) mg/dL Creatinine 0.81 (0.55-1.02) mg/dL Est GFR ( Amer) >60 (>=60 mL/min/1.73m^2) Est GFR (Non-Af Amer) >60 (>=60 mL/min/1.73m^2) BUN/Creatinine Ratio 14.8 Glucose 86 (74-106) mg/dL Lactate 1.3 (0.4-2.0) mmol/L Calcium 9.2 (8.5-10.1) mg/dL Total Bilirubin 0.4 (0.2-1.0) mg/dL AST 19 (15-37) U/L ALT 25 (14-59) U/L Alkaline Phosphatase 63 (46-116) U/L Total Protein 7.2 (6.4-8.2) g/dL Albumin 3.2 L (3.4-5.0) g/dL Globulin 4.0 g/dL Albumin/Globulin Ratio 0.8 Lipase 22.0 (16.0-77.0) U/L Urine Color Lt. yellow (YELLOW) Urine Clarity Clear (CLEAR) Urine pH 6.5 (5.0-9.0) Ur Specific [place] 1.015 (1.005-1.025) Urine Protein Negative (NEG/TRACE) mg/dL Urine Glucose (UA) Negative (NEGATIVE) mg/dL Urine Ketones Negative (NEGATIVE) mg/dL Urine Occult Blood Negative (NEGATIVE) Urine Nitrite Negative (NEGATIVE) Urine Bilirubin Negative (NEGATIVE) Urine Urobilinogen 0.2 (0.2-1.0) EU/dL Ur Leukocyte Esterase Negative (NEGATIVE) Urine RBC None seen (0-2) #/HPF Urine WBC 0-2 A (NONE SEEN) #/HPF Ur Squamous Epith Cells Moderate A (NONE/RARE) #/LPF Urine Crystals None seen (None Seen) #/HPF Urine Bacteria Trace A (NONE SEEN) #/HPF Urine Casts None seen (NONE SEEN) #/LPF Urine Mucus None seen (NONE SEEN) Ur Culture Indicated? No Imaging Data CT scan - abdomen: Radiologist's impression: ITS Impressions Abdomen/Pelvis CT 11/10/24 05:34 IMPRESSION: Findings are consistent with cystitis with an ascending urinary tract infection. The renal cortices enhance symmetrically without evidence of pyelonephritis, otherwise. Impression dictated by: Vikash Licona M.D. 11/10/2024 6:25 AM Dictation Location: [place] [address] Electronically authenticated by: [id number] Y Date: 11/10/2024 06:25 Discharge Plan Discharge Chief Complaint: Back Pain/Injury Clinical Impression: Cystitis Patient Disposition: Home, Self-Care Prescriptions / Home Meds: No Action Nurtec ODT 75 mg tablet,disintegrating 75 mg PO DAILY PRN (Reason: migraine headache) sulfamethoxazole-trimethoprim 800-160 mg tablet Print Language: Marshallese Instructions: Urinary Tract Infection in Women (ED) Additional Instructions: drink plenty of fluids. follow up with your doctor later this week for recheck Referrals: JESÚS LEVINE [Primary Care Provider, Unknown] - 1 week
--- NOTE | 2024-11-10 05:34 | CT_ITS ---
The [address] [address] Patient Name: ROYCE ARGUELLO MRN: [id number] date: 1975 Sex: F Assigned Patient Location: ER Current Patient Location: ER Accession/Order Number: [id number] Exam Date: 11/10/2024 06:18 Report Date: 11/10/2024 06:25 At the request of: BAILEE LAZAR MD Procedure: CT abdomen pelvis w con CT abdomen pelvis w con 11/10/2024 6:10 AM SIGNS AND SYMPTOMS: ^pyelonephritis, low back pain TECHNIQUE: Multidetector ct axial images of the abdomen and pelvis were obtained with IV contrast. Multiplanar reformats were performed and reviewed to further define anatomy and possible pathology. CT was performed with one or more of the following dose reduction techniques: Automated exposure control, adjustment of the mA and/or kV according to patient size, or use of iterative reconstruction technique. COMPARISON: 06/22/2024. FINDINGS: Lower Chest: There is an 8 mm noncalcified nodule in the left costophrenic sulcus. There is dependent atelectasis. ABDOMEN: Liver: There is a 7.8 cm hypoattenuating structure in the dome liver with lobular margins. This is unchanged when compared to the prior exam. Smaller hypoattenuating structure also noted in the right and left hepatic lobes. These may represent cysts or hemangiomas. Bile Ducts: Normal caliber. Gallbladder: Previously removed Pancreas: Within normal limits. Spleen: Within normal limits. Adrenals: Within normal limits. Kidneys: There is subtle enhancement of the wall of the renal pelvis bilaterally. Pelvis: Reproductive Organs: There is a dominant follicle in the left adnexa measuring 3.7 cm in greatest axial dimension Ureters: There is enhancement of the wall of the ureters with periureteral fat stranding suggesting an ascending urinary tract infection. Bladder: There is wall thickening with adjacent edema suggesting cystitis. Bowel: Normal caliber. There is a normal appendix in the right lower quadrant. Mesenteric Lymph Nodes: No enlarged mesenteric lymph nodes. Peritoneum: No ascites or free air, no fluid collection. Vessels: within normal limits Retroperitoneum: Within normal limits. Abdominal Wall: Within normal limits. Bones: Degenerative changes are noted in the thoracolumbar spine. CT/CT abdomen pelvis w con IMPRESSION: Findings are consistent with cystitis with an ascending urinary tract infection. The renal cortices enhance symmetrically without evidence of pyelonephritis, otherwise. Impression dictated by: Vikash Licona M.D. 11/10/2024 6:25 AM Dictation Location: [place] [address] Electronically authenticated by: [id number] Y Date: 11/10/2024 06:25
[2024-11-10 05:44] LABS: Bilirubin Urine NEGATIVE (NEGATIVE); Blood Urine NEGATIVE (NEGATIVE); Clarity Urine CLEAR (CLEAR); Color Urine LT. YELLOW (YELLOW); Glucose Urine UA NEGATIVE (NEGATIVE); Ketones Urine NEGATIVE (NEGATIVE); Leukocyte Esterase Urine NEGATIVE (NEGATIVE); Nitrite Urine NEGATIVE (NEGATIVE); Protein Urine NEGATIVE (NEG/TRACE); Specific Gravity Urine 1.015 (1.005-1.025); Urobilinogen Urine 0.2 EU/dL (0.2-1.0); pH Urine 6.5 (5.0-9.0)
[2024-11-10 05:45] LABS: Basophils Percent Auto 0.3 % (0.2-2.0); Eosinophils Absolute Auto 0.5 10^3/uL (0.0-0.7); Eosinophils Percent Auto 7.8 % (0.9-7.0); Hematocrit 39.7 % (36.0-48.0); Hemoglobin 13.6 g/dL (12.0-16.0); Immature Granulocytes Abs Auto 0.03 10^3/uL (0.00-0.03); Immature Granulocytes Pct Auto 0.5 % (0.0-0.5); Lymphocytes Absolute Auto 1.9 10^3/uL (1.2-3.8); Lymphocytes Percent Auto 29.2 % (20.5-60.0); Mean Corpuscular HGB Conc 34.3 g/dL (29.9-35.2); Mean Corpuscular Hemoglobin 30.4 pg (26.7-34.0); Mean Corpuscular Volume 88.6 fL (81.0-99.0); Mean Platelet Volume 10.4 fL (9.5-13.5); Monocytes Absolute Auto 0.8 10^3/uL (0.3-0.8); Monocytes Percent Auto 12.9 % (1.7-12.0); Neutrophils Absolute Auto 3.2 10^3/uL (1.4-6.5); Neutrophils Percent Auto 49.3 % (43.0-75.0); Platelet Count 261 10^3/uL (150-450); Red Blood Count 4.48 10^6/uL (4.20-5.40); Red Cell Distribution Width 12.4 % (11.0-15.0); White Blood Count 6.4 10^3/uL (4.0-11.0)
[2024-11-10] MEDS: 0.9 % SODIUM CHLORIDE 1,000 ML 999 ML IV (05:48)
[2024-11-10 05:57] LABS: Bacteria Urine TRACE #/HPF (NONE SEEN); Cast Seen? NONE SEEN #/LPF (NONE SEEN); Crystals Seen? None Seen #/HPF (None Seen); Mucus Urine NONE SEEN (NONE SEEN); RBC Urine NONE SEEN #/HPF (0-2); Squamous Epithelial Cell Urine MODERATE #/LPF (NONE/RARE); Urine Culture Indicated NO; WBC Urine 0-2 #/HPF (NONE SEEN)
[2024-11-10 06:04] LABS: Alanine Aminotransferase 25 U/L (14-59); Albumin Globulin Ratio 0.8; Albumin Level 3.2 g/dL (3.4-5.0); Alkaline Phosphatase 63 U/L (46-116); Aspartate Amino Transferase 19 U/L (15-37); BUN Creatinine Ratio 14.8; Bilirubin Total 0.4 mg/dL (0.2-1.0); Calcium 9.2 mg/dL (8.5-10.1); Chloride 103 mmol/L (98-107); Estimated GFR (African America >60 (>=60 mL/min/1.73m^2); Estimated GFR (Non-African Ame >60 (>=60 mL/min/1.73m^2); Glucose 86 mg/dL (74-106); Sodium 139 mmol/L (136-145); Total Protein 7.2 g/dL (6.4-8.2)
[2024-11-10 06:06] LABS: Lactate/Lactic Acid 1.3 mmol/L (0.4-2.0)
--- NOTE | 2024-11-10 06:53 | PC.NURSE ---
i gave this patient verbal and written discharge orders along with 2 Rx and this patient voices yes to understanding these. at time of discharge this patient voices no concerns and shows no signs of distress
== END 2024-11-10 06:52 | disposition home or self-care (01) ==
PROVIDERS: Emergency Provider Internal Medicine; PCP Nurse Practitioner
DX: N30.90 Cystitis, unspecified without hematuria (principal)
CPT/HCPCS: 36415; 74177; 80053; 81001; 83605; 83690; 85025; 99285; Q9967

== ENCOUNTER 2024-12-21 07:11 | Emergency (ER) | payer MEDICAID, SELFPAY ==
--- OUTSIDE RECORDS SUMMARY | 2023-10-22 11:45 | XMS_ITS ---
Author Organization [facility] Address [address] [place] [address] Care Team Providers Care Data Processing Mechanic Name Role Phone Dr. Lj Reyes Primary Care Provider [phone] Vianca Ortega [phone] REASON FOR VISIT PROPHY XRAYS EXAM Encounters Encounter Location Date Provider Diagnosis [facility] [address] [place] [address] 10/22/2023 Vianca Lagos Acute gingivitis, plaque induced [...] Of Treatment No Information Progress Notes * VENKATScottyROYCEDOB:1975 ([age] yo F)Acc No.[id number]:10/22/2023 Patient: ROYCE LYMAN Provider: Aron Lagos :1975 A ge:47 Y S ex:Female Date:10/22/2023 Address:[facility] [address] [place] Pcp:Dr. Lj Reyes Subjective: * Chief Complaints: [...] * Electronic signature of Naye Lagos on 12/21/2024 at 07:25 AM EDT Sign off status: Pending * Provider: Aron Lagos Date: 10/22/2023 Generated for Lauren arechiga/Heidy/Sidney on: 12/21/2024 07:25 AM EDT
--- OUTSIDE RECORDS SUMMARY | 2024-10-13 09:00 | XMS_ITS ---
Author Organization [facility] Address [address] [place] [address] Care Team Providers Care Crib Tender Name Role Phone Dr. Lj Reyes Primary Care Provider [phone] Vianca Ortega [phone] REASON FOR VISIT 6 month f/u Encounters Encounter Location Date Provider Diagnosis [facility] [address] [place] [address] 10/13/2024 Vianca Lagos Plan Of Treatment No Information Progress Notes * VENKATScottyROYCEDOB:1975 ([age] yo F)Acc No.[id number]:10/13/2024 Patient: ROYCE LYMAN Provider: Aron Lagos :1975 A ge:48 Y S ex:Female Date:10/13/2024 Address:[facility] [address], [facility] Pcp:Dr. Lj Reyes Subjective: * Chief Complaints: * 1 . 6 month f/u. * Medical History: Objective: * Vitals: Assessment: Plan: * Treatment: * Images: * Electronic signature of Naye Lagos on 12/21/2024 at 07:24 AM EDT Sign off status: Pending * Provider: Aron Lagos Date: 10/13/2024 Generated for Printi ng/Faxing/eTransmitting on: 0 12/21/2024 07:24 AM EDT
--- OUTSIDE RECORDS SUMMARY | 2024-12-14 14:30 | XMS_ITS | Encounter Summary ---
Author Organization [facility] tem Address [facility] [address] [place] [address] Care Team Providers Care Automobile Relocation Engineer Name Role Phone Memo Pearl DO Primary Care Provider + [phone] Reason for Visit * Reason Comments rash/ uti Encounter Details Date Type Department Care Team (Late st Contact Info) Description 12/14/2024 2:30 PM EDT Office Visit [facility] Internal Medicine - Family Medicine [address] [place] [address] Memo Pearl DO [address], [facility] [address] Allergic contact dermatitis due to plants, except food (Primary Dx); Urinary tract infection without hematuria, site unspecified; Dysuria; Overweight Social History Tobacco Use Types Packs/Day Years Used Date Smoking Tobacco: Never Smokeless Tobacco: Never Alcohol Use Standard Drinks/Week Comments Not Currently 0 (1 standard drink = 0.6 oz pur e alcohol) rarely PHQ-2 Answer Date Recorded Total Score 0 12/14/2024 Childcare Answer Date Recorded Childcare Unknown 11/20/2018 Employment Answer Date Recorded Employment Unknown 11/20/2018 Hunger Screening Answer Date Recorded Within the past 12 months we worried whether our food would run out before we got money to buy more. Never True 12/14/2024 Within the past 12 months th e food we bought just didn't last and we didn't have money to get more. Never True 12/14/2024 Purpose - Life Answer Date Recorded Purpose and direction in life Unknown Comments No Sex and Gender Information Value Date Recorded Sex Assigned at Not on file Legal Sex Female 1:58 PM EDT Gender Identity Not on file Sexual Orientation Not on file documented as of this encounter Last Filed Vital Signs Vital Sign Reading Time Taken Comments Blood Pressure 118/82 12/14/2024 2:29 PM EDT Pulse 78 12/14/2024 2:29 PM EDT Temperature 36.3 C (97.3 F) 12/14/2024 2:29 PM EDT Respiratory Rate 18 12/14/2024 2:29 PM EDT Oxygen Saturation 99% 12/14/2024 2:29 PM EDT Inhaled Oxygen Concentration - - Weight 72.7 kg (160 lb 3.2 oz) 12/14/2024 2:29 P M EDT Height 160 cm (5' 2.99 ) 12/14/2024 2:29 PM EDT Body Mass Index 28.39 12/14/2024 2:29 PM EDT documented in this encounter Progress Notes * Memo Pearl, - 12/14/2024 2:30 PM EDT Subjective Patient ID: Leydi Gage is a 49 y.o. female. Leydi presents today for a rash and a possible urinary tract infection. 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 Started 2-3 days ago. She was also started with dysuria and frequency. It started last night in the middle of the night. She got up several times. She did have urinary tract infection last month and it did clear after 10 days of Bactrim DS. She is going out of town next week and does not want to be sick. She does not have fever or other symptoms. The following portions of the patient's history were reviewed and updated as appropriate: allergies, current medications, past family history, past medical history, past social history, past surgicalhistory, problem list, and medication reconciliation was completed including current medication andpost discharge medication. Review of Systems Genitourinary: Positive for dysuria and frequency. Skin: Positive for rash. Objective Physical Exam Vitals reviewed. Constitutional: General: She is not in acute distress. Appearance: She is not ill-appearing. Skin: Findings: Rash (multiple light pink papules on right side of face, left side of jaw and right distal forearm; no vesicles) present. Neurological: General: No focal deficit present. Mental Status: She is alert and oriented to person, place, and time. Psychiatric: Mood and Affect: Mood normal. Behavior: Behavior normal. Thought Content: Thought content normal. Judgment: Judgment normal. Assessment/Plan Leydi was seen today for rash/ uti. Diagnoses and all orders for this visit: Allergic contact dermatitis due to plants, except food Rash on face is consistent with an allergic contact dermatitis. Since it is the face were use a mind steroid cream. If prescribed hydrocortisone 2.5% cream twice a day to rash. Can also use [id number] antihistamines for itching. Recheck if no better Urinary tract infection without hematuria, site unspecified Urinalysis showed WBCs but otherwise was negative. She does have symptoms so I will treat with Bactrim DS 1 twice a day for 5 days. Dysuria - POCT urinalysis dipstick only Overweight She is overweight. She would benefit from weight loss. Patient noted to have elevated BMI and the following intervention(s) were applied: encouragement toexercise and prescribed diet education. Other orders - hydrocortisone (HYTONE) 2.5 % cream; Apply 1 Application topically in the morning and 1 Application before bedtime. - sulfamethoxazole-trimethoprim (BACTRIM DS) 800-160 mg per tablet; Take 1 tablet by mouth in the morning and 1 tablet before bedtime. Do all this for 5 days. documented in this encounter Plan of Treatment Not on file documented as of this encounter Procedures Procedure Name Priority Date/Time Associated Diagnosis Comments POCT URINALYSIS DIPSTICK ONLY Routine 12/14/2024 2:57 PM EDT Dysuria documented in this encounter Results * POCT urinalysis dipstick only (12/14/2024 2:57 PM EDT) External Poct Urine Color yellow MANUALLY TRANSCRIBED RESULTS External Poct Urine Character clear MANUALLY TRANSCRIBED RESULTS External Poct Urine Glucose Negative MANUALLY TRANSCRIBED RESULTS External Poct Urine Bilirubin Negative MANUALLY TRANSCRIBED RESULTS External Poct Urine Ketones Negative MANUALLY TRANSCRIBED RESULTS External Poct Urine Specific [place] 1.010 MANUALLY TRANSCRIBED RESULTS External Poct Urine Blood Negative MANUALLY TRANSCRIBED RESULTS External Poct Urine Ph 6.0 MANUALLY TRANSCRIBED RESULTS External Poct Urine Protein Negative MANUALLY TRANSCRIBED RESULTS External Poct Urine Urobilinogen 0.2 MANUALLY TRANSCRIBED RESULTS External Poct Urine Nitrite Negative MANUALLY TRANSCRIBED RESULTS External Poct Urine Leukocyte Esterase Trace MANUALLY TRANSCRIBED RESULTS Urine 12/14/2024 2:57 PM EDT us Memo Pearl DO POINT OF CARE TEST ORDERABLE S Final Result MANUALLY TRANSCRIBED RESULTS documented in this encounter Visit Diagnoses Diagnosis Allergic contact dermatitis due to plants, except food- Primary Contact dermatitis and other eczema due to plants (except food) Urinary tract infection without hematuria, site unspecified Dysuria Overweight documented in this encounter Additional Health Concerns Assessment Noted Time PHQ-9 Depression Total Score: 0 12/15/19 2:29 PM EDT A Body Mass Index follow-up plan has been documented for the patient 12/14/2024 9:55 PM EDT documented as of this encounter Care Teams Automobile Relocation Engineer Relationship Specialty Start Date End Date Memo Pearl DO [address], [place] [address] PCP - General Family Medicine 12/09/24 documented as of this encounter
[2024-12-21 07:17] VITALS: BP 109/83; PULSE 82; TEMP 37.1; O2SAT 98; BMI 28.3
--- OUTSIDE RECORDS SUMMARY | 2024-12-21 07:25 | XMS_ITS | Encounter Summary ---
Author Organization [facility] Address [facility] [place] [address] Care Team Providers Care Ballet Company Member Name Role Phone YulianaMemo arechiga Primary Care Provider [phone] Encounter Details Date Type Department Care Team (Late st Contact Info) Description 11/15/2023 Orders Only [facility] - [facility] [address] [facility] [place] [address] External, Scanning Provider Social History Tobacco Use [...] documented as of this encounter Care Teams Ballet Company Member Relationship Specialty Start Date End Date Memo Pearl DO [address] [facility] [place] [place] [address] PCP - General Family Medicine 12/09/24 documented as of this encounter
--- OUTSIDE RECORDS SUMMARY | 2024-12-21 07:25 | XMS_ITS | Patient Health Record ---
Author Organization [facility] Address [address] [place] [address] Care Team Providers Care Art Psychotherapist Or Therapist Name Role Phone Dr. Lj Reyes Primary Care Provider [phone] Vianca Ortega [phone] Reason For Referral No Information Encounters Encounter Location Date Provider Diagnosis [facility] [address] [place] [address] 04/14/2024 Vianca Lagos Dental caries on pit [...] Coverage Start Date Coverage End Date [facility] [place] DQ [address] [place] [address] [id number] ROYCE ARGUELLO Self - patient is the insured 03/01/202 3 Dental [employer] [facility] [address] [place] [address] [id number] ROYCE ARGUELLO Self - patient is the insured 3
--- OUTSIDE RECORDS SUMMARY | 2024-12-21 07:25 | XMS_ITS | Encounter Summary ---
Author Organization [facility] Address [address] [place] [address] Care Team Providers Care Artist Agent Name Role Phone Unallocated, Noms Provider Primary Care Provi carmen Tae Ny DO Unavailable [phone] Ramya Garnett MD Unavailable Celeste Oconnell REGIONAL DRIVER Unavailable [phone] Mary Rodriguez NP Unavailable Unavailable Reason for Visit * Reason Onset Date Comments Medication Question 07/20/2024 Encounter Details Date Type Department Care Team (Late st Contact Info) Description 07/20/2024 Telephone [facility] [address] [facility] [address] [place] [id number] Shazia Basihr MA Medication Question Social History Tobacco Use [...] DERM [address] [place] [address] Elba Durham PA [address] [place] [address] 01/05/2025 1:20 PM EDT Office Visit [facility] [address] [place] [address] Elba Durham PA [address] [place] [address] documented as of this encounter Visit Diagnoses Diagnosis Dermatographism Dermatographic urticaria documented in this encounter Care Teams Artist Agent Relationship Specialty Start Date End Date Unallocated, Noms MD Carmita [address] [facility] [place] [address] PCP - General Family Medicine 09/23/23 Ramya Garnett MD [address] [place] [address] PCP - SHITAL Mcmahan [facility] 09/09/23 Tae Ny DO [address] [address] Referring Physician Neurology 09/23/23 Celeste Oconnell NP [address] [place] [address] Nurse Practitioner Neurology 04/15/24 Mary Rodriguez NP [address] [place] [address] Nurse Practitioner Neurology 04/15/24 documented as of this encounter
--- OUTSIDE RECORDS SUMMARY | 2024-12-21 07:25 | XMS_ITS | Encounter Summary ---
Author [facility] Address [id number] [address] [place] [address] Care Team Providers Care Driller Machine Name Role Phone YulianaMemo arechiga Primary Care Provider [phone] Encounter Details Date Type Department Care Team (Late st Contact Info) Description 11/13/2024 Orders Only [facility] Internal Medicine - Family Medicine [address] [place] [address] Ref Prov, [place] [address] Social History Tobacco Use Types Packs/Day Years Used Date Smoking Tobacco: Never Smokeless Tobacco: Never Alcohol Use Standard Drinks/Week Comments Not Currently 0 (1 standard drink = 0.6 oz pur e alcohol) rarely PHQ-2 Answer Date Recorded Total Score 0 11/13/2024 Childcare Answer Date Recorded Childcare Unknown 11/20/2018 Employment Answer Date Recorded Employment Unknown 11/20/2018 Hunger Screening Answer Date Recorded Within the past 12 months we worried whether our food would run out before we got money to buy more. Never True 11/13/2024 Within the past 12 months th e food we bought just didn't last and we didn't have money to get more. Never True 11/13/2024 Purpose - Life Answer Date Recorded Purpose [...] Name Priority Date/Time Associated Diagnosis Comments CT ABDOMEN AND PELVIS W CONT Routine 2024 10:04 AM EDT documented in this encounter Results * CT abdomen and pelvis with contrast (2024 10:04 AM EDT) Anatomical Region Laterality Modality Body, Abdomen, Body Covera N/A Compu ignacio Tomography us Not In System Ref Prov IMG CT ORDERABLES Final R esult documented in this encounter Visit Diagnoses Not on filedocumented in this encounter Additional Health Concerns Assessment Noted Time PHQ-9 Depression Total Score: 0 11/14/19 8:54 AM EDT A Body Mass Index follow-up plan has been documented for the patient 07/28/2024 4:00 PM EST documented as of this encounter Care Teams Driller Machine Relationship Specialty Start Date End Date Memo Pearl DO [address] [facility], [place] [address] PCP - General Family Medicine 12/09/24 documented as of this encounter
--- OUTSIDE RECORDS SUMMARY | 2024-12-21 07:25 | XMS_ITS | Clinical Summary ---
Author Organization [employer] s tem Address [id number] [address] [place] [address] Care Team Providers Care Radiographer Mammographer Name Role Phone Memo Pearl DO Primary Care Provider Allergies Active Allergy Reactions Criticality Noted Date Comments Adhesive Rash Low 04/02/2019 Adhesive Tape-Silicones Low 04/02/2019 Amoxicillin Rash Low 04/17/2005 Azithromycin Swelling,Rash Medium 04/02/2019 Ciprofloxacin Hcl Low 04/02/2019 Erythromycin Rash Low 02/05/2017 Metronidazole Low 04/02/2019 Medications clobetasoL (TEMOVATE) 0.05 % cream 5 Active NURTEC ODT 75 mg tablet,disinte grating Place 1 tablet (75 mg total) under the tongue. 4 Active OPZELURA 1.5 % cream Apply to affected areas, twice a day when flared, 30 day supply 5 Active hydrocortisone (HYTONE) 2.5 % cream Apply 1 Application topically in the morning and 1 Application before bedtime. 30 g 5 Active sulfamethoxazo le-trimethopri m (BACTRIM DS) 800-160 mg per tablet 5 025 Discontinu ed(Therapy completed) sulfamethoxazo le-trimethopri m (BACTRIM DS) 800-160 mg per tablet Take 1 tablet by mouth in the morning and 1 tablet before bedtime. Do all this for 5 days. 10 tablet 5 025 Active Problems Problem Noted Date Diagnosed Date [...] 06/19/2023 Pain in left castillo 04/02/2019 06/19/2023 Encounters Date Type Department Care Team Description 12/14/2024 2:30 PM EDT Office Visit [facility] [address] [place] [address] Memo Pearl, Allergic contact dermatitis due to plants, except food (Primary Dx); Urinary tract infection without hematuria, site unspecified; Dysuria; Overweight 12/14/2024 Travel 11/13/2024 9:00 AM EDT Office Visit [facility] [address] [place] [address] Memo Pearl, Acute cystitis with hematuria (Primary Dx); Urinary symptom or sign; Acute bilateral thoracic back pain 11/13/2024 Orders Only [facility] [address] [place] [address] Ref Prov, Not In System 11/13/2024 Travel from Last 3 Months Immunizations Immunization Administration Dates Next Due DTP [...] Mass Index 28.39 12/14/2024 2:29 PM EDT Plan of Treatment Health Maintenance Due Date Last Done Comments Influenza Vaccine 02/08/2025 02/14/2024, , 03/12/2022, Additional history exists Mammogram 05/26/2025 05/26/2024, 04/14/2019 Adult BMI Follow Up Plan 07/28/2025 12/14/2024 Adult BMI Screening 11/13/2025 12/14/2024 Depression Screening 11/13/2025 12/14/2024 Tobacco Screening 11/13/2025 12/14/2024 DTaP,Tdap and Td Vaccines (2 - Tdap) 12/28/2030 12/28/2020 COVID-19 Vaccine Discontinued 06/14/2021, 05/24/2021 Medical Devices Not on file Procedures Procedure Name Priority Date/Time Associated Diagnosis Comments POCT URINALYSIS DIPSTICK ONLY Routine 12/14/2024 2:57 PM EDT Dysuria POCT URINALYSIS DIPSTICK ONLY Routine 11/13/2024 9:45 AM EDT Urinary symptom or sign CT ABDOMEN AND PELVIS W CONT Routine 2024 10:04 AM EDT HM MAMMOGRAPHY Routine 04/14/2019 from Last 3 Months or Most Recently Relevant to Health Maintenance Results * POCT urinalysis dipstick only (12/14/2024 2:57 PM EDT) Only the most recent of2 resultswithin the time period is included. External Poct Urine Color yellow MANUALLY TRANSCRIBED RESULTS External Poct Urine Character clear MANUALLY TRANSCRIBED RESULTS External Poct Urine Glucose Negative MANUALLY TRANSCRIBED RESULTS External Poct Urine Bilirubin Negative MANUALLY TRANSCRIBED RESULTS External Poct Urine Ketones Negative MANUALLY TRANSCRIBED RESULTS External Poct Urine Specific Hasty 1.010 MANUALLY TRANSCRIBED RESULTS External Poct Urine [...] ORDERABLE S Final Result MANUALLY TRANSCRIBED RESULTS * CT abdomen and pelvis with contrast (2024 10:04 AM EDT) Anatomical Region Laterality Modality Body, Abdomen, Body Covera N/A Compu ignacio Tomography us Not In System Ref Prov IMG CT ORDERABLES Final R esult * HM MAMMOGRAPHY (04/14/2019) Anatomical Region Laterality Modality Other us Not In System Ref Prov HEALTH MAINTENANCE Final Result from Last 3 Months or Most Recently Relevant to Health Maintenance Insurance [employer] MEDICAID Care Teams Radiographer Mammographer Relationship Specialty Start Date End Date Memo Pearl DO [address], [place] [address] PCP - General Family Medicine 12/09/24
--- OUTSIDE RECORDS SUMMARY | 2024-12-21 07:25 | XMS_ITS | Clinical Summary ---
Author Organization [facility] Address [address] [place] [address] Care Team Providers Care Unmanned Aircraft Systems Roboticist Name Role Phone Latesha Kate PHOTO STYLIST Primary Care Provider Allergies Active Allergy Reactions [...] N ot on file 05/15/2020 Data from: [email or web address] Last address used for calculation Not on [...] Covid-19 Vaccine ( season) 2024 Influenza Vaccine (#1) 2025 Procedures Procedure Name Priority Date/Time Associated Diagnosis Comments HEMOGLOBIN A1C Routine 02/05/2017 1:01 PM EDT Abnormal weight gain from Last 3 Months or Most Recently Relevant to Health Maintenance Results * HGB A1C (02/05/2017 1:01 PM EDT) Hemoglobin A1C 5.3 4.3 - 5.6 % 02/05/2017 11:08 PM EDT [facility] Estimated Average Glucose 105 mg/dL 02/05/2017 11:08 PM EDT [facility] Comment: eAG: (Estimated average glucose) is a calculated value from HgbA1c and is new accounts banking representative of the average blood glucose level in the last 2-3 month period. Blood specimen (specimen) WHOLE BLOOD SPECIMEN / Unknown 02/05/2017 1:01 PM EDT 02/05/2017 1:03 PM EDT Bony Martin MD LABORATORY Final Result [facility] [address] [place] [address] from Last 3 Months or Most Recently Relevant to Health Maintenance Insurance [employer] MEDICAID OF [place] Care Teams Unmanned Aircraft Systems Roboticist Relationship Specialty Start Date End Date Latesha Kate, PHOTO STYLIST PCP - General Family Medicine 11/30/16
--- OUTSIDE RECORDS SUMMARY | 2024-12-21 07:25 | XMS_ITS | Encounter Summary ---
Author Organization [facility] Address [address] [place] [address] Care Team Providers Care Motel Maid Name Role Phone Unallocated, Noms Provider Primary Care Provi carmen Tae Ny DO Unavailable Ramya Garnett MD Unavailable Celeste Oconnell SENIOR ENGINEERING TECH Unavailable [phone] Mary Rodriguez NP Unavailable Unavailable Encounter Details Date Type Department Care Team (Late st Contact Info) Description 05/24/2023 Clinisync Result Encounter [facility] External Department Unsolicited Leydi Garcia PA [address] [place] [address] Social History Tobacco Use Types Packs/Day Years [...] DERM [address] [place] [address] Elba Durham PA [address] [place] [address] 01/05/2025 1:20 PM EDT Office Visit [facility] [address] [place] [address] Elba Durham PA [address] [place] [address] documented as of this encounter Procedures Procedure Name Priority Date/Time Associated Diagnosis Comments MM TOMOSYNTHESIS SCREENING BI 05/24/2023 8:34 AM EST documented in this encounter Results * MM TOMOSYNTHESIS SCREENING BI (05/24/2023 8:34 AM EST) Anatomical Region Laterality Modality Other 05/24/2023 8:34 AM EST Narrative 05/24/2023 8:35 [place] [address] Mammography Report Signed Patient: LEYDI ARGUELLO MR#: [id number] : 1975 Acct:[id number] Age/Sex: 47 / F ADM Date: 05/23/23 Loc: MAMMO Attending Dr: Leydi Garcia Ordering Physician: Leydi Garcia Results: Date of Service: 05/23/23 Follow Up: Procedure(s): MM tomosynthesis screening BI Accession Number(s): [id number] cc: Leydi Garcia; Physician,Non-Staff M.D. Patient Name: LEYDI ARGUELLO MR#: [id number] : 1975 Exam Date: 05/23/2023 Ordering Doctor: [...] breast cancer at age 70. LOCATION: The [facility] BREAST COMPOSITION: Heterogeneously dense,which may obscure [...] M.D. Signed By: 05/24/23 0835 DD/ TD/TT: Retail Store Assistant: Procedure Note Radiology, Radiologist, - 05/24/2023 [place] [address] Mammography Report Signed Patient: LEYDI ARGUELLO MMR#: [id number] : 1975Acct:[id number] Age/Sex: 47 / FADM Date: 05/23/23 Loc: MAMMO Attending Dr: Leydi Garcia Ordering Physician: Leydi GarciaResults: Date of Service: 05/23/23Follow Up: Procedure(s): MM tomosynthesis screening BI Accession Number(s): [id number] cc: Leydi Garcia; Physician,Non-Staff Lazaro Patient Name: LEYDI ARGUELLO MR#: [id number] : 1975 Exam Date: 05/23/2023 Ordering Doctor: [...] breast cancer at age 70. LOCATION: The [facility] BREAST COMPOSITION: Heterogeneously dense,which may obscure smallmasses. [...] Wellington M.D. Signed By:05/24/2335 DD/ 3 TD/TT: Retail Store Assistant: [facility] Final Result documented in this encounter Visit Diagnoses Not on filedocumented in this encounter Care Teams Motel Maid Relationship Specialty Start Date End Date Unallocated, Noms MD Carmita [address] [place] [address] PCP - General Family Medicine 09/23/23 Ramya Garnett MD [address] [place] [address] PCP - SHITAL Mcmahan [facility] 09/09/23 Tae Ny DO [address] [facility] [address] [place] [address] Referring Physician Neurology 09/23/23 Celeste Oconnell NP [address] [place] [address] Nurse Practitioner Neurology 04/15/24 Mary Rodriguez NP [address] [place] [address] Nurse Practitioner Neurology 04/15/24 documented as of this encounter
--- OUTSIDE RECORDS SUMMARY | 2024-12-21 07:25 | XMS_ITS | Clinical Summary ---
Author Organization [facility] Address [address] [place] [address] Care Team Providers Care Head Athletic Trainer Name Role Phone Melissa Lockhart MD Primary Care Provider [phone] Allergies Active Allergy Reactions Criticality Noted Date [...] Physically or Sexually Abused Not on file Comments Unknown Sex and Gender Information Value Date Recorded Sex Assigned at Not on file Legal Sex Female 12:05 AM EDT Gender Identity Not on file Sexual [...] 1998 HPV/Cotest 2006 Mammogram 2016 COVID-19 Vaccine ( - 2023-2 5 season) 2024 06/14/2021, 05/24/2021 Influenza Vaccine (#1) 2025 , 03/12/2022, 03/31/2021 Cervical Cancer Screening 12/06/2025 Pap [...] on patient's age to complete this topic Insurance [facility] MEDICAID Care Teams Head Athletic Trainer Relationship Specialty Start Date End Date Melissa Lockhart MD PCP - General Family Medicine 11/21/23
--- OUTSIDE RECORDS SUMMARY | 2024-12-21 07:25 | XMS_ITS | Encounter Summary ---
Author Organization [facility] Address [id number] [address] [place] [address] Care Team Providers Care Nonprofit Director Name Role Phone YulianaMemo arechiga El RIVERS Primary Care Provider [phone] Encounter Details Date Type Department Care Team (Late st Contact Info) Description 05/27/2024 Orders Only [facility] - Family Medicine [address] [place] [address] Melissa Lockhart, DENTAL PRACTICE MANAGER-BREAST BUFFER [address] [facility] PM 12/07/24 [place] [address] Social History Tobacco Use Types Packs/Day Years [...] Time PHQ-9 Depression Total Score: 0 10/16/19 24 3:05 PM EDT A Body Mass Index follow-up plan has been documented for the patient 10/16/2023 3:31 PM EDT documented as of this encounter Care Teams Nonprofit Director Relationship Specialty Start Date End Date Memo Pearl DO [address] [facility], [place] [address] PCP - General Family Medicine 12/09/24 documented as of this encounter
--- OUTSIDE RECORDS SUMMARY | 2024-12-21 07:25 | XMS_ITS | Encounter Summary ---
Author Organization [facility] Address [id number] [address] [place] [address] Care Team Providers Care Vending Enterprises Supervisor Name Role Phone YulianaMemo arechiga Primary Care Provider [phone] Encounter Details Date Type Department Care Team (Late st Contact Info) Description 11/22/2023 Orders Only [facility] - [facility] Medicine [address] [facility] [place] [address] External, Scanning Provider Social History Tobacco Use [...] documented as of this encounter Care Teams Vending Enterprises Supervisor Relationship Specialty Start Date End Date Memo Pearl DO [address] [facility] [place] [address] PCP - General Family Medicine 12/09/24 documented as of this encounter
--- OUTSIDE RECORDS SUMMARY | 2024-12-21 07:25 | XMS_ITS | Encounter Summary ---
Author Organization [facility] Address [address] [place] [address] Care Team Providers Care Sample Carrier Name Role Phone Unallocated, Noms Provider Primary Care Provi carmen Tae Ny DO Unavailable Ramya Garnett MD Unavailable Celeste Oconnell COMMUNITY DEVELOPMENT MANAGER Unavailable [phone] Mary Rodriguez NP Unavailable Unavailable Encounter Details Date Type Department Care Team (Late Contact Info) Description 12/24/2022 Abstract [facility] B[facility] OB [address] [place] [address] Leydi Garcia PA [address] [place], [place] [id number] Social History Tobacco Use Types Packs/Day Years [...] Encounters Date Type Department Care Team (Late Contact Info) Description 12/29/2024 3:20 PM EDT Office Visit [facility] [address] [place] [address] Elba Durham PA [address] [place] [address] 01/05/2025 1:20 PM EDT Office Visit [facility] [address] [place] [address] Elba Durham PA [address] [place] [address] documented as of this encounter Visit Diagnoses Not on filedocumented in this encounter Care Teams Sample Carrier Relationship Specialty Start Date End Date Unallocated, Noms MD Carmita [address] [place] [address] PCP - General Family Medicine 09/23/23 Ramya Garnett MD [address] [place] [address] PCP - SHITAL Mcmahan [facility] 09/09/23 Tae Ny DO [address] [facility] [address] [place] [address] Referring Physician Neurology 09/23/23 Celeste Oconnell, DESTINY [address] [place] [address] Nurse Practitioner Neurology 04/15/24 Mary Rodriguez NP [address] [place] [address] Nurse Practitioner Neurology 04/15/24 documented as of this encounter
--- OUTSIDE RECORDS SUMMARY | 2024-12-21 07:25 | XMS_ITS | Encounter Summary ---
Author Organization [employer] Sys [employer] Address [id number] [address] [place] [address] Care Team Providers Care Registrar Museum Name Role Phone YulianaMemo arechiga Primary Care Provider [phone] Encounter Details Date Type Department Care Team (Late st Contact Info) Description 03/17/2024 [facility]phone [facility] [address] [address] Leidy Hollis CNA Social History Tobacco Use [...] to be see 6 weeks after the ORDER EDITOR visit and it was scheduled on 10/16/23 [...] documented as of this encounter Care Teams Registrar Museum Relationship Specialty Start Date End Date Memo Pearl DO [address], [place] [address] PCP - General Family Medicine 12/09/24 documented as of this encounter
--- OUTSIDE RECORDS SUMMARY | 2024-12-21 07:25 | XMS_ITS | Clinical Summary ---
Author Organization [facility] Address [address] [place] [address] Care Team Providers Care Data Warehousing Manager Name Role Phone Unallocated, Noms Provider MD Primary Care Provi carmen Tae Ny DO Unavailable [phone] Ramya Garnett MD Unavailable Celeste Oconnell HEAVY DUTY PRESS OPERATOR Unavailable [phone] Mary Rodriguez NP Unavailable Unavailable Allergies Active Allergy Reactions Criticality Noted Date Comments Amoxicillin Unknown 12/04/2022 Ciprofloxacin Unknown 12/04/2022 Erythromycin Unknown 12/04/2022 Metronidazole Rash Medium 04/02/2019 Medications estradiol (Estrace) 0.1 MG/GM vaginal cream Insert 2 g into the vagina Daily 2 Active cyclobenzaprine (Flexeril) 5 MG tablet Take 5 mg by mouth if needed 1 tablet Active Rimegepant Sulfate (Nurtec) 75 MG tablet dispersibleIndic ations:Chronic migraine without aura without status migrainosus, not intractable Place 75 mg under the tongue if needed (at onset of migraine daily as needed) 16 tablet 11 4 Active triamcinolone (Kenalog) 0.1 % creamIndications :Other atopic dermatitis Apply to affected areas, up to twice a day when flared, do not use one the face, groin, or underarms, 30 day supply 80 g 5 Active clobetasol (Temovate) 0.05 % creamIndications :Lichen sclerosus et atrophicus Apply to affected areas, up to twice a day when flared, do not use one the face, groin, or underarms, 30 day supply 60 g 5 Active fexofenadine (Catarina) 180 MG tabletIndication s:Dermatographis m Take 1 tablet daily, by mouth, 30 days 30 tablet 5 Active tacrolimus (Protopic) 0.1 % ointmentIndicati [...] areata 10 mg IJ Once 08/19/2024 Active triamcinolone acetonide (Kenalog) injection 2.5 mgIndications:Other alopecia areata 2.5 mg ID Once 11/30/2024 11/30/2024 Ended Active Problems Problem Noted Date Diagnosed Date [...] Encounters Date Type Department Care Team Description 11/30/2024 1:20 PM EDT Office Visit [facility] [address] [place] [address] Elba Durham PA Other atopic dermatitis (Primary Dx); Other alopecia areata 11/30/2024 Bamboo flowsheet [facility] D[facility] [address] [place] [address] Elba Durham PA 11/30/2024 Travel 11/23/2024 Travel 11/16/2024 Telephone [facility] D[facility] [address] [place] [address] Alexa Byrd LPN Appointment Request 10/28/2024 Telephone [facility] [address] [place] [address] Mary Rodriguez NP pa pending ins 09/23/2024 3:00 PM EDT Office Visit [facility] D[facility] [address] [place] [address] Elba Durham PA Other atopic dermatitis (Primary Dx); Other alopecia areata 09/23/2024 Bamboo flowsheet [facility] D[facility] [address] [place] [address] Elba Durham PA 09/23/2024 Travel from Last 3 Months Family History Medical History Relation Name Comments Anxiety disorder Father David Stumbo Arthritis Father David Stumbo Heart disease Father David Stumbo Hyperlipidemia Father David Stumbo Mental illness Father David Stumbo Arthritis Mother Ramya stumbo Cancer Mother Ramya stumbo Diabetes Mother Ramya stumbo Fibromyalgia Mother Ramya stumbo Heart disease Mother Ramya stumbo Kidney disease Mother Ramya stumbo Melanoma Neg Hx Relation Name Status Comments Father David Stumbo Alive Mother Ramya campbellumbo Alive Social History Tobacco Use Types Packs/Day [...] 12/29/2024 3:20 PM EDT Office Visit [facility] [address] [place] [address] Elba Durham PA [address] [place] [address] 01/05/2025 1:20 PM EDT Office Visit [facility] [address] [place] [address] Elba Durham PA [address] [place] [address] Health Maintenance Due Date Last Done Comments CT Colonography 1975 Colonoscopy 1975 Colorectal Cancer Screening 1975 FIT-DNA 1975 FIT 1975 FOBT 1975 Sigmoidoscopy 1975 Mammogram 05/24/2024 05/24/2023 Influenza Vaccine (#1) 2025 , 05/24/2023, 03/12/2022, Additional history exists Pap Smear Discontinued 12/06/2022, 07/24/2021 Cervical Cancer Screening Discontinued HPV/Cotest Discontinued 01/24/2023 Procedures Procedure Name Priority Date/Time Associated Diagnosis Comments MM TOMOSYNTHESIS SCREENING BI 05/24/2023 8:34 AM EST THINPREP PAP AND HPV MRNA E6/E7 W/RFL HPV 16,18/45 Routine 01/24/2023 3:07 PM EDT Well woman exam with routine gynecological exam PAP SMEAR Routine 12/06/2022 12:00 AM EDT from Last 3 Months or Most Recently Relevant to Health Maintenance Results * MM TOMOSYNTHESIS SCREENING BI (05/24/2023 8:34 AM EST) Anatomical Region Laterality Modality Other 05/24/2023 8:34 AM EST Narrative 05/24/2023 8:35 AM EST [address] [address] Mammography Report Signed Patient: LEYDI ARGUELLO MR#: [id number] : 1975 Acct:[id number] Age/Sex: 47 / F ADM Date: 05/23/23 Loc: MAMMO Attending Dr: Leydi Garcia Ordering Physician: Leydi Garcia Results: Date of Service: 05/23/23 Follow Up: Procedure(s): MM tomosynthesis screening BI Accession Number(s): [id number] cc: Leydi Garcia; Physician,Non-Staff M.D. Patient Name: LEYDI ARGUELLO MR#: [id number] : 1975 Exam Date: 05/23/2023 Ordering Doctor: [...] breast cancer at age 70. LOCATION: [facility] BREAST COMPOSITION: Heterogeneously dense,which may obscure [...] Wellington M.D. Signed By: 05/24/23 0835 DD/ 0834 TD/TT: Evaluation Manager: Procedure Note Radiology, Radiologist, - 05/24/2023 [place] [address] Mammography Report Signed Patient: LEYDI ARGUELLO MMR#: [id number] : 1975Acct:[id number] Age/Sex: 47 / FADM Date: 05/23/23 Loc: MAMMO Attending Dr: Leydi Garcia Ordering Physician: Leydi GarciaResults: Date of Service: 05/23/23Follow Up: Procedure(s): MM tomosynthesis screening BI Accession Number(s): [id number] cc: Leydi Garcia; Physician,Non-Staff M.D. Patient Name: LEYDI ARGUELLO MR#: [id number] : 1975 Exam Date: 05/23/2023 Ordering Doctor: [...] breast cancer at age 70. LOCATION: [facility] BREAST COMPOSITION: Heterogeneously dense,which may obscure [...] 08:34 Dictated By: Diony Wellington M.D. Signed By:05/24/23 0835 DD/ 0834 TD/TT: Evaluation Manager: Le[facility]di [facility] Final Result * THINPREP PAP AND HPV MRNA E6/E7 W/RFL HPV 16,18/45 (01/24/2023 3:07 PM EDT) Leydi VILLANUEVA LAB BLOOD ORDERABLES Final Resul t EXTERNAL LAB * Pap Smear (12/06/2022 12:00 AM EDT) Swab Cervical swab / Unknown Historical Provider MD LAB CYTOLOGY ORDERABLES F inal Result EXTERNAL LAB from Last 3 Months or Most Recently Relevant to Health Maintenance Insurance [facility] MEDICAID [place] Care Teams Data Warehousing Manager Relationship Specialty Start Date End Date Unallocated, Noms Provider, [address] [place] [address] PCP - General Family Medicine 09/23/23 Ramya Garnett MD [address] [facility] [place] [address] PCP - [facility] 09/09/23 Tae Ny DO [address] [place] [address] Referring Physician Neurology 09/23/23 Celeste Oconnell NP [address] [facility] [place] [address] Nurse Practitioner Neurology 04/15/24 Mary Rodriguez NP [address] [facility] [place] [address] Nurse Practitioner Neurology 04/15/24
--- OUTSIDE RECORDS SUMMARY | 2024-12-21 07:25 | XMS_ITS | Encounter Summary ---
Author Organization [email or web address] Sys [employer] Address [id number] [address] [place] [address] Care Team Providers Care Apricot Packer Name Role Phone YulianaMemo arechiga El RIVERS Primary Care Provider [phone] Encounter Details Date Type Department Care Team (Late st Contact Info) Description 07/29/2024 Telephone [facility] [address] [address] Leia Morales CMA Social History Tobacco Use [...] Time PHQ-9 Depression Total Score: 0 07/28/19 2:50 PM EST A Body Mass Index follow-up plan has been documented for the patient 07/28/2024 4:00 PM EST documented as of this encounter Care Teams Apricot Packer Relationship Specialty Start Date End Date Memo Pearl DO [address] [facility] [place] [address] PCP - General Family Medicine 12/09/24 documented as of this encounter
--- OUTSIDE RECORDS SUMMARY | 2024-12-21 07:25 | XMS_ITS | Encounter Summary ---
Author Organization [facility] [employer] [facility] [employer] Address [facility] [id number] [address] [place] [address] Care Team Providers Care Gun Striper Name Role Phone Memo Pearl Primary Care Provider [phone] Encounter Details Date Type Department Care Team (Late st Contact Info) Description 06/23/2024 [facility] [address] [place] [address] Ref Prov, [place] [address] Social History Tobacco Use Types Packs/Day Years [...] documented as of this encounter Care Teams Gun Striper Relationship Specialty Start Date End Date Memo Pearl DO [address] [facility], [place] [address] PCP - General Family Medicine 12/09/24 documented as of this encounter
--- OUTSIDE RECORDS SUMMARY | 2024-12-21 07:25 | XMS_ITS | Encounter Summary ---
Author Organization [employer] Address [facility] [id number] [address] [place] [address] Care Team Providers Care Export Agent Name Role Phone YulianaMemo arechiga El RIVERS Primary Care Provider [phone] Encounter Details Date Type Department Care Team (Latest Contact Info) Description 12/14/2024 Travel Social History Tobacco Use Types Packs/Day Years [...] Time PHQ-9 Depression Total Score: 0 12/15/19 25 2:29 PM EDT A Body Mass Index follow-up plan has been documented for the patient 12/14/2024 9:55 PM EDT documented as of this encounter Care Teams Export Agent Relationship Specialty Start Date End Date Memo Pearl DO [address], [place] [address] PCP - General Family Medicine 12/09/24 documented as of this encounter
--- NOTE | 2024-12-21 07:39 | ED_ITS ---
HPI HPI - General Adult General Chief complaint: Allergic Reaction Stated complaint: POSSIBLE MEDICATION REACTION Time Seen by Provider: 12/21/24 07:16 Source: patient Mode of arrival: walk-in Limitations: no limitations History of Present Illness HPI narrative: 49-year-old female presents to the emergency department for hives. She states that she had gotten poison patti and went to an urgent care center 2 days ago and they gave her a shot of Kenalog. An hour later she developed hives throughout her body and it has been waxing and waning. In the early interventionist hours today it was significant and she took some photos to show me. She had hives across her abdomen and also on her forearms. At no point has she had a swollen tongue. The poison patti has gotten much better. She is concerned because she is going to be leaving town in a few days and wanted to be able to make this rash go away completely and is asking for an injection. Related Data Home Medications ?Medication ?Instructions ?Recorded ?Confirmed rimegepant 75 mg disintegrating 75 mg PO DAILY PRN bhupinder gustavo 04/07/24 12/21/24 tablet (Nurtec ODT) headache hydrocortisone 2.5 % topical cream 1 applic topical DA AMMON PRN skin 12/21/24 12/21/24 irritation Previous Rx's ?Medication ?Instructions ?Recorded prednisone 10 mg tablet See Rx Instructions .Route 0 12/21/24 .COMPLEX #15 tabs Allergies Allergy/AdvReac Type Severity Reaction Status Date / Time amoxicillin Allergy Severe Unknown Verified 12/21/24 07:36 ciprofloxacin (From Cipro) Allergy Severe Unknown Verified 12/21/24 07:36 triamcinolone (From Kenalog) Allergy Mild Hives Verified 12/21/24 07:36 erythromycin base AdvReac Mild Rash Verified 12/21/24 07:36 Opioid HPI Opioid Management Most Recent Opioid Data: 2 Last Pain Scale 2 11/10/24, 05:29 Review of Systems ROS Narrative A ten point review of systems is negative except as noted above. PFSH PFSH Social History Smoking status: Never smoker Little interest or pleasure in doing things: not at all Feeling down, depressed, or hopeless: not at all Exam Narrative Exam Narrative: Nurses note and vital signs reviewed and patient is not hypoxic. General: The patient appears well and in no apparent distress. Patient is resting comfortably on cart. Skin: Warm, dry, no pallor noted. There are areas of healing poison patti on her right wrist and right ear. She has a few hives on her legs Head: Normocephalic, atraumatic Eye: Normal conjunctiva, no drainage Ears, Nose, Mouth, and Throat: oral mucosa is moist. Nares patent. Tongue not swollen Cardiovascular: Regular Rate and Rhythm Respiratory: Patient is in no distress, no accessory muscle use, lungs are clear to auscultation, no wheezing, rales or rhonchi Back: non-tender GI: Soft and nontender Musculoskeletal: The patient has no evidence of calf tenderness, no pitting edema, symmetrical pulses noted bilaterally Neurological: A&O, normal speech Psychiatric: Cooperative Constitutional Vital Signs, click to edit/add: Last Vital Signs Temp 98.7 F 12/21/24 07:17 Pulse 82 12/21/24 07:17 Resp 18 12/21/24 07:17 BP 109/83 12/21/24 07:17 Pulse Ox 98 12/21/24 07:17 O2 Del Method Room Air 12/21/24 07:17 Course Vital Signs Vital signs: Vital Signs Temperature 98.7 F 12/21/24 07:17 Pulse Rate 82 12/21/24 07:17 Respiratory Rate 18 12/21/24 07:17 Blood Pressure 109/83 12/21/24 07:17 Pulse Oximetry 98 12/21/24 07:17 Oxygen Delivery Method Room Air 12/21/24 07:17 Temperature 98.7 F 12/21/24 07:17 Pulse Rate 82 12/21/24 07:17 Respiratory Rate 18 12/21/24 07:17 Blood Pressure 109/83 12/21/24 07:17 Pulse Oximetry 98 12/21/24 07:17 Oxygen Delivery Method Room Air 12/21/24 07:17 Medical Decision Making MDM Narrative Medical decision making narrative: The patient had an allergic reaction and that happened an hour after receiving a Kenalog injection. She is requesting a shot of a steroid because she is going to be traveling and wants this to go away. We talked about the risks and benefits of IM Solu-Medrol and she was advised that she could have a reaction to this as well but she is willing to accept those risks. She was given IM Solu- Medrol and prescribed a short course of prednisone. Treatment diagnosis and follow-up were discussed with the patient. Differential Diagnosis Differential Diagnosis: Allergic reaction, hives Discharge Plan Discharge Chief Complaint: Allergic Reaction Clinical Impression: Allergic reaction caused by a drug Patient Disposition: Home, Self-Care Time of Disposition Decision: 07:36 Condition: Good Mode of Transportation: Private Vehicle Prescriptions / Home Meds: New prednisone 10 mg tablet See Rx Instructions .ROUTE .COMPLEX Qty: 15 0RF Rx Instructions: 3 by mouth daily for three days then 2 by mouth daily for three days No Action Nurtec ODT 75 mg tablet,disintegrating 75 mg PO DAILY PRN (Reason: migraine headache) hydrocortisone 2.5 % cream 1 applic TOPICAL DAILY PRN (Reason: skin irritation) Print Language: Scottish Instructions: General Allergic Reaction (ED) Additional Instructions: Take Benadryl for itching Referrals: DELISA SANDHU [Primary Care Provider, Family Practice] - 1 week
--- OUTSIDE RECORDS SUMMARY | 2024-12-21 07:45 | XMS_ITS | CCD ---
Author Organization [facility] Care Team Providers Care Condenser Setter Name Role Phone PHYSICIAN, DEFAULT Unavailable Unavailable PHYSICIAN, DEFAULT Unavailable Unavailable Hercher, Malina L Unavailable Unavailable Hercher, Malina L Unavailable Unavailable Chuckie Gonzalez Unavailable Unavailable Hercher, Malina L Unavailable Unavailable Hercher, Malina L Unavailable Unavailable Chuckie Gonzalez Unavailable Unavailable Brionna Casas Unavailable Lenin Adkins Unavailable Harmony Jerez Unavailable NO FAMILY, PHYSICIAN Primary Care Provider Unava ilable WAI Jerez Attending Provider [phone] RUDY Casas Attending Provider MISC, DR GIBSON [...] Savannah Hillman Unavailable Janett Nugent Unavailable HOLDEN ARORA Attending Unavailable MERCED [place] Referring Unavailable HOLDEN ARORA Referring Unavailable Unallocated , Juniors Provider Primary Care Provi carmen Merced Ny DO Unavailable [phone] Mariola ORTIZ, Ramya Olivier Unavailable Anish DIRECTOR OF BUSINESS APPLICATIONS, Harrison Unavailable Michael DIRECTOR OF BUSINESS APPLICATIONS, Mary Unavailable Augusto SHOE STAMPER-SEARCH ENGINE OPTIMIZATION ANALYST, Brionna Primary Care Provide r Carmelina SHOE STAMPER-SEARCH ENGINE OPTIMIZATION ANALYST, Ramya Marcos Primary Care Provider MARLENI ZAVALA Referring Unavailable BRIONNA CASAS Primary Care Unavailable JESÚS LOCKHART Referring Unavailable JESÚS LOCKHART Primary Care Unavailable Richy SHOE STAMPER-GLOST KILN OPERATORJesús Primary Care Provid er Harrison Gonzalez NP Unavailable Janett Nugent APRN Attending Provider Janett Nugent Admitting Unavailable Janett Nugent Attending Unavailable NON STAFF Primary Care Unavailable Richy SHOE STAMPER-GLOST KILN OPERATORJesús Primary Care Provid er Merced Ny DO Unavailable Anish DIXON, Harrison Unavailable Michael DIRECTOR OF BUSINESS APPLICATIONS, Mary Unavailable Unavailable NORTHEIM, SHOAIB Attending Unavailable TAWANDAM, SHOAIB Attending Unavailable MARY RODRIGUEZ Attending Unavailable NORTHEIM, SHOAIB Attending Unavailable TAWANDAM, SHOAIB Attending Unavailable HARRISON GONZALEZ Attending Unavailable HARRISON GONZALEZ Attending Unavailable Memo Sandhu DO Primary Care Provider [phone] JESÚS LOCKHART Attending Unavailable JESÚS LOCKHART Referring Unavailable JESÚS LOCKHART Primary Care Unavailable MEMO SANDHU Attending Unavailable JESÚS LOCKHART Referring Unavailable JESÚS LOCKHART Primary Care Unavailable MEMO SANDHU Attending Unavailable MEMO SANDHU Referring Unavailable MEMO SANDHU Primary Care Unavailable Janett Nugent APRN Attending Provider Jesús Han Primary Care Provider NON STAFF Primary Care Provider Unavailalejandro e Savannah Hillman APRN Attending Provider Allergies Allergy Classification Reported Allergen(s) Allergy Type Date of Onset Reaction(s) Facility (20 sources) amoxicillin; Translations: [amoxicillin] Drug Allergy 04-17-20 05 rash, Unknown [facility] Repository (20 sources) erythromycin; Translations: [erythromycin] Drug Allergy 02-06-20 17 Unknown, Rash [facility] Repository (20 sources) Adhesive Tape; Translations: [adhesive tape] Propensity to adverse reactions 06-21-19 red and irritation [facility] (20 sources) Ciprofloxacin Drug Allergy 12-05-19 23 Unknown [facility] Other (20 sources) metroNIDAZOLE; Translations: [METRONIDAZOLE] Drug Allergy 04-02-20 Rash [facility] Other (6 sources) Adhesive agent; Translations: [ADHESIVE] Drug allergy (disorder) 04-02-20 Rash [facility] Repository (1 source) Ciprofloxacin Drug Allergy [facility] Repository (5 sources) Erythromycin Drug Allergy 06-21-19 swelling and rash [facility] Repository (1 source) metroNIDAZOLE Drug Allergy [facility] Repository (12 sources) Azithromycin; Translations: [AZITHROMYCIN] Drug Allergy 04-02-20 Swelling, Rash [facility] Repository (19 sources) Wound Dressing Adhesive Drug Allergy 04-02-20 [facility] (6 sources) Adhesive agent Propensity to adverse reactions to drug 04-02-20 [facility] (10 sources) Ciprofloxacin; Translations: [CIPROFLOXACIN HCL] Drug Allergy 04-02-20 [facility] ([facility] sources) Adhesive Tape-Silicones; Translations: [ADHESIVE TAPE-SILICONES] Propensity to adverse reactions to drug 04-02-20 [facility] (1 source) Ciprofloxacin Drug Allergy 11-06-19 [facility] Repository (1 source) Erythromycin Drug Allergy 11-06-19 [facility] Repository (1 source) metroNIDAZOLE Drug Allergy 11-06-19 [facility] Repository Medications Current Medications Medication Drug Class(es) Dates Sig (Normalized) Sig (Original) clobetasol propionate 0.5 mg/ml topical cream (18 sources) Corticosteroid Start: 07-16-2024 clobetasoL (TEMOVATE) 0.05 % cream 07/16/2024 Active Start: 07-16-2024 clobetasol (Te movate) 0.05 % cream Indications: Lichen sclerosus et [...] bedtime as needed June 21, 2024 1:00am Complies with drug therapy cyclobenzaprine (Flexeril) 5 MG tablet Take 5 [...] Active fexofenadine hydrochloride 180 mg oral tablet (14 sources) Histamine-1 Receptor Antagonist Start: 07-20-2024 End: 11-13-2024 take 1 tablet by mouth once daily [...] 09/08/2023 Active hydrocortisone 25 mg/ml topical cream (5 sources) Corticosteroid Start: 12-19-2024 Hydrocortisone 2.5 % cream Active APPLIC TOPICAL December 19, 2024 12:00am Complies with drug therapy Start: 12-14-2024 hydrocortisone (HYTONE) 2.5 % cream Apply 1 Application topically in the morning and 1 Application before bedtime. 30 g 12/14/2024 Active Start: 04-16-2022 Hydrocortisone 2.5 % 1 application Externally Once a day for 5 day(s) Apr, Active lidocaine hydrochloride 20 mg/ml mucous membrane topical solution (3 sources) Antiarrhythmic, Amide Local Anesthetic Start: 04-16-2022 Lidocaine Viscous 2% 5 ml swish around in mouth area and throat Mouth/Throat every 4 hours as needed Apr, Active OPZELURA 1.5 % cream (2 sources) Start: 09-23-2024 OPZELURA 1.5 % cream Apply to affected areas, twice a day when flared, 30 day supply 09/23/2024 Active phenazopyridine hydrochloride 100 mg oral tablet (6 sources) Start: 11-13-2024 End: 11-16-2024 take 1 tablet by mouth three times daily phenazopyridine (PYRIDIUM) 100 mg tablet Indications: Urinary symptom or sign Take 1 tablet (100 mg total) by mouth 3 (three) times a day for 3 days. 9 tablet 11/13/2024 11/16/2024 Active Start: 11-05-2024 End: 12-19-2024 take 1 tablet by mouth three times daily Phenazopyridine (Pyridium) 200 mg tablet Discontinued 200 MG PO Three times daily 6 2 November 05, 2024 12:00am December 19, 2024 2:46pm Start: 04-03-2022 take 1 tablet by dionicio [...] Once as needed June 21, 2024 1:00am Complies with drug therapy Start: 10-02-2023 End: 04-15-2024 NURTEC ODT 75 mg tablet,disi ntegrating Place 1 tablet (75 mg total) under the tongue. 04/15/2024 Active Ruxolitinib (8 sources) Start: 11-05-2024 Ruxolitinib (O pzelura) 1.5 % cream Active APPLIC TOPICAL November 05, 2024 12:00am Complies with drug therapy Start: 11-05-2024 Ruxolitinib (O pzelura) 1.5 % [...] Externally tid for 5 day(s) Aug, Active sulfamethoxazole 800 mg / trimethoprim 160 mg oral tablet (4 sources) Dihydrofolate Reductase Inhibitor Antibacterial, Sulfonamide Antimicrobial Start: 11-12-2024 End: 12-19-2024 take 1 tablet by mouth once in the morning sulfamethoxazole-t rimethoprim (BACTRIM DS) 800-160 mg per tablet Take 1 tablet by mouth in the morning and 1 tablet before bedtime. Do all this for 5 days. 10 tablet 12/14/2024 12/19/2024 Active Start: 11-07-2024 End: 12-19-2024 take 1 tablet by mouth twice daily Sulfamethoxazole-Trimethoprim (Bactrim D s) 800-160 mg tablet Discontinued 1 TAB PO Twice daily 14 November 07, 2024 12:00am December 19, 2024 2:46pm tacrolimus 0.001 mg/mg topical ointment (11 sources) Calcineurin Inhibitor Immunosuppressant Start: 08-19-2024 End: [...] completed) Start: 04-03-2022 take 1 capsule by mo [facility] every twelve hours Doxycycline Monohydrate 100 [...] 01-08-2014 Depo-Medrol 80 mg Jan, 80 mg nitrofurantoin, macrocrystals 25 mg / nitrofurantoin, monohydrate 75 mg oral capsule (3 sources) Nitrofuran Antibacterial Start: 11-05-2024 End: 12-19-2024 take 1 capsule by mouth every twelve hours at mealtime Nitrofurantoin Monohyd/M-Cryst (Macrobid) 100 mg capsule Discontinued 100 MG PO Q12H 10 November 05, 2024 12:00am December 19, 2024 2:46pm must administer with a meal/food ondansetron 4 mg oral tablet (14 sources) [...] Toradol 30 mg/ ml Jun, 30 mg triamcinolone acetonide 10 mg/ml injectable suspension (20 sources) Corticosteroid Start: 11-30-2024 End: 11-30-2024 triamcinolone acetonide (Kenalog) injection 2.5 mg Start: 11-30-2024 End: 11-30-2024 2.5 mg, Intradermal, Once, O n 11/30/24 at 1430, For 1 dose Start: 11-30-2024 End: 11-30-2024 triamcinolone acetonide (Talat alog) injection 2.5 mg Start: 11-30-2024 End: 11-30-2024 2.5 mg, Intradermal, Once, O n 11/30/24 at 1430, For 1 dose Start: 08-19-2024 triamcinolone acetonide (Kenalog) injection 10 mg Start: 07-16-2024 End: 07-16-2024 triamcinolone acetonide (Talat alog) injection 2.5 mg Start: 07-16-2024 End: 07-16-2024 2.5 mg, Intra-lesional, Once , On [facility] 07/16/24 at 1545, For 1 dose [...] 80 g 11 07/16/2024 Active Start: 07-16-2024 End: 11-13-2024 triamcinolone (KENALOG) 0.1 % cream Apply to affected areas, up to twice a day when flared, do not use one the face, groin, or underarms, 30 day supply 07/16/2024 11/13/2024 Discontinued (Dose adjustment) Start: 12-26-2013 STEFANO alcaraz Dec, 40 mg Problems Active Problems Problem Classification Problem Date Documented Date Episodic/Chronic Administrative/socia l admission (5 sources) Encounter for pre-employment examination; Translations: [Person with feared health complaint in whom no diagnosis is made] Onset: 11-21-2021 Episodic Allergic reactions (12 sources) Atopic dermatitis; Translations: [Other atopic dermatitis] 07-16-2024 Chronic Allergic reactions (20 sources) Contact dermatitis due to plants; Translations: [Contact dermatitis due to plant] Onset: 12-14-2024 07-16-2024 Episodic Anxiety disorders (20 sources) Panic [...] Translations: [Vitamin D deficiency] Onset: 07-14-2022 Chronic Other and unspecified benign neoplasm (2 sources) [...] to excess calories] Onset: 10-08-2023 Chronic Other nutritional; endocrine; and metabolic disorders (1 source) Overweight; Translations: [Overweight] 12-14-2024 Episodic Other screening for suspected conditions (not mental disorders or infectious disease) (6 sources) Encounter for screening mammogram for malignant neoplasm of breast; Translations: [Encounter for screening for malignant neoplasm of cervix] Onset: 07-27-2021 Episodic Other skin disorders (9 sources) Lichen sclerosus et atrophicus; Translations: [Circumscribed scleroderma] Onset: 09-05-2023 07-16-2024 Chronic Other skin disorders (8 sources) Alopecia areata; Translations: [Other alopecia areata] [...] sources) Pain; Translations: [Pain, unspecified] 07-16-2024 Episodic Spondylosis; intervertebral disc disorders; other back problems (1 source) Acute thoracic back pain; Translations: [Pain in thoracic spine] 11-13-2024 Episodic Sprains and strains (2 sources) Strain of muscle, fascia and tendon at neck level, initial encounter; Translations: [Sprain of ligaments of cervical spine, initial encounter] Episodic Unclassified (1 source) discussion about health issues Onset: 07-28-2024 Urinary tract infections (12 sources) Acute cystitis without hematuria; Translations: [Acute cystitis with hematuria] Onset: 08-03-2019 Resolved: 06-19-2023 Episodic Viral infection (3 sources) Disease caused by 2019-nCoV; Translations: [COVID-19] [...] (1 source) Acute vaginitis Onset: 07-17-2021 Resolved: 02-07-2022 Episodic Mood disorders (8 sources) Mood disorders Onset: 06-19-2023 Resolved: 12-14-2024 06-19-2023 Nausea and vomiting (1 source) Nausea; Translations: [NAUSEA] Onset: 09-07-2021 Episodic Nutritional deficiencies (3 sources) Deficiency of other specified B group vitamins; Translations: [Cobalamin deficiency] Onset: 07-28-2024 07-28-2024 Episodic Other aftercare (1 source) Encounter for follow-up examination after completed treatment for conditions other than malignant neoplasm Onset: 04-17-2021 Resolved: 04-17-2021 Episodic Other connective tissue disease (8 sources) Pain in left lower limb; Translations: [Pain in left lower leg] Onset: 04-02-2019 Resolved: 06-19-2023 06-19-2023 Episodic Other eye disorders (8 sources) Dermatochalasis of right upper eyelid; Translations: [Dermatochalasis] Onset: 10-22-2021 10-22-2021 Episodic Other female genital disorders (1 source) Unspecified condition associated with female genital organs and menstrual cycle Onset: 07-09-2021 Resolved: 07-09-2021 Episodic Other female genital disorders (20 sources) Pruritus of vagina; Translations: [Other specified noninflammatory disorders of vagina] Onset: 01-09-2023 01-09-2023 Episodic Other infections; including parasitic (1 source) Personal history of other infectious and parasitic diseases; Translations: [History of chicken pox Z86.19] Onset: 03-23-2021 Resolved: 03-23-2021 Episodic Other non-traumatic joint disorders (8 sources) Multiple joint pain; Translations: [Pain in unspecified joint] Onset: 07-06-2019 07-06-2019 Episodic Other non-traumatic joint disorders (8 sources) Pain of left wrist; Translations: [Pain in left wrist] Onset: 07-06-2019 Resolved: 06-19-2023 06-19-2023 Episodic Other nutritional; endocrine; and metabolic disorders (20 sources) Weight increased; Translations: [Abnormal weight gain] [...] BREAST] Onset: 10-12-2021 Episodic Residual codes; unclassified (8 sources) At risk of sexually transmitted infection ; Translations: [Other specified personal risk factors, not elsewhere classified] Onset: 08-03-2019 Resolved: 06-19-2023 06-19-2023 Episodic Unclassified (1 source) Acute cough R05.1 Unclassified (4 sources) Onset: 10-16-2023 Resolved: 12-14-2024 10-16-2023 Viral infection (1 source) COVID-19 Results Test Name Value Interpretation Reference Range Facility POCT urinalysis dipstick onl yon 12-14-2024 External Poct Urine Bilirubin Negative [facility] External Poct Urine Blood Negative [facility] External Poct Urine Character clear [facility] External Poct Urine Color yellow [facility] External Poct Urine Glucose Negative [facility] External Poct Urine Ketones Negative [facility] External Poct Urine Leukocyte Esterase Trace [facility] External Poct Urine Nitrite Negative [facility] External Poct Urine Ph 6 Pr [facility] External Poct Urine Protein Negative [facility] External Poct Urine Specific [place] 1.01 [facility] External Poct Urine Urobilinogen 0.2 [facility] POCT urinalysis dipstick onl yon 11-13-2024 Appearance (U) CLEAR [facility] External Poct Urine Bilirubin Negative [facility] External Poct Urine Blood Negative [facility] External Poct Urine Color YELLOW [facility] External Poct Urine Glucose Negative [facility] External Poct Urine Ketones Negative [facility] External Poct Urine Leukocyte Esterase Negative [facility] External Poct Urine Nitrite Negative [facility] External Poct Urine Ph 5.5 Pr [facility] External Poct Urine Protein Negative [facility] External Poct Urine Specific [place] 1.03 [facility] External Poct Urine Urobilinogen 0.2 [facility] Laboratory - Chemistry and C hemistry - challengeon 11-05-2024 Bilirubin Ql (U) Negative [facility] Glucose (U) [Mass/Vol] Negative [facility] Ketones Ql (U) Negative [facility] pH (U) 5.5 [pH] [facility] Specific gravity (U) [Rel density] 1.030 [facility] Urobilinogen (U) [Mass/Vol] 0.2 mg/dL [facility] Laboratory - Specimen inform ationon 11-05-2024 Appearance (U) cloudy [facility] Color (U) yellow [facility] Laboratory - Urinalysison Leukocyte esterase Test strip Ql (U) trace [facility] Nitrite Ql (U) Negative [facility] Protein Ql (U) trace [facility] No Panel Informationon 11-05 Urine Occult Blood large [facility] Urine Cultureon 11-05-2024 Bacteria identified Cx Nom (U) ORGANISM: Escherichia coli (O:ESCCOL) [place] Count >100,000 Aerobic ANDRES Charge (NMIC56) SUSCEPTIBILITY [...] RESISTANT TO ALL B-LACTAM DRUGS. PERFORMED BY: [facility] [address] [place] [address] PATHOLOGIST FOURDRINIER WIRE WEAVER NAVEEN MOTA M.D. Normal [facility] Comment on above: Performed By: #### C UU #### [facility] [address] Urine cultureOrdered By: Rossy Nugent on 11-05-2024 Bacteria identified Cx Nom (U) Escherichia coli Abnormal [facility] No Panel Informationon 08-19 [facility] CBC AND AUTO DIFFon 07-28-19 25 ABSOLUTE BASOPHIL 0.0 X10E9/L Normal 0.0-0.2 [facility] Comment on above: Performed By: #### C PAZ MCCLELLAND, 64437-6, 6-3, 2131-9, 85051- 6, HA1C #### [facility] ([id number]) [address], [address] [place] [address] ABSOLUTE NEUTROPHIL 3.3 X10E9/L Normal 1.5-6.6 [facility] Comment on above: Performed By: #### C PAZ MCCLELLAND, 32694-7, 3016-3, 2131-9, 32810- 6, HA1C #### [facility] ([id number]) [address] [place] [address] Basophils/100 WBC (Bld) 0.3 % Normal [facility] Comment on above: Performed By: #### C BCA, CMP, 07178-0, 3016-3, 2131-9, 23427- 6, HA1C #### [facility] ([id number]) [address], [address] [place] [address] Eosinophils (Bld) [#/Vol] 0.1 10*3/uL Normal 0.0-0.4 [facility] Comment on above: Performed By: #### C BCA, CMP, 77758-4, 3016-3, 2131-9, 19807- 6, HA1C #### [facility] ([id number]) [address], [facility] [address] [place] [address] Eosinophils/100 WBC (Bld) 2.1 % Normal [facility] Comment on above: Performed By: #### C BCA, CMP, 57723-8, 3016-3, 2131-9, 68108- 6, HA1C #### [facility] ([id number]) [address], [facility] [address] [place] [address] Erythrocyte distribution width (RBC) [Ratio] 13.8 % Normal 11.5-15.0 [facility] Comment on above: Performed By: #### C BCA, CMP, 80372-9, 3016-3, 2131-9, 62452- 6, HA1C #### [facility] ([id number]) [address], [address] [place] [address] Hematocrit (Bld) [Volume fraction] 43.3 % Normal 35-47 [facility] Comment on above: Performed By: #### C BCA, CMP, 27252-2, 3016-3, 2131-9, 40103- 6, HA1C #### [facility] ([id number]) [address], [address] [place] [address] Hemoglobin (Bld) [Mass/Vol] 14.6 g/dL Normal 11.7-15.5 [facility] Comment on above: Performed By: #### C BCA, CMP, 65697-5, 3016-3, 2131-9, 99120- 6, HA1C #### [facility] ([id number]) [address], [address] [place] [address] Lymphocytes (Bld) [#/Vol] 2.2 10*3/uL Normal 1.0-3.5 [facility] Comment on above: Performed By: #### C BCA, CMP, 12693-6, 3016-3, 2131-9, 44095- 6, HA1C #### [facility] ([id number]) [address], [address] [place] [address] Lymphocytes/100 WBC (Bld) 34.1 % Normal [facility] Comment on above: Performed By: #### C BCA, CMP, 48720-5, 3016-3, 2131-9, 67568- 6, HA1C #### [facility] ([id number]) [address], [address] [place] [address] MCH (RBC) [Entitic mass] 30.4 pg Normal 27-34 [facility] Comment on above: Performed By: #### C BCA, CMP, 78652-4, 3016-3, 2131-9, 51283- 6, HA1C #### [facility] ([id number]) [address], [address] [place] [address] MCHC (RBC) [Mass/Vol] 33.6 g/dL Normal 32-36 [facility] Comment on above: Performed By: #### C BCA, CMP, 89526-5, 3016-3, 2131-9, 73260- 6, HA1C #### [facility] ([id number]) [address], [address] [place] [address] MCV (RBC) [Entitic vol] 91 fL Normal 80-100 [facility] Comment on above: Performed By: #### C BCA, CMP, 47407-6, 3016-3, 2-9, 18068- 6, HA1C #### [facility] ([id number]) [address], [address] [place] [address] Monocytes (Bld) [#/Vol] 0.7 10*3/uL Normal 0-0.9 [facility] Comment on above: Performed By: #### C BCA, CMP, 17757-9, 3016-3, 2131-9, 97716- 6, HA1C #### [facility] ([id number]) [address], [address] [place] [address] Monocytes/100 WBC (Bld) 11.7 % Normal [facility] Comment on above: Performed By: #### C BCA, CMP, 10437-2, 3016-3, 2131-9, 16887- 6, HAWes #### [facility] ([id number]) [address], [address] [place] [address] Neutrophils/100 WBC (Bld) 51.8 % Normal [facility] Comment on above: Performed By: #### C BCA, CMP, 76553-9, 3016-3, 2-9, 43511- 6, HAWes #### [facility] ([id number]) [address], [address] [place] [address] Platelet mean volume (Bld) [Entitic vol] 9.3 fL Normal 7-12 [facility] Comment on above: Performed By: #### C BCA, CMP, 41336-5, 3016-3, 2-9, 46449- 6, HA1C #### [facility] ([id number]) [address], [address] [place] [address] Platelets (Bld) [#/Vol] 279 10*3/uL Normal 150-450 [facility] Comment on above: Performed By: #### C BCA, CMP, 21054-0, 3016-3, 2132-9, 98474- 6, HA1C #### [facility] ([id number]) [address], [address] [place] [address] RBC COUNT 4.78 X10E12/L Normal 3.80-5.20 [facility] Comment on above: Performed By: #### C BCA, CMP, 58171-1, 3016-3, 2132-9, 34716- 6, HA1C #### [facility] ([id number]) [address], [address] [place] [address] WBC (Bld) [#/Vol] 6.3 10*3/uL Normal 4.0-11.0 [facility] Comment on above: Performed By: #### C BCA, CMP, 57728-9, 3016-3, 2132-9, 70263- 6, HA1C #### [facility] ([id number]) [address], [address] [place] [address] COMPREHENSIVE METABOLIC PANE Emile 07-28-2024 Albumin [Mass/Vol] 4.3 g/dL Normal 3.2-5.3 [facility] Comment on above: Performed By: #### C BCA, CMP, 92583-3, 3016-3, 2132-9, 25103- 6, HA1C #### [facility] ([id number]) [address], [address] [place] [address] ALP [Catalytic activity/Vol] 43 U/L Normal 39-130 [facility] Comment on above: Performed By: #### C BCA, CMP, 61178-4, 3016-3, 2132-9, 33474- 6, HA1C #### [facility] ([id number]) [address], [address] [place] [address] ALT [Catalytic activity/Vol] 19 U/L Normal 0-31 [facility] Comment on above: Performed By: #### C BCA, CMP, 30301-7, 3016-3, 2132-9, 16425- 6, HA1C #### [facility] ([id number]) [address], [address] [place] [address] Anion gap [Moles/Vol] 10 mmol/L Normal 5-15 [facility] Comment on above: Performed By: #### C BCA, CMP, 19286-2, 3016-3, 2132-9, 61193- 6, HA1C #### [facility] [facility] ([id number]) [address], [address] [place] [address] AST [Catalytic activity/Vol] 17 U/L Normal 0-41 [facility] Comment on above: Performed By: #### C BCA, CMP, 91821-6, 3016-3, 2-9, 81261- 6, HA1C #### [facility] ([id number]) [address], [address] [place] [address] Bilirubin [Mass/Vol] 0.4 mg/dL Normal 0.3-1.2 [facility] Comment on above: Performed By: #### C BCA, CMP, 02584-8, 3016-3, 2-9, 67470- 6, HA1C #### [facility] ([id number]) [address], [address] [place] [address] Calcium [Mass/Vol] 9.4 mg/dL Normal 8.5-10.5 [facility] Comment on above: Performed By: #### C BCA, CMP, 82297-5, 3016-3, 2132-9, 33512- 6, HA1C #### [facility] ([id number]) [address], [address] [place] [address] Chloride [Moles/Vol] 105 mmol/L Normal 98-109 [facility] Comment on above: Performed By: #### C BCA, CMP, 38851-7, 3016-3, 2132-9, 48696- 6, HA1C #### [facility] ([id number]) [address] [address] CO2 [Moles/Vol] 24 mmol/L Normal 22-32 [facility] Comment on above: Performed By: #### C BCA, CMP, 36638-2, 3016-3, 2131-9, 89006- 6, HA1C #### [facility] ([id number]) [address], [address] [address] Creatinine [Mass/Vol] 0.77 mg/dL Normal 0.40-1.00 [facility] Comment on above: Result Comment: METH OD TRACEABLE TO IDMS STANDARD Performed By: #### C BCA, CMP, 33228-4, 3016-3, 9, 06638-8, HA1C #### [facility] ([id number]) [address] [address] eGFR (CKD-EPI) NON-RACE DEPENDENT >90 Normal >59 [facility] Comment on above: Result Comment: Reported eGFR is based on the CKD-EPI 2020 equation that does not use a race coefficient. Performed By: #### C BCA, CMP, 43201-2, 3016-3, 9, 75375-8, HA1C #### [facility] ([id number]) [address], [address] [address] Glucose [Mass/Vol] 90 mg/dL Normal 65-99 [facility] Comment on above: Performed By: #### C BCA, CMP, 56712-6, 3016-3, 2131-9, 64879- 6, HA1C #### [facility] ([id number]) [address], [address] [address] Potassium [Moles/Vol] 3.7 mmol/L Normal 3.5-5.0 [facility] Comment on above: Performed By: #### C BCA, CMP, 73855-2, 3016-3, 2131-9, 32620- 6, HA1C #### [facility] ([id number]) [address], [address] [place] [address] Protein [Mass/Vol] 7.3 g/dL Normal 6.0-8.0 [facility] Comment on above: Performed By: #### C BCA, CMP, 00746-0, 3016-3, 2131-9, 95832- 6, HA1C #### [facility] ([id number]) [address], [address] [place] [address] Sodium [Moles/Vol] 139 mmol/L Normal 134-146 [facility] Comment on above: Performed By: #### C BCA, CMP, 04745-3, 3016-3, 2131-9, 64662- 6, HA1C #### [facility] ([id number]) [address], [address] [place] [address] Urea nitrogen [Mass/Vol] 15 mg/dL Normal 5-23 [facility] Comment on above: Performed By: #### C BCA, CMP, 45958-8, 3016-3, 2131-9, 52989- 6, HA1C #### [facility] ([id number]) [address], [address] [place] [address] HGB A1C (GLYCO-HGB)on 2024 Glucose [Mass/Vol] 103 mg/dL Normal [facility] Comment on above: Performed By: #### C BCA, CMP, 06183-8, 3016-3, 2-9, 77012- 6, HA1C #### [facility] ([id number]) [address], [address] [place] [address] HbA1c (Bld) [Mass fraction] 5.2 % Normal 4.4-5.6 [facility] Comment on above: Result Comment: NOTE ADA Guidelines Result HgbA1c Normal : less than 5.7 % Prediabetes : 5.7 % to 6.4 % Diabetes : > 6.4 % Use with caution in patients with abnormal hemoglobin variants as the half-life of red blood cells and in vivo glycation rates are affected. Performed By: #### C KRYSTIN, PAZ, 65860-6, 3016-3, 2132-9, 62289-5, HA1C #### [facility] ([id number]) [address], [address] [place] [address] Lipid 1996 panelon 5 Cholesterol [Mass/Vol] 187 mg/dL Normal 150-200 [facility] Comment on above: Performed By: #### C KRYSTIN, CMP, 10545-0, 3016-3, 2-9, 46606- 6, HA1C #### [facility] ([id number]) [address], [address] [place] [address] Cholesterol in HDL [Mass/Vol] 65 mg/dL Normal >39 [facility] Comment on above: Result Comment: HDL <40 mg/dL - High Risk HDL > or = 40mg/dL- Desirable HDL >60 mg/dL - Negative Risk Performed By: #### C KRYSTIN, CMP, 94120-7, 3016-3, 2-9, 30896-2, HA1C #### [facility] ([id number]) [address], [address] [place] [address] Cholesterol in LDL [Mass/Vol] 106 mg/dL Normal <130 [facility] Comment on above: Result Comment: LDL <100 mg/dL - Desirable LDL >160 mg/dL - High Risk Performed By: #### C BCA, CMP, 49412-7, 3016-3, 2-9, 69763-5, HA1C #### [facility] ([id number]) [address], [address] [place] [address] Cholesterol in VLDL [Mass/Vol] 16 mg/dL Normal 0-30 [facility] Comment on above: Performed By: #### C BCA, CMP, 14863-5, 3016-3, 2131-9, 06229- 6, HA1C #### [facility] ([id number]) [address], [address] [place] [address] CHOLESTEROL:HDL 2.9 Normal 1.0-5.0 [facility] Comment on above: Performed By: #### C BCA, CMP, 30819-4, 3016-3, 2131-9, 20654- 6, HA1C #### [facility] ([id number]) [address], [address] [place] [address] Triglyceride [Mass/Vol] 80 mg/dL Normal 27-150 [facility] Comment on above: Performed By: #### C BCA, CMP, 34940-1, 3016-3, 2131-9, 22108- 6, HA1C #### [facility] ([id number]) [address], [address] [place] [address] TSH Qnon 07-28-2024 TSH 0.87 uIU/mL Normal 0.49-4.67 [facility] Comment on above: Performed By: #### C BCA, CMP, 14634-1, 3016-3, 2-9, 95600- 6, HA1C #### [facility] ([id number]) [address], [address] [place] [address] VITAMIN B12on 07-28-2024 Cobalamin (Vitamin B12) [Mass/Vol] 531 pg/mL Normal 180-914 [facility] Comment on above: Performed By: #### C BCA, [facility], 35876-3, 3016-3, 2132-9, 51574- 6, HA1C #### [facility] ([id number]) [address] [place] [address], [address] [place] [address] Vitamin D+Metabolites [Mass/ Vol]on 07-28-2024 VITAMIN D 25 HYD TOT 32.5 ng/mL Normal 30-100 [facility] Comment on above: Result Comment: Vitamin D status 25 [place] Vitamin D Deficiency <20 ng/mL Insufficiency 20-29 ng/mL Sufficiency 30-100 ng/mL Toxicity >100 ng/mL NOTE: A pediatric reference range has not been established by the assisted living associate of this kit. The [place] [employer] recommends a Vitamin D level of = or >20ng/mL in infants and children. Performed By: #### C KRYSTIN [facility], 96647-7, 3016-3, 2132-9, 77709-1, HA1C #### [facility] ([id number]) [address] [place] [address], [address] [place] [address] No Panel InformationOrdered By: Keon Tovar on 07-16-2024 [facility] 36on 12-04-2023 36 Regarding sleep stud y from 11/20/2023: MD Mary De León MA Please notify patient that the sleep study was negative for sleep apnea. Thank you Dr. Arora LM on . Normal [facility] POCT urinalysis dipstick onl yon 10-16-2023 Appearance (U) clear [facility] External Poct Urine Bilirubin Negative [facility] External Poct Urine Blood Negative [facility] External Poct Urine Color yellow [facility] External Poct Urine Glucose Negative [facility] External Poct Urine Ketones Trace [facility] External Poct Urine Leukocyte Esterase Negative [facility] External Poct Urine Nitrite Negative [facility]ct Urine Ph [facility] Urine Protein Negative [facility] External Poct Urine Specific [place] 1.030 [facility] External Poct Urine Urobilinogen 0.2 [facility] Office Visiton 10-08-2023 Follow-up visit [id number] Leydi Gage 1975 F Date Provider Department Center 10/08/2023 [id number] ARORA CARD [facility] Family History Problem Relation Age of Onset Diabetes Mother Breast cancer Mother Bone cancer Mother Fibromyalgia Mother Family Status - Relation Status Age at Mother Father Alive Level of Service:03222 SD OFFICE/OUTPATIENT NEW MODERATE MDM 45 MINUTES Reason for Visit and Comments: Chest Pain [876268] Normal [facility] Vaginitis Panel PCRon 2023 Bacterial vaginosis DNA panel AC+probe (Vag fld) Not detected Not Detected^N ot Detected [facility] Comment on above: Qualitative results are reported based on detection and quantitation of targeted organism markers which include: Lactobacillus spp. (L. crispatus and L. jensenii), Gardnerella vaginalis, Atopobium vaginae, Bacterial Vaginosis Associated Bacteria-2 (BVAB-2) and Megasphaera-1 C. glabrata DNA AC+probe Ql (Vag fld) Not detected Not Detected^N ot Detected [facility] Comment on above: No Emile glabrata detected C. krusei DNA AC+probe Ql (Vag fld) Not detected Not Detected^N ot Detected [facility] Comment on above: No Emile krusei de tected Emile sp 6 panel AC+probe (Vag fld) Detected Abnormal Not Detected^N ot Detected [facility] Comment on above: Emile species result based on detection of one or more of the following species: C. albicans, C. tropicalis, C. parapsilosis or C. dubliniensis Interpretation and review of laboratory results Abnormal [facility] T. vaginalis DNA AC+probe Ql (Vag fld) Not detected Not Detected^N ot Detected [facility] Comment on above: No Trichomonas vagin karen detected NOTE BD MAX Vaginal Panel has not been evaluated for patients under 18 years old. Results for these patients should be reviewed and assessed in accordance with clinical presentation to determine patient diagnosis. [facility] VAGINITIS PANEL PCRon 2023 VAGINITIS PANEL PCR [...] clinical presentation to determine patient diagnosis. Normal [facility] Comment on above: Performed By: #### V PPCR #### [facility] ([id number]) [address] [place] [address], [address] [place] [address] COVID + FLU Quick Testingon 06-11-2023 SARS-CoV-2 (COVID-19) RNA AC+probe Ql (Unsp spec) Negative [facility] Other COVID + FLU Quick Testing Negative [facility] Other THYROID ANTIBODIESon 023 Thyroglobulin Antibody <1.0 Normal 0.0-0.9 [facility] Comment on above: Result Comment: Thyr oglobulin Antibody measured by [employer]Cam Methodology Performed By: #### T HYRABS #### [facility] [address] [place] [address] Dr. Nabila Kearns Thyroid Peroxidase (TPO) Ab 12 IU/mL Normal 0-34 [facility] Comment on above: Performed By: #### T HYRABS #### [facility] [address] [place] [address] Dr. Nabila Kearns ESTRADIOLon 07-15-2022 Estradiol 117.0 pg/mL Normal [facility] Comment on above: Result Comment: Adul t Female: Follicular phase 12.5 - 166.0 Ovulation phase 85.8 - 498.0 Luteal phase 43.8 - 211.0 Postmenopausal <6.0 - 54.7 1st trimester 215.0 - >4300.0 Susana ECLIA methodology Performed By: #### H EPBSRF #### [facility] [address] [place] [address] Dr. Nabila Kearns FSHon 07-15-2022 FSH 9.0 mIU/mL Normal [facility] Comment on above: Result Comment: Adul t Female: Follicular phase 3.5 - 12.5 Ovulation phase 4.7 - 21.5 Luteal phase 1.7 - 7.7 Postmenopausal 25.8 - 134.8 Performed By: #### C BC #### [facility] [address] [place] [address] Dr. Nabila Kearns TESTOSTERONE, TOTALon 2022 Testosterone [Mass/Vol] 9 ng/dL Normal 4-50 [facility] Comment on above: Performed By: #### T ESTTOT #### [facility] [address] [place] [address] Dr. Nabila Kearns CBC AUTO DIFFon 07-14-2022 BASO # 0.0 103/ul Normal 0.0-0.1 [facility] Comment on above: Performed By: #### H EPBSRF #### [facility] [address] [place] [address] Dr. Nabila Kearns Basophils/100 WBC (Bld) 0.4 % Normal 0.2-2.0 [facility] Comment on above: Performed By: #### H EPBSRF #### [facility] [address] [place] [address] Dr. Nabila Kearns EO # 0.1 103/ul Normal 0.0-0.7 [facility] Comment on above: Performed By: #### H EPBSRF #### [facility] [address] [place] [address] Dr. Nabila Kearns Eosinophils/100 WBC (Bld) 2.6 % Normal 0.9-7.0 [facility] Comment on above: Performed By: #### H EPBSRF #### [facility] [address] [place] [address] Dr. Nabila Kearns Erythrocyte distribution width (RBC) [Ratio] 12.8 % Normal 11.0-15.0 [facility] Comment on above: Performed By: #### H EPBSRF #### [facility] [address] [place] [address] Dr. Nabila Kearns Hematocrit (Bld) [Volume fraction] 41.3 % Normal 36.0-48.0 [facility] Comment on above: Performed By: #### H EPBSRF #### [facility] [address] [place] [address] Dr. Nabila Kearns Hemoglobin (Bld) [Mass/Vol] 12.9 g/dL Normal 12.0-16.0 [facility] Comment on above: Performed By: #### H EPBSRF #### [facility] [address] [place] [address] Dr. Nabila Kearns IG # 0.02 10e3/ul Normal 0.00-0.03 [facility] Comment on above: Performed By: #### H EPBSRF #### [facility] [address] [place] [address] Dr. Nabila Kearns IG % 0.4 % Normal 0.0-0.5 [facility] Comment on above: Performed By: #### H EPBSRF #### [facility] [address] [place] [address] Dr. Nabila Kearns LYMPH # 1.8 103/ul Normal 1.2-3.8 [facility] Comment on above: Performed By: #### H EPBSRF #### [facility] [address] [place] [address] Dr. Nabila Kearns Lymphocytes/100 WBC (Bld) 33.7 % Normal 20.5-60.0 [facility] Comment on above: Performed By: #### H EPBSRF #### [facility] [address] [place] [address] Dr. Nabila Kearns MANUAL DIFF REQ NO Normal [facility] Comment on above: Performed By: #### H EPBSRF #### [facility] [address] [place] [address] Dr. Nabila Kearns MCH (RBC) [Entitic mass] 29.2 pg Normal 26.7-34.0 [facility] Comment on above: Performed By: #### H EPBSRF #### [facility] [address] [place] [address] Dr. Nabila Kearns MCHC (RBC) [Mass/Vol] 31.2 g/dL Normal 29.9-35.2 [facility] Comment on above: Performed By: #### H EPBSRF #### [facility] [address] [place] [address] Dr. Nabila Kearns MCV (RBC) [Entitic vol] 93.4 fL Normal 81.0-99.0 [facility] Comment on above: Performed By: #### H EPBSRF #### [facility] [address] [place] [address] Dr. Nabila Kearns MONO # 0.5 103/ul Normal 0.3-0.8 [facility] Comment on above: Performed By: #### H EPBSRF #### [facility] [address] [place] [address] Dr. Nabila Kearns Monocytes/100 WBC (Bld) 9.7 % Normal 1.7-12.0 [facility] Comment on above: Performed By: #### H EPBSRF #### [facility] [address] [place] [address] Dr. Nabila Kearns NEUT # 2.9 103/ul Normal 1.4-6.5 [facility] Comment on above: Performed By: #### H EPBSRF #### [facility] [address] [place] [address] Dr. Nabila Kearns Neutrophils/100 WBC (Bld) 53.2 % Normal 43.0-75.0 [facility] Comment on above: Performed By: #### H EPBSRF #### [facility] [address] [place], [place] [address] Dr. Nabila Kearns Platelet mean volume (Bld) [Entitic vol] 10.6 fL Normal 9.5-13.5 [facility] Comment on above: Performed By: #### H EPBSRF #### [facility] [address] [place] [address] Dr. Nabila Kearns PLT 262 103/ul Normal 150-450 [facility] Comment on above: Performed By: #### H EPBSRF #### [facility] [address] [place] [address] Dr. Nabila Kearns RBC 4.42 106/ul Normal 4.20-5.40 [facility] Comment on above: Performed By: #### H EPBSRF #### [facility] [address] [place] [address] Dr. Nabila Kearns WBC 5.5 103/ul Normal 4.0-11.0 [facility] Comment on above: Performed By: #### H EPBSRF #### [facility] [address] [place] [address] Dr. Nabila Kearns FREE T3on 07-14-2022 FREE T3 2.38 pg/mlL Normal 2.18-3.98 [facility] Comment on above: Performed By: #### H EPBSRF #### [facility] [address] [place] [address] Dr. Nabila Kearns FREE T4on 07-14-2022 Free T4 [Mass/Vol] 1.02 ng/dL Normal 0.76-1.46 [facility] Comment on above: Performed By: #### C BC #### [facility] [address] [place] [address] Dr. Nabila Kearns PROF 14(COMP METB)on 023 Albumin [Mass/Vol] 3.2 g/dL Critically low 3.4-5.0 [facility] Comment on above: Performed By: #### H EPBSRF #### [facility] [address] [place] [address] Dr. Nabila Kearns Albumin/Globulin [Mass ratio] 0.8 {ratio} Normal [facility] Comment on above: Performed By: #### H EPBSRF #### [facility] [address] [address] [address] Nabila Kearns ALP [Catalytic activity/Vol] 48 U/L Normal 46-116 [facility] Comment on above: Performed By: #### H EPBSRF #### [facility] [address] [address] [address] Nabila Kearns ALT [Catalytic activity/Vol] 30 U/L Normal 14-59 [facility] Comment on above: Performed By: #### H EPBSRF #### [facility] [address] [address] [address] Nabila Kearns Anion gap [Moles/Vol] 12.3 mmol/L Normal [facility] Comment on above: Performed By: #### H EPBSRF #### [facility] [address] [place] [address] Dr. Nabila Kearns AST [Catalytic activity/Vol] 17 U/L Normal 15-37 [facility] Comment on above: Performed By: #### H EPBSRF #### [facility] [address] [address] [address] Nabila Kearns Bilirubin [Mass/Vol] 0.4 mg/dL Normal 0.2-1.0 [facility] Comment on above: Performed By: #### H EPBSRF #### [facility] [address] [address] [address] Nabila Kearns Calcium [Mass/Vol] 8.8 mg/dL Normal 8.5-10.1 [facility] Comment on above: Performed By: #### H EPBSRF #### [facility] [address] [address] [address] Nabila Kearns Chloride [Moles/Vol] 105 mmol/L Normal 98-107 [facility] Comment on above: Performed By: #### H EPBSRF #### [facility] [address] [address] [address] Nabila Kearns CO2 [Moles/Vol] 26.4 mmol/L Normal 21.0-32.0 [facility] Comment on above: Performed By: #### H EPBSRF #### [facility] [address] [address] [address] Nabila Kearns Creatinine [Mass/Vol] 0.59 mg/dL Normal 0.55-1.02 [facility] Comment on above: Performed By: #### H EPBSRF #### [facility] [address] [address] [address] Nabila Kearns EGFR-AF [place] >60 Normal >=60 [facility] Comment on above: Performed By: #### H EPBSRF #### [facility] [address] [address] [address] Nabila Kearns EGFR-NON AF [place] >60 Normal >=60 [facility] Comment on above: Performed By: #### H EPBSRF #### [facility] [address] [place] [address] Dr. Nabila Kearns Globulin (S) [Mass/Vol] 4.0 g/dL Normal [facility] Comment on above: Performed By: #### H EPBSRF #### [facility] [address] [address] [address] Nabila Kearns Glucose [Mass/Vol] 79 mg/dL Normal 74-106 [facility] Comment on above: Performed By: #### H EPBSRF #### [facility] [address] [address] [address] Nabila Kearns Potassium [Moles/Vol] 3.7 mmol/L Normal 3.5-5.1 [facility] Comment on above: Performed By: #### H EPBSRF #### [facility] [address] [address] [address] Nabila Kearns Protein [Mass/Vol] 7.2 g/dL Normal 6.4-8.2 [facility] Comment on above: Performed By: #### H EPBSRF #### [facility] [address] [address] [address] Nabila Kearns Sodium [Moles/Vol] 140 mmol/L Normal 136-145 [facility] Comment on above: Performed By: #### H EPBSRF #### [facility] [address] [place] [address] Dr. Nabila Kearns Urea nitrogen [Mass/Vol] 14.0 mg/dL Normal 7.0-18.0 [facility] Comment on above: Performed By: #### H EPBSRF #### [facility] [address] [place] [address] Dr. Nabila Kearns Urea nitrogen/Creatinine [Mass ratio] 23.7 mg/mg Normal [facility] Comment on above: Performed By: #### H EPBSRF #### [facility] [address] [place] [address] Dr. Nabila Kearns TSHon 07-14-2022 TSH 1.054 uIU/mL Normal 0.358-3.74 0 [facility] Comment on above: Performed By: #### H EPBSRF #### [facility] [address] [place] [address] Dr. Nabila Kearns VITAMIN B12on 07-14-2022 Cobalamin (Vitamin B12) [Mass/Vol] 434.0 pg/mL Normal 193.0-986. 0 [facility] Comment on above: Performed By: #### C BC #### [facility] [address] [place] [address] Dr. Nabila Kearns VITAMIN D 25 OHon 07-14-2022 VIT D 25-OH 36.5 ng/mL Normal [facility] Comment on above: Performed By: #### C BC #### [facility] [address] [place] [address] Dr. Nabila Kearns VIT D RANGES SEE BELOW Normal [facility] Comment on above: Result Comment: <20 ng/mL Vit D deficient 20 - <30 ng/mL Vit D insufficient 30 - 100 ng/mL Vit D sufficient >100 ng/mL Potential Toxicity Performed By: #### C BC #### [facility] [address] [place] [address] Dr. Nabila Kearns COVID Quick Testingon 2021 Result Positive [facility] Other Quick Strepon 04-16-2022 S. pyogenes Org specific cx Ql (Throat) Negative Lalina Other Quick Strep Lalina Other Urinalysis - AUTOMATEDon Appearance (U) clear Vital Vio Other Bilirubin Ql (U) Negative ServiceRelated Other Color (U) yellow Lalina Other Glucose Ql (U) Negative Vital Vio Other Hemoglobin Ql (U) Moderate Conversocial oaCarbolytic Materials Other Ketones Ql (U) Negative Vital Vio Other Leukocyte esterase Test strip Ql (U) Small Lalina Other Nitrite Ql (U) Negative Vital Vio Other pH (U) 6.0 [pH] Lalina Other Protein Ql (U) Negtaive Vital Vio Other Specific gravity (U) [Rel density] 1.030 Lalina Other Urobilinogen (U) [Mass/Vol] 0.20 mg/dL Lalina Other Urinalysis - AUTOMATED No rt PerBlue Other VAGINITIS/VAGINOSIS DNA PROB Oleg 03-02-2022 Emile species Negative Normal Negative [facility] Comment on above: Performed By: #### V AGINT #### [facility] [address] [place] [address] Dr. Nabila Kearns Gardnerella vaginalis Positive Abnormal Negative [facility] Comment on above: Performed By: #### V AGINT #### [facility] [address] [address] [address] Nabila Kearns Trichomonas vaginalis Negative Normal Negative [facility] Comment on above: Performed By: #### V AGINT #### [facility] [address] [address] [address] Nabila Kearns Laboratory - Microbiology an d Antimicrobial susceptibilityOrdered By: Veronica Jerez on 01-10-2022 N. gonorrhoeae DNA AC+probe Ql (Unsp spec) Negative Negative [facility] Comment on above: Performed at: =G - [facility] [address], [place] [id number] Rack Room Worker: Lydia Holliday MD, Phone: [phone] Performed at: =G - [facility] [id number] [facility], [place] [id number] Director: Lydia Holliday MD, Phone: [phone] No Panel InformationOrdered By: Veronica Jerez on 01-10-2022 Emile albicans (AC) Negative Negative [facility] Comment on above: This test was develo ped and its performance characteristics determined by [facility]. It has not been cleared or approved by the Food and Drug Administration. This test was develo ped and its performance characteristicsdetermined by [facility]. It has not been cleared orapproved by the Food and Drug Administration. Emile glabrata (AC) Negative Negative [facility] Comment on above: This test was develo ped and its performance characteristics determined by [facility]. It has not been cleared or approved by the Food and Drug Administration. This test was develo ped and its performance characteristicsdetermined by [facility]. It has not been cleared orapproved by the Food and Drug Administration. Chlamydia trachomatis (AC) (LAB) Negative Negative [facility] Trichomonas vaginalis (AC) Negative Negative [facility] Vaginal fluid Atopobium vagi sergio DNA detection by probe and target amplification methoOrdered By: Veronica Jerez on 01-10-2022 A. vaginae DNA AC+probe Ql (Vag fld) Moderate - 1 Score . [facility] Vaginal fluid Megasphaera sp ecies type 1 DNA detection by probe and target amplificatOrdered By: Veronica Jerez on 01-10-2022 Megasphaera sp type 1 DNA AC+probe Ql (Vag fld) High - 2 Score . [facility] Comment on above: Calculate total scor [...] (Vag fld) Low - 0 Score . [facility] QUANTIFERON TB GOLD PLUSon 0 11-23-2021 QuantiFERON Criteria Comment Normal [facility] Comment on above: Result Comment: The QuantiFERON-TB Gold Plus result is determined by subtracting the Nil value from either TB antigen (Ag) tube. The mitogen tube serves as a control for the test. Performed By: #### Q NTTB #### [facility] [address] [place] [address] Dr. Nabila Kearns QuantiFERON Incubation Incubation performed. Normal [facility] Comment on above: Performed By: #### Q NTTB #### [facility] [address] [place] [address] Dr. Nabila Kearns QuantiFERON Mitogen Value >10.00 Normal [facility] Comment on above: Performed By: #### Q NTTB #### [facility] [address] [place] [address] Dr. Nabila Kearns QuantiFERON Nil Value 0.00 IU/mL Normal [facility] Comment on above: Performed By: #### Q NTTB #### [facility] [address] [place] [address] Dr. Nabila Kearns QuantiFERON TB1 Ag Value 0.01 IU/mL Normal [facility] Comment on above: Performed By: #### Q NTTB #### [facility] [address] [place] [address] Dr. Nabila Kearns QuantiFERON TB2 Ag Value 0.00 IU/mL Normal [facility] Comment on above: Performed By: #### Q NTTB #### [facility] [address] [place] [address] Dr. Nabila Kearns QuantiFERON-TB Gold Plus Negative Normal Negative [facility] Comment on above: Result Comment: Chem iluminescence immunoassay methodology Performed By: #### Q NTTB #### [facility] [address] [place] [address] Dr. Nabila Kearns HEPATITIS B SURFACE ANTIBODY , QUANTon 11-22-2021 Hepatitis B Surf AB Quant 13.3 mIU/mL Normal Immunity>9 .9 [facility] Comment on above: Result Comment: Stat us of Immunity Anti-HBs Level Inconsistent with Immunity 0.0 - 9.9 Consistent with Immunity >9.9 Performed By: #### H EPBSRF #### [facility] [address] [place] [address] Dr. Nabila Kearns MMR IMMUNITYon 11-22-2021 Mumps Abs, IgG 14.9 AU/mL Normal Immune >10.9 [facility] Comment on above: Result Comment: Nega tive <9.0 Equivocal 9.0 - 10.9 Positive >10.9 A positive result generally indicates past exposure to Mumps virus or previous vaccination. Performed By: #### C BC #### [facility] [address] [place] [address] Dr. Nabila Kearns Rubella Antibodies, IgG 1.92 index Normal Immune >0.99 [facility] Comment on above: Result Comment: Non- immune <0.90 Equivocal 0.90 - 0.99 Immune >0.99 Performed By: #### C BC #### [facility] [address] [place], [place] [address] Dr. Nabila Kearns Rubeola Ab, IgG 298.0 AU/mL Normal Immune >16.4 [facility] Comment on above: Result Comment: Nega tive <13.5 Equivocal 13.5 - 16.4 Positive >16.4 Presence of antibodies to Rubeola is presumptive evidence of immunity except when acute infection is suspected. Performed By: #### C BC #### [facility] [address] [place], [place] [address] Dr. Nabila Kearns VARICELLA IGG ABon 2 Varicella Zoster IgG 1333 index Normal Immune >165 [facility] Comment on above: Result Comment: Nega tive <135 Equivocal 135 - 165 Positive >165 A positive result generally indicates exposure to the pathogen or administration of specific immunoglobulins, but it is not indication of active infection or stage of disease. Performed By: #### V ARCEL #### [facility] [address] [place] [address] Dr. Nabila Kearns MG MAMM SCREEN 3D JOEL CADon 10-10-2021 MG MAMM SCREEN 3D JOEL CAD Patient: LEYDI GAGE Exam Date: 10/10/2021 : 1975 Gender:F Ordering : DR LEYDA BAIG . Admission #: [id number] Family : Order #: [id number] CLICK HERE TO VIEW EXAM RADIOLOGY REPORT [...] breast cancer at age 70. LOCATION: [facility] BREAST COMPOSITION: Heterogeneously dense,which may [...] MD on 10/11/2021 at 07:13 Normal [facility] CT HEAD WO CONon 09-06-2021 CT [...] MARY SARAH Date: 2021-09-05 22:18 Normal [facility] CBC AUTO DIFFon 09-05-2021 BASO # 0.0 103/ul Normal 0.0-0.1 [facility] Comment on above: Performed By: #### C BC #### [facility] [address] [place] [address] Dr. Nabila Kearns Basophils/100 WBC (Bld) 0.3 % Normal 0.2-2.0 [facility] Comment on above: Performed By: #### C BC #### [facility] [address] [place] [address] Dr. Nabila Kearns EO # 0.2 103/ul Normal 0.0-0.7 [facility] Comment on above: Performed By: #### C BC #### [facility] [address] [place] [address] Dr. Nabila Kearns Eosinophils/100 WBC (Bld) 2.3 % Normal 0.9-7.0 [facility] Comment on above: Performed By: #### C BC #### [facility] [address] [address] [address] Nabila Kearns Erythrocyte distribution width (RBC) [Ratio] 12.9 % Normal 11.0-15.0 [facility] Comment on above: Performed By: #### C BC #### [facility] [address] [place] [address] Dr. Nabila Kearns Hematocrit (Bld) [Volume fraction] 43.4 % Normal 36.0-48.0 [facility] Comment on above: Performed By: #### C BC #### [facility] [address] [place] [address] Dr. Nabila Kearns Hemoglobin (Bld) [Mass/Vol] 14.7 g/dL Normal 12.0-16.0 [facility] Comment on above: Performed By: #### C BC #### [facility] [address] [place] [address] Dr. Nabila Kearns IG # 0.03 10e3/ul Normal 0.00-0.03 [facility] Comment on above: Performed By: #### C BC #### [facility] [address] [place] [address] Dr. Nabila Kearns IG % 0.3 % Normal 0.0-0.5 [facility] Comment on above: Performed By: #### C BC #### [facility] [address] [place] [address] Dr. Nabila Kearns LYMPH # 1.8 103/ul Normal 1.2-3.8 [facility] Comment on above: Performed By: #### C BC #### [facility] [address] [place] [address] Dr. Nabila Kearns Lymphocytes/100 WBC (Bld) 19.5 % Critically low 20.5-60.0 [facility] Comment on above: Performed By: #### C BC #### [facility] [address] [place] [address] Dr. Nabila Kearns MANUAL DIFF REQ NO Normal [facility] Comment on above: Performed By: #### C BC #### [facility] [address] [place] [address] Dr. Nabila Kearns MCH (RBC) [Entitic mass] 30.5 pg Normal 26.7-34.0 [facility] Comment on above: Performed By: #### C BC #### [facility] [address] [place] [address] Dr. Nabila Kearns MCHC (RBC) [Mass/Vol] 33.9 g/dL Normal 29.9-35.2 [facility] Comment on above: Performed By: #### C BC #### [facility] [address] [place] [address] Dr. Nabila Kearns MCV (RBC) [Entitic vol] 90.0 fL Normal 81.0-99.0 [facility] Comment on above: Performed By: #### C BC #### [facility] [address] [place] [address] Dr. Nabila Kearns MONO # 0.9 103/ul Critically high 0.3-0.8 [facility] Comment on above: Performed By: #### C BC #### [facility] [address] [place] [address] Dr. Nabila Kearns Monocytes/100 WBC (Bld) 9.5 % Normal 1.7-12.0 [facility] Comment on above: Performed By: #### C BC #### [facility] [address] [place] [address] Dr. Nabila Kearns NEUT # 6.4 103/ul Normal 1.4-6.5 [facility] Comment on above: Performed By: #### C BC #### [facility] [address] [place] [address] Dr. Nabila Kearns Neutrophils/100 WBC (Bld) 68.1 % Normal 43.0-75.0 [facility] Comment on above: Performed By: #### C BC #### [facility] [address] [place] [address] Dr. Nabila Kearns Platelet mean volume (Bld) [Entitic vol] 11.2 fL Normal 9.5-13.5 [facility] Comment on above: Performed By: #### C BC #### [facility] [address] [address] [address] Nabila Kearns PLT 251 103/ul Normal 150-450 [facility] Comment on above: Performed By: #### C BC #### [facility] [address] [address] [address] Nabila Kearns RBC 4.82 106/ul Normal 4.20-5.40 [facility] Comment on above: Performed By: #### C BC #### [facility] [address] [address] [address] Nabila Kearns WBC 9.4 103/ul Normal 4.0-11.0 [facility] Comment on above: Performed By: #### C BC #### [facility] [address] [place] [address] Dr. Nabila Kearns CRPon 09-05-2021 CRP [Mass/Vol] mg/L Normal <=1.0 [facility] Comment on above: Performed By: #### C BC #### [facility] [address] [address] [address] Nabila Kearns PREG HCG QUALon 09-05-2021 , QUAL Negative Normal NEGATIVE [facility] Comment on above: Performed By: #### C BC #### [facility] [address] [place] [address] Dr. aNbila Kearns PROF CHEM 8 (BAS METB)on Anion gap [Moles/Vol] 13.8 mmol/L Normal [facility] Comment on above: Performed By: #### C BC #### [facility] [address] [address] [address] Nabila Kearns Calcium [Mass/Vol] 9.3 mg/dL Normal 8.5-10.1 [facility] Comment on above: Performed By: #### C BC #### [facility] [address] [address] [address] Nabila Kearns Chloride [Moles/Vol] 103 mmol/L Normal 98-107 [facility] Comment on above: Performed By: #### C BC #### [facility] [address] [address] [address] Nabila Kearns CO2 [Moles/Vol] 23.9 mmol/L Normal 22.0-30.0 [facility] Comment on above: Performed By: #### C BC #### [facility] [address] [address] [address] Nabila Kearns Creatinine [Mass/Vol] 0.64 mg/dL Normal 0.52-1.04 [facility] Comment on above: Performed By: #### C BC #### [facility] [address] [address] [address] Nabila Kearns EGFR-AF [place] >60 Normal >=60 [facility] Comment on above: Performed By: #### C BC #### [facility] [address] [place] [address] Dr. Nabila Kearns EGFR-NON AF [place]IZ[place] >60 Normal >=60 [facility] Comment on above: Performed By: #### C BC #### [facility] [address] [place] [address] Dr. Nabila Kearns Glucose [Mass/Vol] 92 mg/dL Normal 74-106 [facility] Comment on above: Performed By: #### C BC #### [facility] [address] [place] [address] Dr. Nabila Kearns Potassium [Moles/Vol] 3.7 mmol/L Normal 3.4-5.0 [facility] Comment on above: Performed By: #### C BC #### [facility] [address] [address] [address] Nabila Kearns Sodium [Moles/Vol] 137 mmol/L Normal 137-145 [facility] Comment on above: Performed By: #### C BC #### [facility] [address] [place] [address] Dr. Nabila Kearns Urea nitrogen [Mass/Vol] 12.0 mg/dL Normal 7.0-18.0 [facility] Comment on above: Performed By: #### C BC #### [facility] [address] [place] [address] Dr. Nabila Kearns Urea nitrogen/Creatinine [Mass ratio] 18.8 mg/mg Normal [facility] Comment on above: Performed By: #### C BC #### [facility] [address] [place] [address] Dr. Nabila Kearns [facility]ATE 12 mm/hr Normal <=20 [facility] Comment on above: Performed By: #### S EDR #### [facility] [address] [place] [address] Dr. Nabila Kearns PAP ACOG PANEL 2: 30 to 65on 07-27-2021 . . Normal [facility] Comment on above: Result Comment: Perf ormed at: WB Performed By: #### [id number] #### [facility] [address] [place] [address] Dr. Nabila Kearns Age Gdln ACOG Testing 30-65 [facility] Comment on above: Performed By: #### [id number] #### [facility] [address] [place] [address] Dr. Nabila Kearns DIAGNOSIS: Comment Normal [facility] Comment on above: Result Comment: NEGA TIVE FOR INTRAEPITHELIAL LESION OR MALIGNANCY. Performed at: WB Performed By: #### [id number] #### [facility] [address] [place] [address] Dr. Nabila Kearns HPV Aptima Negative Normal Negative [facility] Comment on above: Result Comment: This nucleic acid amplification test detects fourteen high-risk HPV types (16,18,31,33,35,39,45,51,52,56,58,59,66,68) without differentiation. Performed at: =G Performed By: #### [id number] #### [facility] [address] [place] [address] Dr. Nabila Kearns Methodology: Comment Normal [facility] Comment on above: Result Comment: This liquid based ThinPrep(R) pap test was screened with the use of an image guided system. Performed at: WB Performed By: #### [id number] #### [facility] [address] [place] [address] Dr. Nabila Kearns Note: Comment Normal [facility] Comment on above: Result Comment: The Pap smear is a screening test designed to aid in the detection of premalignant and malignant conditions of the uterine cervix. It is not a diagnostic procedure and should not be used as the sole means of detecting cervical cancer. Both false-positive and false-negative reports do occur. . Performed at: WB Performed By: #### 4 [id number] #### [facility] [address] [place] [address] Dr. Nabila Kearns Performed by: Comment [facility] Comment on above: Result Comment: Steve Cooper, Ctc Operator (ASCP) Performed at: WB Performed By: #### [id number] #### [facility] [address] [place] [address] Dr. Nabila Kearns Specimen adequacy: Comment Normal [facility] Comment on above: Result Comment: Sati sfactory for evaluation. No endocervical component is identified. Performed at: WB Performed By: #### [id number] #### [facility] [address] [place] [address] Dr. Nabila Kearns VAGINITIS/VAGINOSIS DNA PROB Oleg 07-26-2021 Emile species Negative Normal Negative [facility] Comment on above: Performed By: #### V AGINT #### [facility] [address] [place] [address] Dr. Nabila Kearns Gardnerella vaginalis Negative Normal Negative [facility] Comment on above: Performed By: #### V AGINT #### [facility] [address] [place] [address] Dr. Nabila Kearns Trichomonas vaginalis Negative Normal Negative [facility] Comment on above: Performed By: #### V AGINT #### [facility] [address] [place] [address] Dr. Nabila Kearns Urinalysis - AUTOMATEDon Appearance (U) clear Vital Vio Other Bilirubin Ql (U) Negative ServiceRelated Other Color (U) light yellow Lalina Other Glucose Ql (U) Negative Vital Vio Other Hemoglobin Ql (U) Negative ELERTS Other Ketones Ql (U) Negative Vital Vio Other Leukocyte esterase Test strip Ql (U) Negative [place] PerBlue Other Nitrite Ql (U) Negative Vital Vio Other pH (U) 6.5 [pH] Lalina Other Protein Ql (U) Negative Vital Vio Other Specific gravity (U) [Rel density] 1.030 Lalina Other Urobilinogen (U) [Mass/Vol] 0.2 mg/dL [place] PerBlue Other Urinalysis - AUTOMATED No rt PerBlue Other Consultation Noteon 09-13-19 Consultation Note [id number] Normal [facility] Ambulatory Clinical Summaryo n 08-09-2020 Ambulatory Clinical Summary {[id number] Normal [facility] Patient Educationon 08-10-19 21 Patient Education Obstetrics [...] and sweet foods. General instructions ? Take ujhm-ysy-bpmwwaf and prescription medicines only as told by [...] 03/23/2010 Document Revised: 09/17/2019 Document Reviewed: 06/12/2018 [employer] Patient Education ? 2019 [employer]. [facility] Urology Office/Clinic Noteon 08-09-2020 Urology Office/Clinic Note Chief Complaint urinary incontinence This patient is a 44-year-old female with a history of stress urinary incontinence symptoms. She leaks urine when she is physically active. Laughing coughing sneezing also causes her to leak small amounts of urine. She is here today for urologic evaluation. [facility] Staff New patient here today [...] to check bladder function. ABX sent to [facility] in [place]. Ordered: Urology Procedure Order Urology Procedure Order Orders: nitrofurantoin, 100 mg = 1 cap(s), Oral, Daily, take 1 cap one day prior to the procedure and 1 cap after the procedure, # 2 cap(s), Refills(s) 0, Pharmacy: [id number], 160, cm, 08/09/20 10:40:00 EST, Height/Length Dosing, 73.1, kg, 08/09/20 10:40:00... Urnls Dip Stick Auto w/o Microscopy POC [id number] I have reviewed the previous health record information and history for this pt. from Dr. Dimas. Follow-up With When Contact Information Wing Ventura MD, Gab Benjamin [address] [place] [address] Additional Instructions: Patient Education Overactive Bladder, [...] Protein Urine Dipstick: Negative (08/09/20 10:36:00) Specific [place] Urine Dipstick: >=1.030 (08/09/20 10:36:00) Urine Appearance Urine Dipstick: Clear (08/09/20 10:36:00) Urine Color Urine Dipstick: Yellow (08/09/20 10:36:00) Urobilinogen Urine Dipstick: Normal 0.2-1 EU/dl (08/09/20 10:36:00) pH Urine Dipstick: 5 (08/09/20 10:36:00) Diagnostic Results Urinalysis today is negative for infection. I reviewed the office notes and physical exam from Dr. Baig. [facility] Comment on above: Result Comment: Elec tronically Signed By: Wing Ventura MD, Gab Benjamin\.br\Date and Time Signed: 08/09/20 11:49 EST\.br\Electronically Co-Signed By: Negar Tabor MA\.br\Date and Time Co-Signed: 08/09/20 11:33 EST Mainor 09-13-2019 JAMILN Telephone (COVHLD) ----- LEYDI GAGE ([id number]) 1975 F Date Time Provider Department 09/13/19 SHELTON YEBOAH (JAMIL) COVHLD During your visit today, we recorded [...] Fully Assessed Reason for Visit: Covid-19 Hotline [0255] Prescriptions as of 09/13/2019 Sig: NITROFURANTOIN MACROCRYSTAL 1* Take 100 mg by mouth. CLOBEX 0.05 % SHAMPOO use as shampoo EOD CLOBETASOL 0.05 % SCALP SOLUT* apply to affected areas BID Problem List As Of Date: 09/13/2019 (None) Encounter Status:[facility] LEYDI GAGE ([id number]) 1975 F Date Time Provider Department 09/13/19 SHELTON YEBOAH ([facility]) COVOSMAR During your visit today, we [...] Fully Assessed Reason for Visit: Covid-19 Hotline [5109] Prescriptions as of 09/13/2019 Sig: NITROFURANTOIN MACROCRYSTAL 1* Take 100 mg by mouth. CLOBEX 0.05 % SHAMPOO use as shampoo EOD CLOBETASOL 0.05 % SCALP SOLUT* apply to affected areas BID Problem List As Of Date: 09/13/2019 (None) Encounter Status:Closed by SHELTON YEBOAH on 09/13/19 [facility] PROGRESSon 09-13-2019 PROGRESS HNO ID: [id number] Author: Deondre (Destiny) Prasanna Service: ? Author Type: Nurse Practitioner Type: Progress Notes Filed: 09/13/2019 7:44 AM Note Text: This Team Access Model visit is a virtual encounter. It required patient-provider interaction for the medical decision making as documented below. [employer] HIPAA secured video was used for evaluation of this patient. Telemedicine Evaluation for COVID-19 Infection SUBJECTIVE: Leydi Gage is an 43 year old who presents with an illness that began 7 day(s) ago and are gradually worsening since that time. Pt reports she was at [facility] and was told she possibly has [...] novel coronavirus infection (COVID-19). SIGNATURE: Deondre Mims APRN.GLOST KILN OPERATOR DATE: September 13, 2019 [facility] Coding Summaryon 03-14-2017 Coding Summary CODING DATE: [facility] STATUS: Home PAYOR: Medicaid HMO ADMIT DX: [...] Viviana Maloney Date Saved: 03/14/2017 06:21 am [facility] Coding Summary CODING DATE: [facility] STATUS: Home PAYOR: Medicaid HMO ADMIT DX: [...] Viviana Maloney Date Saved: 03/14/2017 06:19 am [facility] ED Clinical Summaryon 2016 ED Clinical Summary [facility] - Emergency [address] [place] [id number] ed Clinical SummaryPERSON INFORMATIONName: LEYDI GAGE Age: 41 Years Sex: FEMALEDOB: [birth year] MRN: Acct#:Visit Reason: General medical; C/O LEFT ARM PAIN/SWELLING Arrival:03/02/17 13:52:00 Discharge: 03/02/17 15:00:00LOS: 000 01:08 Check In: 03/02/17 13:52:00 Checkout:03/02/17 15:00:00Address:[address] [facility] [id number]: Anish Chuckie MDPROVIDER INFORMATIONProvider Role Assigned UnassMalina Alvarez MD [...] Syndrome; Wrist Pain; ContusionFollow-Up:With: Address: When:Chuckie Gonzalez [address] [place], [place] [id number] Business (1) Within 3 to 5 daysComments:Follow-up with primary care physician in 3-5 days. Ice to affected areas. Cock-up splint as needed. Tylenol or ibuprofen as needed for pain. Return if any concerns or worsening.DIAGNOSIS:Comme nt: Normal [facility] ED Note - Physicianon 2016 ED Note - Physician Patient: LEYDI GAGE : 41 years Sex: FEMALE : [birth year]Associated Diagnoses: NoneAuthor: Malina Fields MDBasic InformationTime seen: Date & time 03/02/17 14:06:00.History source: Patient.Arrival mode: Private vehicle.History limitation: None.Additional information: Chief Complaint from Nursing Triage Note : Chief Pokjkmoge35/23/17 13:54 EDT Chief Complaint Pt complains of pain and swelling to left wrist for 15 minutes. Denies injury. Says she is worried she has blood clot. 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 Patient is right-handed. There is no evidence [...] carpal tunnel given the patient is a invoice machine operator and carries trays repetitively on her left [...] on: 03/03/2017 11:48 EDT] Malina Barillas MD [facility] ED Note-Nursingon 03-02-2017 ED Note-Nursing Pt discharged to [facility]. Instructions given to pt who verbalized understanding. Pt walks out with Spouse. [facility] ED Patient Education Noteon 03-02-2017 ED Patient Education Note Education MaterialsMusculoskeletalW rist SplintA splint is a rn medical inpatient services that keeps an injured part of your [...] Document Reviewed: 09/07/2014Hannah Interactive Patient Education ?2016 [employer].RICE for Routine Care of InjuriesThe?routine care?of?many?injuries?inc [...] Document Reviewed: 05/04/2015Connorevier Interactive Patient Education ?2016 [employer].Carpal Tunnel SyndromeCarpal tunnel syndrome is a condition [...] the splint clean and dry.General Instructions? Take qxcn-llw-dvyijpy and prescription medicines only as told by [...] Document Reviewed: 10/12/2015Hannah Interactive Patient Education ?2016 [employer].Wrist PainThere are many things that can [...] if they turn cold or blue.? Take nnhb-svz-jtuqezh and prescription medicines only as told by [...] Document Reviewed: 10/12/2015Hannah Interactive Patient Education ?2016 [employer].ContusionA contusion is a deep bruise. Contusions [...] associated injuries, such as broken bones (fractures).TREATMENTSpec [facility] treatment for this condition depends on what area of the body was injured. In general, the best treatment for a contusion is resting, icing, applying pressure to (compression), and elevating the injured area. This is often called the RICE strategy. Jvdy-iel-yivtiuh anti-inflammatory medicines may also be recommended for [...] you are sitting or lying down.? Take uskk-vqc-yemfymo and prescription medicines only as told by [...] Document Reviewed: 10/12/2015Connorevmarlo Interactive Patient Education ?2016 [employer]. Normal [facility] ED Patient Summaryon 017 ED Patient Summary [facility] - Emergency [address] [place] [address] pATIENT DISCHARGE INSTRUCTIONSPatient InformationName: LEYDI GAGE Age: 41 YearsDate of : [birth year]MRN: [id number] For Visit: General medical; C/O LEFT ARM PAIN/SWELLINGArrival Time: 03/02/17 13:52:00Phone: Primary Care Physician: Chuckie Gonzalez Physician: Malina Fields MDComment:Visit Diagnosis:Diagnoses This Visit General medical ([id number])If you received any narcotics, sedation, or any [...] sign any legal documentsWith: Address: When:Chuckie Gonzalez [address] [place] [id number] Business (1) Within 3 to 5 daysComments:Follow-up with primary care physician in 3-5 days. Ice to affected areas. Cock-up splint as needed. Tylenol or ibuprofen as needed for pain. Return if any concerns or worsening.Medication Information:The exam and treatment you received today in the [facility] Emergency Department were for an urgent problem and are not intended as complete care. It is important for you to follow up with a doctor, nurse practitioner, or physician?s executive chef assistant for ongoing care. If your symptoms [...] number so we can reach you if necessary.[facility] Emergency Department has provided you with a complete list of medications post discharge. Please inform your phone triage specialist/provider of your visit and for further instruction [...] Problems foundPatient EducationWrist SplintA splint is a rn medical inpatient services that keeps an injured part of your [...] Document Reviewed: 09/07/2014Hannah Interactive Patient Education ?2016 [employer].RICE for Routine Care of InjuriesThe?routine care?of?many?injuries?inc [...] Document Reviewed: 05/04/2015Hannah Interactive Patient Education ?2016 [employer].Carpal Tunnel SyndromeCarpal tunnel syndrome is a [...] the splint clean and dry.General Instructions? Take rjcy-qlh-ypossli and prescription medicines only as told by [...] Document Reviewed: 10/12/2015Hannah Interactive Patient Education ?2016 [employer].Wrist PainThere are many things that can [...] if they turn cold or blue.? Take dzmo-ypb-vjgbmoh and prescription medicines only as told by [...] Document Reviewed: 10/12/2015Hannah Interactive Patient Education ?2016 [employer].ContusionA contusion is a deep bruise. Contusions [...] associated injuries, such as broken bones (fractures).TREATMENTSpec [facility] treatment for this condition depends on what area of the body was injured. In general, the best treatment for a contusion is resting, icing, applying pressure to (compression), and elevating the injured area. This is often called the RICE strategy. Uecn-cqq-kdifpsa anti-inflammatory medicines may also be recommended for [...] you are sitting or lying down.? Take ytja-zyb-hvtomue and prescription medicines only as told by [...] Document Reviewed: 10/12/2015Hannah Interactive Patient Education ?2016 [employer]. Viruses or BacteriaWhat?s got you sick?Antibiotics [...] Antibiotics Mahendra.S. Department of Health and Human ServicesOhio State University Wexner Medical Centerers for Disease Control and Prevention February 2014 [facility] XR Wrist Complete Lefton XR Wrist Complete Left WRIST COMPLETE LEFTCLINICAL DATA: Left wrist pain and swelling todayFour views of the left wrist were obtained. No definite acute fracture ordislocation is seen. No significant focal osseous or articular abnormalitiesare identified. There is mild soft tissue swelling.IMPRESSION:1. LEFT WRIST STUDY FAILS TO DEMONSTRATE SIGNIFICANT FOCAL OSSEOUS ORARTICULAR ABNORMALITY.2. FOLLOW-UP NEEDED.Joshua Howard MDJOB #: [id number]: 03/03/2017T: 03/03/2017 Final Dictated by: Joshua Howard MD SDictated DT/TM: 03/03/17 5:54Signed (Electronic Signature): Joshua Howard MD 03/03/17 9:29 amTechnologist: Santosh PUTNAM [facility] Vital Signs Date Time Vital Sign Value Performing Clinician Facility 12-19-2024 14:44-0400 Body height 160.02 cm Jesús CARRENO Work Phone: [facility] 12-19-2024 14:44-0400 Body mass index (BMI) [Ratio] 28.3 kg/m2 Jesús Lockhart NP-[place] Work Phone: [facility] 12-19-2024 14:44-0400 Body temperature 98.1 [degF] Jesús Lockhart NP-C Work Phone: [facility] 12-19-2024 14:44-0400 Body weight 72.57 kg Jesús Lockhart DIRECTOR OF BUSINESS APPLICATIONS-C Work Phone: [facility] 12-19-2024 14:44-0400 Diastolic blood pressure 65 mm[Hg] Jesús Lockhart DIRECTOR OF BUSINESS APPLICATIONS-C Work Phone: [facility] 12-19-2024 14:44-0400 Heart rate 68 /min Jesús De Pazillo DIRECTOR OF BUSINESS APPLICATIONS-C Work Phone: [facility] 12-19-2024 14:44-0400 Respiratory rate 18 /min Jesús De Pazillo DIRECTOR OF BUSINESS APPLICATIONS-C Work Phone: [facility] 12-19-2024 14:44-0400 SaO2% (BldA) [Mass fraction] 99 % Jesús Lockhart DIRECTOR OF BUSINESS APPLICATIONS-C Work Phone: [facility] 12-19-2024 14:44-0400 Systolic blood pressure 121 mm[Hg] Jesús De Pazillo DIRECTOR OF BUSINESS APPLICATIONS-C Work Phone: [facility] 12-14-2024 14:29-0400 Body height 160 cm Memo Furlong DO Work Phone: [facility] 12-14-2024 14:29-0400 Body mass index (BMI) [Ratio] 28.39 kg/m2 Memo Furlong DO [facility] 12-14-2024 14:29-0400 Body temperature 97.3 [degF] Memo Furlong DO [facility] 12-14-2024 14:29-0400 Body weight 72.67 kg Memo Furlong DO Work Phone: [facility] 12-14-2024 14:29-0400 Diastolic blood pressure 82 mm[Hg] Memo Furlong DO [facility] 12-14-2024 14:29-0400 Heart rate 78 /min Memo Furlong DO Work Phone: [facility] 12-14-2024 14:29-0400 Respiratory rate 18 /min Memo Furlong DO Work Phone: [facility] 12-14-2024 14:29-0400 SaO2% (BldA) [Mass fraction] 99 % Memo Furlong DO Work Phone: [facility] 12-14-2024 14:29-0400 Systolic blood pressure 118 mm[Hg] Memo Furlong DO Work Phone: [facility] 11-13-2024 08:54-0400 Body height 160 cm Memo Furlong DO Work Phone: [facility] 11-13-2024 08:54-0400 Body mass index (BMI) [Ratio] 28.42 kg/m2 Memo Furlong DO Work Phone: [facility] 11-13-2024 08:54-0400 Body temperature 97.81 [degF] Memo Furlong DO Work Phone: [facility] 11-13-2024 08:54-0400 Body weight 72.76 kg Memo Furlong DO Work Phone: [facility] 11-13-2024 08:54-0400 Diastolic blood pressure 70 mm[Hg] Memo Furlong DO Work Phone: [facility] 11-13-2024 08:54-0400 Heart rate 84 /min Memo Furlong DO Work Phone: [facility] 11-13-2024 08:54-0400 Respiratory rate 18 /min Memo Furlong DO Work Phone: [facility] 11-13-2024 08:54-0400 SaO2% (BldA) [Mass fraction] 97 % Memo Furlong DO Work Phone: [facility] 11-13-2024 08:54-0400 Systolic blood pressure 110 mm[Hg] Memo Sandhu DO Work Phone: [facility] 11-05-2024 11:02-0400 Body height 160.02 cm [facility] 11-05-2024 11:02-0400 Body mass index (BMI) [Ratio] 28.7 kg/m2 [facility] 11-05-2024 11:02-0400 Body temperature 97.3 [degF] [facility] 11-05-2024 11:02-0400 Body weight 73.53 kg [facility] 11-05-2024 11:02-0400 Diastolic blood pressure 82 mm[Hg] [facility] 11-05-2024 11:02-0400 Heart rate 77 /min [facility] 11-05-2024 11:02-0400 Respiratory rate 18 /min [facility] 11-05-2024 11:02-0400 SaO2% (BldA) [Mass fraction] 99 % [facility] 11-05-2024 11:02-0400 Systolic blood pressure 124 mm[Hg] [facility] 09-08-2024 16:25-0400 Body height 160 cm Mary Rodriguez DIRECTOR OF BUSINESS APPLICATIONS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 Brionna Jasmineault Other [facility] Other Start: 04-17-2021 Office outpatient vi sit 25 minutes Brionna Casas [facility] Start: 04-03-2021 Telephone encounter Brionna soto [facility] Start: 03-23-2021 Encounter for genera l adult medical examination without abnormal findings Brionna Casas [facility] Start: 03-23-2021 Periodic preventive med est patient 40-64yrs Brionna Casas [facility] Start: 04-02-2019 End: 06-19-2023 Physical examination Ramya Cosme [facility]ORGEP [facility] [employer] Start: 10-07-2017 End: 10-08-2017 Ambulatory DEFAULT PHYSICIAN Facility:[facility] Start: 03-03-2017 End: 03-03-2017 Ambulatory [facility] Facility:[facility] Start: 03-02-2017 End: 03-02-2017 Emergency department patient visit [facility] Facility:[facility] Procedures Date Procedure Procedure Detail Performing Clinician Start: 12-14-2024 Urnls dip stick/tablet rgnt non-auto w/o micrscp Memo Alcaraz Jamelkarla DO Work Phone: Start: 12-14-2024 Adult depression screening assessment Memo Jamelakrla [employer] Work Phone: Start: 11-13-2024 Urnls dip stick/tablet rgnt non-auto w/o micrscp Memo Sandhu DO Work Phone: Start: 11-13-2024 Follow-up visit Follow-up MEMO SANDHU Start: 11-13-2024 Adult depression screening assessment Memo Sandhu DO Work Phone: Start: 11-05-2024 Urine culture Jesús Richy DIRECTOR OF BUSINESS APPLICATIONS-C Work Phone: Start: 08-19-2024 [facility] INTRALES[facility] INJECTION Shoaib Tawandam PA Work Phone: Start: 07-28-2024 Adult depression screening assessment Jesús Lockahrt SHOE STAMPER-GLOST KILN OPERATOR Work Phone: Start: 07-16-2024 [facility] INTRALES[facility]LOG INJECTION Shoaib Northeim PA Work Phone: Start: 05-26-2024 Mammography Jesús Richy BHAKTAN-GLOST KILN OPERATOR Work Phone: Start: 10-16-2023 Urnls dip stick/tablet rgnt non-auto w/o micrscp Jesús Lockhart SHOE STAMPER-GLOST KILN OPERATOR Work Phone: Start: 10-16-2023 Adult depression screening assessment Jesús Lockhart SHOE STAMPER-GLOST KILN OPERATOR Work Phone: Start: 06-19-2023 Adult depression screening assessment Ramya Cosme SHOE STAMPER-SEARCH ENGINE OPTIMIZATION ANALYST Work Phone: Start: 05-24-2023 Mammography Harrison Gonzalez NP Work Phone: Start: 12-04-2022 H/O: hysterectomy History of hysterectomy Harrison Gonzalez NP Work Phone: Start: 12-04-2022 History of cholecystectomy Hx laparoscopic cholecystectomy Ramya Cosme SHOE STAMPER-SEARCH ENGINE OPTIMIZATION ANALYST Work Phone: Start: 04-14-2019 Mammography Ramya Cosme SHOE STAMPER-SEARCH ENGINE OPTIMIZATION ANALYST Work Phone: Plan of Treatment Date Care Activity Detail Author Start: 12-28-2030 DTaP,Tdap and Td Vaccines (2 - Tdap) DTaP,Tdap and Td Vaccines (2 - Tdap) [facility] Start: 11-13-2025 Adult BMI Screening Adult BMI Screen ing [facility] Start: 11-13-2025 Depression Screening Depression Scre ening [facility] Start: 11-13-2025 Tobacco Screening Tobacco Screening [facility] Start: 07-28-2025 Adult BMI Follow Up Plan Adult BMI Follow Up Plan [facility] Start: 07-28-2025 Adult BMI Screening Adult BMI Screen ing [facility] Start: 07-28-2025 Depression Screening Depression Scre ening [facility] Start: 07-28-2025 Tobacco Screening Tobacco Screening [facility] Start: 05-26-2025 Screening for malign ant neoplasm of breast Mammogram [facility] Start: 03-16-2025 End: 03-16-2025 Patient encounter procedure 03/16/2025 4:00 PM EDT Office Visit [facility] [address] [place] [id number] Mary Rodriguez NP [address] [place] [phone] [facility] Start: 02-08-2025 Influenza vaccination Influenza Vacc ine [facility] Start: 01-05-2025 End: 01-05-2025 Patient encounter procedure 01/05/2025 1:20 PM EDT Office Visit [facility] [address] [place] [phone] Shoaib Durham PA [address] [place] [phone] [facility] Start: 12-29-2024 End: 12-29-2024 Patient encounter procedure 12/29/2024 3:20 PM EDT Office Visit [facility] [address] [place] [phone] Shoaib Durham, PA [address] [place] [address] [facility] Start: 11-05-2024 Bacteria identified in Urine by Culture Urine Culture [facility] Start: 11-05-2024 Urine culture [facility] Start: 10-15-2024 Adult BMI Follow Up Plan Adult BMI Follow Up Plan [facility] Start: 10-15-2024 Adult BMI Screening Adult BMI Screen ing [facility] Start: 10-15-2024 Depression Screening Depression Scre ening [facility] Start: 10-15-2024 Tobacco Screening Tobacco Screening [facility] Start: 09-23-2024 End: 09-23-2024 Patient encounter procedure [facility] Comment on above: Arrived Start: 09-08-2024 End: 09-08-2024 Patient encounter procedure [facility] Comment on above: Arrived Start: 09-03-2024 Adult BMI Screening Adult BMI Screen ing [facility] Start: 09-03-2024 Tobacco Screening Tobacco Screening [facility] Start: 08-19-2024 End: 08-19-2024 Patient encounter procedure [facility] Comment on above: Arrived Start: 08-10-2024 End: 08-10-2024 Patient encounter procedure 08/10/2024 8:40 AM EST Office Visit [facility] [address] [place] [phone] Harrison Gonzalez NP [address] [place] [address] [facility] Start: 07-28-2024 End: 07-28-2025 DBT Breast - bilateral screening Mammography screening bilateral with CAD Imaging Routine Encounter for screening mammogram for malignant neoplasm of breast Expected: 07/28/2024, Expires: 07/28/2025 [facility] Comment on above: Expected: 07/28/2024 , Expires: 07/28/2025 Start: 07-16-2024 End: 07-16-2024 Patient encounter procedure 07/16/2024 2:50 PM EST Office Visit [facility] [address] [place] [address] Shoaib Durham PA [address] [place] [address] [facility] Start: 07-14-2024 End: 07-14-2024 Patient encounter procedure 07/14/2024 3:00 PM EST Office Visit [facility] [address] [address] [place] [id number] Qi Red MD [address] [place] [address] [facility] Start: 06-19-2024 Adult BMI Screening Adult BMI Screen ing [facility] Start: 06-19-2024 Depression Screening Depression Scre ening [facility] Start: 06-19-2024 Tobacco Screening Tobacco Screening [facility] Start: 06-16-2024 End: 06-16-2024 Patient encounter procedure 06/16/2024 2:40 PM EST Office Visit [facility] [address] [address] [place] [address] Harrison Gonzalez NP [address] [place] [address] [facility] [place] [address] [facility] Start: 05-24-2024 Screening for malign ant neoplasm of breast Mammogram [facility] Start: 02-09-2024 Influenza vaccination Influenza Vacc ine [facility] Start: 10-16-2023 End: 10-16-2023 Patient encounter procedure 10/16/2023 2:45 PM EDT Office Visit [facility] [address] [place] [address] Marleni Zavala MD [address] [facility] [address] [place] [address] [facility] Start: 09-04-2023 End: 09-04-2023 Patient encounter procedure 09/04/2023 11:30 AM EDT Office Visit [facility] [address] [place] [address] Marleni Zavala MD [address] [place] [id number] [facility] Start: 04-14-2020 Screening for malign ant neoplasm of breast [facility] Start: 1994 Adult BMI Follow Up Plan Adult [facility] Plan [facility] Start: 1976 Screening for malign ant neoplasm of colon [facility] Atopobium vaginae DN A [Presence] in Vaginal fluid by AC with probe detection [facility] Bacteria identified in Urine by Culture Urine Culture [facility] End: 11-13-2025 Bacteria identified in Urine by Culture Urine culture (clean catch) Microbiology Routine Urinary symptom or sign 1 Occurrences starting 11/13/2024 until 11/13/2025 [facility] Work Phone: Comment on above: 1 Occurrences starti ng 11/13/2024 until 11/13/2025 Bacterial vaginosis associated bacterium 2 DNA [Presence] in Vaginal fluid by AC with probe detection [facility] End: 07-28-2025 CBC W Auto Differential panel - Blood CBC auto differential Lab Routine Blood tests for routine general physical examination 1 Occurrences starting 07/28/2024 until 07/28/2025 [facility] Comment on above: 1 Occurrences starti ng 07/28/2024 until 07/28/2025 End: 07-28-2025 Comprehensive metabolic 2000 panel - Serum or Plasma Comprehensive metabolic panel Lab Routine Blood tests for routine general physical examination 1 Occurrences starting 07/28/2024 until 07/28/2025 [facility] Comment on above: 1 Occurrences starti ng 07/28/2024 until 07/28/2025 End: 07-28-2025 Cyanocobalamin vitamin b-12 Vitamin B12 Lab Routine B12 deficiency 1 Occurrences starting 07/28/2024 until 07/28/2025 [facility] [facility] Work Phone: Comment on above: 1 Occurrences starti ng 07/28/2024 until 07/28/2025 End: 07-28-2025 Hemoglobin A1c/Hemoglobin.total in Blood Hemoglobin A1c Lab Routine Blood tests for routine general physical examination 1 Occurrences starting 07/28/2024 until 07/28/2025 [facility] Comment on above: 1 Occurrences starti ng 07/28/2024 until 07/28/2025 End: 07-28-2025 Lipid 1996 panel - Serum or Plasma Lipid profile Lab Routine Blood tests for routine general physical examination 1 Occurrences starting 07/28/2024 until 07/28/2025 [facility] Comment on above: 1 Occurrences starti ng 07/28/2024 until 07/28/2025 Megasphaera sp type 1 DNA [Presence] in Vaginal fluid by AC with probe detection [facility] End: 07-28-2025 Thyrotropin [Units/volume] in Serum or Plasma TSH Lab Routine Blood tests for routine general physical examination 1 Occurrences starting 07/28/2024 until 07/28/2025 [facility] Comment on above: 1 Occurrences starti ng 07/28/2024 until 07/28/2025 End: 07-29-2025 Vitamin D 25 hydroxy Vitamin D 25 hydroxy Lab Routine Vitamin D deficiency 1 Occurrences starting 07/28/2024 until 07/29/2025 [facility] Comment on above: 1 Occurrences starti ng 07/28/2024 until 07/29/2025 [facility] Immunizations Immunization Date Immunization Notes Care Provider Cong bruce 02-14-2024 influenza virus vaccine, unspecified formulation Memosusy Sandhu Work Phone: [facility] 06-05-2023 tuberculin skin test ; purified protein derivative solution, intradermal Ramya Cosme SHOE STAMPER-SEARCH ENGINE OPTIMIZATION ANALYST Work Phone: [facility] 05-24-2023 hepatitis B vaccine, adult dosage Ramya Cosme SHOE STAMPER-SEARCH ENGINE OPTIMIZATION ANALYST Work Phone: [facility] 05-24-2023 influenza, injectabl e, quadrivalent, preservative free Ramya Cosme SHOE STAMPER-SEARCH ENGINE OPTIMIZATION ANALYST Work Phone: [facility] 05-24-2023 tuberculin skin test ; purified protein derivative solution, intradermal Ramya Cosme SHOE STAMPER-SEARCH ENGINE OPTIMIZATION ANALYST Work Phone: [facility] 12-15-2023 influenza virus vaccine, unspecified formulation Jesús Lockhart SHOE STAMPER-GLOST KILN OPERATOR Work Phone: [facility] 03-12-2022 influenza, injectabl e, quadrivalent, preservative free Ramya Cosme SHOE STAMPER-SEARCH ENGINE OPTIMIZATION ANALYST Work Phone: [facility] 05-24-2021 COVID-19 Vaccine Pfizer - Documentation Purposes Only Lenin Adkins Other [facility] 05-16-2021 hepatitis B vaccine, adult dosage Ramya Cosme SHOE STAMPER-SEARCH ENGINE OPTIMIZATION ANALYST Work Phone: [facility] 04-13-2021 hepatitis B vaccine, adult dosage Lenin Adkins Other [facility] 03-31-2021 influenza, injectabl e, quadrivalent, preservative free Ramya Cosme SHOE STAMPER-SEARCH ENGINE OPTIMIZATION ANALYST Work Phone: [facility] 12-28-2020 diphtheria, tetanus toxoids and pertussis vaccine Lenni Adkins Other [facility] 01-08-2014 Depo-Medrol 80 mg Brionna Casas Other [facility] Other 12-26-2013 KENALOG - 10 mg Brionna hayes Other [facility] Other Payers Date Payer Category Payer Medicaid [id number] 2022 Medicaid [id number] 2014 Unknown [id number] 1976 Unknown [id number] 2.16.84 0.1.249999.3.579.2.593 1976 Unknown [id number] 2.16.84 0.1.664396.3.579.2.593 1976 Unknown [id number] 2.16.84 0.1.485709.3.579.2.593 1976 Unknown [id number] 2.16.84 0.1.511895.3.579.2.593 1976 Unknown [id number] 2.16.84 0.1.408740.3.579.2.593 1976 Unknown [id number] 2.16. 840.1.345839.3.579.2.1286 1976 Unknown [id number] 2.16.8 40.1.164076.3.579.2.1286 1976 Unknown [id number] 2.16.8 40.1.470145.3.579.2.1259 1976 Unknown [id number] 2.16.84 0.1.773782.3.579.2.1259 1976 Unknown [id number] 2.16.84 0.1.412926.3.579.2.1259 1976 Unknown [id number] 2.16.84 0.1.105760.3.579.2.1259 1976 Unknown [id number] 2.16.84 0.1.461022.3.579.2.1259 1976 Unknown [id number] 2.16.84 0.1.423951.3.579.2.1259 1976 Unknown [id number] 2.16.84 0.1.310538.3.579.2.1259 1976 Unknown [id number] 2.16. 840.1.260261.3.579.2.1286 1976 Unknown [id number] 2.16. 840.1.917653.3.579.2.1286 1976 Unknown [id number] 2.16. 840.1.879182.3.579.2.1286 1959 Medicaid [id number] 1959 Self-pay [id number] Unknown Unknown [id number] 2.1 [id number] Unknown [id number] 2.16.84 0.1.355057.3.579.2.593 Unknown [id number] 2.16.8 40.1.772799.3.579.2.531 Social History Date Type Detail Facility Unknown if ever smoked [facility] Other Start: 07-11-2020 End: 10-02-2023 Sex Assigned At [facility] Other Start: 1975 Sex Assigned At Female [facility] Start: 10-01-2023 End: 06-21-2024 Tobacco smoking status NHIS Never smoked tobacco [facility] Start: 06-19-2023 End: 10-01-2023 Tobacco use and exposure Smokeless tobacco non-user [facility] Start: 10-02-2023 End: 08-19-2024 Alcoholic beverage intake Lifetime non-drinker (finding) [facility] Start: 07-11-2020 End: 10-02-2023 History of Social function [facility] Start: 10-01-2023 Alcohol Comment caffeine: 1-2 cups per day [facility] Start: 12-05-2022 Gender identity Identifies as female gender (finding) [facility] Start: 12-05-2022 Sexual orientation Heterosexual (finding) [facility] Start: 08-26-2017 End: 06-21-2024 Sex Female (finding) [facility] Adolescent depressio n screening assessment 0 [facility] Start: 04-02-2019 Alcohol Comment rarely [facility] Start: 1975 Sex Assigned At Not on file [facility] Start: 10-16-2023 End: 12-14-2024 Alcoholic beverage intake Ex-drinker (finding) [facility] Clinical Notes 07-19-2016 to 12-14-2024 Memo Sandhu DO - 12/14/2024 2:30 PM RICH Guajardo - 11/30/2024 1:20 PM Naomie Sandhu, DO - 11/13/2024 9:00 AM EDT Note Date & Type Note Facility 12-14-2024 History of Present illness Narrative Subjective Patient ID: Leydi Gage is a 49 y.o. female. Leydi presents today for a rash and a possible urinary tract infection. 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 Review of Systems Genitourinary: Positive [...] a day to rash. Can also use htsy-cey-nmbvmci antihistamines for itching. Recheck if no better [...] and the following intervention(s) were applied: encouragement to exercise and prescribed diet education. Other orders - hydrocortisone (HYTONE) 2.5 % cream; Apply 1 Application topically in the morning and 1 Application before bedtime. - sulfamethoxazole-trimethoprim (BACTRIM DS) 800-160 mg per tablet; Take 1 tablet by mouth in the morning and 1 tablet before bedtime. Do all this for 5 days. documented in this encounter [facility] 11-30-2024 History of Present illness Narrative Images from the original note were not included. Follow up Diagnosis: Alopecia Location: scalp Last visit: 09/23/2024 Symptoms: may have some new regrowth; patient reports a new spot losing hair Status: unsure Procedure performed: Intralesional Kenalog 0.8 cc of 2.5 mg Number of treatments to date: 2 Current treatment: Opzelura cream nightly Follow up Diagnosis: Atopic Dermatitis Location: Left Lower Leg, Right Lower Leg Last visit: 09/23/2024 Symptoms: red, scaly, itchy Status: Almost clear, improvement with itching, redness, and scaling Treatments tried and failed: Dermasmoothe from DP, TAC 0.1% cream, protopic (caused discoloration) Current treatment: Opelura, currently stopped using cream on legs cause of the improvement. All pertinent medical history, medications, and allergies were reviewed. General Exam: alert, oriented to person, place, and time, normal affect, well appearing Unaccompanied A focused exam completed based on patient reported problems, see below: Skin Exam 1. OTHER ALOPECIA AREATA Mid Parietal Scalp Round, patchy areas of nonscarring hair loss, new hair growth noted Improved since last visit The patient was counseled that alopecia areata is an autoimmune condition that causes hair loss. Treatments include topical or intralesional steroid injections. Continue Opzelura daily in the affected areas. ILK today, 0.5 ml of 2.5 mg , see MAR. ILK consent reviewed and signed by patient. Follow up in 4 weeks. triamcinolone acetonide (Kenalog) injection 2.5 mg - Mid Parietal Scalp Related Medications triamcinolone acetonide (Kenalog) injection 10 mg 2. OTHER ATOPIC DERMATITIS Chest - Medial (Center), Gluteal Crease, Left Lower Leg - Anterior, Right Lower Leg - Anterior Clear scaly erythematous plaques +/- dyspigmentation, lichenification, excoriations. BSA: 0% Discussed that atopic dermatitis is a chronic condition that can be controlled but not cured. Patient has tried and failed Triamcinolone cream and Protopic (caused discoloration). Continue Opzelura cream once daily. She is clear on this treatment. Encouraged daily moisturizing and gentle cleansers to [...] when flared, 30 day supply Next Visit: 4 week follow up for hair loss documented in this encounter [facility] 11-13-2024 History of Present illness Narrative Images from the original note were not included. Subjective Patient ID: Leydi Gage is a 49 y.o. female. Leydi presents for a visit today for dysuria,increased urinary urgency and frequency, right flank pain and back pain that started 11/04/24. Back pain is on both sides across her mid to lower back but then across her right flank too. She went to the [facility] urgent care in [place] on 11/05/24 and was given Macrobid for her symptoms. She was told to follow up if they worsened or didn't improve. She went back to the same urgent care on 11/07 since her symptoms didn't resolve and was switched to bactrim. She has taken all of her doses of antibiotics and is currently still on bactrim today. Her symptoms persisted and [facility] 11/[facility]/24 where they gave her fluids, another 5 day course of bactrim and did a CT scan and found her bladder was inflamed. She was told the infection is in her ureters as her urine looked clean at that time. She is concerned because it is hard to stand at work and her back pain has increased since last week. She rates it at a 2/10 but it gets worse with standing/moving. It radiates across her right flank. She describes the pain as a constant ache that is sharp at times. Laying down and resting helps the back pain. She still has increased urgency and frequency from baseline but it has improved since last week. When she urinates it doesn't sting but is just uncomfortable when going. Overall she does feel better but still has back pain which she rates about a 2 on a scale of 1-10. She still has some dysuria. She has had candidal infections in the past and this is does not feel like that according to her. Follow-up Associated symptoms include chills, coughing, diaphoresis, fatigue, a fever, headaches, nausea and weakness (first few days of infection last week). The following portions of the patient's history were reviewed and updated as appropriate: allergies, current medications, past family history, past medical history, past social history, past surgical history, problem list, and medication reconciliation was completed including current medication and post discharge medication. Review of Systems Constitutional: Positive for activity change, appetite change, chills, diaphoresis, fatigue and fever. HENT: Negative. Eyes: Negative. Respiratory: Positive for cough and shortness of breath (felt like she couldn't catch her breath). Cardiovascular: Positive for palpitations. Gastrointestinal: Positive for nausea. Endocrine: Negative. Genitourinary: Positive for decreased urine volume, dysuria, flank pain, frequency, hematuria (trace upon UA at urgent care, no gross hematuria) and urgency. Negative for pelvic pain, vaginal bleeding, vaginal discharge and vaginal pain. Musculoskeletal: Positive for back pain (+ R flank pain). Skin: Negative. Allergic/Immunologic: Negative. Neurological: Positive for weakness (first few days of infection last week) and headaches. Hematological: Negative. Psychiatric/Behavioral: Negative. Objective Physical Exam Vitals reviewed. Exam conducted with a epidemiology investigator present (Papo Moncada MS 3). Constitutional: General: She is not in acute distress. Appearance: She is not ill-appearing. Pulmonary: Effort: Pulmonary effort is normal. No respiratory distress. Abdominal: Tenderness: There is right CVA tenderness (tender but negative Lanre's test). Musculoskeletal: Cervical back: Neck supple. Thoracic back: Tenderness present. Back: Comments: Reproducible tenderness Neurological: General: No focal deficit present. Mental Status: She is alert and oriented to person, place, and time. Psychiatric: Mood and Affect: Mood normal. Behavior: Behavior normal. Thought Content: Thought content normal. Judgment: Judgment normal. Assessment/Plan Leydi was seen today for lower back pain,frequency,urgent need to go.uncomfortable. and follow-up. Diagnoses and all orders for this visit: Acute cystitis with hematuria Sounds like she had a urinary tract infection that initially was treated with Macrobid but was resistant and switch to Bactrim which was susceptible. She may have been developing a pyelonephritis but is trending better although she still has symptoms. She still has for 5 days left of the Bactrim so she will finish that off. I will add Pyridium 100 mg 3 times a day for discomfort. She can use lzof-nsy-vgevdrm medication for back pain. Going to try to track down the records of her ER head CT scan reports. We discussed that there still maybe something else going on even though her urine is normal. It is not a clear picture. She may need further evaluation. Call or go to the ER if new symptoms arise or worse. Urinary symptom or sign - POCT urinalysis dipstick only - Urine culture (clean catch); Future - phenazopyridine (PYRIDIUM) 100 mg tablet; Take 1 tablet (100 mg total) by mouth 3 (three) times a day for 3 days. Acute bilateral thoracic back pain Her pain is somewhat reproducible and dependent on position so I doubt kidney stone. When it is reproducible it suggest more of a musculoskeletal problem so that she may need further evaluation of her back pain. May need an STI check. After she left we did get a CT scan results which did suggest a cystitis with inflammation of the urethra was but the kidneys were not inflamed. There were no other worrisome findings except for a stable liver mass and an 8 mm nodule in her left costophrenic sulcus but she is not having any pain there. There was no recommendation for follow-up. Also a suspected cyst on her left ovary but she has no symptoms in that area. documented in this encounter [facility] 11-05-2024 Evaluation note Diagnosis Onset Date Resolution Dysuria noneactive November 05, 2024 10:54am [facility] Work Phone: 1(216) 971-676805-29-2025 Evaluation note* Diagnosis Onset Date Resolution Status Admit Date Dysuria noneactive November 05, 2024 10:54am Contact dermatitis acute December 082024 2:41pm [facility] Work Phone: 1(427) 713-359104-16-2025 History of Present illness Narrative* RICH Mendoza [...] Next Visit: 3 months documented in this encounterGeneral [facility] [id number] NoteConsent: The risks and benefits of intralesional [...] injected: Mid Parietal Scalp Concentration injected: See [facility] for details on administration. The patient/parents were instructed to massage the injection site(s) following the procedure. Instructed to call for any questions or problems that occur. Amount injected (mL): 0.8 # lesions injected: 1NSt. Luke's [id number] NoteConsent: The risks and benefits of intralesional kenalog were discussed prior to the procedure. Specifically, the risk of skin atrophy was reviewed. It was also emphasized that multiple treatments may be necessary. Verbal consent was obtained from the patient/parent. Method: See [facility] for details on administration. The patient/parents were instructed to massage the injection site(s) following the procedure. Instructed to call for any questions or problems that occur. Areas injected: Mid Parietal Scalp Concentration injected: See [facility] for details on administration. The patient/parents were instructed to massage the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
[2024-12-21] MEDS: METHYLPREDNISOLONE SOD SUCC PF 125 MG/2 ML VIAL IM (07:51)
== END 2024-12-21 07:57 | disposition home or self-care (01) ==
PROVIDERS: Emergency Provider Emergency Medicine; PCP Family Medicine
DX: L50.0 Allergic urticaria (principal); T38.0X5A Adverse effect of glucocorticoids and synthetic analogues, initial encounter
CPT/HCPCS: 96372; 99284; J2919

== ENCOUNTER 2025-03-09 17:30 | Emergency (ER) | payer MEDICAID, SELFPAY ==
--- OUTSIDE RECORDS SUMMARY | 2023-10-22 11:45 | XMS_ITS ---
Author Organization [facility] Address [address] [place] [address] Care Team Providers Care Linux Systems Engineer Name Role Phone Dr. Lj Reyes Primary Care Provider [phone] Vianca Ortega [phone] REASON FOR VISIT PROPHY XRAYS EXAM Encounters Encounter Location Date Provider Diagnosis [facility] [address] [place] [address] 10/22/2023 Vianca Lagos Acute gingivitis, plaque induced K05.00 ; Other dental procedure status Z98.818 and Encounter for dental examination and cleaning with abnormal findings Z01.21 Assessments Encounter Date Diagnosis (ICD Code) Assessment Notes Treatment Notes Treatment Clinical Notes Section Notes 10/22/2023 Acute gingivitis, plaque induced (ICD-10 - K05.00) 10/22/2023 Other dental procedure status (ICD-10 - Z98.818) 10/22/2023 Encounter for dental examination and cleaning with abnormal findings (ICD-10 - Z01.21) Plan Of Treatment Next Appt Details Provider Name:Qi Raza, 09/06/2025 03:30:00 PM, [address] [place], [address], Progress Notes * ROYCE ARGUELLODOB:1975 ([age] yo F)Acc No.[id number]:10/22/2023 Patient: ROYCE LYMAN Provider: Aron Lagos :1975 A ge:47 Y S ex:Female Date:10/22/2023 Address:[facility] [address] [place] Pcp:Dr. Lj Reyes Subjective: * Chief Complaints: * 1 . PROPHY XRAYS EXAM. * Medical History: Objective: * Vitals: * Dental Examination/Plan : Tooth / Surface Status Description Provider TP PROPHYLAXIS - ADULT 10/21 Full Mouth TP BITEWINGS - FOUR FILMS TP PERIODIC ORAL EXAMINATION 10/22/2023 Assessment: * Assessment: 1. A cute gingivitis, plaque induced - K05.00 (Primary) 2 . O ther dental procedure status - Z98.818 3 . E ncounter for dental examination and cleaning with abnormal findings - Z01.21 Plan: * Treatment: * Images: * Electronic signature of Naye Lagos on 03/09/2025 at 11:32 AM EDT Sign off status: Pending * Provider: Aron Lagos Date: 0 10/22/2023 Generated for Lauren arechiga/Heidy/Sidney on: 0 03/09/2025 11:32 AM EDT
--- OUTSIDE RECORDS SUMMARY | 2024-10-13 09:00 | XMS_ITS ---
Author Organization [facility] Address [address] [place] [address] Care Team Providers Care Buffer Machine Name Role Phone Dr. Lj Reyes Primary Care Provider [phone] Vianca Ortega [phone] REASON FOR VISIT 6 month f/u Encounters Encounter Location Date Provider Diagnosis [facility] [address] [place] [address] 10/13/2024 Viancawilbur Lagos Plan Of Treatment Next Appt Details Provider Name:Qi Raza, 09/06/2025 03:30:00 PM, [address], [place], [address], Progress Notes * ROYCE ARGUELLODOB:1975 ([age] yo F)Acc No.[id number]:10/13/2024 Patient: Carline JUANROYCE GARCIA Provider: Aron Lagos :1975 A ge:48 Y S ex:Female Date:10/13/2024 Address:[facility] [address], [place] Pcp:Dr. Lj Reyes Subjective: * Chief Complaints: * 1 . 6 month f/u. * Medical History: Objective: * Vitals: Assessment: Plan: * Treatment: * Images: * Electronic signature of Naye Lagos on 03/09/2025 at 11:32 AM EDT Sign off status: Pending * Provider: Aron Lagos Date: 0 10/13/2024 Generated for Lauren arechiga/Sabrina on: 0 03/09/2025 11:32 AM EDT
--- OUTSIDE RECORDS SUMMARY | 2025-03-03 09:15 | XMS_ITS | Encounter Summary ---
Author Organization [facility] tem Address [id number] [address] [place] [address] Care Team Providers Care Manufactured Buildings Repairer Name Role Phone Memo Pearl DO Primary Care Provider + [phone] Reason for Visit * Reason Comments Anxiety Encounter Details Date Type Department Care Team (Late st Contact Info) Description 03/03/2025 9:15 AM EDT Office Visit [facility] Internal Medicine - Family Medicine [address] [place] [address] Memo Pearl DO [address] [place] [address] Situational mixed anxiety and depressive disorder (Primary Dx) Social History Tobacco Use Types Packs/Day Years Used Date Smoking Tobacco: Never Smokeless Tobacco: Never Alcohol Use Standard Drinks/Week Comments Not Currently 0 (1 standard drink = 0.6 oz pur e alcohol) rarely PHQ-2 Answer Date Recorded Total Score 12 03/03/2025 Childcare Answer Date Recorded Childcare Unknown 11/20/2018 Employment Answer Date Recorded Employment Unknown 11/20/2018 Hunger Screening Answer Date Recorded Within the past 12 months we worried whether our food would run out before we got money to buy more. Never True 03/03/2025 Within the past 12 months th e food we bought just didn't last and we didn't have money to get more. Never True 03/03/2025 Purpose - Life Answer Date Recorded Purpose and direction in life Unknown Comments No Sex and Gender Information Value Date Recorded Sex Assigned at Not on file Legal Sex Female 1:58 PM EDT Gender Identity Not on file Sexual Orientation Not on file documented as of this encounter Last Filed Vital Signs Vital Sign Reading Time Taken Comments Blood Pressure 118/78 03/03/2025 9:20 AM EDT Pulse 78 03/03/2025 9:20 AM EDT Temperature 36.4 C (97.6 F) 03/03/2025 9:20 AM EDT Respiratory Rate 18 03/03/2025 9:20 AM EDT Oxygen Saturation 98% 03/03/2025 9:20 AM EDT Inhaled Oxygen Concentration - - Weight 71.2 kg (157 lb) 03/03/2025 9:20 AM EDT Height 160 cm (5' 2.99 ) 03/03/2025 9:20 AM EDT Body Mass Index 27.82 03/03/2025 9:20 AM EDT documented in this encounter Functional Status * Over the last 2 weeks, how often have you been bothered by any of the following problems? Question Answer Date of Assessment Author Feeling nervous, anxious, or on edge 3 03/03/2025 9:16 AM EDT Esther Howard C MA Not being able to stop or co ntrol worrying 3 03/03/2025 9:16 AM EDT Esther Howard C MA Worrying too much about diff erent things 3 03/03/2025 9:16 AM EDT Esther Howard C MA Trouble relaxing 3 03/03/2025 9:16 AM EDT B Esther quick CMA Being so restless that it is hard to sit still 3 03/03/2025 9:16 AM EDT Esther Howard C MA Becoming easily annoyed or irritable 0 03/03/2025 9:16 AM EDT Esther Howard C MA Feeling afraid as if somethi ng awful might happen 2 03/03/2025 9:16 AM EDT Esther Howard C MA GLORIA-7 Total Score 17 03/03/2025 9:16 AM EDT Esther Howard CMA documented as of this encounter Progress Notes * Memo Pearl, - 03/03/2025 9:15 AM EDT Subjective Patient ID: Leydi Gage is a 49 y.o. female. Leydi presents today for anxiety symptoms. She says she does not really feel depressed. She does not want to hurt herself. 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 Her instructor recommended for her to see her doctor about treating the anxiety. She had actually recommended Lexapro 20 mg daily. She has trouble concentrating. Feelings like she doesn't want to be here due to pressure of school. It is overwhelming. 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 She only has a 11 weeks to go until graduation. 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 It is interfering with ADL. She is having trouble sleeping and eating at times. She feels like she would not be here if she did not have so much going on. The following portions of the patient's history were reviewed and updated as appropriate: allergies, current medications, past family history, past medical history, past social history, past surgicalhistory, problem list, and medication reconciliation was completed including current medication andpost discharge medication. Review of Systems Constitutional: Positive for appetite change and fatigue. Respiratory: Negative. Cardiovascular: Negative. Psychiatric/Behavioral: Positive for sleep disturbance. The patient is nervous/anxious. Objective Physical Exam Vitals reviewed. Constitutional: General: She is not in acute distress. Appearance: She is not ill-appearing. HENT: Head: Normocephalic. Pulmonary: Effort: Pulmonary effort is normal. Skin: General: Skin is warm. Neurological: Mental Status: She is alert. Psychiatric: Attention and Perception: Attention and perception normal. Mood and Affect: Mood is anxious. Speech: Speech normal. Behavior: Behavior normal. Behavior is cooperative. Thought Content: Thought content normal. Cognition and Memory: Cognition and memory normal. Judgment: Judgment normal. Assessment/Plan Leydi was seen today for anxiety. Diagnoses and all orders for this visit: Situational mixed anxiety and depressive disorder It appears much of her mental health symptoms arise from her situation. 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 She is having trouble focusing. It is interfering with her quality of life and ADLs. We discussed various medications. She would like to avoid sedation. Her instruct her recommended Lexapro and I think that is a good choice. Let us start with 10 mg daily. She can call in 1-2 weeks and we can increase the dose. She would also like to try BuSpar so we will do 5 mg 3 times a day. Other orders - escitalopram (LEXAPRO) 10 mg tablet; Take 1 tablet (10 mg total) by mouth in the morning. - busPIRone (BUSPAR) 5 mg tablet; Take 1 tablet (5 mg total) by mouth 3 (three) times a day. documented in this encounter Plan of Treatment Not on file documented as of this encounter Visit Diagnoses Diagnosis Situational mixed anxiety and depressive disorder- Primary documented in this encounter Additional Health Concerns Assessment Noted Time PHQ-9 Depression Total Score: 12 025 9:11 AM EDT A Body Mass Index follow-up plan has been documented for the patient 12/14/2024 9:55 PM EDT documented as of this encounter Care Teams Manufactured Buildings Repairer Relationship Specialty Start Date End Date Memo Pearl DO [address] [place] [address] PCP - General Family Medicine 12/09/24 documented as of this encounter
[2025-03-09 17:50] VITALS: BP 123/78; PULSE 88; TEMP 36.6; O2SAT 98; BMI 27.5
--- OUTSIDE RECORDS SUMMARY | 2025-03-09 18:13 | XMS_ITS | Encounter Summary ---
Author Organization [facility] Address [id number] [address] [place] [address] Care Team Providers Care Deflash And Wash Operator Name Role Phone YulianaMemo arechiga Primary Care Provider [phone] Encounter Details Date Type Department Care Team (Late st Contact Info) Description 11/13/2024 Orders Only [facility] Internal Medicine - Family Medicine [address] [place] [address] Ref Prov, [place] [address] Social History Tobacco Use Types Packs/Day Years [...] documented as of this encounter Care Teams Deflash And Wash Operator Relationship Specialty Start Date End Date Memo Pearl DO [address] [facility] [place] [address] PCP - General Family Medicine 12/09/24 documented as of this encounter
--- OUTSIDE RECORDS SUMMARY | 2025-03-09 18:13 | XMS_ITS | Encounter Summary ---
Author Organization [facility] Address [address] [place] [address] Care Team Providers Care Probate Lawyer Name Role Phone Unallocated, Noms Provider Primary Care Provi carmen Tae Ny DO Unavailable Ramya Garnett MD Unavailable Celeste Oconnell WOOD SHOP TEACHER Unavailable [phone] Mary Rodriguez NP Unavailable Unavailable Encounter Details Date Type Department Care Team (Late st Contact Info) Description 05/24/2023 Clinisync Result Encounter [facility] External Department Unsolicited Leydi Garcia PA [address] [place] [address] Social History Tobacco Use Types Packs/Day Years [...] Care Team (Late st Contact Info) Description 03/22/2025 2:50 PM EDT [facility] [address] [place] [address] Elba Durham PA [address] [place] [address] documented as of this encounter Procedures Procedure Name Priority Date/Time Associated Diagnosis Comments MM TOMOSYNTHESIS SCREENING BI 05/24/2023 8:34 AM EST documented in this encounter Results * MM TOMOSYNTHESIS SCREENING BI (05/24/2023 8:34 AM EST) Anatomical Region Laterality Modality Other 05/24/2023 8:34 AM EST Narrative 05/24/2023 8:35 [place] [address] Mammography Report Signed Patient: LEYDI ARGUELLO MR#: [id number] : 1975 Acct:[id number] Age/Sex: 47 / F ADM Date: 05/23/23 Loc: MAMMO Attending Dr: Leydi Garcia Ordering Physician: Leydi Garcia Results: Date of Service: 05/23/23 Follow Up: Procedure(s): MM tomosynthesis screening BI Accession Number(s): [id number] cc: Leydi Garcia; Physician,Non-Staff M.D. Patient Name: LEYDI ARGUELLO MR#: [id number] : 1975 Exam Date: 05/23/2023 Ordering Doctor: [...] breast cancer at age 70. LOCATION: [facility] BREAST COMPOSITION: Heterogeneously dense,which may obscure [...] Dictated By: Diony Wellington M.D. Signed By: 05/24/2335 DD/ 3 TD/TT: Unleavened Dough Mixer: Procedure Note Radiology, Radiologist, MD - 05/24/2023 [place] [address] Mammography Report Signed Patient: LEYDI ARGUELLO MMR#: [id number] : 1975Acct:[id number] Age/Sex: 47 / FADM Date: 05/23/23 Loc: MAMMO Attending Dr: Leydi Garcia Ordering Physician: Leydi GarciaResults: Date of Service: 05/23/23Follow Up: Procedure(s): MM tomosynthesis screening BI Accession Number(s): [id number] cc: Leydi Garcia; Physician,Non-Staff Lazaro Patient Name: LEYDI ARGUELLO MR#: [id number] : 1975 Exam Date: 05/23/2023 Ordering Doctor: [...] breast cancer at age 70. LOCATION: [facility] BREAST COMPOSITION: Heterogeneously dense,which may obscure [...] 08:34 Dictated By: Diony Wellington M.D. Signed By:05/24/23834 DD/ 3 TD/TT: Unleavened Dough Mixer: [facility] Final Result documented in this encounter Visit Diagnoses Not on filedocumented in this encounter Care Teams Probate Lawyer Relationship Specialty Start Date End Date Unallocated, Noms MD Carmita [address] [place] [address] PCP - General Family Medicine 09/23/23 Ramya Garnett MD [address] [place] [address] PCP - SHITAL Mcmahan [facility] 09/09/23 Tae Ny DO [address] [facility] [address] [place] [address] Referring Physician Neurology 09/23/23 Celeste Oconnell NP [address] [place] [address] Nurse Practitioner Neurology 04/15/24 Mary Rodriguez NP [address] [place] [address] Nurse Practitioner Neurology 04/15/24 documented as of this encounter
--- OUTSIDE RECORDS SUMMARY | 2025-03-09 18:13 | XMS_ITS | Encounter Summary ---
Author Organization [employer] Address [id number] [address] [place] [address] Care Team Providers Care Forklift Truck Operator Name Role Phone YulianaMemo arechiga Primary Care Provider [phone] Encounter Details Date Type Department Care Team (Late st Contact Info) Description 07/29/2024 Telephone [facility] - Family Medicine [address] [facility] [place] [address] Leia Morales CMA Social History Tobacco Use [...] documented as of this encounter Care Teams Forklift Truck Operator Relationship Specialty Start Date End Date Memo Pearl DO [address] [facility] [place] [address] PCP - General Family Medicine 12/09/24 documented as of this encounter
--- OUTSIDE RECORDS SUMMARY | 2025-03-09 18:13 | XMS_ITS | Encounter Summary ---
Author Organization [facility] Address [address] [place] [address] Care Team Providers Care Operations Recruiter Name Role Phone Unallocated, Noms Provider Primary Care Provi carmen Tae Ny DO Unavailable [phone] Ramya Garnett MD Unavailable Celeste Oconnell CABLE SWAGER Unavailable [phone] Mary Rodriguez NP Unavailable Unavailable Encounter Details Date Type Department Care Team (Late Contact Info) Description 12/24/2022 Abstract [facility] [address] [facility] [address] Leydi Garcia PA [address] [facility] [address] [place], [place] [id number] Social History Tobacco Use Types Packs/Day Years [...] Department Care Team (Late Contact Info) Description 03/22/2025 2:50 PM EDT Office Visit [facility] [address] [place] [address] Elba Durham PA [address] [place] [address] documented as of this encounter Visit Diagnoses Not on filedocumented in this encounter Care Teams Operations Recruiter Relationship Specialty Start Date End Date Unallocated, Shital Vizcarra MD [address] [place] [address] PCP - General Family Medicine 09/23/23 Ramya Garnett MD [address] [place] [address] PCP - SHITAL Mcmahan [facility] 09/09/23 Tae Ny DO [address] [facility] [address] [place] [address] Referring Physician Neurology 09/23/23 Celeste Oconnell NP [address] [place] [address] Nurse Practitioner Neurology 04/15/24 Mary Rodriguez NP [address] [place] [address] Nurse Practitioner Neurology 04/15/24 documented as of this encounter
--- OUTSIDE RECORDS SUMMARY | 2025-03-09 18:13 | XMS_ITS | Clinical Summary ---
Author Organization [employer] tem Address [id number] [address] [place] [address] Care Team Providers Care Food Service Substitute Name Role Phone RyanneMemo El RIVERS Primary Care Provider Allergies Active Allergy Reactions Criticality Noted Date Comments Adhesive Rash Low 04/02/2019 Adhesive Tape-Silicones Low 04/02/2019 Amoxicillin Rash Low 04/17/2005 Azithromycin Swelling,Rash Medium 04/02/2019 Ciprofloxacin Hcl Low 04/02/2019 Erythromycin Rash Low 02/05/2017 Metronidazole Low 04/02/2019 Medications clobetasoL (TEMOVATE) 0.05 % cream 5 Active NURTEC ODT 75 mg tablet,disinteg rating Place 1 tablet (75 mg total) under the tongue. 4 Active OPZELURA 1.5 % cream Apply to affected areas, twice a day when flared, 30 day supply 5 Active escitalopram (LEXAPRO) 10 mg tablet Take 1 tablet (10 mg total) by mouth in the morning. 30 tablet 1 5 Active busPIRone (BUSPAR) 5 mg tablet Take 1 tablet (5 mg total) by mouth 3 (three) times a day. 90 tablet 1 5 Active hydrocortisone (HYTONE) 2.5 % cream Apply topically in the morning and before bedtime. 30 g 5 03/03/20 25 Discontinu ed(Therapy completed) Active Problems Problem Noted Date Diagnosed Date Situational mixed anxiety and depressive disorde r 03/03/2025 Lichen sclerosus et atrophicus 09/05/2023 Weight gain [...] Encounters Date Type Department Care Team Description 03/04/2025 Orders Only [facility] Internal Medicine - Family Medicine [address] [place] [address] Memo Pearl DO 03/04/2025 Telephone [facility] Medicine - Family Medicine [address] [place] [address] Michaela Alvarez CMA 03/03/2025 9:15 AM EDT Office Visit [facility] - Family Medicine [address] [place] [address] Memo Pearl DO Situational mixed anxiety and depressive disorder (Primary Dx) 03/03/2025 Travel 01/20/2025 Refill [facility] Medicine - Family Medicine [address] [place] [address] Oni Gaviria CNA 01/20/2025 Refill [facility] Internal Medicine - Family Medicine [address] [place] [address] Memo Pearl DO 12/14/2024 2:30 PM EDT Office Visit [facility] - Family Medicine [address] [facility] [place] [address] Memo Pearl DO Allergic contact dermatitis due to plants, except food (Primary Dx); Urinary tract infection without hematuria, site unspecified; Dysuria; Overweight 12/14/2024 Travel from Last 3 Months Immunizations Immunization [...] Mass Index 27.82 03/03/2025 9:20 AM EDT Plan of Treatment Health Maintenance Due Date Last Done Comments Influenza Vaccine 02/08/2025 02/14/2024, , 03/12/2022, Additional history exists Mammogram 05/26/2025 05/26/2024, 04/14/2019 Adult BMI Follow Up Plan 12/14/2025 12/14/2024 Adult BMI Screening 03/03/2026 03/03/2025 Depression Screening 03/03/2026 03/03/2025 Tobacco Screening 03/03/2026 03/03/2025 DTaP,Tdap and Td Vaccines (2 - Tdap) 12/28/2030 12/28/2020 COVID-19 Vaccine Discontinued 06/14/2021, 05/24/2021 Medical Devices Not on file Procedures Procedure Name Priority Date/Time Associated Diagnosis Comments POCT URINALYSIS DIPSTICK ONLY Routine 12/14/2024 2:57 PM EDT Dysuria HM MAMMOGRAPHY Routine 04/14/2019 from Last 3 [...] MANUALLY TRANSCRIBED RESULTS External Poct Urine Specific [place] 1.010 MANUALLY TRANSCRIBED RESULTS External Poct Urine [...] S Final Result MANUALLY TRANSCRIBED RESULTS * HM MAMMOGRAPHY (04/14/2019) Anatomical Region Laterality Modality Other us Not In System Ref Prov HEALTH MAINTENANCE Final Result from Last 3 Months or Most Recently Relevant to Health Maintenance Insurance [employer] MEDICAID Care Teams Food Service Substitute Relationship Specialty Start Date End Date Memo Pearl DO [address] [facility], [place] [address] PCP - General Family Medicine 12/09/24
--- OUTSIDE RECORDS SUMMARY | 2025-03-09 18:13 | XMS_ITS | Patient Health Record ---
Author Organization [facility] Address [address] [address] Care Team Providers Care Compound Worker Name Role Phone Dr. Lj Reyes Primary Care Provider Qi Raza Unavailable Unavailable Vianca Lagos Unavailable [phone] Reason For Referral No Information Encounters Encounter Location Date Provider Diagnosis [facility] [address] [place] [address] 03/04/2025 Qi Raza Acute gingivitis, plaque induced K05.00 [facility] [address] [place] [address] 04/14/2024 Vianca Lagos Dental caries on pit [...] surface penetrating into dentin (ICD-10 - K02.52) 03/04/2025 Acute gingivitis, plaque induced (ICD-10 - K05.00) 04/14/2024 Encounter for dental examination and cleaning with abnormal findings (ICD-10 - Z01.21) 04/14/2024 Other dental procedure status (ICD-10 - Z98.818) 04/14/2024 Acute gingivitis, plaque induced (ICD-10 - K05.00) Plan Of Treatment Next Appt Details Provider Name:Qi Raza, 09/06/2025 03:30:00 PM, [address], [place], [address], Insurance Providers Payer Name Payer Address Payer Phone Subscriber Number Group Number Insured Name Patient Relationship to Insured Coverage Start Date Coverage End Date Dental No Name DQ Terminate d 24 [address] [place] [address] [id number] ROYCE ARGUELLO Self - patient is the insured 3 Dental Wrap CFC No Name BCBS Termed 4 [address] [place] [address] [id number] ROYCE ARGUELLO Self - patient is the insured 3
--- OUTSIDE RECORDS SUMMARY | 2025-03-09 18:13 | XMS_ITS | Encounter Summary ---
Author Organization [facility] Address [address] [place] [address] Care Team Providers Care Highway Landscape Architect Name Role Phone Unallocated, Noms Provider Primary Care Provi carmen Tae Ny DO Unavailable [phone] Ramya Garnett MD Unavailable Celeste Oconnell EXTRUSION DIE REPAIR MANAGER Unavailable [phone] Mary Rodriguez NP Unavailable Unavailable Reason for Visit * Reason Onset Date Comments Medication Question 07/20/2024 Encounter Details Date Type Department Care Team (Late st Contact Info) Description 07/20/2024 Telephone [facility] [address] [place] [address] Shazia Bashir MA Medication Question Social History [...] Description 03/22/2025 2:50 PM EDT Office Visit [facility] [address] [place] [address] Elba Durham PA [address] [place] [address] documented as of this encounter Visit Diagnoses Diagnosis Dermatographism Dermatographic urticaria documented in this encounter Care Teams Highway Landscape Architect Relationship Specialty Start Date End Date Unallocated, Nompelon Vizcarra MD [address] [place] [address] PCP - General Family Medicine 09/23/23 Ramya Garnett MD [address] [place] [address] PCP - SHITAL Mcmahan [facility] 09/09/23 Tae Ny DO [address] [facility] [address] [place] [address] Referring Physician Neurology 09/23/23 Celeste Oconnell NP [address] [place] [address] Nurse Practitioner Neurology 04/15/24 Mary Rodriguez NP [address] [place] [address] Nurse Practitioner Neurology 04/15/24 documented as of this encounter
--- OUTSIDE RECORDS SUMMARY | 2025-03-09 18:13 | XMS_ITS | Clinical Summary ---
Author Organization [facility] Address [address] [place] [address] Care Team Providers Care Financial Operations Clerk Name Role Phone Latesha Kate BARLEY STEEPER Primary Care Provider [phone] Allergies Active Allergy Reactions Criticality Noted Date [...] N ot on file 05/15/2020 Data from: [email or web address] Last address used for calculation Not [...] Blood 2021 Lipid Screening 2021 Sigmoidoscopy 2021 Influenza Vaccine (#1) 2025 Procedures Procedure Name Priority Date/Time Associated Diagnosis Comments HEMOGLOBIN A1C Routine 02/05/2017 1:01 PM EDT Abnormal weight gain from Last 3 Months or Most Recently Relevant to Health Maintenance Results * HGB A1C (02/05/2017 1:01 PM EDT) Hemoglobin A1C 5.3 4.3 - 5.6 % 02/05/2017 11:08 PM EDT [facility] Estimated Average Glucose 105 mg/dL 02/05/2017 11:08 PM EDT [facility] Comment: eAG: (Estimated average glucose) is a calculated value from HgbA1c and is hobbies and crafts sales representative of the average blood glucose level in the last 2-3 month period. Blood specimen (specimen) WHOLE BLOOD SPECIMEN / Unknown 02/05/2017 1:01 PM EDT 02/05/2017 1:03 PM EDT us Bony Martin MD LABORATORY Final Result [facility] [address] [place] [address] from Last 3 Months or Most Recently Relevant to Health Maintenance Insurance [employer] BCBS MEDICAID [place] Care Teams Financial Operations Clerk Relationship Specialty Start Date End Date Latesha Kate CNP PCP - General Family Medicine 11/30/16
--- OUTSIDE RECORDS SUMMARY | 2025-03-09 18:13 | XMS_ITS | Clinical Summary ---
Author Organization [facility] Address [address] [place] [address] Care Team Providers Care Balancer Scale Name Role Phone Unallocated, Noms Provider Primary Care Provi carmen Tae Ny DO Unavailable [phone] Ramya Garnett MD Unavailable Celeste Oconnell HEAD LINEMAN Unavailable [phone] Mary Rodriguez NP Unavailable Unavailable Allergies Active Allergy Reactions Criticality Noted Date Comments Amoxicillin Unknown 12/04/2022 Ciprofloxacin Unknown 12/04/2022 Erythromycin Unknown 12/04/2022 Triamcinolone Acetonide 12/29/2024 hives Metronidazole Rash Medium 04/02/2019 Medications cyclobenzaprine (Flexeril) 5 MG tablet Take 5 mg by mouth if needed 1 tablet Active Rimegepant Sulfate (Nurtec) 75 MG tablet dispersibleIndic ations:Chronic migraine without aura without status migrainosus, not intractable Place 75 mg under the tongue if needed (at onset of migraine daily as needed) 16 tablet 11 4 Active clobetasol (Temovate) 0.05 % creamIndications :Lichen sclerosus et atrophicus Apply to affected areas, up to twice a day when flared, do not use one the face, groin, or underarms, 30 day supply 60 g 5 Active fexofenadine (Caatrina) 180 MG tabletIndication s:Dermatographis m Take 1 tablet daily, by mouth, 30 days 30 tablet 11 5 Active Ruxolitinib Phosphate (Opzelura) 1.5 % creamIndications :Other atopic dermatitis Apply to affected areas, twice a day when flared, 30 day supply 60 g 11 5 Active Active Problems Problem Noted Date Diagnosed [...] Encounters Date Type Department Care Team Description 02/01/2025 3:10 PM EDT [facility] [address] [place] [address] Elba Durham PA Other atopic dermatitis (Primary Dx); Other alopecia areata 02/01/2025 Bamboo flowsheet [facility] [address] [place] [address] Elba Durham PA 02/01/2025 Travel 12/29/2024 3:20 PM EDT [facility] [address] [place] [address] Elba Durham PA Other alopecia areata (Primary Dx) 12/29/2024 Bamboo flowsheet [facility] [address] [place] [address] Elba Durham PA 12/29/2024 Travel 12/22/2024 Travel from Last 3 Months Family History [...] Status Comments Father Mac Stumbo Alive Mother Rmaya stumbo Alive Social History Tobacco Use Types [...] Description 03/22/2025 2:50 PM EDT Office Visit [facility] [address] [place] [address] Elba Durham PA [address] [place] [address] Health Maintenance Due Date Last [...] EST Narrative 05/24/2023 8:35 AM EST [facility] [place] [id number] Mammography Report Signed Patient: LEYDI ARGUELLO MR#: [id number] : 1975 Acct:[id number] Age/Sex: 47 / F ADM Date: 05/23/23 Loc: MAMMO Attending Dr: Leydi Garcia Ordering Physician: Leydi Garcia Results: Date of Service: 05/23/23 Follow Up: Procedure(s): MM tomosynthesis screening BI Accession Number(s): [id number] cc: Leydi Garcia; Physician,Non-Staff M.DKaty Patient Name: LEYDI ARGUELLO MR#: [id number] : 1975 Exam Date: 05/23/2023 Ordering Doctor: [...] breast cancer at age 70. LOCATION: [facility] BREAST COMPOSITION: Heterogeneously dense,which may [...] M.D. Signed By: 05/24/23 0835 DD/ TD/TT: Merchandising Director: Procedure Note Radiology, Radiologist, - 05/24/2023 [facility] [place] [id number] Mammography Report Signed Patient: LEYDI ARGUELLO MMR#: [id number] : 1975Acct:[id number] Age/Sex: 47 / FADM Date: 05/23/23 Loc: MAMMO Attending Dr: Leydi Garcia Ordering Physician: Leydi GarciaResults: Date of Service: 05/23/23Follow Up: Procedure(s): MM tomosynthesis screening BI Accession Number(s): [id number] cc: Leydi Garcia; Physician,Non-Staff M.D. Patient Name: LEYDI ARGUELLO MR#: [id number] : 1975 Exam Date: 05/23/2023 Ordering Doctor: [...] breast cancer at age 70. LOCATION: [facility] BREAST COMPOSITION: Heterogeneously dense,which may [...] Diony Wellington M.D. Signed By:05/24/2335 DD/ TD/TT: Merchandising Director: [facility] Final Result * THINPREP PAP AND HPV MRNA E6/E7 W/RFL HPV 16,18/45 (01/24/2023 3:07 PM EDT) us Leydi VILLANUEVA LAB BLOOD ORDERABLES Final Resul t EXTERNAL LAB * Pap Smear (12/06/2022 12:00 AM EDT) Swab Cervical swab / Unknown Historical Provider LAB CYTOLOGY ORDERABLES F inal Result EXTERNAL LAB from Last 3 Months or Most Recently Relevant to Health Maintenance Insurance [facility] MEDICAID [place] Care Teams Balancer Scale Relationship Specialty Start Date End Date Unallocated, Stewart Vizcarra MD [address] [place] [address] PCP - General Family Medicine 09/23/23 Ramya Garnett MD [address] [facility] [place] [address] PCP - [facility] 09/09/23 Tae Ny DO [address] [place] [address] Referring Physician Neurology 09/23/23 Celeste Oconnell NP [address] [facility] [place] [address] Nurse Practitioner Neurology 04/15/24 Mary Rodriguez NP [address] [place] [address] Nurse Practitioner Neurology 04/15/24
--- OUTSIDE RECORDS SUMMARY | 2025-03-09 18:13 | XMS_ITS | Clinical Summary ---
Author Organization [facility] Address [address] [place] [address] Care Team Providers Care Ecommerce Project Manager Name Role Phone Melissa Lockhart MD Primary Care Provider [phone] Allergies Active Allergy Reactions Criticality Noted Date [...] 1998 HPV/Cotest 2006 Mammogram 2016 COVID-19 Vaccine (3 - 2024-2 6 season) 2025 06/14/2021, 05/24/2021 Influenza Vaccine (#1) 2025 , [...] patient's age to complete this topic Insurance [facility] MEDICAID Care Teams Ecommerce Project Manager Relationship Specialty Start Date End Date Melissa Lockhart MD PCP - General Family Medicine 11/21/23
--- OUTSIDE RECORDS SUMMARY | 2025-03-09 18:14 | XMS_ITS | Encounter Summary ---
Author Organization [facility] Address [id number] [address] [place] [address] Care Team Providers Care Warehouse Coordinator Name Role Phone YulianaMemo arechiga Primary Care Provider [phone] Encounter Details Date Type Department Care Team (Late st Contact Info) Description 11/22/2023 Orders Only [facility] Internal [facility] - Family Medicine [address] [facility] [place] [address] External, Scanning Provider Social History Tobacco Use [...] documented as of this encounter Care Teams Warehouse Coordinator Relationship Specialty Start Date End Date Memo Pearl DO [address] [facility], [place] [address] PCP - General Family Medicine 12/09/24 documented as of this encounter
--- OUTSIDE RECORDS SUMMARY | 2025-03-09 18:14 | XMS_ITS | Encounter Summary ---
Author Organization [facility] Address [id number] [address] [place] [address] Care Team Providers Care Site Planner Name Role Phone Memo Pearl Primary Care Provider [phone] Encounter Details Date Type Department Care Team (Late st Contact Info) Description 06/23/2024 Orders Only [facility] - Family Medicine [address] [facility] [address] [address] Ref Prov, [place] [address] Social History Tobacco Use Types Packs/Day Years [...] documented as of this encounter Care Teams Site Planner Relationship Specialty Start Date End Date Memo Pearl DO [address] [facility] [place] [address] PCP - General Family Medicine 12/09/24 documented as of this encounter
--- OUTSIDE RECORDS SUMMARY | 2025-03-09 18:14 | XMS_ITS | Encounter Summary ---
Author Organization [employer] Address [id number] [address] [place] [address] Care Team Providers Care Cut Out And Marking Machine Operator Name Role Phone YulianaMemo arechiga Primary Care Provider [phone] Encounter Details Date Type Department Care Team (Late st Contact Info) Description 03/04/2025 Telephone [facility] Internal Medicine - Family Medicine [address] [facility] [place] [place] [address] Michaela Alvarez CMA Social History Tobacco Use Types Packs/Day [...] encounter Miscellaneous Notes * Telephone Encounter - Michaela Alvarez CMA - 03/04/2025 9:24 AM EDT Isha [place] nursing officer said patient needs a note for her being absent yesterday for class. Shewill pick up operator tomorrow. * Telephone Encounter - Memo Pearl DO - 03/04/2025 9:24 AM EDT okay documented in this encounter Plan of Treatment Not on file documented as of this encounter Visit Diagnoses Not on filedocumented in this encounter Additional Health Concerns Assessment Noted Time PHQ-9 Depression Total Score: 12 025 9:11 AM EDT A Body Mass Index follow-up plan has been documented for the patient 12/14/2024 9:55 PM EDT documented as of this encounter Care Teams Cut Out And Marking Machine Operator Relationship Specialty Start Date End Date Memo Pearl DO [address] [place], [facility] [address] PCP - General Family Medicine 12/09/24 documented as of this encounter
--- OUTSIDE RECORDS SUMMARY | 2025-03-09 18:14 | XMS_ITS | Encounter Summary ---
Author Organization [facility] [facility] Address [id number] [place] [address] Care Team Providers Care Gluing Machine Feeder Name Role Phone Memo Pearl DO Primary Care Provider [phone] Encounter Details Date Type Department Care Team (Late st Contact Info) Description 03/04/2025 Orders Only [facility] Internal Medicine - Family Medicine [address] [place] [address] Memo Pearl DO [address] [place] [facility] [place] [address] Social History Tobacco Use Types Packs/Day Years [...] on file documented as of this encounter Progress Notes * Memo eParl DO - 03/04/2025 9:47 AM EDT Note printed to excuse from school documented in this encounter Plan of Treatment Not on file documented as of this encounter Visit Diagnoses Not on filedocumented in this encounter Additional Health Concerns Assessment Noted Time PHQ-9 Depression Total Score: 12 025 9:11 AM EDT A Body Mass Index follow-up plan has been documented for the patient 12/14/2024 9:55 PM EDT documented as of this encounter Care Teams Gluing Machine Feeder Relationship Specialty Start Date End Date Memo Pearl DO [address] [facility], [place] [address] PCP - General Family Medicine 12/09/24 documented as of this encounter
--- OUTSIDE RECORDS SUMMARY | 2025-03-09 18:14 | XMS_ITS | Encounter Summary ---
Author Organization [facility] Address [id number] [place] [address] Care Team Providers Care Charter And Tour Bus Driver Name Role Phone YulianaMemo arechiga Primary Care Provider [phone] Encounter Details Date Type Department Care Team (Late st Contact Info) Description 11/15/2023 Orders Only [facility] - Family Medicine [address] [facility] [place] [address] External, Scanning Provider Social History Tobacco Use [...] documented as of this encounter Care Teams Charter And Tour Bus Driver Relationship Specialty Start Date End Date Memo Pearl DO [address] [facility] [place] [address] PCP - General Family Medicine 12/09/24 documented as of this encounter
--- OUTSIDE RECORDS SUMMARY | 2025-03-09 18:14 | XMS_ITS | Encounter Summary ---
Author Organization [employer] Address [id number] [address] [place] [address] Care Team Providers Care Milled Rubber Tender Name Role Phone YulianaMemo arechiga Primary Care Provider [phone] Encounter Details Date Type Department Care Team (Latest Contact Info) Description 03/03/2025 Travel Social History Tobacco Use Types Packs/Day [...] on file documented as of this encounter Functional Status * Over the [...] Howard CMA documented as of this encounter Plan of Treatment Not on file documented as of this encounter Visit Diagnoses Not on filedocumented in this encounter Additional Health Concerns Assessment Noted Time PHQ-9 Depression Total Score: 12 025 9:11 AM EDT A Body Mass Index follow-up plan has been documented for the patient 12/14/2024 9:55 PM EDT documented as of this encounter Care Teams Milled Rubber Tender Relationship Specialty Start Date End Date Memo Pearl DO [address] [facility], [facility] [place] [place] [address] PCP - General Family Medicine 12/09/24 documented as of this encounter
--- OUTSIDE RECORDS SUMMARY | 2025-03-09 18:14 | XMS_ITS | Encounter Summary ---
Author Organization [facility] [employer] Sys tem Address [facility] [id number] [address] [place] [address] Care Team Providers Care Brush Cleaner Name Role Phone YulianaMemo arechiga Primary Care Provider [phone] Encounter Details Date Type Department Care Team (Late st Contact Info) Description 05/27/2024 Orders Only [facility] Internal Medicine - Family Medicine [address] [place] [address] Melissa Lockhart, ACETYLENE [employer]CH [employer] FLOOR INSTALLER [address] [facility] [address] Social History Tobacco Use Types Packs/Day Years [...] documented as of this encounter Care Teams Brush Cleaner Relationship Specialty Start Date End Date Memo Pearl DO [address] [facility] [place] [address] PCP - General Family Medicine 12/09/24 documented as of this encounter
--- OUTSIDE RECORDS SUMMARY | 2025-03-09 18:14 | XMS_ITS | Encounter Summary ---
Author Organization [employer] Address [id number] [address] [place] [address] Care Team Providers Care Medical Lab Technician Name Role Phone YulianaMemo arechiga Primary Care Provider [phone] Encounter Details Date Type Department Care Team (Late st Contact Info) Description 03/17/[address] [address] [address] Leidy Hollis CNA Social History Tobacco Use [...] to be see 6 weeks after the CREDENTIALING ANALYST visit and it was scheduled on 10/16/23 [...] documented as of this encounter Care Teams Medical Lab Technician Relationship Specialty Start Date End Date Memo Pearl DO [address], [place] [address] PCP - General Family Medicine 12/09/24 documented as of this encounter
--- NOTE | 2025-03-09 19:25 | ED_ITS ---
HPI HPI - General Adult General Chief complaint: Headache Stated complaint: MIGRAINE Time Seen by Provider: 03/09/25 19:10 Source: patient Mode of arrival: walk-in History of Present Illness HPI narrative: Patient is a 49-year-old female with a past medical history of migraines presents to the emergency department with complaints of progressive headache that started 2 days ago on Saturday. She states that she has also had a cough, sore throat, and runny nose about this time. She is also being treated with Macrobid for a UTI. She did go to urgent care today for her URI symptoms and was placed on and inhaler and a steroid because they heard wheezing but she has not picked those up yet. To try to relieve her headache she has taken her Nurtex ODT that she uses as an abortive medication and has been rotating ibuprofen and Tylenol without relief of her headache. She states that it is located on the left side of her face/head and she is having some blurry vision, photophobia, and nausea. She is very anxious she has not been able to do her schoolwork as she cannot get on her computer secondary to the pain. She denies any vomiting, diarrhea, chest pain, shortness of breath, or abdominal pain. Related Data Home Medications ?Medication ?Instructions ?Recorded ?Confirmed rimegepant 75 mg disintegrating 75 mg PO DAILY PRN bhupinder gustavo 04/07/24 12/21/24 tablet (Nurtec ODT) headache hydrocortisone 2.5 % topical cream 1 applic topical DA AMMON PRN skin 12/21/24 12/21/24 irritation albuterol sulfate 90 mcg/actuation 2 puff inhalation Q 6H PRN 03/09/25 03/09/25 aerosol inhaler shortness of breath or wheez ing nitrofurantoin 100 mg PO Q12H 03/09/2502/10 monohydrate/macrocrystals 100 mg capsule prednisone 20 mg tablet 20 mg PO DAILY 03/09/2502/10 Previous Rx's ?Medication ?Instructions ?Recorded prednisone 10 mg tablet See Rx Instructions .Route 0 12/21/24 .COMPLEX #15 tabs Allergies Allergy/AdvReac Type Severity Reaction Status Date / Time amoxicillin Allergy Severe Unknown Verified 03/09/25 17:50 ciprofloxacin (From Cipro) Allergy Severe Unknown Verified 03/09/25 17:50 triamcinolone (From Kenalog) Allergy Mild Hives Verified 03/09/25 17:50 erythromycin base AdvReac Mild Rash Verified 03/09/25 17:50 Opioid HPI Opioid Management Most Recent Opioid Data: Last Pain Scale 4 03/09/25, 22:44 Last ED Pain Assessment 03/09/25, 22:44 Last MAR Pain Assessment 03/09/25, 20:06 Review of Systems ROS Status of ROS 10 or more systems reviewed and unremark able except as noted in history and below [facility] Social History Smoking status: Never smoker Little interest or pleasure in doing things: not at all Feeling down, depressed, or hopeless: not at all Exam Narrative Exam Narrative: General: No distress, age-appropriate Skin: Warm, dry, no pallor. No rash. Head: Normocephalic, atraumatic. Neck: Supple, non-tender. Eye: Pupils are equal, round and EOMI. No scleral icterus. Ears, Nose, Mouth, and Throat: No nasal mucosal hypertrophy. Oral mucosa is moist, mild posterior oropharynx erythema no exudates, uvula is mid-line Cardiovascular: Regular Rate and Rhythm without murmur, gallop or rub. Respiratory: No accessory muscle use or respiratory distress. Lungs are clear to auscultation, no wheezing, rales or rhonchi Chest Wall: no tenderness Back: No midline thoracic or lumbar vertebral tenderness. Musculoskeletal: Full ROM of all extremities, no calf or popliteal tenderness GI: Abdomen is soft, non-distended, non tender to palpation. No masses appreciated. No rebound, guarding, or rigidity noted. Neurological: A&O x4. No cranial nerve dysfunction observed. No truncal ataxia. Moves all extremities. Sensation intact. Psychiatric: Cooperative and interactive. Normal mood and affect. Constitutional Vital Signs, click to edit/add: Last Vital Signs Temp 98.3 F 03/09/25 22:39 Pulse 87 03/09/25 22:39 Resp 18 03/09/25 22:39 BP 91/57 03/09/25 22:39 Pulse Ox 95 03/09/25 22:39 O2 Del Method Room Air 03/09/25 21:19 Documenting provider has reviewed patient's vital signs: yes Course Vital Signs Vital signs: Vital Signs Temperature 97.9 F 03/09/25 17:50 Pulse Rate 88 03/09/25 17:50 Respiratory Rate 20 03/09/25 17:50 Blood Pressure 123/78 03/09/25 17:50 Pulse Oximetry 98 03/09/25 17:50 Oxygen Delivery Method Room Air 03/09/25 17:50 Temperature 98.3 F 03/09/25 22:39 Pulse Rate 87 03/09/25 22:39 Respiratory Rate 18 03/09/25 22:39 Blood Pressure 91/57 03/09/25 22:39 Pulse Oximetry 95 03/09/25 22:39 Oxygen Delivery Method Room Air 03/09/25 21:19 Medical Decision Making MDM Narrative Medical decision making narrative: This is a 49-year-old female with a past medical history of migraine on Nurtec that presents to the emergency department with complaints of progressive headache that started 2 days ago. She has not been able to relieve it with her home Nurtec, ibuprofen, or Tylenol. She has also been having URI symptoms, cough, sore throat, and runny nose. She states her highest temp that she took with a thermometer was 100.3. She did go to urgent care today and they did prescribe her an inhaler and steroid as they thought she sounded wheezy on exam. She is also on Macrobid for a UTI. She is most concerned with her migraine as she is having photophobia, nausea, pain to the left side of her head with blurry vision and cannot complete her schoolwork. On arrival patient is in no distress, sitting in a dark room, vitals are stable, no neurological deficits on exam. Patient afebrile. I do not appreciate wheezing on exam. CT Head was considered but decided against as the headache was progressive, there were no neurological deficits on exam or any other red flag symptoms present. IV placed. 1 L normal saline ordered. IV Toradol 30 mg, Solu-Medrol 125 mg, Zofran 4 mg, and Benadryl 25 mg ordered. Patient reevaluated and states that her headache is slightly improved but she still cannot fall asleep. She remains neurologically intact, no deficits. Will try 10 mg of Reglan and another 25 mg of Benadryl. On re-evaluation patient sleeping, arouses easily to voice. Discussed discharge with her as she reports improvement in headache and patient is agreeable. Return precautions were discussed such as worsening headache, development of any neurological deficits, or any new or worsening symptoms. Patient's pain was controlled and she was discharged with plan for close follow up with PCP. Differential Diagnosis Differential Diagnosis: Migraine secondary to viral illness, intractable migraine, sinusitis Discharge Plan Discharge Chief Complaint: Headache Clinical Impression: Migraine Patient Disposition: Home, Self-Care Time of Disposition Decision: 22:23 Condition: Good Mode of Transportation: Private Vehicle Prescriptions / Home Meds: No Action albuterol sulfate 90 mcg/actuation HFA aerosol inhaler 2 puff INHALATION Q6H PRN (Reason: shortness of breath or wheezing) nitrofurantoin monohyd/m-cryst 100 mg capsule 100 mg PO Q12H prednisone 20 mg tablet 20 mg PO DAILY Nurtec ODT 75 mg tablet,disintegrating 75 mg PO DAILY PRN (Reason: migraine headache) hydrocortisone 2.5 % cream 1 applic TOPICAL DAILY PRN (Reason: skin irritation) prednisone 10 mg tablet See Rx Instructions .ROUTE .COMPLEX Qty: 15 0RF Rx Instructions: 3 by mouth daily for three days then 2 by mouth daily for three days Print Language: Hebrew Instructions: Migraine Headache (ED) Referrals: DELISA SANDHU [Primary Care Provider, Family Practice] - 1 week Discharge Date/Time: 03/09/25 22:45
[2025-03-09] MEDS: DIPHENHYDRAMINE HCL 50 MG/ML VIAL 25 MG IVP ×2 (20:03→21:11)
[2025-03-09] MEDS: 0.9 % SODIUM CHLORIDE 1,000 ML 1000 ML IV (20:03)
[2025-03-09] MEDS: METHYLPREDNISOLONE SOD SUCC PF 125 MG/2 ML VIAL IVP (20:04)
[2025-03-09] MEDS: KETOROLAC TROMETHAMINE 30 MG/ML VIAL IVP (20:06)
[2025-03-09] MEDS: METOCLOPRAMIDE HCL 10 MG/2 ML VIAL IVP (21:10)
[2025-03-09 21:19] VITALS: BP 131/81; PULSE 80; TEMP 37.2; O2SAT 100
[2025-03-09 22:39] VITALS: BP 91/57; PULSE 87; TEMP 36.8; O2SAT 95
--- NOTE | 2025-03-09 22:46 | PC.NURSE ---
i gave this patient verbal and written discharge orders and this patient voices yes to understanding these. at time of discharge this patient voices no concerns, needs and shows no sign s of distress
== END 2025-03-09 22:45 | disposition home or self-care (01) ==
PROVIDERS: Emergency Provider Internal Medicine; PCP Family Medicine
DX: G43.909 Migraine, unspecified, not intractable, without status migrainosus (principal); N39.0 Urinary tract infection, site not specified
CPT/HCPCS: 96374; 96375; 96376; 99284; J1200; J1885; J2405; J2765; J2919